=== PATIENT | male | born 1965 | race Caucasian/White ===

== ENCOUNTER 2019-12-26 09:10 | Emergency (ER) | payer OTHER, SELFPAY ==
[2019-12-26] VITALS (7 sets, daily range): BP systolic 151–170; BP diastolic 100–138; PULSE 94–127; RESP 14–24; TEMP 36.3; O2SAT 96–98
--- NOTE | ~2019-12-26 | XR_ITS ---
EXAMINATION: XR chest 1V portable DATE: 12/26/2019 10:08 INDICATION: Shortness of breath TECHNIQUE: frontal view of the chest was obtained. COMPARISON: Chest radiograph dated 05/17/2019 FINDINGS: Mild increased perihilar interstitial pattern with a few peripheral Sven B-lines at the right costo phrenic angle consistent with mild pulmonary edema. No focal airspace opacities, pleural effusion or pneumothorax. Cardiomegaly. Moderate degenerative skeletal changes in the spine and at the right rush ulder. IMPRESSION: 1. Likely congestive heart failure with cardiomegaly and mild pulmonary edema. Reviewed, dictated and finalized at location A.
--- NOTE | 2019-12-26 09:19 | ECG_ITS ---
Measurements Intervals [place] Rate: 130 P: [place]: 0 QRS: -34 QRSD: 89 T: 133 QT: 319 QTc: 469 Interpretive Statements ATRIAL FIBRILLATION WITH RAPID VENTRICULAR RESPONSE LEFT AXIS DEVIATION BORDERLINE R WAVE PROGRESSION, ANTERIOR LEADS BORDERLINE ST-T WAVE ABNORMALITY- LAT/HIGH LAT LEADS ABNORMAL ECG Electronically Signed On 12-26-2019 14:59:34 CDT by Carlos Eduardo Matos D.O.
[2019-12-26] MEDS: carvediloL 25 MG TABLET PO (09:47)
[2019-12-26] MEDS: hydrALAZINE HCL 50 MG TABLET PO (09:47)
[2019-12-26] MEDS: FUROSEMIDE INJ 40 MG/4 ML VIAL IV PUSH (09:47)
[2019-12-26] MEDS: lisinopriL 20 MG TABLET PO (09:47)
[2019-12-26 10:01] LABS: Basophils Absolute Auto 0.1 K/mm3 (0.0-0.1); Basophils Percent Auto 0.5 % (0.2-1.2); Eosinophils Absolute Auto 0.1 K/mm3 (0-0.3); Eosinophils Percent Auto 0.9 % (0-4.4); Hematocrit 48.7 % (42.0-52.0); Hemoglobin 16.1 g/dL (14.0-18.0); Immature Granulocyte Absolute 0.05 K/mm3 (0.00-0.031); Immature Granulocyte Percent A 0.5 % (0-0.5); Lymphocytes Absolute Auto 1.69 K/mm3 (0.9-3.2); Lymphocytes Percent Auto 17.1 % (18.3-44.2); Mean Corpuscular HGB Conc 33.1 g/dl (32-36); Mean Corpuscular Hemoglobin 29.8 pg (26-34); Mean Corpuscular Volume 90.2 fl (80-100); Mean Platelet Volume 10.9 fl (7.4-10.4); Monocytes Absolute Auto 0.8 K/mm3 (0.1-0.6); Neutrophils Absolute Auto 7.2 K/mm3 (1.3-6.7); Platelet Count Result 226 k/mm3 (150-375); Red Cell Distribution Width 13.3 % (11.5-14.5); White Blood Count 9.9 K/mm3 (4.5-10.0)
[2019-12-26 10:09] LABS: INR 1.8; Prothrombin Time 20.3 Seconds (11.1-14.7)
[2019-12-26 10:11] LABS: Alanine Aminotransferase 27 U/L (4-50); Alkaline Phosphatase 109 U/L (38-126); Anion Gap 9 mmol/L (8-16); Aspartate Amino Transferase 27 U/L (17-59); Bilirubin,Total 0.7 mg/dL (0.2-1.3); Blood Urea Nitrogen 19 mg/dL (9-20); Calcium 8.2 mg/dL (8.4-10.2); Carbon Dioxide 26 mmol/L (22-30); Chloride 102 mmol/L (98-107); Estimated CRCL calculation 109 ml/min; Estimated Glomerular Filt Rate > 60; Glucose 235 mg/dL (75-110); Potassium 3.7 mmol/L (3.4-5.0); Sodium 137 mmol/L (137-145)
[2019-12-26 10:23] LABS: NT Pro B Type Natriuretic Pept 3900 PG/ML (5-100); Troponin I 0.017 ng/mL (0.000-0.034)
[2019-12-26 10:28] LABS: Add Urine Microscopic? YES; Appearance Urine Clear (Clear); Bilirubin Urine Negative (Negative); Blood Urine Negative (Negative); Color Urine Yellow (Yellow); Glucose Urine UA 1+ mg/dL (Negative); Ketones Urine Negative (Negative); Leukocyte Esterase Ur Negative LEU/UL (Negative); Mucus Urine Rare /lpf; Nitrate Urine Negative (Negative); Protein Urine 2+ mg/dL (Negative); RBC Urine 0-2 /hpf (0-2); Specific Grav Ur 1.014 (1.001-1.035); Squamous Epithelial Cell Urine Rare /hpf (Few); Urobilinogen Urine Negative mg/dL (<2.0); WBC Urine 0-3 /hpf
--- NOTE | 2019-12-26 10:29 | ED.GENADULT ---
HPI - General Adult General Chief complaint: Shortness of Breath/Dyspnea Stated complaint: SOB Time Seen by Provider: 12/26/19 09:30 Source: patient History of Present Illness HPI narrative: Patient is a 54 y/o male complaining of chronic moderate shortness. He states that his SOB is worse during last few days. Bending over and exertion aggravates his SOB. He denies any cough, chest pain or fever. He states that he has history of heart failure. Related Data Home Medications Medication Instructions Recorded Confirmed Levemir FlexTouch U-100 Insuln 22 unit SUBCUT HS 12/26/19 famotidine 20 mg PO DAILY 12/26/19 fluoxetine 40 mg PO DAILY 12/26/19 furosemide 20 mg PO DAILY 12/26/19 lisinopril 12/26/19 sertraline 100 mg PO DAILY 12/26/19 Allergies Allergy/AdvReac Type Severity Reaction Status Date / Time No Known Allergies Allergy Unknown Verified 12/26/19 09:34 Review of Systems Constitutional: Constitutional: Denies chills, Denies fever(s), Denies headache(s) and Denies weakness Eyes: Eyes: Denies blurry vision ENT: Denies headache(s) and Denies neck pain Cardiovascular: Cardiovascular: Denies chest pain and Reports dyspnea Respiratory: Respiratory: Denies cough and Reports dyspnea Gastrointestinal: Gastrointestinal: Denies abdominal pain, Denies diarrhea, Denies nausea and Denies vomiting Genitourinary: Genitourinary: Denies hematuria and Denies dysuria Musculoskeletal: Musculoskeletal: Denies back pain and Denies neck pain Neurologic: Denies headache(s) and Denies weakness [facility] Past Medical History Medical History Combined systolic and diastolic congestive heart failure Echocardiogram in February 2019 showed a severely reduced left ventricular systolic function with an estimated ejection fraction of 20 to 25% as well as grade 4 diastolic dysfunction. Depression with anxiety Dyslipidemia Essential hypertension Insulin dependent diabetes mellitus Hemoglobin A1c was 9.3 February 27, 2019. Mild pulmonary hypertension Noted on echocardiogram in 03/07/2019. Estimated pulmonary arterial systolic pressure is 41 mmHg. Noncompliance w/medication treatment due to intermit use of medication Nonischemic cardiomyopathy Lexiscan in February 2019 showed no reversible changes and ejection fraction of 32%. Osteoarthritis Paroxysmal atrial fibrillation On long-term anticoagulation with warfarin. Tobacco dependence Surgical History Surgical History No history of previous surgery Family History Family History Grandparent Diabetes mellitus Father Carcinoma of colon Mother Carcinoma of colon Sibling COPD (chronic obstructive pulmonary disease) Heart disease Multiple sclerosis Social History Social History Social History: The patient is single and lives in [place]. 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 He has a tea cup chihuahua named Willard. He designates his mother, Maricel Chand, as his surrogate decision maker and he wishes to be a full code. He has smoked up to a pack of cigarettes per day since age of 13. He intends on quitting May 19, 2019. He drank heavily in the past but has abstained for 18+ years. He has a history of substance abuse long ago. Smoking packs per day: 0.5 Smoking cigarettes per day: 10.0 Years smoked: 35 Smoking pack-years: 17.50 Smoking status: Current every day smoker Tobacco type: cigarettes Alcohol intake: former Substance use: former Substance use type: marijuana, amphetamines, hallucinogens, tranquilizers and sedatives Gender identity (if verbalized by the patient): Male Spiritual care concerns: No Agree to blood products: Yes Exam Const: General: no acute distress and well developed Orientation/consciousness: oriented
[2019-12-26 13:22] LABS: Troponin I 0.021 ng/mL (0.000-0.034)
== END 2019-12-26 13:37 | disposition home or self-care (01) ==
PROVIDERS: Emergency Provider Emergency Medicine
DX: I48.0 Paroxysmal atrial fibrillation (principal); I50.40 Unspecified combined systolic (congestive) and diastolic (congestive) heart failure; F41.8 Other specified anxiety disorders; E78.5 Hyperlipidemia, unspecified; I11.0 Hypertensive heart disease with heart failure; I27.20 Pulmonary hypertension, unspecified; Z79.01 Long term (current) use of anticoagulants; F17.210 Nicotine dependence, cigarettes, uncomplicated; I42.8 Other cardiomyopathies
CPT/HCPCS: 36415; 71045; 80053; 81001; 83880; 84484; 85025; 85610; 85730; 93005; 96374; 99284; A9270; J1940

== ENCOUNTER 2020-01-11 12:18 | Emergency (ER) | payer OTHER, SELFPAY ==
--- NOTE | ~2020-01-11 | XR_ITS ---
EXAMINATION: XR chest 2V EXAM DATE: 01/11/2020 13:45 INDICATION: Shortness of breath. TECHNIQUE: Frontal and lateral projections of the chest obtained and reviewed. Comparison is made to prior examination from 12/26/2019. FINDINGS: Mild cardiomegaly. No confluent consolidation, pneumothorax or pleural effusion suspected. There are no osseous abnormalities identified. IMPRESSION: Mild cardiomegaly. Reviewed, dictated and finalized at location A. IMPRESSION: Mild cardiomegaly.
[2020-01-11 12:31] VITALS: BP 200/124; PULSE 97; RESP 16; TEMP 36.7; O2SAT 98
--- NOTE | 2020-01-11 12:36 | ECG_ITS ---
Measurements Intervals [place] Rate: 92 P: 53 [place]: 172 QRS: -35 QRSD: 90 T: 129 QT: 349 QTc: 433 Interpretive Statements SINUS RHYTHM LEFT AXIS DEVIATION CANNOT RULE OUT SEPTAL INFARCT, AGE INDETERMINATE NONSPECIFIC ST & T-WAVE ABNORMALITY- INF/LAT LEADS BASELINE ARTIFACT- I, III, AVR, AVL, AVF ABNORMAL ECG Electronically Signed On 01-11-2020 13:40:49 CDT by Carlos Eduardo Matos D.O.
[2020-01-11 12:50] VITALS: BP 196/125; PULSE 88; PULSE 89; RESP 18; O2SAT 99
[2020-01-11 13:00] LABS: Basophils Percent Auto 0.4 % (0.2-1.2); Eosinophils Absolute Auto 0.1 K/mm3 (0-0.3); Eosinophils Percent Auto 0.8 % (0-4.4); Hemoglobin 15.1 g/dL (14.0-18.0); Immature Granulocyte Absolute 0.06 K/mm3 (0.00-0.031); Immature Granulocyte Percent A 0.6 % (0-0.5); Lymphocytes Absolute Auto 1.34 K/mm3 (0.9-3.2); Lymphocytes Percent Auto 13.2 % (18.3-44.2); Mean Corpuscular HGB Conc 32.1 g/dl (32-36); Mean Corpuscular Hemoglobin 28.4 pg (26-34); Mean Corpuscular Volume 88.5 fl (80-100); Monocytes Absolute Auto 0.7 K/mm3 (0.1-0.6); Monocytes Percent Auto 6.6 % (2.6-8.5); Neutrophils Absolute Auto 7.9 K/mm3 (1.3-6.7); Neutrophils Percent Auto 78.4 % (45.5-73.1); Platelet Count Result 217 k/mm3 (150-375); Red Blood Count 5.31 M/mm3 (4.6-6.20); Red Cell Distribution Width 13.4 % (11.5-14.5); White Blood Count 10.1 K/mm3 (4.5-10.0)
--- NOTE | 2020-01-11 13:00 | ED.SOB ---
HPI - SOB/Dyspnea General Chief Complaint: Shortness of Breath/Dyspnea Stated Complaint: shortness breath Time Seen by Provider: 01/11/20 12:46 Source: patient Mode of arrival: ambulatory Limitations: no limitations History of Present Illness HPI Narrative: 54 years old white male, morbidly obese, history of congestive heart failure presents with intermittent shortness of breath for the last 3 years, got worse over the last 2-1/2 weeks. With swelling lower extremity mainly on the right. Patient also complaining of intermittent coughing. Patient denies any chills fever, nausea, vomiting, exposure to anybody with known having COVID-19. Currently patient on Coumadin and lisinopril for hypertension. Patient does not take his medication regularly. Did not take his medication this morning. Patient smokes, does not drink, does not use drugs. Related Data Home Medications Medication Instructions Recorded Confirmed Levemir FlexTouch U-100 Insuln 22 unit SUBCUT HS 12/26/19 famotidine 20 mg PO DAILY 12/26/19 furosemide 20 mg PO DAILY 12/26/19 lisinopril 12/26/19 Allergies Allergy/AdvReac Type Severity Reaction Status Date / Time No Known Allergies Allergy Unknown Verified 01/11/20 12:34 Review of Systems Review of Systems: Narrative: CONSTITUTIONAL: Denies fever, chills, or sweats. EYES: Denies visual changes, redness, or discharge. ENT: Denies rhinorrhea, congestion, sore throat, or otalgia. CARDIOVASCULAR: Denies chest pain, palpitations, or edema. RESPIRATORY: Denies cough or dyspnea. GASTROINTESTINAL: Denies abdominal pain, nausea, vomiting, or diarrhea. GENITOURINARY: Denies dysuria or hematuria. SKIN: Denies rash or itching. MUSCULOSKELETAL: Denies back pain, joint pain, or myalgia. NEUROLOGIC: Denies headache, numbness, or weakness. PSYCHIATRIC: Denies anxiety or depression. [facility] Past Medical History Medical History Combined systolic and diastolic congestive heart failure Echocardiogram in February 2019 showed a severely reduced left ventricular systolic function with an estimated ejection fraction of 20 to 25% as well as grade 4 diastolic dysfunction. Depression with anxiety Dyslipidemia Essential hypertension Insulin dependent diabetes mellitus Hemoglobin A1c was 9.3 February 27, 2019. Mild pulmonary hypertension Noted on echocardiogram in 03/07/2019. Estimated pulmonary arterial systolic pressure is 41 mmHg. Noncompliance w/medication treatment due to intermit use of medication Nonischemic cardiomyopathy Lexiscan in February 2019 showed no reversible changes and ejection fraction of 32%. Osteoarthritis Paroxysmal atrial fibrillation On long-term anticoagulation with warfarin. Tobacco dependence Surgical History Surgical History No history of previous surgery Family History Family History Grandparent Diabetes mellitus Father Carcinoma of colon Mother Carcinoma of colon Sibling COPD (chronic obstructive pulmonary disease) Heart disease Multiple sclerosis Social History Social History Social History: The patient is single and lives in [place]. 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 He designates his mother, Maricel Chand, as his surrogate decision maker and he wishes to be a full code. He has smoked up to a pack of cigarettes per day since age of 13. He intends on quitting May 19, 2019. He drank heavily in the past but has abstained for 18+ years. He has a history of substance abuse long ago. Smoking packs per day: 0.5 Smoking cigarettes per day: 10.0 Years smoked: 35 Smoking pack-years: 17.50 Smoking status: Current every day smoker Tobacco type: cigarettes Alcohol intake: former Substance use: former Substance use
[2020-01-11 13:12] LABS: Anion Gap 8 mmol/L (8-16); Blood Urea Nitrogen 12 mg/dL (9-20); Calcium 8.2 mg/dL (8.4-10.2); Carbon Dioxide 23 mmol/L (22-30); Chloride 104 mmol/L (98-107); Estimated CRCL calculation 121 ml/min; Estimated Glomerular Filt Rate > 60; Glucose 330 mg/dL (75-110); Potassium 4.1 mmol/L (3.4-5.0); Sodium 135 mmol/L (137-145)
[2020-01-11] MEDS: FUROSEMIDE INJ 40 MG/4 ML VIAL 60 MG IV PUSH (13:13)
[2020-01-11] MEDS: lisinopriL 10 MG TABLET PO (13:13)
[2020-01-11] MEDS: NITROGLYCERIN OINTMENT 1 INCH DOSE TRANSDERM (13:13)
[2020-01-11 13:21] LABS: NT Pro B Type Natriuretic Pept 4070 PG/ML (5-100)
[2020-01-11 13:24] LABS: Troponin I < 0.012 ng/mL (0.000-0.034)
[2020-01-11 13:27] LABS: Alveolar/Arterial O2 Gradient 35.7 mmHg; Base Excess ABG -0.6 mEq/l (+/-2.0); Fractional Inspired Oxygen 21 %; HCO3 ABG 22.7 mEq/l (22.0-26.0); Modified Allen's Test Pass; Oxygen Saturation ABG 95.5 % (95.0-100.0); Oxyhemoglobin 91.9 % THb (90.0-100.0); PCO2 ABG 33.7 mmHg (35.0-45.0); PO2 ABG 73.7 mmHg (80.0-100.0); PO2 FiO2 Ratio Arterial Blood 3.51 %; Site Drawn RIGHT RADIAL; Total Hemoglobin 15.5 g/dL (12.0-18.0); pH ABG 7.446 (7.350-7.450)
[2020-01-11 13:28] LABS: Device ROOM AIR
[2020-01-11 15:34] VITALS: BP 162/105; PULSE 69; RESP 18; O2SAT 97
== END 2020-01-11 15:35 | disposition home or self-care (01) ==
PROVIDERS: Emergency Medicine; Emergency Provider Emergency Medicine; PCP Physician Assistant
DX: I11.0 Hypertensive heart disease with heart failure (principal); I50.9 Heart failure, unspecified; E66.9 Obesity, unspecified; Z68.38 Body mass index [BMI] 38.0-38.9, adult; F17.210 Nicotine dependence, cigarettes, uncomplicated; E78.5 Hyperlipidemia, unspecified; E11.9 Type 2 diabetes mellitus without complications; Z79.4 Long term (current) use of insulin; M19.90 Unspecified osteoarthritis, unspecified site; I48.91 Unspecified atrial fibrillation; Z79.01 Long term (current) use of anticoagulants; I27.20 Pulmonary hypertension, unspecified
CPT/HCPCS: 36415; 36600; 71046; 80048; 82805; 83880; 84484; 85025; 93005; 96374; 99284; A9270; J1940

== ENCOUNTER 2020-01-30 15:48 | Inpatient (IN) | payer OTHER, SELFPAY ==
[2020-01-30] VITALS (11 sets, daily range): BP systolic 173–205; BP diastolic 102–134; PULSE 85–102; RESP 18–24; TEMP 35.6–37.1; O2SAT 94–98; BMI 38.5
--- NOTE | ~2020-01-30 | XR_ITS ---
EXAMINATION: XR chest 1V portable DATE: 01/30/2020 16:21 INDICATION: Shortness of breath and cough. TECHNIQUE: A single frontal view of the chest was obtained. COMPARISON: Chest 2 views 01/11/2020, chest CT 04/08/2017 FINDINGS: There is no pneumonia, pleural effusion, or pneumothorax. Cardiomegaly is noted. IMPRESSION: 1. Cardiomegaly. Reviewed, dictated and finalized at location A. IMPRESSION: 1. Cardiomegaly.
--- NOTE | ~2020-01-30 | US_ITS ---
EXAMINATION:US venous doppler LE BI INDICATION:Leg edema TECHNIQUE: Multiple grayscale, color flow and Doppler images of the right and left lower extremity de ep venous systems were obtained and reviewed. COMPARISON:Ultrasound dated 05/17/2019 FINDINGS: The common femoral, superficial femoral and popliteal veins demonstrate normal respiratory variation, augmentation and compressibility. Color flow is also seen within the posterior tibial, pe roneal, greater saphenous and profunda veins. IMPRESSION: 1: No lower extremity deep venous thrombosis. Reviewed, dictated and finalized at location B.
--- NOTE | 2020-01-30 15:53 | ECG_ITS ---
Measurements Intervals [place] Rate: 94 P: 51 [place]: 173 QRS: -38 QRSD: 92 T: 124 QT: 348 QTc: 437 Interpretive Statements SINUS RHYTHM LEFT AXIS DEVIATION BORDERLINE R WAVE PROGRESSION, ANTERIOR LEADS BORDERLINE ST-T WAVE ABNORMALITY- HIGH LATERAL LEADS BASELINE ARTIFACT- I, III, AVL, AVF, V4 BORDERLINE ECG Electronically Signed On 01-31-2020 7:03:18 CDT by Carlos Eduardo Matos D.O.
[2020-01-30 16:05] LABS: Basophils Percent Auto 0.4 % (0.2-1.2); Eosinophils Absolute Auto 0.1 K/mm3 (0-0.3); Eosinophils Percent Auto 0.8 % (0-4.4); Hematocrit 48.5 % (42.0-52.0); Hemoglobin 15.5 g/dL (14.0-18.0); Immature Granulocyte Absolute 0.08 K/mm3 (0.00-0.031); Immature Granulocyte Percent A 0.7 % (0-0.5); Lymphocytes Absolute Auto 1.69 K/mm3 (0.9-3.2); Lymphocytes Percent Auto 15.1 % (18.3-44.2); Mean Corpuscular Hemoglobin 28.2 pg (26-34); Mean Corpuscular Volume 88.2 fl (80-100); Mean Platelet Volume 10.5 fl (7.4-10.4); Monocytes Absolute Auto 0.9 K/mm3 (0.1-0.6); Monocytes Percent Auto 8.1 % (2.6-8.5); Neutrophils Absolute Auto 8.4 K/mm3 (1.3-6.7); Neutrophils Percent Auto 74.9 % (45.5-73.1); Platelet Count Result 248 k/mm3 (150-375); Red Cell Distribution Width 14.5 % (11.5-14.5); White Blood Count 11.2 K/mm3 (4.5-10.0)
[2020-01-30 16:16] LABS: Anion Gap 8 mmol/L (8-16); Blood Urea Nitrogen 19 mg/dL (9-20); Calcium 8.6 mg/dL (8.4-10.2); Carbon Dioxide 29 mmol/L (22-30); Chloride 100 mmol/L (98-107); Estimated CRCL calculation 97 ml/min; Estimated Glomerular Filt Rate > 60; Glucose 318 mg/dL (75-110); Potassium 4.5 mmol/L (3.4-5.0); Sodium 137 mmol/L (137-145)
[2020-01-30 16:28] LABS: NT Pro B Type Natriuretic Pept 5380 PG/ML (5-100); Troponin I 0.014 ng/mL (0.000-0.034)
[2020-01-30] MEDS: FUROSEMIDE INJ 40 MG/4 ML VIAL IV PUSH ×2 (16:38→23:06)
--- NOTE | 2020-01-30 16:47 | ED.SOB ---
HPI - SOB/Dyspnea General Chief Complaint: Shortness of Breath/Dyspnea Stated Complaint: sob/leg swelling Time Seen by Provider: 01/30/20 16:02 History of Present Illness HPI Narrative: Patient is a 54-year-old male who presents ER with shortness of breath and edema. Reports shortness of breath is worsening over the last week as well as edema. Has history of CHF and pulmonary hypertension. He has been taking Lasix 20 mg daily however his PCP had him increase the dose last 3 days which has not helped. Has pitting edema up to his lower abdomen. Feels like he is gaining a lot of weight. Denies eating any salty foods. No chest pain or chest pressure. Does have increased discomfort with laying down flat. No fevers or chills or sweats. There is audible rattles when breathing. Related Data Home Medications Medication Instructions Recorded Confirmed Levemir FlexTouch U-100 Insuln 22 unit SUBCUT HS 12/26/19 famotidine 20 mg PO DAILY 12/26/19 furosemide 20 mg PO DAILY 12/26/19 lisinopril 12/26/19 bupropion HCl mg PO 01/30/20 carvedilol 01/30/20 hydralazine 01/30/20 magnesium oxide 01/30/20 sertraline 100 mg PO DAILY 01/30/20 spironolactone 01/30/20 Allergies Allergy/AdvReac Type Severity Reaction Status Date / Time No Known Allergies Allergy Unknown Verified 01/30/20 15:54 Review of Systems Review of Systems: All systems reviewed & are unremarkable except as noted in HPI and below Constitutional: Constitutional: Denies chills, Denies fever(s) and Denies weakness ENT: Denies nasal congestion and Denies sore throat Cardiovascular: Cardiovascular: Denies chest pain, Denies rapid heart rate and Denies radiating jaw, neck or arm pain Respiratory: Respiratory: Reports chest congestion, Reports cough, Reports dyspnea and Denies wheezing Gastrointestinal: Gastrointestinal: Denies abdominal pain, Denies nausea and Denies vomiting Musculoskeletal: Musculoskeletal: Denies arthralgias and Denies joint swelling Comments: Extremity edema PMFSH Social History Social History Social History: The patient is single and lives in [place]. 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 He designates his mother, Maricel Chand, as his surrogate decision maker and he wishes to be a full code. He has smoked up to a pack of cigarettes per day since age of 13. He intends on quitting May 19, 2019. He drank heavily in the past but has abstained for 18+ years. He has a history of substance abuse long ago. Smoking packs per day: 0.5 Smoking cigarettes per day: 10.0 Years smoked: 35 Smoking pack-years: 17.50 Smoking status: Current every day smoker Tobacco type: cigarettes Alcohol intake: former Substance use: former Substance use type: marijuana, amphetamines, hallucinogens, tranquilizers and sedatives Gender identity (if verbalized by the patient): Male Spiritual care concerns: No Agree to blood products: Yes Exam Narrative: Exam Narrative: GENERAL: Well-appearing, obese, and in no acute distress. HEAD: Normocephalic, atraumatic. ENT: Mucous membranes moist. CHEST: Rales throughout. No respiratory distress. HEART: Regular rate and rhythm. Normal peripheral pulses. ABDOMEN: Soft, nontender, nondistended. Pitting edema of the lower abdomen. EXTREMITIES: Normal range of motion. 4+edema. SKIN: Warm, dry, no rash. NEURO: Alert and oriented x3. PSYCH: Normal mood and affect. Course Reevaluation(s) Reevaluation #1: Reweighed patient. She has a 35 pound weight gain since his last visit here. We will plan admission for diuresis. Date: 01/30/20 Time: 16:51 Vital Signs Vital signs: Vital Signs Temperature 97.4 F L 01/30/20 15:50 Pulse Rate 96 01/30/20 15:50 Respiratory Rate 22 H 01/30/20 15:50 Pulse Oximetry 98 01/30/20 15:50 Temperature 98.1 F 01/30/20 17:39 Pulse Rate 102
[2020-01-30] MEDS: NITROGLYCERIN OINTMENT 1 INCH DOSE (17:34)
--- NOTE | 2020-01-30 20:01 | ADMGEN ---
This patient, Rohan Chand, was admitted to IMU Room 209-01 at 1957. Patient/family oriented to hospital policies and general routines including ID bracelet, bed and alarms, visiting hours, pain management, procedures, bathroom and other care routines, personal items, smoking policy, room service/diet, and visiting hours. Valuables list has been completed. Information on how to activate the Rapid Response Team has been discussed. Patient/Family are encouraged to report perceived risks to care and to ask questions if they do not understand what they are told or what they should do.
[2020-01-30] MEDS: ACETAMINOPHEN 325 MG TABLET 650 MG PO (21:51)
--- NOTE | 2020-01-30 22:49 | PM.IMHP ---
H&P: HPI History of Present Illness Date/Time: 01/30/20 22:49 Chief complaint: chf exacerbation, hypertension Narrative: Rohan Chand is a 54 year old male Who stated that he came to the emergency approximately 1 week ago. I see there was a note from 01/11/2020 with the patient came to the ER here and was short of breath and had at that time he noticed that his shortness of breath was getting worse the last 2 and half weeks. 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 The patient was discharged back to home during his December visit he called his primary care doctor and was told to double up on his Lasix. He stated it did not help. The patient stated that his legs are swollen 3 times the normal. He denies having any scrotal edema but his abdomen feels distended. The patient has orthopnea which he has had for years. He has been known to be noncompliant with his medications at times. Patient stated is not that he does not want to take his medications just sometimes he does not taken does not feel like it. He states that for the last couple weeks he has been compliant with his medication however. He also tells me that he is compliant with his diet and he is 111.7 kg. The patient tells me that he has gained a lot of weight any feels that it is just all water weight. The patient stated that his Lasix was only doubled for 3 days and then went back to normal. He has audible wheezes. The patient still continues to smoke. He is diabetic and his blood sugar was in the 300s today. His chest x-ray was read as cardiomegaly. The patient was given IV Lasix in the emergency room as well as nitroglycerin. Now the patient is complaining of a headache he was given Tylenol and he said that did help. date of service 01/30/2020 Review of Systems Review of Systems: All systems reviewed & are unremarkable except as noted in HPI and below Constitutional: Constitutional: Reports as per HPI and Reports no additional constitutional complaints Eyes: Eyes: Reports as per HPI and Reports no additional eye complaints ENT: Reports system reviewed and no additional complaints, except as documented and Reports Normal hearing present Cardiovascular: Cardiovascular: Reports no additional cardiovascular complaints Respiratory: Respiratory: Reports no additional respiratory complaints and Reports no additional respiratory complaints Gastrointestinal: Gastrointestinal: Reports as per HPI and Reports no additional gastrointestinal complaints Musculoskeletal: Musculoskeletal: Reports no additional musculoskeletal complaints Integumentary/Breasts: Skin/Breast: Reports system reviewed and no additional complaints, except as docu and Reports as per HPI Neurologic: Reports system reviewed and no additional complaints, except as documented, Reports as per HPI and Reports Normal hearing present Psychiatric: Psychiatric: Reports no additional psychiatric complaints and Reports as per HPI Endocrine: Endocrine: Reports no additional endocrine complaints Hematologic/Lymphatic: Hematologic/Lymphatic: Reports no additional hematologic/lymphatic complaints Allergic/Immunologic: Allergic/Immunologic: Reports no additional allergic/immunologic complaints [facility] Past Medical History Medical History Combined systolic and diastolic congestive heart failure Echocardiogram in February 2019 showed a severely reduced left ventricular systolic function with an estimated ejection fraction of 20 to 25% as well as grade 4 diastolic dysfunction. Depression with anxiety Dyslipidemia Essential hypertension Insulin dependent diabetes mellitus Hemoglobin A1c was 9.3 February 27, 2019. Mild pulmonary hypertension Noted on echocardiogram in 03/07/2019. Estimated pulmonary arterial systolic pressure is 41 mmHg. Noncompliance w/medication treatment due to intermit use of
[2020-01-30] MEDS: KETOROLAC 30 MG/ML VIAL (*BKC) IV PUSH (23:06)
[2020-01-31] VITALS (16 sets, daily range): BP systolic 148–174; BP diastolic 96–107; PULSE 64–89; RESP 18–22; TEMP 36–36.5; O2SAT 96–100
--- NOTE | 2020-01-31 | ECHO_ITS ---
Patient Info Name: Rohan Chand Age: 54 years : 1965 Gender: Male Ht: 67 in Wt: 246 lbs BSA: 2.35 m2 HR: 68 bpm BP: 148 / 96 mmHg Technical Quality: Good Exam Date: 01/31/2020 8:30 AM Exam Location: [facility] Patient Status: Inpatient Admit Date: 01/30/2020 Staff Ordering Physician: Kary Corrales NP Knitter Helper: Tristan Myers RDCS, RT Attending Provider: Michaela Brothers MD Referring Physician: Antoni MIKE; Exam Type: CA echo doppler color flow Study Info Indications I50.9 - Heart failure, unspecified Complete two-dimensional, color flow and Doppler transthoracic echocardiogram is performed. Summary 1. Complete two-dimensional, color flow and Doppler transthoracic echocardiogram is performed. 2. Left ventricular chamber dimension is mildly enlarged. 3. Left ventricular systolic function is moderately reduced, estimated at 40-45%. 4. There is moderately increased left ventricular wall thickness. 5. The left ventricular diastolic function is grade IV diastolic dysfunction. 6. E/e' 17 is elevated. 7. Global longitudinal strain is abnormal at -9.0%. 8. Left atrial chamber dimension is moderately enlarged. 9. There is mild aortic valve sclerosis. 10. There is mild aortic valve regurgitation. 11. There is mild mitral valve regurgitation. 12. There is moderate tricuspid valve regurgitation. 13. Severe pulmonary hypertension, estimated pulmonary arterial systolic pressure is 61 mmHg. 14. Dilated inferior vena cava with <50% collapse upon inspiration consistent with significantly elevated right atrial pressure, 15 mmHg. Left Ventricle E/e' 17 is elevated. Global longitudinal strain is abnormal at -9.0%. Left ventricular chamber dimension is mildly enlarged. Left ventricular systolic function is moderately reduced, estimated at 40-45%. There is moderately increased left ventricular wall thickness. The left ventricular diastolic function is grade IV diastolic dysfunction. Right Ventricle Right ventricular chamber dimension is normal. Right ventricular systolic function is normal. Left Atria Left atrial chamber dimension is moderately enlarged. Right Atria Right atrial chamber dimension is normal. Aortic Valve The aortic valve is trileaflet. There is mild aortic valve sclerosis. There is no aortic valve stenosis. There is mild aortic valve regurgitation. Pulmonic Valve There is no pulmonic regurgitation. Mitral Valve There is no mitral valve stenosis. There is mild mitral valve regurgitation. Tricuspid Valve There is moderate tricuspid valve regurgitation. Severe pulmonary hypertension, estimated pulmonary arterial systolic pressure is 61 mmHg. Pericardium/Pleural There is no pericardial effusion. Inferior Vena Cava Dilated inferior vena cava with <50% collapse upon inspiration consistent with significantly elevated right atrial pressure, 15 mmHg. Aorta The aortic root size at the sinus of Valsalva is normal. Left Ventricular Outflow Tract Name Value Normal LVOT 2D LVOT Diameter 2.0 cm LVOT Doppler LVOT Peak Gradient 4 mmHg
[2020-01-31 00:23] LABS: INR 4.2; Prothrombin Time 39.9 Seconds (11.1-14.7)
[2020-01-31] MEDS: carvediloL 25 MG TABLET PO ×3 (00:51→21:01)
[2020-01-31 05:26] LABS: INR 4.4; Prothrombin Time 41.4 Seconds (11.1-14.7)
[2020-01-31 08:31] LABS: Glucose Point of Care 293 (65-105)
[2020-01-31] MEDS: buPROPion HCL XL (24 HR) 150 MG TABCR PO (09:18)
[2020-01-31] MEDS: SPIRONOLACTONE 25 MG TABLET PO (09:18)
[2020-01-31] MEDS: hydrALAZINE HCL 50 MG TABLET PO (09:18)
[2020-01-31] MEDS: SERTRALINE HCL 50 MG TABLET 100 MG PO (09:18)
[2020-01-31] MEDS: MAGNESIUM OXIDE 400 MG TABLET PO ×2 (09:18→17:24)
[2020-01-31] MEDS: lisinopriL 20 MG TABLET PO ×2 (09:18→17:24)
[2020-01-31] MEDS: FUROSEMIDE INJ 40 MG/4 ML VIAL IV PUSH ×2 (09:18→21:01)
[2020-01-31] MEDS: FAMOTIDINE 20 MG TABLET PO (09:18)
[2020-01-31] MEDS: INSULIN ASPART (*BKC) 100 UNITS/ML SUB-Q ×3 (09:22→17:24)
[2020-01-31 09:50] LABS: Anion Gap 5 mmol/L (8-16); Blood Urea Nitrogen 18 mg/dL (9-20); Calcium 8.3 mg/dL (8.4-10.2); Carbon Dioxide 33 mmol/L (22-30); Chloride 97 mmol/L (98-107); Estimated CRCL calculation 112 ml/min; Estimated Glomerular Filt Rate > 60; Glucose 281 mg/dL (75-110); Magnesium 1.9 mg/dL (1.6-2.3); Potassium 3.8 mmol/L (3.4-5.0); Sodium 135 mmol/L (137-145)
[2020-01-31 09:52] LABS: Hemoglobin A1C 10.5 % (<5.7)
[2020-01-31 12:35] LABS: Glucose Point of Care 264 (65-105)
[2020-01-31 16:17] LABS: Glucose Point of Care 289 (65-105)
--- NOTE | 2020-01-31 16:59 | PM.CNCAR ---
Assessment and Plan Assessment and plan (1) COPD (chronic obstructive pulmonary disease): Code(s): J44.9 - Chronic obstructive pulmonary disease, unspecified Status: Acute Assessment and Plan: Neb treatments. (2) Essential hypertension: Code(s): I10 - Essential (primary) hypertension Status: Acute Assessment and Plan: High. Increase Hydralazine 50 mg TID, Lisinopril 20 mg BID. (3) Dyslipidemia: Code(s): E78.5 - Hyperlipidemia, unspecified Status: Acute (4) Tobacco dependence: Code(s): F17.200 - Nicotine dependence, unspecified, uncomplicated Status: Acute Assessment and Plan: Counseled regarding smoking cessation. (5) Paroxysmal atrial fibrillation: Code(s): I48.0 - Paroxysmal atrial fibrillation Status: Acute Assessment and Plan: On Warfarin that is supratherapeutic and managed by PCP. Needs redosing. (6) Nonischemic cardiomyopathy: Code(s): I42.8 - Other cardiomyopathies Status: Acute (7) Acute on chronic congestive heart failure: Code(s): I50.9 - Heart failure, unspecified Status: Acute Assessment and Plan: Acute on chronic diastolic heart failure as his systolic function improved to 40-45%. No longer needs Life Vest or ICD. Continue with Lasix 40 mg IV BID. Continue Spironolactone. Upon discharge he will need to make appointment with a bank accountant with [facility]. (8) Hypersomnia: Code(s): G47.10 - Hypersomnia, unspecified Status: Acute Assessment and Plan: Will need outpatient sleep study. History of Present Illness History of Present Illness Consult date/time: 01/31/20 16:59 Reason for consult: CHF. 54 yr old man who is my regular cardiology patient though he has not followed up with in the office due to insurance reasons. He has a history of non-compliance with medication, non-ICM with negative nuclear stress test in Feb 2019 and last echo in Feb 2019 with EF 20-25% and his EF has been that way since at least July 2018, PAF, IDDM, hypertension, dyslipidemia, COPD, smoking, probably PETROS and with cor-pulmonale who presents to ED with shortness of breath, orthopnea, edema and wheezing. States that sob and edema and increased abdominal girth have been getting worse in last couple of weeks. He feels much better now but still has mild sob, orthopnea, edema and some wheezing after receiving IV lasix. States he can probably walk 1 block and then gets MOORE. He admits to smoking 9 cigarrettes per day. He snores, wakes up and has daytime sleepiness. He has not gotten outpatient sleep study. Workup thus far shows INR 4.4 on warfarin and this has been managed by his PCP. Troponin is negative. NTproBNP 5,380. CXR is OK with only cardiomegaly. Venous duplex of legs are negative for DVT bilaterally. EKG shows sinus rhythm with nonspecific ST-T wave abnormalities. Echo today shows EF improved to 40-45%, grade IV diastolic dysfunction (E/e' 17), mod LVH, mild AI/MR, mod TR. Reason For Visit: chf exacerbation, hypertension Review of Systems Review of Systems: All systems reviewed & are unremarkable except as noted in HPI and below Constitutional: Constitutional: Reports as per HPI and Denies chills Cardiovascular: Cardiovascular: Reports as per HPI, Denies chest pain, Reports leg edema, Denies lightheadedness and Denies palpitations Respiratory: Respiratory: Reports as per HPI and Reports dyspnea Gastrointestinal: Gastrointestinal: Reports as per HPI and Denies abdominal pain Genitourinary: Genitourinary: Reports as per HPI and Denies dysuria Musculoskeletal: Musculoskeletal: Reports as per HPI Neurologic: Reports as per HPI and Denies confusion [facility] Past Medical History Medical History (Updated 01/31/20 @ 17:11 by Carlos Eduardo Matos DO) Combined systolic and diastolic congestive heart failure Echocardiogram in February 2019 showed a severely reduced left ve
--- NOTE | 2020-01-31 18:38 | PM.IMPN ---
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 Continue with his Levemir (2) Acute on chronic congestive heart failure: Code(s): I50.9 - Heart failure, unspecified Status: Acute Assessment and Plan: the patient tells me that he is going to start going to a ear nose throat surgeon [facility] because Dr. mcgee does not take his insurance. In the past the patient has not been very compliant with his treatment plan. I did order another echo. Is reported that last echo was in February and that his EF was around 25% With grade 4 diastolic dysfunction and that he tells me he did wear a LifeVest at that time. Patient attempted to double up on his Lasix but that did not appear to work. The patient has 4+ pitting edema to lower extremities as well as his abdomen. The patient is on room air but still continues to complain of orthopnea and exertional dyspnea. We can continue with his Coreg and lisinopril as well. the patient was given nitro patch in the emergency room and is complaining of a headache. 01/31/20 18:38 patient is a 54-year-old male with history severe cardiomyopathy with ejection fraction of 20% he was seen in May of 2019 and seen by ear nose throat surgeon Dr. Mcgee and started the patient on Coreg and lisinopril with instruction must take medication on a regular basis and repeat cardiac echo to reassess cardiomyopathy however patient had not been compliant with his medical treatment and now presents with a complaint shortness of breath swelling of lower extremity and chest pain, patient is being diuresed, repeat cardiac echo, consult ear nose throat surgeon for further recommendation patient is feeling little better compared to when he arrived, patient also has a history of diabetes and his hemoglobin A1c is 10.5 suggesting is uncontrolled. (3) Paroxysmal atrial fibrillation: Code(s): I48.0 - Paroxysmal atrial fibrillation Status: Acute Assessment and Plan: patient is on Coumadin will do daily PT INR and he is on Coreg. He is currently in a sinus rhythm. (4) Dyslipidemia: Code(s): E78.5 - Hyperlipidemia, unspecified Status: Acute Assessment and Plan: We have discussed a heart healthy diet. (5) Essential hypertension: Code(s): I10 - Essential (primary) hypertension Status: Acute Assessment and Plan: He is on Coreg and lisinopril. Continue spironolactone And hydralazine (6) COPD (chronic obstructive pulmonary disease): Code(s): J44.9 - Chronic obstructive pulmonary disease, unspecified Status: Acute Assessment and Plan: I have encouraged the patient to stop smoking. The patient had agreed to stop smoking back in May but still has not quit he said that he is down to half pack a cigarettes a day. I did offer him a p.r.n. inhaler. (7) Depression with anxiety: Code(s): F41.8 - Other specified anxiety disorders Status: Chronic Assessment and Plan: continue with Zoloft and Wellbutrin Subjective Date/time seen: 01/31/20 18:38 patient is a 54-year-old male with history severe cardiomyopathy with ejection fraction of 20% he was seen in May of 2019 and seen by ear nose throat surgeon Dr. Mcgee and started the patient on Coreg and lisinopril with instruction must take medication on a regular basis and repeat cardiac echo to reassess cardiomyopathy however patient had not been compliant with his medical treatment and now presents with a complaint shortness of breath swelling of lower extremity and chest pain, patient is being diuresed, repeat cardiac echo, consult ear nose throat surgeon for further recommendation patient is feeling little better compared to when he arrived, patient also has a history of diabetes and his hemoglobin A1c is 1
[2020-01-31 20:34] LABS: Glucose Point of Care 239 (65-105)
[2020-01-31] MEDS: INSULIN DETEMIR 100 UNITS/ML 27 UNITS SUB-Q (21:02)
[2020-02-01] VITALS (18 sets, daily range): BP systolic 145–165; BP diastolic 57–115; PULSE 58–79; RESP 18–20; TEMP 35.7–36.4; O2SAT 94–98
[2020-02-01 05:04] LABS: INR 3.2; Prothrombin Time 31.9 Seconds (11.1-14.7)
[2020-02-01 05:05] LABS: Anion Gap 6 mmol/L (8-16); Blood Urea Nitrogen 17 mg/dL (9-20); Calcium 8.6 mg/dL (8.4-10.2); Carbon Dioxide 30 mmol/L (22-30); Chloride 102 mmol/L (98-107); Estimated CRCL calculation 111 ml/min; Estimated Glomerular Filt Rate > 60; Glucose 166 mg/dL (75-110); Potassium 3.8 mmol/L (3.4-5.0); Sodium 138 mmol/L (137-145)
--- NOTE | 2020-02-01 08:06 | PM.PNCARD ---
Progress Note: A&P Assessment and Plan (1) Hypersomnia: Code(s): G47.10 - Hypersomnia, unspecified Status: Acute (2) COPD (chronic obstructive pulmonary disease): Code(s): J44.9 - Chronic obstructive pulmonary disease, unspecified Status: Acute (3) Essential hypertension: Code(s): I10 - Essential (primary) hypertension Status: Acute Assessment and Plan: High. Start Amlodipine 5 mg daily. Had increased Hydralazine 50 mg TID and Lisinopril 20 mg BID. On Coreg 25 mg BID and Spironolactone 25 mg daily. Monitor BP. (4) Dyslipidemia: Code(s): E78.5 - Hyperlipidemia, unspecified Status: Acute (5) Tobacco dependence: Code(s): F17.200 - Nicotine dependence, unspecified, uncomplicated Status: Acute Assessment and Plan: Counseled regarding smoking cessation. (6) Paroxysmal atrial fibrillation: Code(s): I48.0 - Paroxysmal atrial fibrillation Status: Acute Assessment and Plan: On Warfarin and currently in sinus rhythm. PCP was managing warfarin dosing. (7) Nonischemic cardiomyopathy: Code(s): I42.8 - Other cardiomyopathies Status: Acute (8) Acute on chronic congestive heart failure: Code(s): I50.9 - Heart failure, unspecified Status: Acute Assessment and Plan: Acute on chronic diastolic heart failure as his systolic function improved to 40-45%. No longer needs Life Vest or ICD. Continue with Lasix 40 mg IV BID. Continue Spironolactone. Upon discharge he will need to make appointment with a studio assistant with [facility] who accepts his [facility] insurance. Subjective Date/time seen: 02/01/20 08:06 Reports breathing much better. Still has edema of legs. No chest pains. Exam Const: General: comfortable and no acute distress Neck: Neck: no JVD Carotids: no bruits Resp: Auscultation: clear to auscultation bilaterally, no crackles, no rales, no rhonchi and no wheezes Cardio: Rate: regular rate Rhythm: regular rhythm Heart sounds: no murmurs GI: Inspection: non-distended Neuro: Speech: normal speech Extrem: Right lower extremity: edema Left lower extremity: edema Other: Moderate edema of both legs and feet. Objective Data Vital Signs Vital Signs: Vital Signs - 24 hr 01/31/20 09:17 01/31/20 10:00 01/31/20 12:00 Temperature 97.6 F Pulse Rate 72 70 64 Respiratory Rate 22 H Blood Pressure 160/97 H Pulse Oximetry 100 01/31/20 14:00 01/31/20 16:00 01/31/20 18:00 Temperature 97.6 F Pulse Rate 64 75 71 Respiratory Rate 20 Blood Pressure 174/107 H Pulse Oximetry 99 01/31/20 20:00 01/31/20 21:01 01/31/20 22:00 Temperature 97.6 F Pulse Rate 77 73 79 Respiratory Rate 18 Blood Pressure 161/102 H Pulse Oximetry 97 01/31/20 23:32 02/01/20 00:00 02/01/20 02:00 Temperature 97.0 F L Pulse Rate 65 62 58 L Respiratory Rate 18 18 Blood Pressure 150/102 H Pulse Oximetry 98 98 02/01/20 04:00 02/01/20 06:00 Temperature 97.5 F L Pulse Rate 69 66 Respiratory Rate 18 Blood Pressure 165/115 H Pulse Oximetry 94 Intake/Output Intake/Output: Intake & Output 01/29/20 01/30/20 01/31/20 02/01/20 23:59 23:59 23:59 23:59 Intake Total 772 940 Output Total 6600 3450 1000 [facility]5828 -2510 -1000 Meds/Results Medications: Active Medications Generic Name Dose Route Start Last Admin Trade Name Freq PRN Reason Stop Dose Admin Acetaminophen 650 mg 01/30/20 17:22 01/30/20 21:51 Tylenol Tablet PO 650 mg Q4H PRN Administration Mild Pain (1-3) or Fever Hydrocodone Bitart/Acetaminophen 1 tab 01/30/20 17:22 [place] 5-325 Mg PO Q4H PRN Pain Rated 4-6 Albuterol 2 puff 01/30/20 22:59 Proventil Hfa INHALATION QIDRT PRN Shortness Of Breath Amlodipine Besylate 5 mg 02/01/20 09:00 Norvasc PO QAM MELISA Bupropion HCl 150 mg 01/31/20 09:00 01/31/20 09:18 Wellbutrin Xl (24 Hr) PO 150 mg DANNIE
[2020-02-01 08:31] LABS: Glucose Point of Care 126 (65-105)
[2020-02-01] MEDS: amLODIPine BESYLATE 5 MG TABLET PO (08:44)
[2020-02-01] MEDS: carvediloL 25 MG TABLET PO ×2 (08:44→20:38)
[2020-02-01] MEDS: buPROPion HCL XL (24 HR) 150 MG TABCR PO (08:44)
[2020-02-01] MEDS: MAGNESIUM OXIDE 400 MG TABLET PO ×2 (08:45→18:23)
[2020-02-01] MEDS: FUROSEMIDE INJ 40 MG/4 ML VIAL IV PUSH ×2 (08:45→20:39)
[2020-02-01] MEDS: hydrALAZINE HCL 50 MG TABLET PO ×3 (08:45→18:23)
[2020-02-01] MEDS: SERTRALINE HCL 50 MG TABLET 100 MG PO (08:45)
[2020-02-01] MEDS: FAMOTIDINE 20 MG TABLET PO (08:45)
[2020-02-01] MEDS: SPIRONOLACTONE 25 MG TABLET PO (08:45)
[2020-02-01] MEDS: lisinopriL 20 MG TABLET PO ×2 (08:45→18:23)
[2020-02-01 11:52] LABS: Glucose Point of Care 206 (65-105)
[2020-02-01] MEDS: INSULIN ASPART (*BKC) 100 UNITS/ML SUB-Q (12:15)
[2020-02-01 17:01] LABS: Glucose Point of Care 139 (65-105)
--- NOTE | 2020-02-01 17:07 | PM.IMPN ---
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 Continue with his Levemir (2) Acute on chronic congestive heart failure: Code(s): I50.9 - Heart failure, unspecified Status: Acute Assessment and Plan: the patient tells me that he is going to start going to a sales agent trading stamps over at [facility] because Dr. mcgee does not take his insurance. In the past the patient has not been very compliant with his treatment plan. I did order another echo. Is reported that last echo was in February and that his EF was around 25% With grade 4 diastolic dysfunction and that he tells me he did wear a LifeVest at that time. Patient attempted to double up on his Lasix but that did not appear to work. The patient has 4+ pitting edema to lower extremities as well as his abdomen. The patient is on room air but still continues to complain of orthopnea and exertional dyspnea. We can continue with his Coreg and lisinopril as well. the patient was given nitro patch in the emergency room and is complaining of a headache. 02/01/20 17:07 patient is a 54-year-old male with history severe cardiomyopathy with ejection fraction of 20% he was seen in May of 2019 and seen by sales agent trading stamps Dr. Mcgee and started the patient on Coreg and lisinopril with instruction must take medication on a regular basis and repeat cardiac echo to reassess cardiomyopathy however patient had not been compliant with his medical treatment and now presents with a complaint shortness of breath swelling of lower extremity and chest pain, patient is being diuresed, Today on 01/[address] Mcgee,repeat cardiac echo, showed improvement in his ejection fraction to 45% compared to 20% on last with as such patient is not require any lifevest or ICD, the sales agent trading stamps like to monitor and diurese the patient 1 more day will reassess him tomorrow and possibly discharge patient also has a history of diabetes and his hemoglobin A1c is 10.5 suggesting is uncontrolled will consult aircraft line assembler for further recommendation (3) Paroxysmal atrial fibrillation: Code(s): I48.0 - Paroxysmal atrial fibrillation Status: Acute Assessment and Plan: patient is on Coumadin will do daily PT INR and he is on Coreg. He is currently in a sinus rhythm. (4) Dyslipidemia: Code(s): E78.5 - Hyperlipidemia, unspecified Status: Acute Assessment and Plan: We have discussed a heart healthy diet. (5) Essential hypertension: Code(s): I10 - Essential (primary) hypertension Status: Acute Assessment and Plan: He is on Coreg and lisinopril. Continue spironolactone And hydralazine (6) COPD (chronic obstructive pulmonary disease): Code(s): J44.9 - Chronic obstructive pulmonary disease, unspecified Status: Acute Assessment and Plan: I have encouraged the patient to stop smoking. The patient had agreed to stop smoking back in May but still has not quit he said that he is down to half pack a cigarettes a day. I did offer him a p.r.n. inhaler. (7) Depression with anxiety: Code(s): F41.8 - Other specified anxiety disorders Status: Chronic Assessment and Plan: continue with Zoloft and Wellbutrin Subjective Date/time seen: 02/01/20 17:07 patient is a 54-year-old male with history severe cardiomyopathy with ejection fraction of 20% he was seen in May of 2019 and seen by sales agent trading stamps Dr. Mcgee and started the patient on Coreg and lisinopril with instruction must take medication on a regular basis and repeat cardiac echo to reassess cardiomyopathy however patient had not been compliant with his medical treatment and now presents with a complaint shortness of breath swelling of lower extremity and angely
[2020-02-01 20:31] LABS: Glucose Point of Care 237 (65-105)
[2020-02-01] MEDS: INSULIN DETEMIR 100 UNITS/ML 27 UNITS SUB-Q (20:40)
[2020-02-02] VITALS (9 sets, daily range): BP systolic 134–136; BP diastolic 74–89; PULSE 59–86; RESP 18–20; TEMP 35.6–35.8; O2SAT 96–99
[2020-02-02 05:01] LABS: INR 1.9; Prothrombin Time 21.5 Seconds (11.1-14.7)
[2020-02-02 05:06] LABS: Anion Gap 7 mmol/L (8-16); Blood Urea Nitrogen 19 mg/dL (9-20); Calcium 8.7 mg/dL (8.4-10.2); Carbon Dioxide 28 mmol/L (22-30); Chloride 101 mmol/L (98-107); Estimated CRCL calculation 109 ml/min; Estimated Glomerular Filt Rate > 60; Glucose 108 mg/dL (75-110); Potassium 3.7 mmol/L (3.4-5.0); Sodium 136 mmol/L (137-145)
[2020-02-02 08:09] LABS: Glucose Point of Care 89 (65-105)
--- NOTE | 2020-02-02 08:15 | PM.PNCARD ---
Progress Note: A&P Assessment and Plan (1) Hypersomnia: Code(s): G47.10 - Hypersomnia, unspecified Status: Acute (2) COPD (chronic obstructive pulmonary disease): Code(s): J44.9 - Chronic obstructive pulmonary disease, unspecified Status: Acute (3) Essential hypertension: Code(s): I10 - Essential (primary) hypertension Status: Acute Assessment and Plan: Improved. On Amlodipine 10 mg daily, Hydralazine 50 mg TID and Lisinopril 20 mg BID. On Coreg 25 mg BID and Spironolactone 25 mg daily. (4) Dyslipidemia: Code(s): E78.5 - Hyperlipidemia, unspecified Status: Acute (5) Tobacco dependence: Code(s): F17.200 - Nicotine dependence, unspecified, uncomplicated Status: Acute Assessment and Plan: Counseled regarding smoking cessation. (6) Paroxysmal atrial fibrillation: Code(s): I48.0 - Paroxysmal atrial fibrillation Status: Acute Assessment and Plan: On Warfarin and currently in sinus rhythm. PCP was managing warfarin dosing. Restart warfarin as INR 1.9 today probably at lower than home dose since he came in with INR 4.4. Advise to check INR regularly with PCP. (7) Nonischemic cardiomyopathy: Code(s): I42.8 - Other cardiomyopathies Status: Acute (8) Acute on chronic congestive heart failure: Code(s): I50.9 - Heart failure, unspecified Status: Acute Assessment and Plan: Resolved. Acute on chronic diastolic heart failure as his systolic function improved to 40-45%. No longer needs Life Vest or ICD. Change Lasix 40 mg PO BID after AM IV dose. Continue Spironolactone. May discharge home from cardiology standpoint. Upon discharge he will need to make appointment with a counseling case manager with [facility] who accepts his [employer] insurance. He will need outpatient sleep study. Subjective Date/time seen: 02/02/20 08:15 Denies chest pain or sob. Pedal edema. Exam Const: General: comfortable and no acute distress Neck: Neck: no JVD Carotids: no bruits Resp: Auscultation: no crackles, no rales, no rhonchi and wheezes (Slight left lung inspiratory wheeze) Cardio: Rate: regular rate Rhythm: regular rhythm Heart sounds: no murmurs GI: Inspection: non-distended Neuro: Speech: normal speech Extrem: Right lower extremity: edema Left lower extremity: edema Other: Moderate pedal edema bilaterally. Objective Data Vital Signs Vital Signs: Vital Signs - 24 hr 02/01/20 08:44 02/01/20 10:00 02/01/20 12:00 Temperature Pulse Rate 79 68 58 L Respiratory Rate Blood Pressure Pulse Oximetry 02/01/20 12:40 02/01/20 14:00 02/01/20 16:00 Temperature 96.3 F L 96.6 F L Pulse Rate 65 62 69 Respiratory Rate 20 20 Blood Pressure 147/90 H 147/57 H Pulse Oximetry 98 98 02/01/20 18:00 02/01/20 19:42 02/01/20 20:00 Temperature 96.5 F L Pulse Rate 68 69 74 Respiratory Rate 18 Blood Pressure 146/94 H Pulse Oximetry 98 02/01/20 20:38 02/01/20 22:00 02/01/20 23:52 Temperature 96.6 F L Pulse Rate 68 64 66 Respiratory Rate 18 Blood Pressure 154/99 H Pulse Oximetry 98 02/02/20 00:00 02/02/20 01:55 02/02/20 04:00 Temperature Pulse Rate 72 61 59 L Respiratory Rate Blood Pressure Pulse Oximetry 02/02/20 04:29 02/02/20 06:00 02/02/20 08:11 Temperature 96.5 F L 96.1 F L Pulse Rate 61 59 L 64 Respiratory Rate 18 20 Blood Pressure 136/89 134/74 Pulse Oximetry 96 99 Intake/Output Intake/Output: Intake & Output 01/30/20 01/31/20 02/01/20 02/02/20 23:59 23:59 23:59 23:59 Intake Total 502 175 2152 250 Output Total 5258 3106 9410 [id number] -2510 -1268 250 Meds/Results Medications: Active Medications Generic Name Dose Route Start Last Admin Trade Name Freq PRN Reason Stop Dose Admin Acetaminophen 650 mg 01/30/20 17:22 01/30/20 21:51 Tylenol Tablet PO 650 mg Q4H PRN Administration Mild Pain (1-3) or Fever Hydroco
[2020-02-02] MEDS: FUROSEMIDE INJ 40 MG/4 ML VIAL IV PUSH (09:25)
[2020-02-02] MEDS: amLODIPine BESYLATE 5 MG TABLET 10 MG PO (09:25)
[2020-02-02] MEDS: hydrALAZINE HCL 50 MG TABLET PO ×2 (09:25→11:31)
[2020-02-02] MEDS: carvediloL 25 MG TABLET PO (09:25)
[2020-02-02] MEDS: buPROPion HCL XL (24 HR) 150 MG TABCR PO (09:25)
[2020-02-02] MEDS: FAMOTIDINE 20 MG TABLET PO (09:25)
[2020-02-02] MEDS: SPIRONOLACTONE 25 MG TABLET PO (09:26)
[2020-02-02] MEDS: SERTRALINE HCL 50 MG TABLET 100 MG PO (09:26)
[2020-02-02] MEDS: MAGNESIUM OXIDE 400 MG TABLET PO (09:26)
[2020-02-02] MEDS: lisinopriL 20 MG TABLET PO (09:26)
--- NOTE | 2020-02-02 10:14 | PM.DS ---
DS: Admitting Diagnosis Admitting Diagnosis Admitting Diagnosis: chf exacerbation, hypertension DS: Discharge Diagnosis Discharge Diagnosis (1) Insulin dependent diabetes mellitus: Code(s): E11.9 - Type 2 diabetes mellitus without complications; Z79.4 - manager terminal (current) use of insulin Status: Acute Assessment and Plan: Accu-Cheks AC and HS. Continue with his Levemir (2) Acute on chronic congestive heart failure: Code(s): I50.9 - Heart failure, unspecified Status: Acute Assessment and Plan: the patient tells me that he is going to start going to a digital community manager over at [facility] because Dr. mcgee does not take his insurance. In the past the patient has not been very compliant with his treatment plan. I did order another echo. Is reported that last echo was in February and that his EF was around 25% With grade 4 diastolic dysfunction and that he tells me he did wear a LifeVest at that time. Patient attempted to double up on his Lasix but that did not appear to work. The patient has 4+ pitting edema to lower extremities as well as his abdomen. The patient is on room air but still continues to complain of orthopnea and exertional dyspnea. We can continue with his Coreg and lisinopril as well. the patient was given nitro patch in the emergency room and is complaining of a headache. 02/01/20 17:07 patient is a 54-year-old male with history severe cardiomyopathy with ejection fraction of 20% he was seen in May of 2019 and seen by digital community manager Dr. Mcgee and started the patient on Coreg and lisinopril with instruction must take medication on a regular basis and repeat cardiac echo to reassess cardiomyopathy however patient had not been compliant with his medical treatment and now presents with a complaint shortness of breath swelling of lower extremity and chest pain, patient is being diuresed, Today on 01/[address] Mcgee,repeat cardiac echo, showed improvement in his ejection fraction to 45% compared to 20% on last with as such patient is not require any lifevest or ICD, the digital community manager like to monitor and diurese the patient 1 more day will reassess him tomorrow and possibly discharge patient also has a history of diabetes and his hemoglobin A1c is 10.5 suggesting is uncontrolled will consult certified adaptive physical educator for further recommendation (3) Paroxysmal atrial fibrillation: Code(s): I48.0 - Paroxysmal atrial fibrillation Status: Acute Assessment and Plan: patient is on Coumadin will do daily PT INR and he is on Coreg. He is currently in a sinus rhythm. (4) Dyslipidemia: Code(s): E78.5 - Hyperlipidemia, unspecified Status: Acute Assessment and Plan: We have discussed a heart healthy diet. (5) Essential hypertension: Code(s): I10 - Essential (primary) hypertension Status: Acute Assessment and Plan: He is on Coreg and lisinopril. Continue spironolactone And hydralazine (6) COPD (chronic obstructive pulmonary disease): Code(s): J44.9 - Chronic obstructive pulmonary disease, unspecified Status: Acute Assessment and Plan: I have encouraged the patient to stop smoking. The patient had agreed to stop smoking back in May but still has not quit he said that he is down to half pack a cigarettes a day. I did offer him a p.r.n. inhaler. (7) Depression with anxiety: Code(s): F41.8 - Other specified anxiety disorders Status: Chronic Assessment and Plan: continue with Zoloft and Wellbutrin DS: Summary Hospital Course Reason for hospitalization: Chief complaint: chf exacerbation, hypertension Narrative: Rohan Chand is a 54 year old male Who stated that he came to the emergency approximately 1 week ago. I see there was a note from 01/11/2020 with the patient came to the ER here and was short of breath and had at that time he noticed that his shortness of breath was getting worse the last
== END 2020-02-02 11:38 | disposition home or self-care (01) | DRG 194 ==
LOC: ANHED 18:09 → ANHIMU 19:31
PROVIDERS: Nurse Practitioner; Admitting Provider Family Medicine; Emergency Provider Emergency Medicine; PCP Physician Assistant; Visit Provider Family Medicine
DX: I11.0 Hypertensive heart disease with heart failure (principal); I50.33 Acute on chronic diastolic (congestive) heart failure; I27.20 Pulmonary hypertension, unspecified; I42.8 Other cardiomyopathies; I48.0 Paroxysmal atrial fibrillation; E11.9 Type 2 diabetes mellitus without complications; J44.9 Chronic obstructive pulmonary disease, unspecified; E78.5 Hyperlipidemia, unspecified; F41.8 Other specified anxiety disorders; F17.210 Nicotine dependence, cigarettes, uncomplicated; G47.10 Hypersomnia, unspecified; Z79.01 Long term (current) use of anticoagulants; Z79.4 Long term (current) use of insulin; Z79.899 Other long term (current) drug therapy
CPT/HCPCS: 36415; 71045; 80048; 83036; 83735; 83880; 84484; 85025; 85610; 93005; 93306; 93970; 96374; 96375; 96376; 99285; A9270; G0378; G0379; J1815; J1885; J1940

== ENCOUNTER 2020-08-09 09:10 | Inpatient (IN) | payer OTHER, SELFPAY ==
[2020-08-09] VITALS (25 sets, daily range): BP systolic 133–169; BP diastolic 78–131; PULSE 98–129; RESP 14–26; TEMP 35.8–36.7; O2SAT 95–99; BMI 43.2
--- NOTE | ~2020-08-09 | XR_ITS ---
EXAMINATION: XR chest 2V 08/09/2020 09:36 INDICATION: History of CHF. Shortness of breath. PROCEDURE: AP and lateral views of the chest COMPARISON: Comparison to multiple prior studies sequentially, with oldest reviewed study dated 05/2019. FINDINGS: The lungs are clear. There is cardiomegaly. There is diffuse idiopathic skeletal hyperostos is (DISH) of the thoracic spine. There are no pleural effusions. There is no pneumothorax suspected . IMPRESSION: 1: NO ACUTE CARDIOPULMONARY DISEASE. Reviewed, dictated and finalized at location A.
--- NOTE | ~2020-08-09 | CT_ITS ---
EXAMINATION: CTA chest PE protocol DATE: 08/09/2020 10:19 INDICATION: Shortness of breath TECHNIQUE: Computed tomography (CT) pulmonary angiogram of the chest was performed with 100 mL Omnipa que-350 intravenous contrast. Additional 3D reconstructions utilizing coronal maximum intensity proje ction (MIP) were performed. Automated exposure control and iterative reconstruction technique were em ployed. The dose-length product was 977.49 mGy-cm. COMPARISON: CT studies dated 04/08/2017, 07/21/2015 and 04/29/2010 FINDINGS: Excellent contrast opacification of the pulmonary arteries. There is moderate streak artifact from de nse contrast in the superior vena cava and right atrium. Animal scattered respiratory motion artifact which does not significantly limit evaluation. No pulmonary embolism. Small dependently layering rig ht pleural effusion. No pneumonia, pulmonary edema or left pleural effusion. A few bilateral small sc attered calcified pulmonary nodules consistent with old granulomatous disease. Mild cardiomegaly. The re is reflux of contrast into the inferior vena cava and hepatic veins consistent with tricuspid regu rgitation. Thoracic aorta is normal in caliber. No significant change in chronic likely reactive medi astinal lymphadenopathy. 2 cm low-density left adrenal adenoma. No significant interval change in a 1.9 cm soft tissue density nodule along the tortuous and atherosclerotic splenic artery which could represent an enlarged gastr ohepatic lymph node or a splenic artery aneurysm. Also without significant interval change or multipl e additional enlarged upper abdominal lymph nodes in the gastrohepatic, peripancreatic and periportal regions. There is approximately 5.5 cm mass at the cephalad aspect of the spleen which is better isak reciated on the CT from 04/29/2010 which given the long interval stability is most certainly benign s uch as a hemangioma. There is a new region of scarring with focal volume loss at the central aspect o f the spleen which is likely sequela of prior trauma or infarct. Small amount of perihepatic ascites. There are bridging osteophytes at multiple levels in the thoracic spine, consistent with diffuse idi opathic skeletal hyperostosis (DISH). IMPRESSION: 1. No pulmonary embolism. 2. Small right pleural effusion. 3. Mild cardiomegaly with likely tricuspid regurgitation. 4. Stable appearance since 2015 of likely chronic reactive mediastinal and upper abdominal lymphadeno karan. 5. 5.5 cm chronic mass in the spleen which measure approximately 4.5 cm on study dated 04/29/2010 whi ch given the interval lapse time is almost certainly benign most likely a hemangioma. 6. No change since 04/08/2017 in a 2 cm nodule along the splenic artery which could represent either a reactive gastrohepatic lymph node or splenic artery aneurysm. 7. Small amount of perihepatic ascites. Reviewed, dictated and finalized at location A. IMPRESSION: 1. No pulmonary embolism. 2. Small right pleural effusion. 3. Mild cardiomegaly with likely tricuspid regurgitation. 4. Stable appearance since 2015 of likely chronic reactive mediastinal and uppe r abdominal lymphadenopathy. 5. 5.5 cm chronic mass in the spleen which measure approximately 4.5 cm on stud y dated 04/29/2010 which given the interval lapse time is almost certainly dov gn most likely a hemangioma. 6. No change since 04/08/2017 in a 2 cm nodule along the splenic artery which c ould represent either a reactive gastrohepatic lymph node or splenic artery ane urysm. 7. Small amount of perihepatic ascites.
--- NOTE | 2020-08-09 09:18 | ECG_ITS ---
Measurements Intervals [place] Rate: 130 P: NH: 0 QRS: -30 QRSD: 97 T: 152 QT: 309 QTc: 455 Interpretive Statements ATRIAL FIBRILLATION WITH RAPID VENTRICULAR RESPONSE MISSING LEAD II LEFT AXIS DEVIATION BORDERLINE R WAVE PROGRESSION, ANTERIOR LEADS NONSPECIFIC ST & T-WAVE ABNORMALITY- LAT/HIGH LAT LEADS ABNORMAL ECG Electronically Signed On 08-09-2020 11:53:35 CDT by Carlos Eduardo Matos D.O.
[2020-08-09 09:29] LABS: Basophils Absolute Auto 0.1 K/mm3 (0.0-0.1); Basophils Percent Auto 0.6 % (0.2-1.2); Eosinophils Absolute Auto 0.1 K/mm3 (0-0.3); Eosinophils Percent Auto 0.9 % (0-4.4); Hematocrit 51.6 % (42.0-52.0); Immature Granulocyte Absolute 0.06 K/mm3 (0.00-0.031); Immature Granulocyte Percent A 0.6 % (0-0.5); Lymphocytes Absolute Auto 1.96 K/mm3 (0.9-3.2); Lymphocytes Percent Auto 19.4 % (18.3-44.2); Mean Corpuscular HGB Conc 32.9 g/dl (32-36); Mean Corpuscular Hemoglobin 29.7 pg (26-34); Mean Corpuscular Volume 90.1 fl (80-100); Mean Platelet Volume 9.7 fl (7.4-10.4); Monocytes Absolute Auto 0.9 K/mm3 (0.1-0.6); Monocytes Percent Auto 9.1 % (2.6-8.5); Neutrophils Percent Auto 69.4 % (45.5-73.1); Platelet Count Result 190 k/mm3 (150-375); Red Blood Count 5.73 M/mm3 (4.6-6.20); Red Cell Distribution Width 13.3 % (11.5-14.5); White Blood Count 10.1 K/mm3 (4.5-10.0)
[2020-08-09 09:38] LABS: INR 1.1; Partial Thromboplastin Time 27.5 SECONDS (22.3-36.8); Prothrombin Time 14.6 Seconds (11.1-14.7)
--- NOTE | 2020-08-09 09:39 | ED.GENADULT ---
HPI - General Adult General Chief complaint: Shortness of Breath/Dyspnea <Kenyon Barragan PA-C - Last Filed: 08/09/20 11:30> Stated complaint: SOB <Kenyon Barragan PA-C - Last Filed: 08/09/20 11:30> Time Seen by Provider: 08/09/20 09:12 <Kenyon Barragan PA-C - Last Filed: 08/09/20 11:30> History of Present Illness HPI narrative: Patient is a 55-year-old male history of CHF, A. fib, COPD who comes to the emergency room today complaining of worsening of his chronic shortness of breath. Reports that he has gained about 10 pounds in the last 2 weeks. Reporting dyspnea on exertion primarily. Feeling like his legs are more swollen than normal and feeling like his abdomen is swollen. Feeling like he is wheezing, he is still smoking. Denies orthopnea. Denies any fevers or cough. Notes that about a week ago his primary care physician adjusted his home meds and discontinued several of his medicines including his Coreg. Also notes he is not on anticoagulant at this time because he cannot afford it. Did not take his morning medicines other than his insulin. Admits to medication compliance otherwise. Does not have a marketing production coordinator. Patient lives by himself. <ORIANA Anders Last Filed: 08/09/20 11:30> Related Data Home medications: Home Medications Medication Instructions Recorded Confirmed Levemir FlexTouch U-100 Insuln 27 unit SUBCUT HS 12/26/19 01/30/20 famotidine 20 mg PO DAILY 12/26/19 01/30/20 bupropion HCl 150 mg PO DAILY 01/30/20 01/30/20 carvedilol 25 mg PO BID 01/30/20 01/30/20 magnesium oxide 400 mg PO BID 01/30/20 01/30/20 sertraline 100 mg PO DAILY 01/30/20 01/30/20 spironolactone 25 mg PO DAILY 01/30/20 01/30/20 <ORIANA Anders Last Filed: 08/09/20 11:30> Allergies/adverse reactions: Allergies Allergy/AdvReac Type Severity Reaction Status Date / Time No Known Allergies Allergy Unknown Verified 08/09/20 09:22 <Kenyon Barragan PA-C - Last Filed: 08/09/20 11:30> Review of Systems Review of Systems: All systems reviewed & are unremarkable except as noted in HPI and below <Kenyon Barragan PA-C - Last Filed: 08/09/20 11:30> [facility] Past Medical History Medical History: Medical History (Updated 01/31/20 @ 17:11 by Carlos Eduardo Matos DO) Combined systolic and diastolic congestive heart failure Echocardiogram in February 2019 showed a severely reduced left ventricular systolic function with an estimated ejection fraction of 20 to 25% as well as grade 4 diastolic dysfunction. Depression with anxiety Dyslipidemia Essential hypertension Insulin dependent diabetes mellitus Hemoglobin A1c was 9.3 February 27, 2019. Mild pulmonary hypertension Noted on echocardiogram in 03/07/2019. Estimated pulmonary arterial systolic pressure is 41 mmHg. Noncompliance w/medication treatment due to intermit use of medication Nonischemic cardiomyopathy Lexiscan in February 2019 showed no reversible changes and ejection fraction of 32%. Osteoarthritis Paroxysmal atrial fibrillation On long-term anticoagulation with warfarin. Tobacco dependence <Kenyon Barragan PA-C - Last Filed: 08/09/20 11:30> Surgical History Surgical History: Surgical History No history of previous surgery <Kenyon Barragan PA-C - Last Filed: 08/09/20 11:30> Family History Family History: Family History Grandparent Diabetes mellitus Father Carcinoma of colon Mother Carcinoma of colon Sibling COPD (chronic obstructive pulmonary disease) Heart disease Multiple sclerosis <Kenyon Barragan PA-C - Last Filed: 08/09/20 11:30> Social History Social History: Social History (Updated 01/30/20 @ 23:00 by Kary Corrales NP) Social History: The patient is single and lives in [place]. 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
[2020-08-09 09:40] LABS: Anion Gap 7 mmol/L (8-16); Blood Urea Nitrogen 17 mg/dL (9-20); Calcium 8.9 mg/dL (8.4-10.2); Carbon Dioxide 27 mmol/L (22-30); Chloride 103 mmol/L (98-107); Estimated CRCL calculation 120 ml/min; Estimated Glomerular Filt Rate > 60; Glucose 260 mg/dL (75-110); Potassium 4.2 mmol/L (3.4-5.0); Sodium 137 mmol/L (137-145)
[2020-08-09 09:52] LABS: NT Pro B Type Natriuretic Pept 2830 PG/ML (5-100); Troponin I 0.023 ng/mL (0.000-0.034)
[2020-08-09] MEDS: dilTIAZem HCl INJ 25 MG/5 ML VIAL 10 MG IV PUSH (10:02)
--- NOTE | 2020-08-09 12:14 | PM.CNCAR ---
Assessment and Plan Assessment and plan (1) Essential hypertension: Code(s): I10 - Essential (primary) hypertension Status: Acute Assessment and Plan: Continue to monitor. (2) Dyslipidemia: Code(s): E78.5 - Hyperlipidemia, unspecified Status: Acute (3) Tobacco dependence: Code(s): F17.200 - Nicotine dependence, unspecified, uncomplicated Status: Acute Assessment and Plan: Counseled regarding smoking cessation. (4) Paroxysmal atrial fibrillation: Code(s): I48.0 - Paroxysmal atrial fibrillation Status: Acute Assessment and Plan: On Diltiazem drip. Resume Coreg 12.5 mg BID for rate control and BP control. Resume warfarin for anticoagulation. (5) Nonischemic cardiomyopathy: Code(s): I42.8 - Other cardiomyopathies Status: Acute Assessment and Plan: Resume Coreg and Lisinopril. Lasix 40 mg IV daily. Continue Spironolactone 25 mg daily. (6) Noncompliance w/medication treatment due to intermit use of medication: Code(s): Z91.14 - Patient's other noncompliance with medication regimen Status: Acute (7) Hypersomnia: Code(s): G47.10 - Hypersomnia, unspecified Status: Acute Assessment and Plan: Will need outpatient sleep study. (8) Obesity: Code(s): E66.9 - Obesity, unspecified Status: Acute History of Present Illness History of Present Illness Consult date/time: 08/09/20 12:14 Reason for consult: Atrial fib with RVR. 55 yr old man presents to ER for MOORE. who I saw last in hospital in Jan 2020 but cannot follow up with me as he has [employer] insurance which we do not accept. He has a history of non-compliance with medication, non-ICM with negative nuclear stress test in Feb 2019 and last echo in Jan 2020 with EF 40-45% which improved from 20-25% previous to that, PAF, IDDM, hypertension, dyslipidemia, COPD, smoking, probably PETROS and with cor-pulmonale. I am seeing him in ED. He reports he got more shortness of breath in last 2 months, orthopnea, edema and wheezing. States that sob and edema and increased abdominal girth have been getting worse in last couple of weeks. He admits to smoking 3 cigarettes per day down from 1 ppd. He snores, wakes up and has daytime sleepiness. He has not gotten outpatient sleep study. He only takes insulin, Spironolactone. He stopped taking Coreg, Lasix, warfarin. Reason For Visit: SOB Review of Systems Review of Systems: All systems reviewed & are unremarkable except as noted in HPI and below Constitutional: Constitutional: Reports as per HPI, Denies chills and Denies fever(s) Cardiovascular: Cardiovascular: Reports as per HPI, Denies chest pain, Reports irregular heart rhythm and Reports leg edema Respiratory: Respiratory: Reports as per HPI, Reports dyspnea and Reports dyspnea on exertion Gastrointestinal: Gastrointestinal: Reports as per HPI, Denies abdominal pain and Reports bloating Genitourinary: Genitourinary: Reports as per HPI and Denies dysuria Musculoskeletal: Musculoskeletal: Reports as per HPI Neurologic: Reports as per HPI, Denies dizziness and Denies syncope [facility] Past Medical History Medical History (Updated 08/09/20 @ 12:22 by Carlos Eduardo Matos DO) Combined systolic and diastolic congestive heart failure Echocardiogram in February 2019 showed a severely reduced left ventricular systolic function with an estimated ejection fraction of 20 to 25% as well as grade 4 diastolic dysfunction. Depression with anxiety Dyslipidemia Essential hypertension Insulin dependent diabetes mellitus Hemoglobin A1c was 9.3 February 27, 2019. Mild pulmonary hypertension Noted on echocardiogram in 03/07/2019. Estimated pulmonary arterial systolic pressure is 41 mmHg. Noncompliance w/medication treatment due to intermit use of medication Nonischemic cardiomyopathy Lexiscan in February 2019 showed no reversible changes and ejection fraction of 32%. Osteoarthritis Paro
[2020-08-09] MEDS: HEPARIN SODIUM 5,000 UNITS/ML VIAL 7500 UNITS IV PUSH (12:45)
[2020-08-09] MEDS: HEPARIN SOD/D5W 100 UNITS/ML 25,000 UNITS/250 ML BAG 15 UNITS IV CONT (12:46)
--- NOTE | 2020-08-09 13:44 | ADMGEN ---
This patient, Rohan Chand, was admitted to IMU Room 200-01. Patient/family oriented to hospital policies and general routines including ID bracelet, bed and alarms, visiting hours, pain management, procedures, bathroom and other care routines, personal items, smoking policy, room service/diet, and visiting hours. Information on how to activate the Rapid Response Team has been discussed. Patient/Family are encouraged to report perceived risks to care and to ask questions if they do not understand what they are told or what they should do.
--- NOTE | 2020-08-09 14:15 | PM.IMHP ---
H&P: HPI History of Present Illness Date/Time: 08/09/20 14:15 Chief Complaint: Shortness of breath. Narrative: This a 55-year-old male smoker with history of noncompliance, nonischemic cardiomyopathy with improved ejection fraction, paroxysmal atrial fibrillation, insulin-dependent type 2 diabetes mellitus, hypertension who presented to the emergency department earlier today for evaluation of shortness of breath. He has not been compliant with his medications and stop taking several of them including carvedilol, warfarin, and possibly another because they make him tired. He states compliance with his insulin, however. In any regard, he reports progressive dyspnea on lesser and lesser exertion over the past couple of months in addition to orthopnea, wheezing, and increasing lower extremity edema. He has had a mild cough but is nonproductive. He continues to smoke but has cut back significantly, now down to maybe 3 cigarettes a day. He denies fever, chills, sweats, chest pain, pleuritic pain, nausea, vomiting, and sweats. Review of Systems Review of Systems: Narrative: Twelve systems were reviewed with pertinent positives and negatives as per HPI. No fever, chills, or sweats. No recent cold or flu symptoms. Denies exposure to those positive for COVID-19. No known history of sleep apnea. He does snore but denies waking up gasping for air. He also denies daytime somnolence to me but reported to another physician that he does get quite sleepy during the day. He states compliance with his insulin, but notes an isolated high reading of 387 about 3 weeks ago. It has been more steady around 200 for the last couple of weeks. No blurry vision, polydipsia, or polyuria. Except as documented, all other systems were reviewed and are negative. [facility] Past Medical History Medical History Chronic obstructive pulmonary disease Combined systolic and diastolic congestive heart failure Echocardiogram in 01/2020 with improved EF of 40 to 45%, grade 4 diastolic dysfunction, and severe pulmonary hypertension. Depression with anxiety Dyslipidemia Essential hypertension Insulin dependent diabetes mellitus Hemoglobin A1c was 10.5 in 01/2020. Noncompliance w/medication treatment due to intermit use of medication Nonischemic cardiomyopathy Lexiscan in February 2019 showed no reversible changes and ejection fraction of 32%. Osteoarthritis Paroxysmal atrial fibrillation On long-term anticoagulation with warfarin. Severe pulmonary hypertension Echocardiogram in 01/2020 showed severe pulmonary hypertension with an estimated pulmonary arterial systolic pressure of 61 mmHg. Tobacco dependence Surgical History Surgical History No history of previous surgery Family History Family History Grandparent Diabetes mellitus Father Carcinoma of colon Mother Carcinoma of colon Sibling COPD (chronic obstructive pulmonary disease) Heart disease Multiple sclerosis Social History Social History (Updated 08/09/20 @ 14:29 by Pratibha Wells PA-C) Social History: The patient is single and lives in [place] with his tea cup marlena named Willard. He is and has 2 children, son and daughter, but unfortunately they are estranged. 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 He designates his sister, Kavita Gleason, as his surrogate decision maker and he wishes to be a full code. He has smoked up to a pack of cigarettes per day since age of 13. The patient is down to half a pack a cigarettes a day. He drank heavily in the past but has abstained for 18+ years. History of substance abuse long ago. Spiritual care concerns: No Agree to blood products: Yes Meds Home Medications and Allergies Home Medications Medication Instructions Recorded Confirmed Type carvedilol 25 mg PO Q12
[2020-08-09 17:07] LABS: Hemoglobin A1C 12.1 % (<5.7)
[2020-08-09 17:59] LABS: Glucose Point of Care 213 (65-105)
[2020-08-09 19:01] LABS: Partial Thromboplastin Time 85.5 SECONDS (22.3-36.8)
[2020-08-09] MEDS: INSULIN ASPART (*BKC) 100 UNITS/ML SUB-Q (19:02)
[2020-08-09 20:39] LABS: Glucose Point of Care 249 (65-105)
[2020-08-09] MEDS: WARFARIN (*PBKC) 5 MG TABLET PO (20:57)
[2020-08-09] MEDS: carvediloL 25 MG TABLET PO (20:58)
[2020-08-09] MEDS: FUROSEMIDE 20 MG TABLET PO (20:58)
[2020-08-09] MEDS: INSULIN GLARGINE (*BKC) 100 UNITS/ML 25 UNITS SUB-Q (22:55)
[2020-08-09] MEDS: ACETAMINOPHEN 325 MG TABLET 650 MG PO (22:56)
[2020-08-10] VITALS (19 sets, daily range): BP systolic 109–156; BP diastolic 78–109; PULSE 60–109; RESP 20–24; TEMP 36.2–36.7; O2SAT 98–100
--- NOTE | 2020-08-10 | ECHO_ITS ---
Patient Info Name: Rohan Chand Age: 55 years : 1965 Gender: Male Ht: 67 in Wt: 273 lbs BSA: 2.48 m2 HR: 78 bpm BP: 109 / 81 mmHg Technical Quality: Good Exam Date: 08/10/2020 1:47 PM Exam Location: [facility] Pulmonary Exam Room: 200 Patient Status: Inpatient Admit Date: 08/09/2020 Staff Ordering Physician: Carlos Eduardo Matos DO Public Relations Professional: Willow Narvaez RDCS Attending Provider: Mp Amaro MD Referring Physician: Carlo AYON; Exam Type: CA echo doppler color flow Study Info Indications - sob afib Complete two-dimensional, color flow and Doppler transthoracic echocardiogram is performed. Summary 1. Complete two-dimensional, color flow and Doppler transthoracic echocardiogram is performed. 2. Left ventricular chamber dimension is moderately enlarged. 3. Left ventricular systolic function is severely reduced, estimated at 15-20%. 4. There is moderately increased left ventricular wall thickness. 5. The left ventricular diastolic function is abnormal. 6. E/e' 18 mildly elevated. 7. Atrial fibrillation. 8. Right ventricular systolic function is mildly reduced. 9. Left atrial chamber dimension is moderately enlarged. 10. There is trace aortic valve regurgitation. 11. There is mild to moderate mitral valve regurgitation. 12. There is moderate tricuspid valve regurgitation. 13. No pulmonary hypertension, estimated pulmonary arterial systolic pressure is 25 mmHg. Left Ventricle E/e' 18 mildly elevated. Atrial fibrillation. Left ventricular chamber dimension is moderately enlarged. Left ventricular systolic function is severely reduced, estimated at 15-20%. There is moderately increased left ventricular wall thickness. The left ventricular diastolic function is abnormal. Right Ventricle Right ventricular systolic function is mildly reduced. Right ventricular chamber dimension is normal. Left Atria Left atrial chamber dimension is moderately enlarged. Right Atria Right atrial chamber dimension is normal. Aortic Valve The aortic valve is trileaflet. There is no aortic valve stenosis. There is trace aortic valve regurgitation. Pulmonic Valve There is no pulmonic regurgitation. Mitral Valve There is no mitral valve stenosis. There is mild to moderate mitral valve regurgitation. Tricuspid Valve There is moderate tricuspid valve regurgitation. No pulmonary hypertension, estimated pulmonary arterial systolic pressure is 25 mmHg. Pericardium/Pleural There is no pericardial effusion. Inferior Vena Cava Normal inferior vena cava with <50% collapse upon inspiration consistent with normal right atrial pressure, 5 mmHg. Aorta The aortic root size at the sinus of Valsalva is normal. Left Ventricular Outflow Tract Name Value Normal LVOT 2D LVOT Diameter 2.1 cm LVOT Doppler LVOT Peak Velocity 96 cm/s LVOT Peak Gradient 4 mmHg LVOT Mean Gradient 2 mmHg LVOT VTI 16 cm LVOT VTI/AV VTI Ratio 0.[address]
[2020-08-10 01:18] LABS: Partial Thromboplastin Time 61.9 SECONDS (22.3-36.8)
[2020-08-10] MEDS: HEPARIN SODIUM 5,000 UNITS/ML VIAL 4000 UNITS IV PUSH (01:32)
--- NOTE | 2020-08-10 03:55 | PCRCNOTE ---
per RN patient wanted to stop apnea study due to discomfort; RT encouraged patient to continue with study to no avail
[2020-08-10 05:12] LABS: Basophils Absolute Auto 0.1 K/mm3 (0.0-0.1); Basophils Percent Auto 0.6 % (0.2-1.2); Eosinophils Absolute Auto 0.1 K/mm3 (0-0.3); Eosinophils Percent Auto 0.9 % (0-4.4); Hematocrit 46.5 % (42.0-52.0); Hemoglobin 14.9 g/dL (14.0-18.0); Immature Granulocyte Absolute 0.06 K/mm3 (0.00-0.031); Immature Granulocyte Percent A 0.6 % (0-0.5); Lymphocytes Absolute Auto 2.27 K/mm3 (0.9-3.2); Lymphocytes Percent Auto 24.3 % (18.3-44.2); Mean Corpuscular Volume 90.6 fl (80-100); Mean Platelet Volume 10.5 fl (7.4-10.4); Monocytes Absolute Auto 0.7 K/mm3 (0.1-0.6); Monocytes Percent Auto 7.3 % (2.6-8.5); Neutrophils Absolute Auto 6.2 K/mm3 (1.3-6.7); Neutrophils Percent Auto 66.3 % (45.5-73.1); Platelet Count Result 172 k/mm3 (150-375); Red Blood Count 5.13 M/mm3 (4.6-6.20); Red Cell Distribution Width 13.2 % (11.5-14.5); White Blood Count 9.4 K/mm3 (4.5-10.0)
[2020-08-10 05:27] LABS: Alanine Aminotransferase 15 U/L (4-50); Albumin Level 3.1 g/dL (3.5-5.1); Alkaline Phosphatase 85 U/L (38-126); Anion Gap 4 mmol/L (8-16); Aspartate Amino Transferase 21 U/L (17-59); Bilirubin,Total 0.9 mg/dL (0.2-1.3); Blood Urea Nitrogen 17 mg/dL (9-20); Calcium 7.9 mg/dL (8.4-10.2); Carbon Dioxide 26 mmol/L (22-30); Chloride 103 mmol/L (98-107); Estimated CRCL calculation 100 ml/min; Estimated Glomerular Filt Rate > 60; Glucose 182 mg/dL (75-110); Magnesium 1.8 mg/dL (1.6-2.3); Potassium 3.8 mmol/L (3.4-5.0); Sodium 133 mmol/L (137-145)
[2020-08-10] MEDS: HEPARIN SOD/D5W 100 UNITS/ML 25,000 UNITS/250 ML BAG 17 UNITS IV CONT ×2 (05:44→21:14)
[2020-08-10 05:54] LABS: INR 1.2; Prothrombin Time 15.5 Seconds (11.1-14.7)
[2020-08-10 07:29] LABS: Partial Thromboplastin Time 83.2 SECONDS (22.3-36.8)
[2020-08-10 08:07] LABS: Glucose Point of Care 214 (65-105)
[2020-08-10] MEDS: carvediloL 25 MG TABLET PO ×2 (08:24→21:16)
[2020-08-10] MEDS: FUROSEMIDE 20 MG TABLET PO (08:25)
[2020-08-10] MEDS: INSULIN ASPART (*BKC) 100 UNITS/ML SUB-Q ×2 (08:25→12:23)
[2020-08-10] MEDS: ATORVASTATIN 10 MG TABLET PO (08:25)
--- NOTE | 2020-08-10 11:09 | PM.PNCARD ---
Progress Note: A&P Assessment and Plan (1) Essential hypertension: Code(s): I10 - Essential (primary) hypertension Status: Acute Assessment and Plan: Mildly high. On Coreg, lisinopril. Continue to monitor. (2) Dyslipidemia: Code(s): E78.5 - Hyperlipidemia, unspecified Status: Acute (3) Tobacco dependence: Code(s): F17.200 - Nicotine dependence, unspecified, uncomplicated Status: Acute Assessment and Plan: Counseled regarding smoking cessation. (4) Paroxysmal atrial fibrillation: Code(s): I48.0 - Paroxysmal atrial fibrillation Status: Acute Assessment and Plan: On Diltiazem drip. On heparin drip. On Coreg 12.5 mg BID for rate control and BP control. Resume warfarin for anticoagulation. If he is approved for NOAC, then he won't need warfarin and INR checks. Stop Diltiazem drip. Monitor HR. If high, we can add Diltiazem PO. (5) Nonischemic cardiomyopathy: Code(s): I42.8 - Other cardiomyopathies Status: Acute Assessment and Plan: Resumed Coreg and Lisinopril. Increase Lasix 40 mg PO BID. On Spironolactone 25 mg daily. (6) Noncompliance w/medication treatment due to intermit use of medication: Code(s): Z91.14 - Patient's other noncompliance with medication regimen Status: Acute (7) Hypersomnia: Code(s): G47.10 - Hypersomnia, unspecified Status: Acute Assessment and Plan: Will need outpatient sleep study. (8) Obesity: Code(s): E66.9 - Obesity, unspecified Status: Acute Subjective Date/time seen: 08/10/20 11:09 Reports feeling sob last night and swelling of legs. No chest pains. Exam Const: General: cooperative, healthy appearing and comfortable Nutritional Appearance: obese Resp: Auscultation: no crackles, no rales, wheezes and diminished lung sounds Cardio: Jugular venous distension: no JVD Rate: regular rate Rhythm: abnormal rhythm Heart sounds: no murmurs Peripheral pulses: dorsalis pedis present GI: Inspection: obesity GI Palp: Yes Soft to palpation Neuro: General: oriented to person, oriented to place and oriented to time Extrem: Right lower extremity: edema Left lower extremity: edema Other: Moderate pedal edema and mild lower extremity edema bilaterally Objective Data Vital Signs Vital Signs: Vital Signs - 24 hr 08/09/20 11:16 08/09/20 11:22 08/09/20 11:31 Temperature Pulse Rate 129 H 115 H 116 H Respiratory Rate 20 21 H Blood Pressure 143/120 H 143/120 H 161/131 H Pulse Oximetry 96 96 08/09/20 11:46 08/09/20 12:01 08/09/20 12:17 Temperature Pulse Rate 105 H 105 H 108 H Respiratory Rate 23 H 22 H 18 Blood Pressure 145/114 H 147/121 H 142/118 H Pulse Oximetry 98 98 97 08/09/20 12:18 08/09/20 12:31 08/09/20 13:35 Temperature Pulse Rate 109 H 109 H 114 H Respiratory Rate 20 19 Blood Pressure 142/118 H 148/121 H Pulse Oximetry 97 99 08/09/20 14:00 08/09/20 14:11 08/09/20 16:00 Temperature 96.4 F L 97.6 F Pulse Rate 114 H 109 H 108 H Respiratory Rate 14 18 Blood Pressure 144/115 H 138/98 H Pulse Oximetry 99 98 08/09/20 18:00 08/09/20 20:00 08/09/20 20:58 Temperature 96.8 F L Pulse Rate 111 H 109 H 102 H Respiratory Rate 22 H Blood Pressure 152/98 H Pulse Oximetry 99 08/09/20 22:00 08/09/20 22:15 08/09/20 23:24 Temperature 96.8 F L Pulse Rate 101 H 98 Respiratory Rate 20 Blood Pressure 136/78 Pulse Oximetry 99 98 08/10/20 00:00 08/10/20 01:20 08/10/20 02:00 Temperature Pulse Rate 95 109 H 77 Respiratory Rate Blood Pressure 152/98 H Pulse Oximetry 08/10/20 04:00 08/10/20 06:00 08/10/20 08:00 Temperature 97.3 F L 98.1 F Pulse Rate 72 73 72 Respiratory Rate 22 H 22 H Blood Pressure 115/78 115/78 109/81 Pulse Oximetry 100 99 08/10/20 08:24 08/10/20 08:30 08/10/20 10:00 Temperature Pulse Rate 80 88 76 Respiratory Rate Blood Pressure Pulse Oximetry
[2020-08-10] MEDS: lisinopriL 10 MG TABLET PO (11:50)
[2020-08-10] MEDS: SPIRONOLACTONE 25 MG TABLET PO (11:50)
[2020-08-10 12:59] LABS: Glucose Point of Care 253 (65-105)
[2020-08-10 13:06] LABS: Partial Thromboplastin Time 92.9 SECONDS (22.3-36.8)
--- NOTE | 2020-08-10 14:15 | PM.IMPN ---
Progress Note: A&P Assessment and Plan (1) Atrial fibrillation with rapid ventricular response: Code(s): I48.91 - Unspecified atrial fibrillation Status: Acute Assessment and Plan: He is not really symptomatic with this aside from the shortness of breath though that is likely due to the CHF. on Cardizem and heparin drip DR Matos is consulted (2) Combined systolic and diastolic congestive heart failure: Code(s): I50.40 - Unspecified combined systolic (congestive) and diastolic (congestive) heart failure Status: Acute Assessment and Plan: Patient has been non compliant with has medication (3) Nonischemic cardiomyopathy: Code(s): I42.8 - Other cardiomyopathies Status: Acute Assessment and Plan: Ejection fraction previously as low as 20%, improved to 40 to 45% in 01/2020. 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 (5) Essential hypertension: Code(s): I10 - Essential (primary) hypertension Status: Acute Assessment and Plan: Blood pressure is not ideally controlled, today is BP 111/81 (6) Chronic obstructive pulmonary disease: Code(s): J44.9 - Chronic obstructive pulmonary disease, unspecified Status: Acute Assessment and Plan: Mild wheezing. (7) Tobacco dependence: Code(s): F17.200 - Nicotine dependence, unspecified, uncomplicated Status: Acute Assessment and Plan: Smoking cessation. (8) Noncompliance w/medication treatment due to intermit use of medication: Code(s): Z91.14 - Patient's other noncompliance with medication regimen Status: Acute Assessment and Plan: Long discussion. Subjective Date/time seen: 08/10/20 14:15 Interval history: 55-year-old male smoker with history of noncompliance, nonischemic cardiomyopathy with improved ejection fraction, paroxysmal atrial fibrillation, insulin-dependent type 2 diabetes mellitus, hypertension who presented to the emergency department earlier today for evaluation of shortness of breath. Pt feels depressed, not taking his medications. Review of Systems Review of Systems: All systems reviewed & are unremarkable except as noted in HPI and below Exam Narrative: Exam Narrative: General: Chronically ill-appearing male Respiratory: BL crackles fine. Cardiovascular: Regular rate and rhythm with S1-S2. Gastrointestinal: Abdomen is soft, obese, nontender, and nondistended with positive bowel sounds. Skin: Warm and dry. No rash or lesions on limited exam. Extremities: No cyanosis or clubbing. 2+ pedal edema extending up both legs. Neurological: Alert. Cranial nerves 2-12 are grossly intact. No gross focal deficits to casual conversation. Psychiatric: Pleasant and cooperative with normal mood and affect. Objective Data Vital Signs Vital Signs: Vital Signs - 24 hr 08/09/20 16:00 08/09/20 18:00 08/09/20 20:00 Temperature 36.4 C 36.0 C L Pulse Rate 108 H 111 H 109 H Respiratory Rate 18 22 H Blood Pressure 138/98 H 152/98 H Pulse Oximetry 98 99 08/09/20 20:58 08/09/20 22:00 08/09/20 22:15 Temperature Pulse Rate 102 H 101 H Respiratory Rate Blood Pressure Pulse Oximetry 99 08/09/20 23:24 08/10/20 00:00 08/10/20 01:20 Temperature 36.0 C L Pulse Rate 98 95 109 H Respiratory Rate 20 Blood Pressure 136/78 152/98 H Pulse Oximetry 98 08/10/20 02:00 08/10/20 04:00 08/10/20 06:00 Temperature 36.3 C L Pulse Rate 77 72 73 Respiratory Rate 22 H Blood Pressure 115/78 115/78 Pulse Oximetry 100 08/10/20 08:00 08/10/20 08:24 08/10/20 08:30 Temperature 36.7 C Pulse Rate 72 80 88 Respiratory Rate 22 H Blood Pressure 109/81 Pulse Oximetry 99 0
[2020-08-10 16:16] LABS: Glucose Point of Care 186 (65-105)
[2020-08-10] MEDS: FUROSEMIDE INJ 40 MG/4 ML VIAL IV PUSH (16:21)
[2020-08-10] MEDS: WARFARIN (*PBKC) 5 MG TABLET PO (17:04)
[2020-08-10] MEDS: DIGOXIN TAB 125 MCG TABLET PO (17:04)
[2020-08-10 21:05] LABS: Glucose Point of Care 176 (65-105)
[2020-08-10] MEDS: INSULIN GLARGINE (*BKC) 100 UNITS/ML 25 UNITS SUB-Q (21:18)
[2020-08-11] VITALS (22 sets, daily range): BP systolic 98–159; BP diastolic 70–115; PULSE 79–117; RESP 16–20; TEMP 36.1–37.1; O2SAT 98–100
[2020-08-11 05:29] LABS: INR 1.2; Prothrombin Time 16.2 Seconds (11.1-14.7)
[2020-08-11 05:32] LABS: Partial Thromboplastin Time 108.9 SECONDS (22.3-36.8)
[2020-08-11 05:34] LABS: Anion Gap 4 mmol/L (8-16); Blood Urea Nitrogen 19 mg/dL (9-20); Calcium 8.1 mg/dL (8.4-10.2); Carbon Dioxide 30 mmol/L (22-30); Chloride 103 mmol/L (98-107); Estimated CRCL calculation 103 ml/min; Estimated Glomerular Filt Rate > 60; Glucose 90 mg/dL (75-110); Magnesium 1.8 mg/dL (1.6-2.3); Potassium 3.3 mmol/L (3.4-5.0); Sodium 137 mmol/L (137-145)
--- NOTE | 2020-08-11 07:56 | PM.PNCARD ---
Progress Note: A&P Assessment and Plan (1) Essential hypertension: Code(s): I10 - Essential (primary) hypertension Status: Acute Assessment and Plan: Mildly high. On Coreg, lisinopril. Continue to monitor. (2) Dyslipidemia: Code(s): E78.5 - Hyperlipidemia, unspecified Status: Acute Assessment and Plan: On Atorvastatin. (3) Tobacco dependence: Code(s): F17.200 - Nicotine dependence, unspecified, uncomplicated Status: Acute Assessment and Plan: Counseled regarding smoking cessation. (4) Paroxysmal atrial fibrillation: Code(s): I48.0 - Paroxysmal atrial fibrillation Status: Acute Assessment and Plan: On heparin drip. Rate controlled. On Coreg 25 mg BID for rate control and BP control. Added Digoxin for improved rate control and systolic heart failure at 125 mcg BID for 2 days loading, then 125 mcg daily. Resume warfarin for anticoagulation. If he is approved for NOAC later today, then he won't need warfarin and INR checks. Check on Xarelto 20 mg daily to see if he qualified with his insurance. (5) Nonischemic cardiomyopathy: Code(s): I42.8 - Other cardiomyopathies Status: Acute Assessment and Plan: Resumed Coreg and Lisinopril. On Lasix 40 mg IV BID. On Spironolactone 25 mg daily. KCl 20 meq PO BID for potassium 3.3 today. Discussed echo results of worsening EF to 15-20% which is acute on chronic systolic heart failure, probably due to noncompliance with medications. (6) Noncompliance w/medication treatment due to intermit use of medication: Code(s): Z91.14 - Patient's other noncompliance with medication regimen Status: Acute Assessment and Plan: Encouraged compliance. (7) Hypersomnia: Code(s): G47.10 - Hypersomnia, unspecified Status: Acute Assessment and Plan: Will need outpatient sleep study. (8) Obesity: Code(s): E66.9 - Obesity, unspecified Status: Acute Subjective Date/time seen: 08/11/20 07:56 Denies chest pain or sob. Exam Const: General: cooperative, healthy appearing and comfortable Nutritional Appearance: obese Resp: Auscultation: no crackles, no rales, wheezes and diminished lung sounds Cardio: Jugular venous distension: no JVD Rate: regular rate Rhythm: abnormal rhythm Heart sounds: no murmurs Peripheral pulses: dorsalis pedis present GI: Inspection: obesity GI Palp: Yes Soft to palpation Neuro: General: oriented to person, oriented to place and oriented to time Extrem: Right lower extremity: edema Left lower extremity: edema Other: Moderate pedal edema and mild lower extremity edema bilaterally Objective Data Vital Signs Vital Signs: Vital Signs - 24 hr 08/10/20 08:00 08/10/20 08:24 08/10/20 08:30 Temperature 98.1 F Pulse Rate 72 80 88 Respiratory Rate 22 H Blood Pressure 109/81 Pulse Oximetry 99 08/10/20 10:00 08/10/20 12:00 08/10/20 14:00 Temperature 97.6 F Pulse Rate 76 83 72 Respiratory Rate 24 H Blood Pressure 111/81 Pulse Oximetry 98 08/10/20 16:00 08/10/20 16:40 08/10/20 17:04 Temperature 97.2 F L Pulse Rate 74 82 70 Respiratory Rate 22 H Blood Pressure 109/86 Pulse Oximetry 98 08/10/20 18:00 08/10/20 20:00 08/10/20 21:16 Temperature 97.2 F L Pulse Rate 71 96 82 Respiratory Rate 20 Blood Pressure 156/109 H Pulse Oximetry 98 08/10/20 22:00 08/10/20 23:41 08/11/20 00:00 Temperature 97.4 F L Pulse Rate 97 92 92 Respiratory Rate 20 20 Blood Pressure 146/103 H Pulse Oximetry 98 98 08/11/20 00:22 08/11/20 01:25 08/11/20 04:00 Temperature 97.8 F Pulse Rate 95 96 Respiratory Rate 20 20 Blood Pressure 98/70 L 147/97 H Pulse Oximetry 99 98 08/11/20 05:28 08/11/20 07:29 Temperature 97.9 F Pulse Rate 88 83 Respiratory Rate 20 Blood Pressure 159/115 H Pulse Oximetry 100 Intake/Output Intake/Output: Intake & Output 08/08/20 08/09/20 0
[2020-08-11 07:58] LABS: Glucose Point of Care 88 (65-105)
[2020-08-11] MEDS: POTASSIUM CHLORIDE 20 MEQ TABLET.ER PO ×2 (08:47→17:11)
[2020-08-11] MEDS: SPIRONOLACTONE 25 MG TABLET PO (08:48)
[2020-08-11] MEDS: carvediloL 25 MG TABLET PO ×2 (08:48→21:12)
[2020-08-11] MEDS: DIGOXIN TAB 125 MCG TABLET PO ×2 (08:49→17:11)
[2020-08-11] MEDS: FUROSEMIDE INJ 40 MG/4 ML VIAL IV PUSH ×2 (08:49→17:11)
[2020-08-11] MEDS: lisinopriL 10 MG TABLET PO (08:49)
[2020-08-11] MEDS: ATORVASTATIN 10 MG TABLET PO (08:49)
[2020-08-11 13:11] LABS: Glucose Point of Care 250 (65-105)
[2020-08-11] MEDS: INSULIN ASPART (*BKC) 100 UNITS/ML SUB-Q ×2 (13:16→17:12)
--- NOTE | 2020-08-11 16:27 | PM.IMPN ---
Progress Note: A&P Assessment and Plan (1) Atrial fibrillation with rapid ventricular response: Code(s): I48.91 - Unspecified atrial fibrillation Status: Acute Assessment and Plan: He is not really symptomatic with this aside from the shortness of breath though that is likely due to the CHF. AF is better control pt is off cardizem drip transitioned from heparin to xarelto (2) Combined systolic and diastolic congestive heart failure: Code(s): I50.40 - Unspecified combined systolic (congestive) and diastolic (congestive) heart failure Status: Acute Assessment and Plan: Patient has been non compliant with has medication on iv lasix continue to diuresis seen by DR CASTLE (3) Nonischemic cardiomyopathy: Code(s): I42.8 - Other cardiomyopathies Status: Acute Assessment and Plan: Ejection fraction previously as low as 20%, improved to 40 to 45% in 01/2020. (4) Insulin dependent diabetes mellitus: Code(s): E11.9 - Type 2 diabetes mellitus without complications; Z79.4 - retirement (current) use of insulin Status: Acute Assessment and Plan: Hemoglobin A1c was 10.5% in 01/2020. (5) Essential hypertension: Code(s): I10 - Essential (primary) hypertension Status: Acute Assessment and Plan: Blood pressure is not ideally controlled, today is BP 111/81 (6) Chronic obstructive pulmonary disease: Code(s): J44.9 - Chronic obstructive pulmonary disease, unspecified Status: Acute Assessment and Plan: Mild wheezing. (7) Tobacco dependence: Code(s): F17.200 - Nicotine dependence, unspecified, uncomplicated Status: Acute Assessment and Plan: Smoking cessation. (8) Noncompliance w/medication treatment due to intermit use of medication: Code(s): Z91.14 - Patient's other noncompliance with medication regimen Status: Acute Assessment and Plan: Long discussion. States he feels depressed at home recent bereavement of his mom. Subjective Date/time seen: 08/11/20 16:27 Interval history: 55-year-old male smoker with history of noncompliance, nonischemic cardiomyopathy with improved ejection fraction, paroxysmal atrial fibrillation, insulin-dependent type 2 diabetes mellitus, hypertension who presented to the emergency department earlier today for evaluation of shortness of breath. Pt feels depressed, not taking his medications. Review of Systems Review of Systems: All systems reviewed & are unremarkable except as noted in HPI and below Exam Narrative: Exam Narrative: General: Chronically ill-appearing male Respiratory: BL crackles fine. Cardiovascular: Regular rate and rhythm with S1-S2. Gastrointestinal: Abdomen is soft, obese, nontender, and nondistended with positive bowel sounds. Skin: Warm and dry. No rash or lesions on limited exam. Extremities: No cyanosis or clubbing. 2+ pedal edema extending up both legs. Neurological: Alert. Cranial nerves 2-12 are grossly intact. No gross focal deficits to casual conversation. Psychiatric: Pleasant and cooperative with normal mood and affect. Objective Data Vital Signs Vital Signs: Vital Signs - 24 hr 08/10/20 16:40 08/10/20 17:04 08/10/20 18:00 Temperature Pulse Rate 82 70 71 Respiratory Rate Blood Pressure Pulse Oximetry 08/10/20 20:00 08/10/20 21:16 08/10/20 22:00 Temperature 36.2 C L Pulse Rate 96 82 97 Respiratory Rate 20 Blood Pressure 156/109 H Pulse Oximetry 98 08/10/20 23:41 08/11/20 00:00 08/11/20 00:22 Temperature 36.3 C L Pulse Rate 92 92 Respiratory Rate 20 20 20 Blood Pressure 146/103 H 98/70 L Pulse Oximetry 98 98 99 08/11/20 01:25 08/11/20 04:00 08/11/20 05:28 Temperature 36.6 C Pulse Rate 95 96 88 Respiratory Rate 20 Blood Pressure 147/97 H Pulse Oximetry 98 08/11/20 07:29 08/11/20 08:00 08/11/20 08:48 Temperature 3
[2020-08-11] MEDS: RIVAROXABAN 20 MG TABLET PO (17:12)
[2020-08-11 17:15] LABS: Glucose Point of Care 213 (65-105)
[2020-08-11 20:44] LABS: Glucose Point of Care 184 (65-105)
[2020-08-11] MEDS: INSULIN GLARGINE (*BKC) 100 UNITS/ML 25 UNITS SUB-Q (21:13)
[2020-08-12] VITALS (11 sets, daily range): BP systolic 125–147; BP diastolic 83–110; PULSE 77–97; RESP 14–20; TEMP 36.3–36.6; O2SAT 99–100
[2020-08-12 05:32] LABS: Anion Gap 4 mmol/L (8-16); Blood Urea Nitrogen 19 mg/dL (9-20); Calcium 8.1 mg/dL (8.4-10.2); Carbon Dioxide 31 mmol/L (22-30); Chloride 104 mmol/L (98-107); Estimated CRCL calculation 102 ml/min; Estimated Glomerular Filt Rate > 60; Glucose 95 mg/dL (75-110); Potassium 3.5 mmol/L (3.4-5.0); Sodium 139 mmol/L (137-145)
[2020-08-12 07:59] LABS: Glucose Point of Care 82 (65-105)
--- NOTE | 2020-08-12 08:25 | PM.PNCARD ---
Progress Note: A&P Assessment and Plan (1) Essential hypertension: Code(s): I10 - Essential (primary) hypertension Status: Acute Assessment and Plan: Stable. On Coreg, lisinopril and Spironolactone. (2) Dyslipidemia: Code(s): E78.5 - Hyperlipidemia, unspecified Status: Acute Assessment and Plan: On Atorvastatin. (3) Tobacco dependence: Code(s): F17.200 - Nicotine dependence, unspecified, uncomplicated Status: Acute Assessment and Plan: Counseled regarding smoking cessation. (4) Paroxysmal atrial fibrillation: Code(s): I48.0 - Paroxysmal atrial fibrillation Status: Acute Assessment and Plan: On Xarelto as that was approved by his insurance. Rate controlled. On Coreg 25 mg BID for rate control and BP control. On Digoxin will change to 125 mcg daily for improved rate control and contractility. (5) Nonischemic cardiomyopathy: Code(s): I42.8 - Other cardiomyopathies Status: Acute Assessment and Plan: Resumed Coreg and Lisinopril. On Lasix 40 mg IV BID. On Spironolactone 25 mg daily. KCl 20 meq PO BID for potassium 3.5 today. Discussed echo results of worsening EF to 15-20% which is acute on chronic systolic heart failure, probably due to noncompliance with medications. Discussed life vest with patient to prevent sudden cardiac arrest and is not interested. 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 Patient is OK to be discharged home from cardiology standpoint. Upon discharge, may change Lasix 40 mg PO BID. He will need f/u within a week with either a ward maid who will accept his insurance (he has been referred by his PCP [place] [facility] and/or with his PCP to check BMP and Mag levels as he is on KCl. (6) Noncompliance w/medication treatment due to intermit use of medication: Code(s): Z91.14 - Patient's other noncompliance with medication regimen Status: Acute Assessment and Plan: Encouraged compliance. (7) Hypersomnia: Code(s): G47.10 - Hypersomnia, unspecified Status: Acute Assessment and Plan: Will need outpatient sleep study. (8) Obesity: Code(s): E66.9 - Obesity, unspecified Status: Acute Subjective Date/time seen: 08/12/20 08:25 Denies chest pain or sob. Has swelling in his feet primarily and some in legs. Exam Const: General: cooperative, healthy appearing and comfortable Nutritional Appearance: obese Resp: Auscultation: no crackles, no rales, no wheezes and diminished lung sounds Cardio: Jugular venous distension: no JVD Rate: regular rate Rhythm: abnormal rhythm Heart sounds: no murmurs Peripheral pulses: dorsalis pedis present GI: Inspection: obesity GI Palp: Yes Soft to palpation Neuro: General: oriented to person, oriented to place and oriented to time Extrem: Right lower extremity: edema Left lower extremity: edema Other: Moderate pedal edema and mild lower extremity edema bilaterally Objective Data Vital Signs Vital Signs: Vital Signs - 24 hr 08/11/20 08:48 08/11/20 10:00 08/11/20 10:01 Temperature Pulse Rate 95 102 H Respiratory Rate Blood Pressure Pulse Oximetry 98 08/11/20 12:00 08/11/20 14:00 08/11/20 16:00 Temperature 97.7 F 98.7 F Pulse Rate 107 H 104 H 117 H Respiratory Rate 20 20 Blood Pressure 138/95 H 136/85 Pulse Oximetry 98 100 08/11/20 17:11 08/11/20 18:00 08/11/20 18:57 Temperature Pulse Rate 98 100 Respiratory Rate Blood Pressure 156/115 H Pulse Oximetry 08/11/20 19:30 08/11/20 20:00 08/11/20 21:12 Temperature 96.9 F L Pulse Rate 90 90 100 Respiratory Rate 16 16 Blood Pressure 142/107 H Pulse Oximetry 100 100 08/11/20 21:51 08/11/20 23:25 08/11/20 23:26 Temperature 97.2 F L Pulse Rate 87 84 84 Respiratory Rate 20 20 Blood Pressure 133/93 H Pulse Oximetry 100 100 08/12/20 00:00
[2020-08-12] MEDS: SPIRONOLACTONE 25 MG TABLET PO (08:44)
[2020-08-12] MEDS: carvediloL 25 MG TABLET PO (08:45)
[2020-08-12] MEDS: ATORVASTATIN 10 MG TABLET PO (08:45)
[2020-08-12] MEDS: FUROSEMIDE INJ 40 MG/4 ML VIAL IV PUSH (08:45)
[2020-08-12] MEDS: lisinopriL 10 MG TABLET PO (08:45)
[2020-08-12] MEDS: DIGOXIN TAB 125 MCG TABLET PO (08:46)
[2020-08-12] MEDS: POTASSIUM CHLORIDE 20 MEQ TABLET.ER PO (08:46)
[2020-08-12 11:40] LABS: Glucose Point of Care 153 (65-105)
--- NOTE | 2020-08-12 14:20 | PM.DS ---
DS: Admitting Diagnosis Admitting Diagnosis Admitting Diagnosis: Shortness of breath DS: Discharge Diagnosis Discharge Diagnosis (1) Atrial fibrillation with rapid ventricular response: Code(s): I48.91 - Unspecified atrial fibrillation Status: Acute Assessment and Plan: He is not really symptomatic with this aside from the shortness of breath though that is likely due to the CHF. AF is better control pt is off cardizem drip transitioned from heparin to xarelto (2) Combined systolic and diastolic congestive heart failure: Code(s): I50.40 - Unspecified combined systolic (congestive) and diastolic (congestive) heart failure Status: Acute Assessment and Plan: Patient has been non compliant with has medication on iv lasix continue to diuresis seen by Dr Matos. Pts medications have been adjusted. Pt needs to find a helper shear operator which accepts his insurance pt to follow with PCP, until then. (3) Nonischemic cardiomyopathy: Code(s): I42.8 - Other cardiomyopathies Status: Acute Assessment and Plan: Ejection fraction previously as low as 20%, improved to 40 to 45% in 01/2020. (4) Insulin dependent diabetes mellitus: Code(s): E11.9 - Type 2 diabetes mellitus without complications; Z79.4 - [facility] (current) use of insulin Status: Acute Assessment and Plan: Hemoglobin A1c was 10.5% in 01/2020. (5) Essential hypertension: Code(s): I10 - Essential (primary) hypertension Status: Acute Assessment and Plan: Blood pressure is not ideally controlled, today is BP 111/81 (6) Chronic obstructive pulmonary disease: Code(s): J44.9 - Chronic obstructive pulmonary disease, unspecified Status: Resolved Assessment and Plan: Mild wheezing resolved. (7) Tobacco dependence: Code(s): F17.200 - Nicotine dependence, unspecified, uncomplicated Status: Acute Assessment and Plan: Smoking cessation. (8) Noncompliance w/medication treatment due to intermit use of medication: Code(s): Z91.14 - Patient's other noncompliance with medication regimen Status: Acute Assessment and Plan: Long discussion. States he feels depressed at home recent bereavement of his mom. DS: Summary Hospital Course Hospital Course: 55-year-old male smoker with history of noncompliance, nonischemic cardiomyopathy with improved ejection fraction, paroxysmal atrial fibrillation, insulin-dependent type 2 diabetes mellitus, hypertension who presented to the emergency department earlier today for evaluation of shortness of breath. Pt feels depressed, not taking his medications. Pt was put on a Cardizem drip or new AF and heparin transitioned to Xarelto. Pt was on iv diuresis for fluid overload and edema. Pt is doing better stable for dischrage. Time Spent with Patient Time attestation: Total time spent providing and/or coordinating discharge services:40 minutes on day of discharge Exam Narrative: Exam Narrative: General: Chronically ill-appearing male Respiratory: BL crackles fine. Cardiovascular: Regular rate and rhythm with S1-S2. Gastrointestinal: Abdomen is soft, obese, nontender, and nondistended with positive bowel sounds. Skin: Warm and dry. No rash or lesions on limited exam. Extremities: No cyanosis or clubbing. 2+ pedal edema extending up both legs. Neurological: Alert. Cranial nerves 2-12 are grossly intact. No gross focal deficits to casual conversation. Psychiatric: Pleasant and cooperative with normal mood and affect. DS: Data Data Completed and Pending Labs on day of discharge: Labs from last 24 hours 08/12/20 08/12/20 08/12/20 11:37 07:40 04:17 Sodium 139 Potassium 3.5 Chloride 104 Carbon Dioxide 31 H Anion Gap 4 L BUN 19 Creatinine 0.90 Estim Creat Clear Calc 102 Estimated GFR > 60 Glucose 95 POC Capillary Glucose 153 H 82 C
== END 2020-08-12 15:07 | disposition home or self-care (01) | DRG 201 ==
LOC: ANHED 09:41 → ANHIMU 13:13
PROVIDERS: Internal Medicine Cardiovascular Disease; Nurse Practitioner; Physician Assistant; Physician Assistant Medical; Admitting Provider Internal Medicine; Emergency Provider Emergency Medicine; PCP Physician Assistant; Visit Provider Family Medicine
DX: I48.0 Paroxysmal atrial fibrillation (principal); I42.8 Other cardiomyopathies; I11.0 Hypertensive heart disease with heart failure; I50.42 Chronic combined systolic (congestive) and diastolic (congestive) heart failure; J44.9 Chronic obstructive pulmonary disease, unspecified; F41.8 Other specified anxiety disorders; I27.20 Pulmonary hypertension, unspecified; E78.5 Hyperlipidemia, unspecified; F17.210 Nicotine dependence, cigarettes, uncomplicated; M19.90 Unspecified osteoarthritis, unspecified site; E11.9 Type 2 diabetes mellitus without complications; E66.9 Obesity, unspecified; Z68.41 Body mass index [BMI] 40.0-44.9, adult; G47.10 Hypersomnia, unspecified; Z79.899 Other long term (current) drug therapy; Z91.14 Patient's other noncompliance with medication regimen
CPT/HCPCS: 36415; 71046; 71275; 80048; 80053; 82948; 83036; 83735; 83880; 84443; 84484; 85025; 85610; 85730; 93005; 93306; 94762; 96365; 96366; 96368; 96375; 96376; 99285; A9270; G0378; G0379; J1644; J1815; J1940; Q9967

== ENCOUNTER 2021-08-15 09:47 | Emergency (ER) | payer OTHER, SELFPAY ==
--- NOTE | ~2021-08-15 | XR_ITS ---
XR chest 2V DATE: 08/15/2021 10:27 INDICATION: Cough, wheezing. History of smoking. TECHNIQUE: 2 views COMPARISON: August 09, 2020 CT pulmonary scan FINDINGS: Normal heart size. No hilar or mediastinal enlargement. No pulmonary infiltrate or consolid ation, pleural effusion or pulmonary vascular congestion or pneumothorax is detected. Diffuse idiopathic skeletal hyperostosis of the thoracic spine. Prominent upper lumbar spine spurring . No suspicious osteolytic or osteoblastic lesions. IMPRESSION: No active cardiopulmonary disease Reviewed, dictated and finalized at location A.
[2021-08-15 09:57] VITALS: BP 170/93; PULSE 92; RESP 18; TEMP 36.1; O2SAT 96
--- NOTE | 2021-08-15 10:08 | ED.URI ---
HPI - URI/Sore Throat General Chief Complaint: Upper Respiratory Infection Stated Complaint: sob/congestion Time Seen by Provider: 08/15/21 10:08 Source: patient Mode of arrival: ambulatory Limitations: no limitations History of Present Illness HPI Narrative: 56-year-old male with history of COPD presents with complaint of cough, chest congestion for 1 week. Reports coughing up clear sputum. Over the last 2 days has noted shortness of breath with exertion. Denies fever. No respiratory distress noted. Not using any inhalers at this time All systems reviewed and negative except as noted above Related Data Home Medications Medication Instructions Recorded Confirmed carvedilol 25 mg PO Q12H 01/30/20 08/15/21 spironolactone 25 mg PO DAILY 01/30/20 08/15/21 furosemide 20 mg PO BID 08/09/20 08/15/21 trazodone 50 mg PO DAILY 08/09/20 08/15/21 metformin mg 08/15/21 Allergies Allergy/AdvReac Type Severity Reaction Status Date / Time No Known Allergies Allergy Unknown Verified 08/09/20 09:22 Review of Systems Review of Systems: CONSTITUTIONAL: Denies fever, chills, or sweats. EYES: Denies visual changes, redness, or discharge. ENT: Denies rhinorrhea, congestion, sore throat, or otalgia. CARDIOVASCULAR: Denies chest pain, palpitations, or edema. RESPIRATORY: Reports cough and dyspnea. GASTROINTESTINAL: Denies abdominal pain, nausea, vomiting, or diarrhea. GENITOURINARY: Denies dysuria or hematuria. SKIN: Denies rash or itching. MUSCULOSKELETAL: Denies back pain, joint pain, or myalgia. NEUROLOGIC: Denies headache, numbness, or weakness. PSYCHIATRIC: Denies anxiety or depression. All other systems reviewed are negative, except as documented in HPI. [facility] Past Medical History Medical History Chronic obstructive pulmonary disease Combined systolic and diastolic congestive heart failure Echocardiogram in 01/2020 with improved EF of 40 to 45%, grade 4 diastolic dysfunction, and severe pulmonary hypertension. Depression with anxiety Dyslipidemia Essential hypertension Insulin dependent diabetes mellitus Hemoglobin A1c was 10.5 in 01/2020. Noncompliance w/medication treatment due to intermit use of medication Nonischemic cardiomyopathy Lexiscan in February 2019 showed no reversible changes and ejection fraction of 32%. Osteoarthritis Paroxysmal atrial fibrillation On long-term anticoagulation with warfarin. Severe pulmonary hypertension Echocardiogram in 01/2020 showed severe pulmonary hypertension with an estimated pulmonary arterial systolic pressure of 61 mmHg. Tobacco dependence Surgical History Surgical History No history of previous surgery Family History Family History Grandparent Diabetes mellitus Father Carcinoma of colon Mother Carcinoma of colon Sibling COPD (chronic obstructive pulmonary disease) Heart disease Multiple sclerosis Social History Social History (Updated 08/09/20 @ 14:29 by Pratibha Wells PA-C) Social History: The patient is single and lives in [place] with his tea cup marlena named Willard. He is and has 2 children, son and daughter, but unfortunately they are estranged. 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 He designates his sister, Kavita Gleason, as his surrogate decision maker and he wishes to be a full code. He has smoked up to a pack of cigarettes per day since age of 13. The patient is down to half a pack a cigarettes a day. He drank heavily in the past but has abstained for 18+ years. History of substance abuse long ago. Spiritual care concerns: No Agree to blood products: Yes Comments At time of signature, agree with nursing past medical, surgical, social and family history. There is no relevant family history pertinent to the presenting complaint. Exam Narrative: GEN
[2021-08-15] MEDS: ALBUTEROL SULFATE NEB 2.5 MG/3 ML INH INHALATION (10:29)
[2021-08-15 10:30] VITALS: PULSE 87; RESP 20; O2SAT 94
[2021-08-15 10:48] VITALS: PULSE 82; RESP 20; O2SAT 96
== END 2021-08-15 11:10 | disposition home or self-care (01) ==
PROVIDERS: Emergency Provider Nurse Practitioner Family
DX: J20.9 Acute bronchitis, unspecified (principal); J44.9 Chronic obstructive pulmonary disease, unspecified; E78.5 Hyperlipidemia, unspecified; I11.0 Hypertensive heart disease with heart failure; I50.40 Unspecified combined systolic (congestive) and diastolic (congestive) heart failure; F32.A Depression, unspecified; M19.90 Unspecified osteoarthritis, unspecified site; I48.0 Paroxysmal atrial fibrillation; F17.210 Nicotine dependence, cigarettes, uncomplicated
CPT/HCPCS: 71046; 94640; 99213; G0463

== ENCOUNTER 2022-03-22 16:20 | Emergency (ER) | payer MEDICARE, MEDICAID, SELFPAY ==
--- NOTE | ~2022-03-22 | XR_ITS ---
XR chest 2V DATE: 03/22/2022 17:14 INDICATION: Chest pressure. History of hypertension, COPD. TECHNIQUE: PA and lateral views COMPARISON: 08/15/2021 2 view chest 08/05/2020 CT pulmonary scan FINDINGS: Heart size is within normal range. Is aortic arch calcification. No hilar or mediastinal en largement. No pulmonary infiltrate or consolidation, pleural effusion or pulmonary vascular congestio n or pneumothorax. Diffuse idiopathic skeletal hyperostosis of the thoracic spine. IMPRESSION: No active cardiopulmonary disease Aortic atherosclerosis Diffuse idiopathic skeletal hyperostosis of the thoracic spine Reviewed, dictated and finalized at location A.
[2022-03-22 16:22] VITALS: BP 160/116; PULSE 128; RESP 16; TEMP 37.1; O2SAT 97
--- NOTE | 2022-03-22 16:24 | ECG_ITS ---
Measurements Intervals [place] Rate: 127 P: ID: 0 QRS: -49 QRSD: 90 T: 133 QT: 321 QTc: 468 Interpretive Statements ATRIAL FIBRILLATION WITH RAPID VENTRICULAR RESPONSE LEFT AXIS DEVIATION ANTERIOR INFARCT, AGE INDETERMINATE CONSIDER INFERIOR INFARCT, AGE INDETERMINATE ST-T WAVE ABNORMALITY IN HIGH LATERAL LEADS- CONSIDER ISCHEMIA ABNORMAL ECG COMPARED TO ECG 08/09/2020 09:19:14 MYOCARDIAL INFARCT FINDING NOW PRESENT ST-T WAVE ABNORMALITY IN HIGH LATERAL LEADS- CONSIDER ISCHEMIA NOW PRESENT Electronically Signed On 03-22-2022 16:35:37 CDT by Carlos Eduardo Matos D.O.
[2022-03-22 16:41] LABS: Basophils Absolute Auto 0.1 K/mm3 (0.0-0.1); Basophils Percent Auto 0.4 % (0.2-1.2); Eosinophils Absolute Auto 0.1 K/mm3 (0-0.3); Eosinophils Percent Auto 0.7 % (0-4.4); Hematocrit 51.5 % (42.0-52.0); Hemoglobin 16.9 g/dL (14.0-18.0); Immature Granulocyte Absolute 0.07 K/mm3 (0.00-0.031); Immature Granulocyte Percent A 0.6 % (0-0.5); Mean Corpuscular HGB Conc 32.8 g/dl (32-36); Mean Corpuscular Hemoglobin 30.2 pg (26-34); Mean Corpuscular Volume 92.1 fl (80-100); Mean Platelet Volume 9.6 fl (7.4-10.4); Monocytes Absolute Auto 0.8 K/mm3 (0.1-0.6); Monocytes Percent Auto 6.4 % (2.6-8.5); Neutrophils Absolute Auto 8.6 K/mm3 (1.3-6.7); Neutrophils Percent Auto 73.9 % (45.5-73.1); Platelet Count Result 228 k/mm3 (150-375); Red Blood Count 5.59 M/mm3 (4.6-6.20); Red Cell Distribution Width 14.1 % (11.5-14.5); White Blood Count 11.7 K/mm3 (4.5-10.0)
[2022-03-22 16:54] LABS: Alanine Aminotransferase 21 U/L (6-50); Albumin Level 4.3 g/dL (3.5-5.1); Alkaline Phosphatase 112 U/L (38-126); Anion Gap 11 mmol/L (8-16); Aspartate Amino Transferase 21 U/L (17-59); Bilirubin,Total 0.8 mg/dL (0.2-1.3); Blood Urea Nitrogen 11 mg/dL (9-20); Calcium 8.7 mg/dL (8.4-10.2); Carbon Dioxide 26 mmol/L (22-30); Chloride 102 mmol/L (98-107); Estimated CRCL calculation 107 ml/min; Estimated Glomerular Filt Rate > 60; Glucose 214 mg/dL (65-110); Lipase 50 U/L (23-300); Potassium 3.6 mmol/L (3.4-5.0); Sodium 139 mmol/L (137-145)
[2022-03-22 17:00] LABS: INR 1.9; Prothrombin Time 21.5 Seconds (11.1-14.7)
[2022-03-22 17:01] LABS: Partial Thromboplastin Time 36.3 SECONDS (22.3-36.8)
[2022-03-22 17:05] LABS: Troponin I 0.028 ng/mL (0.000-0.034)
[2022-03-22 17:41] VITALS: BP 131/105; PULSE 115; RESP 20; O2SAT 96
[2022-03-22 17:46] VITALS: BP 124/101; PULSE 121; RESP 22; O2SAT 96
--- NOTE | 2022-03-22 17:54 | ED.ARRPALP ---
HPI - Arrhythmia/Palpitations General Chief Complaint: Arrhythmia/Palpitations Stated Complaint: cough, fluid overflow Time Seen by Provider: 03/22/22 17:35 History of Present Illness HPI narrative: Pt is a 56 y/o male, PMHx of atrial fib, CHF, HTN and DM, presents to ED via POV from his PCP's office with an acute exacerbation of his chronic atrial fib with RVR. He admits to poor medication compliance for the past month or so, specifically stopping his Meformin and Carvedilol. He attributes his medication noncompliance to feeling depressed. He denies SI or HI, stating I would never hurt myself or anyone else, I just get down and don't feel like taking my medication . He is anti-coagulated with Xarelto and does endorse compliance with this medication. He has not experienced CP and he reports his SOB was actually worse last week that it is currently. He notes however, the past week he has experienced a productive cough with occasional sputum production. He is using an albuterol inhaler PRN and this provides adequate relief of coughing fits or wheezing. He is a 1 ppd smoker. He has no hx of calf pain or significant lower leg swelling and he denies associated fevers or chills, hematochezia or melena. He has no COV concerns Of note: he did take a dose of Metformin and Coreg prior to departing his PCP's office after informing his provider that he stopped these medications. His HR has improved since his office visit. Related Data Home Medications Medication Instructions Recorded Confirmed carvedilol 25 mg tablet 25 mg PO Q12H 01/30/20 08/15/21 spironolactone 25 mg tablet 25 mg PO DAILY 01/30/20 08/15/21 furosemide 20 mg tablet 20 mg PO BID 08/09/20 08/15/21 trazodone 50 mg tablet 50 mg PO DAILY 08/09/20 08/15/21 metformin 500 mg tablet mg 08/15/21 Allergies Allergy/AdvReac Type Severity Reaction Status Date / Time No Known Allergies Allergy Unknown Verified 08/09/20 09:22 Review of Systems Review of Systems: refer to HPI Cardiovascular: Comments: refer to HPI [facility] Past Medical History Medical History Chronic obstructive pulmonary disease Combined systolic and diastolic congestive heart failure Echocardiogram in 01/2020 with improved EF of 40 to 45%, grade 4 diastolic dysfunction, and severe pulmonary hypertension. Depression with anxiety Dyslipidemia Essential hypertension Insulin dependent diabetes mellitus Hemoglobin A1c was 10.5 in 01/2020. Noncompliance w/medication treatment due to intermit use of medication Nonischemic cardiomyopathy Lexiscan in February 2019 showed no reversible changes and ejection fraction of 32%. Osteoarthritis Paroxysmal atrial fibrillation On long-term anticoagulation with warfarin. Severe pulmonary hypertension Echocardiogram in 01/2020 showed severe pulmonary hypertension with an estimated pulmonary arterial systolic pressure of 61 mmHg. Tobacco dependence Surgical History Surgical History No history of previous surgery Family History Family History Grandparent Diabetes mellitus Father Carcinoma of colon Mother Carcinoma of colon Sibling COPD (chronic obstructive pulmonary disease) Heart disease Multiple sclerosis Social History Social History (Updated 08/09/20 @ 14:29 by Pratibha Wells PA-C) Social History: The patient is single and lives in [place] with his tea cup marlena named Willard. He is and has 2 children, son and daughter, but unfortunately they are estranged. 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 He designates his sister, Kavita Gleason, as his surrogate decision maker and he wishes to be a full code. He has smoked up to a pack of cigarettes per day since age of 13. The patient is down to half a pack a cigarettes a day. He drank heavily in the past but has abstained for 18+
[2022-03-22 18:31] VITALS: BP 141/101; PULSE 101; RESP 21; O2SAT 95
[2022-03-22 18:37] VITALS: PULSE 108
[2022-03-22 18:45] VITALS: PULSE 113
[2022-03-22] MEDS: METOPROLOL TARTRATE INJ 5 MG/5 ML VIAL IV PUSH (18:45)
[2022-03-22 19:32] LABS: Magnesium 1.8 mg/dL (1.6-2.3)
== END 2022-03-22 20:02 | disposition home or self-care (01) ==
PROVIDERS: Preventive Medicine Aerospace Medicine; Emergency Provider Nurse Practitioner Family
DX: I48.20 Chronic atrial fibrillation, unspecified (principal); J40 Bronchitis, not specified as acute or chronic; T50.906A Underdosing of unspecified drugs, medicaments and biological substances, initial encounter; Z91.128 Patient's intentional underdosing of medication regimen for other reason; J44.9 Chronic obstructive pulmonary disease, unspecified; I11.0 Hypertensive heart disease with heart failure; I50.42 Chronic combined systolic (congestive) and diastolic (congestive) heart failure; E78.5 Hyperlipidemia, unspecified; E11.9 Type 2 diabetes mellitus without complications; I42.8 Other cardiomyopathies; M19.90 Unspecified osteoarthritis, unspecified site; I27.20 Pulmonary hypertension, unspecified; F17.210 Nicotine dependence, cigarettes, uncomplicated; Z79.01 Long term (current) use of anticoagulants; Z79.84 Long term (current) use of oral hypoglycemic drugs; Z79.4 Long term (current) use of insulin; R94.31 Abnormal electrocardiogram [ECG] [EKG]; I70.0 Atherosclerosis of aorta; M48.10 Ankylosing hyperostosis [Forestier], site unspecified
CPT/HCPCS: 36415; 71046; 80053; 83690; 83735; 84484; 85025; 85610; 85730; 93005; 96374; 99284

== ENCOUNTER 2022-04-16 07:34 | Inpatient (IN) | payer MEDICARE, MEDICAID, SELFPAY ==
[2022-04-16] VITALS (42 sets, daily range): BP systolic 136–184; BP diastolic 68–129; PULSE 77–134; RESP 16–26; TEMP 36.1–36.6; O2SAT 94–98; BMI 38.3
--- NOTE | ~2022-04-16 | XR_ITS ---
XR chest 2V DATE: 04/16/2022 08:15 INDICATION: Shortness of breath. Cough. COPD. Smoker. TECHNIQUE: AP and lateral views COMPARISON: 03/22/2022 view chest FINDINGS: Borderline heart size. Aortic arch calcification. No pulmonary infiltrate or consolidation or pleural effusion or pneumothorax is evident. Diffuse idiopathic skeletal hyperostosis of the thoracolumbar spine. IMPRESSION: Borderline heart size Aortic atherosclerosis No active pulmonary disease Reviewed, dictated and finalized at location B. [facility]
--- NOTE | 2022-04-16 07:48 | ECG_ITS ---
Measurements Intervals [place] Rate: 130 P: [place]: 0 QRS: -68 QRSD: 106 T: 110 QT: 312 QTc: 459 Interpretive Statements ATRIAL FIBRILLATION WITH RAPID VENTRICULAR RESPONSE VOLTAGE CRITERIA FOR LVH INFERIOR INFARCT, AGE INDETERMINATE ANTERIOR INFARCT, AGE INDETERMINATE ST-T WAVE ABNORMALITY IN HIGH LATERAL LEADS- CONSIDER ISCHEMIA BASELINE ARTIFACT- I, III, AVL ABNORMAL ECG COMPARED TO ECG 03/22/2022 16:30:51 NO SIGNIFICANT CHANGES Electronically Signed On 04-16-2022 9:22:55 TRANSMISSION WORKER by Carlos Eduardo Matos D.O.
--- NOTE | 2022-04-16 07:51 | ED.SOB ---
HPI - SOB/Dyspnea General Chief Complaint: Shortness of Breath/Dyspnea Stated Complaint: SOB Time Seen by Provider: 04/16/22 07:42 History of Present Illness HPI Narrative: Pt presents with progressively worsening SOB over the last 5 days. Pt has Hx of a fib, COPD and CHF. Pt denies CP or fever. Pt denies weight gain or swelling of legs. Pt denies fever. Pt has a cough with occasional sputum production. Pt has not missed any doses of meds. Pt says nothing at home has helped. Related Data Home Medications Medication Instructions Recorded Confirmed carvedilol 25 mg tablet 25 mg PO Q12H 01/30/20 04/16/22 furosemide 20 mg tablet 20 mg PO DAILY 08/09/20 04/16/22 metformin 500 mg tablet 1,000 mg BID 08/15/21 04/16/22 atorvastatin 20 mg tablet 20 mg PO HS 04/16/22 04/16/22 dapagliflozin 10 mg tablet 10 mg PO DAILY 04/16/22 04/16/22 (Farxiga) insulin glargine 100 unit/mL 36 unit subcut HS 04/16/22 04/16/22 subcutaneous solution (Lantus U-100 Insulin) sacubitril 97 mg-valsartan 103 mg 1 tablet DAILY 04/16/22 04/16/22 tablet (Entresto) sertraline 25 mg tablet 25 mg PO DAILY 04/16/22 04/16/22 Allergies Allergy/AdvReac Type Severity Reaction Status Date / Time No Known Allergies Allergy Unknown Verified 08/09/20 09:22 Review of Systems Review of Systems: All systems reviewed & are unremarkable except as noted in HPI and below Constitutional: Constitutional: Denies fever(s) and Reports weakness Cardiovascular: Cardiovascular: Denies chest pain and Reports rapid heart rate Respiratory: Respiratory: Reports cough and Reports dyspnea PMFSH Past Medical History Medical History Chronic obstructive pulmonary disease Combined systolic and diastolic congestive heart failure Echocardiogram in 01/2020 with improved EF of 40 to 45%, grade 4 diastolic dysfunction, and severe pulmonary hypertension. Depression with anxiety Dyslipidemia Essential hypertension Insulin dependent diabetes mellitus Hemoglobin A1c was 10.5 in 01/2020. Noncompliance w/medication treatment due to intermit use of medication Nonischemic cardiomyopathy Lexiscan in February 2019 showed no reversible changes and ejection fraction of 32%. Osteoarthritis Paroxysmal atrial fibrillation On long-term anticoagulation with warfarin. Severe pulmonary hypertension Echocardiogram in 01/2020 showed severe pulmonary hypertension with an estimated pulmonary arterial systolic pressure of 61 mmHg. Tobacco dependence Surgical History Surgical History No history of previous surgery Family History Family History Grandparent Diabetes mellitus Father Carcinoma of colon Mother Carcinoma of colon Sibling COPD (chronic obstructive pulmonary disease) Heart disease Multiple sclerosis Social History Social History Social History: The patient is single and lives in [place] with his tea cup marlena named Willard. He is and has 2 children, son and daughter, but unfortunately they are estranged. 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 He has smoked up to a pack of cigarettes per day since age of 13. The patient is down to half a pack a cigarettes a day. He drank heavily in the past but has abstained for 18+ years. History of substance abuse long ago. Smoking packs per day: 1 Smoking cigarettes per day: 20.0 Years smoked: 45 Smoking pack-years: 45.00 Smoking status: Current every day smoker Tobacco type: cigarettes Alcohol intake: former Substance use: never Substance use type: does not use Lack of Transportation: YES Lack of Food: Never True Current Housing: I Have Housing Concerned Abo
[2022-04-16 08:28] LABS: Basophils Percent Auto 0.3 % (0.2-1.2); Eosinophils Percent Auto 0.2 % (0-4.4); Hematocrit 49.9 % (42.0-52.0); Hemoglobin 16.9 g/dL (14.0-18.0); Immature Granulocyte Absolute 0.06 K/mm3 (0.00-0.031); Immature Granulocyte Percent A 0.5 % (0-0.5); Lymphocytes Absolute Auto 0.56 K/mm3 (0.9-3.2); Lymphocytes Percent Auto 4.8 % (18.3-44.2); Mean Corpuscular HGB Conc 33.9 g/dl (32-36); Mean Corpuscular Volume 91.6 fl (80-100); Mean Platelet Volume 10.1 fl (7.4-10.4); Monocytes Absolute Auto 0.8 K/mm3 (0.1-0.6); Neutrophils Absolute Auto 10.3 K/mm3 (1.3-6.7); Neutrophils Percent Auto 87.2 % (45.5-73.1); Platelet Count Result 159 k/mm3 (150-375); Red Blood Count 5.45 M/mm3 (4.6-6.20); Red Cell Distribution Width 14.7 % (11.5-14.5); White Blood Count 11.8 K/mm3 (4.5-10.0)
[2022-04-16 08:44] LABS: INR 1.6; Prothrombin Time 18.2 Seconds (11.1-14.7)
[2022-04-16 08:45] LABS: Partial Thromboplastin Time 34.4 SECONDS (22.3-36.8)
[2022-04-16 08:57] LABS: Alanine Aminotransferase 24 U/L (6-50); Albumin Level 4.3 g/dL (3.5-5.1); Alkaline Phosphatase 107 U/L (38-126); Anion Gap 18 mmol/L (8-16); Aspartate Amino Transferase 28 U/L (17-59); Bilirubin,Total 2.2 mg/dL (0.2-1.3); Blood Urea Nitrogen 19 mg/dL (9-20); Calcium 8.5 mg/dL (8.4-10.2); Carbon Dioxide 19 mmol/L (22-30); Chloride 101 mmol/L (98-107); Estimated CRCL calculation 104 ml/min; Estimated Glomerular Filt Rate > 60; Glucose 122 mg/dL (65-110); Potassium 3.5 mmol/L (3.4-5.0); Sodium 138 mmol/L (137-145)
[2022-04-16 09:05] LABS: Influenza A QL RT-PCR Negative (Negative); Influenza B QL RT-PCR Negative (Negative); SARS-CoV-2 RNA PCR Negative
[2022-04-16 09:09] LABS: NT Pro B Type Natriuretic Pept 4110 pg/mL (5-100); Troponin I < 0.012 ng/mL (0.000-0.034)
[2022-04-16 09:24] LABS: Digoxin < 0.4 ng/mL (0.8-2.0)
[2022-04-16] MEDS: dilTIAZem HCl INJ 25 MG/5 ML VIAL 20 MG IV PUSH (10:24)
[2022-04-16] MEDS: dilTIAZem 100 MG/100 ML 100 MG/100 ML BAG 10 MG IV CONT (10:29)
[2022-04-16] MEDS: IPRATROPIUM BR 0.02% INH SOLN 0.5 MG/2.5 ML VIAL INHALATION (10:41)
--- NOTE | 2022-04-16 14:00 | PM.IMHP ---
H&P: HPI History of Present Illness Date/Time: 04/16/22 14:00 Chief Complaint: Shortness of breath. Narrative: This is a pleasant 57-year-old male smoker with history of noncompliance, nonischemic cardiomyopathy with EF as low as 15 to 20% on echocardiogram in July 2020, paroxysmal atrial fibrillation, insulin-dependent type 2 diabetes mellitus, and hypertension who presented to the emergency department earlier today for evaluation of shortness of breath. He has chronic dyspnea on exertion which has gotten increasingly worse over the last 2 weeks. Initially he was having more shortness of breath when walking distances but is now to the point where he is getting short of breath even when walking 5 feet. He has had a mild nonproductive cough as well. At times when he is up walking he will feel a bit lightheaded and dizzy though he denies near syncope. He has not slept well due to the shortness of breath though he denies overt orthopnea. Several weeks ago while he was working ([employer]) he broke out into a sweat and had a brief episode of mild mid chest heaviness which resolved without intervention and that has not recurred. He has been using his inhaler without a whole lot of benefit. He denies fever, chills, sinus congestion, sore throat, exertional chest pain, sensations of racing heart, pleuritic pain, palpitations, nausea, vomiting, diarrhea, and lower extremity edema. On EMS arrival his SpO2 was 93% on room air and was placed on 2 liters nasal cannula. He received 1 nebulizer treatment in route to the hospital as well as Decadron 10 milligrams. On arrival to the ER he was in atrial fibrillation with rapid ventricular response and he was given a bolus of diltiazem and he has been started on a diltiazem drip. Chest x-ray showed no acute findings. He tested negative for influenza and COVID. He is being admitted in this setting for further treatment and evaluation. Of note he admits that he is not always compliant with his home medications for unclear reasons though he has been taking his insulin as directed on a consistent basis. He did not take any of his medications this morning. Review of Systems Review of Systems: Twelve systems were reviewed. No fever or chills. No sinus congestion or sore throat. No history of sleep apnea though he does snore and occasionally wakes up short of breath. Glucose has been reasonable though is higher today after receiving Decadron. Except as documented, all other systems were reviewed and are negative. [facility] Past Medical History Medical History (Updated 04/16/22 @ 19:58 by Pratibha Wells PA-C) Chronic obstructive pulmonary disease Combined systolic and diastolic congestive heart failure Echocardiogram in July 2020 showed an EF of 15 to 20% with abnormal diastolic function. Depression with anxiety Dyslipidemia Essential hypertension Heart failure with reduced ejection fraction Insulin dependent diabetes mellitus Hemoglobin A1c was 10.5 in 01/2020. Noncompliance w/medication treatment due to intermit use of medication Nonischemic cardiomyopathy Lexiscan in February 2019 showed no reversible changes and ejection fraction of 32%. Osteoarthritis Paroxysmal atrial fibrillation On long-term anticoagulation with warfarin. Tobacco dependence Surgical History Surgical History No history of previous surgery Family History Family History Grandparent Diabetes mellitus Father Carcinoma of colon Mother Carcinoma of colon Sibling COPD (chronic obstructive pulmonary disease) Heart disease Multiple sclerosis Social History Social History (Updated 04/16/22 @ 19:54 by Pratibha Wells PA-C) Social History: The patient is single and lives in [place] with his tea cup ket[employer] Medical Devicesjulieta named Willard. He is and has 2 children, son and daughter, but unfortunately they are estranged. He
[2022-04-16 16:33] LABS: Troponin I < 0.012 ng/mL (0.000-0.034)
--- NOTE | 2022-04-16 16:35 | ADMGEN ---
Addendum entered by Kaela Gamble RN 04/16/22 16:36: IV Cardizem infusing at 10mg/hr- monitor atrial fib 100's Original Note: This patient, Rohan Chand, was admitted to IMU Room 205-01 Q 1445. Patient oriented to hospital policies and general routines including ID bracelet, bed and alarms, visiting hours, pain management, procedures, bathroom and other care routines, personal items, smoking policy, room service/diet, and visiting hours. Information on how to activate the Rapid Response Team has been discussed. Patient encouraged to report perceived risks to care and to ask questions if they do not understand what they are told or what they should do.
[2022-04-16 17:25] LABS: Glucose Point of Care 315 mg/dl (65-105)
[2022-04-16] MEDS: INSULIN ASPART (*BKC) 100 UNITS/ML SUB-Q (18:24)
[2022-04-16 19:48] LABS: Troponin I < 0.012 ng/mL (0.000-0.034)
[2022-04-16 20:14] LABS: Digoxin < 0.4 ng/mL (0.8-2.0)
[2022-04-16] MEDS: carvediloL 25 MG TABLET PO (20:47)
[2022-04-16] MEDS: RIVAROXABAN 20 MG TABLET PO (20:48)
[2022-04-16] MEDS: ATORVASTATIN 20 MG TABLET PO (20:48)
[2022-04-16 21:01] LABS: Hemoglobin A1C 8.5 % (<5.7)
[2022-04-16 21:28] LABS: Thyroid Stimulating Hormone Reflex 0.684 uIU/mL (0.465-4.68)
[2022-04-16 21:43] LABS: Glucose Point of Care 207 mg/dl (65-105)
[2022-04-16] MEDS: FUROSEMIDE INJ 40 MG/4 ML VIAL IV PUSH (22:12)
[2022-04-16] MEDS: SACUBITRIL/VALSARTAN 97-103 MG TABLET 1 TAB BY MOUTH (22:13)
[2022-04-16] MEDS: INSULIN GLARGINE (*BKC) 100 UNITS/ML 36 UNITS SUB-Q (22:14)
--- NOTE | 2022-04-16 22:24 | PHAR ---
DRUG NAME: BOB INGREDIENTS: DAPAGLIFLOZIN PROPANEDIOL -- 10 MG RELATED DOCUMENTS: DRUGDEX EVALUATIONS - DAPAGLIFLOZIN COLOR: YELLOW SHAPE: DILCIA IMPRINT: 1428 , 10 FORM: ORAL TABLET
[2022-04-17] VITALS (29 sets, daily range): BP systolic 115–157; BP diastolic 73–109; PULSE 80–141; RESP 12–26; TEMP 36.2–37.2; O2SAT 92–97
[2022-04-17] MEDS: IPRATROPIUM BR 0.02% INH SOLN 0.5 MG/2.5 ML VIAL INHALATION ×4 (02:06→20:04)
[2022-04-17 07:55] LABS: Glucose Point of Care 165 mg/dl (65-105)
[2022-04-17] MEDS: DIGOXIN TAB 125 MCG TABLET PO (08:08)
[2022-04-17] MEDS: predniSONE 20 MG TABLET 40 MG PO (08:09)
[2022-04-17] MEDS: SERTRALINE HCL 25 MG TABLET PO (08:09)
[2022-04-17] MEDS: SACUBITRIL/VALSARTAN 97-103 MG TABLET 1 TAB BY MOUTH ×2 (08:09→20:44)
[2022-04-17] MEDS: carvediloL 25 MG TABLET PO ×2 (08:10→20:44)
[2022-04-17] MEDS: FUROSEMIDE 20 MG TABLET PO (08:11)
--- NOTE | 2022-04-17 11:26 | PC.NURSE ---
called pt's primary MD to verify home medication - Dr. Wan informed and medications updated
--- NOTE | 2022-04-17 11:51 | PM.CNCAR ---
Assessment and Plan Assessment and plan (1) Atrial fibrillation with rapid ventricular response: Code(s): I48.91 - Unspecified atrial fibrillation Status: Acute Assessment and Plan: Atrial fibrillation with rapid ventricular response remains. This is in part worsened by noncompliance with medications. Will resume his digoxin as well as carvedilol. Avoid calcium channel blockers. Will give a dose of IV amiodarone 150 mg IV x1. May have to started a diltiazem drip for rate control until he becomes better compensated. Continue Xarelto. (2) Combined systolic and diastolic congestive heart failure: Code(s): I50.40 - Unspecified combined systolic (congestive) and diastolic (congestive) heart failure Status: Acute Assessment and Plan: Acute on chronic combined CHF: Worsened by atrial fibrillation and lack of compliance. Will start furosemide 40 mg IV daily. Replace his potassium 40 mEq p.o. x1. Continue carvedilol, Entresto, Farxiga. 2D echocardiogram with Doppler will be ordered and reviewed. Intake and output as well as daily weights will be monitored. Start spironolactone 25 mg p.o. daily. (3) COPD exacerbation: Code(s): J44.1 - Chronic obstructive pulmonary disease with (acute) exacerbation Status: Acute Assessment and Plan: Per hospitalist. Nebulizers and steroid as needed (4) Hypertension associated with diabetes: Code(s): E11.59 - Type 2 diabetes mellitus with other circulatory complications; I15.2 - Hypertension secondary to endocrine disorders Status: Acute Assessment and Plan: Elevated. Treatment as above. Diabetes treatment per hospitalist (5) Nonischemic cardiomyopathy: Code(s): I42.8 - Other cardiomyopathies Status: Acute Assessment and Plan: Restarting carvedilol, Entresto, spironolactone, Farxiga (6) Tobacco dependence: Code(s): F17.200 - Nicotine dependence, unspecified, uncomplicated Status: Acute Assessment and Plan: Tobacco abuse counseling performed (7) Depression with anxiety: Code(s): F41.8 - Other specified anxiety disorders Status: Chronic Assessment and Plan: Imperative that his anxiety and depression improve her long-term CHF treatment and outcome (8) Hypokalemia: Code(s): E87.6 - Hypokalemia Status: Acute Assessment and Plan: KCL 40 mg p.o. x1 History of Present Illness History of Present Illness Consult date/time: 04/17/22 11:51 Requesting physician: Satinder Wan MD Consult reason: atrial fibrillation and congestive heart failure Reason For Visit: A Fib with RVR Narrative: Date of service 04/17/2022 Reason consultation: Atrial fibrillation, congestive heart failure Requesting provider: Dr. Wan History: Patient is a 57-year-old male who has a history of CHF. He has seen Dr. Jacobo on a couple of occasions but has not followed up with him as an outpatient because of insurance reasons. He was last hospitalized this hospital about a year and a half ago. His history of paroxysmal atrial fibrillation, nonischemic cardiomyopathy, noncompliance with medications, tobacco use, and hypertension, diabetes, hyperlipidemia. He has chronic shortness of breath better over the past 1-2 weeks at his significantly gotten worse. He readily admits that he is dealing with anxiety and depression and does not routinely take his medications. He does state that he is generally compliant with his Xarelto however. His dyspnea has worsened to the point that he is short of breath at rest. He complains of orthopnea as well as paroxysmal nocturnal dyspnea. He denies any chest pain, syncope, palpitations. He also denies lower extremity swelling. In the emergency room he was satting 93% on room air he was placed on 2 L vision nasal cannula. He was given nebulizer treatment as well as Decadron because of apparent wheeziness. He does have intermittent lightheadedn
[2022-04-17] MEDS: INSULIN ASPART (*BKC) 100 UNITS/ML SUB-Q ×2 (12:00→18:37)
[2022-04-17 12:29] LABS: Glucose Point of Care 266 mg/dl (65-105)
[2022-04-17] MEDS: AMIODARONE 150 MG/D5W 100 ML 150 MG/100 ML BAG 600 MG IV CONT (13:06)
--- NOTE | 2022-04-17 13:12 | PM.IMPN ---
Progress Note: A&P Assessment and Plan (1) Atrial fibrillation with rapid ventricular response: Code(s): I48.91 - Unspecified atrial fibrillation Status: Acute Assessment and Plan: noncompliance to medications. Will resume home medications. Cardiology consult. Monitor heart rate. Continue telemetry. (2) COPD exacerbation: Code(s): J44.1 - Chronic obstructive pulmonary disease with (acute) exacerbation Status: Acute Assessment and Plan: Continue home medications (3) Insulin dependent diabetes mellitus: Code(s): E11.9 - Type 2 diabetes mellitus without complications; Z79.4 - penitentiary (current) use of insulin Status: Acute Assessment and Plan: continue insulin. (4) Nonischemic cardiomyopathy: Code(s): I42.8 - Other cardiomyopathies Status: Acute Assessment and Plan: Noncompliance to medications. Will resume home medications and cardioprotective medications. (5) Heart failure with reduced ejection fraction: Code(s): I50.20 - Unspecified systolic (congestive) heart failure Status: Acute Assessment and Plan: Noncompliance to medications. Will resume home medications and cardioprotective medications. (6) Suspected sleep apnea: Code(s): R29.818 - Other symptoms and signs involving the nervous system Status: Acute (7) Essential hypertension: Code(s): I10 - Essential (primary) hypertension Status: Acute (8) Tobacco dependence: Code(s): F17.200 - Nicotine dependence, unspecified, uncomplicated Status: Acute Subjective Date/time seen: 04/17/22 13:13 still having significant shortness of breath Exam Const: Other: Chronically ill-appearing male lying on his left side in bed. Weight: 111 kilograms. BMI: 38.3. HENMT: Other: Normocephalic, atraumatic. Nares patent. Oral mucosa moist. Some missing teeth. Oropharynx crowded. Eyes: Other: Pupils are reactive, extraocular motions intact. Sclerae anicteric. Neck: Other: Supple. Exam limited due to positioning neck circumference. No obvious JVD. Resp: Other: Respirations are nonlabored. He is speaking in full sentences. Lung sounds are diminished throughout with end-expiratory wheezing. Occasional rhonchi which improved with cough. Cardio: Other: Irregularly irregular rate and rhythm. GI: Other: Abdomen is soft, obese, nontender with positive bowel sounds. Skin: Other: Warm and dry. Neuro: Other: Alert. Cranial nerves 2-12 are grossly intact. No gross focal deficits to casual conversation. Extrem: Other: No cyanosis, clubbing, or significant edema. Peripheral pulses palpable. Psych: Other: Pleasant cooperative. Appropriate mood and sad affect. Objective Data Vital Signs Vital Signs: Vital Signs - 24 hr 04/16/22 13:15 04/16/22 13:32 04/16/22 13:47 Temperature Pulse Rate 97 109 H 106 H Respiratory Rate 19 26 H 24 H Blood Pressure Pulse Oximetry 97 98 96 Oxygen Delivery Oxygen Flow Rate 04/16/22 14:00 04/16/22 14:16 04/16/22 14:30 Temperature Pulse Rate 90 90 96 Respiratory Rate 21 H 20 16 Blood Pressure Pulse Oximetry 96 98 Oxygen Delivery Oxygen Flow Rate 04/16/22 15:00 04/16/22 17:16 04/16/22 16:00 Temperature 98 F 97.3 F L Pulse Rate 108 H 111 H 112 H Respiratory Rate 20 20 Blood Pressure 170/68 H 142/91 H Pulse Oximetry 98 96 Oxygen Delivery Oxygen Flow Rate 04/16/22 18:00 04/16/22 15:00 04/16/22 20:00 Temperature 97 F L Pulse Rate 111 H 110 H 88 Respiratory Rate 18 Blood Pressure 154/89 H Pulse Oximetry 96 Oxygen Delivery Oxygen Flow Rate 04/16/22 20:47 04/16/22 23:57 04/16/22 20:00 Temperature 97.6 F Pulse Rate 105 H 85 Respiratory Rate 16 Blood Pressure 136/80 Pulse Oximetry 96 96 Oxygen Delivery Nasal Cannula Oxygen Flow Rate 2 04/17/22 00:00 04/17/22 02:09 04/17/22 02:09 Temperature
[2022-04-17] MEDS: POTASSIUM CHLORIDE 20 MEQ TABLET 40 MEQ PO (13:18)
[2022-04-17] MEDS: FUROSEMIDE INJ 40 MG/4 ML VIAL IV PUSH (13:18)
[2022-04-17 17:00] LABS: Glucose Point of Care 222 mg/dl (65-105)
[2022-04-17] MEDS: MAGNESIUM OXIDE 400 MG TABLET PO (17:41)
[2022-04-17] MEDS: RIVAROXABAN 20 MG TABLET PO (17:42)
[2022-04-17 20:00] LABS: Glucose Point of Care 160 mg/dl (65-105)
--- NOTE | 2022-04-17 20:02 | ECHO_ITS ---
Patient Info Name: Rohan Chand Age: 57 years : 1965 Gender: Male Ht: 67 in Wt: 244 lbs BSA: 2.34 m2 HR: 95 bpm BP: 152 / 87 mmHg Heart Rhythm: Atrial Fibrillation, Tachycardia Exam Date: 04/17/2022 1:46 PM Exam Location: [facility] Pulmonary Patient Status: Outpatient Admit Date: 04/16/2022 Staff Ordering Physician: Pratibha Wells PA-C [employer] Bander: Ion Rangel RDCS Attending Provider: Michaela Brothers MD Referring Physician: Priscilla DELGADO; Exam Type: CA echo doppler color flow Study Info Indications - atrial fibrillation Complete two-dimensional, color flow and Doppler transthoracic echocardiogram is performed. Summary 1. Complete two-dimensional, color flow and Doppler transthoracic echocardiogram is performed. 2. Left ventricular systolic function is mildly reduced, estimated at 40-45%. Of note, this study was done during atrial fibrillation with RVR. 3. Right ventricular systolic function is normal. Left Ventricle Left ventricular chamber dimension is normal. Left ventricular systolic function is mildly reduced, estimated at 40-45%. Of note, this study was done during atrial fibrillation with RVR. Right Ventricle Right ventricular chamber dimension is normal. Right ventricular systolic function is normal. Left Atria Left atrial chamber dimension is normal. Right Atria Right atrial chamber dimension is normal. Atrial Septum Intact interatrial septum visualized by color flow imaging. Aortic Valve The aortic valve is not well visualized. There is no aortic valve stenosis. There is no aortic valve regurgitation. Pulmonic Valve The pulmonic valve is not well visualized. Mitral Valve The mitral valve has thickened leaflets. There is no mitral valve stenosis. There is no mitral valve regurgitation. Tricuspid Valve The tricuspid valve leaflets are normal. There is no significant tricuspid valve stenosis. There is trace tricuspid valve regurgitation. Pericardium/Pleural There is no pericardial effusion. Inferior Vena Cava Normal inferior vena cava with >50% collapse upon inspiration consistent with normal right atrial pressure. Aorta The aortic root size at the sinus of Valsalva is not well visualized. Left Ventricular Outflow Tract Name Value Normal LVOT Doppler LVOT Peak Gradient 3 mmHg LVOT Mean Gradient 2 mmHg LVOT VTI 13 cm LVOT VTI/AV VTI Ratio 0.5 Mitral Valve Name Value Normal MV Doppler MV Decel Bulloch 562 cm/s2 MV PHT 52 ms MV Area (PHT) 4.3 cm2 4.0-5.0 MV Diastolic Function MV E Peak Velocity 100 cm/s MV A Peak Velocity 2 cm/s MV E/A
[2022-04-17] MEDS: ALPRAZolam (*CRX) 0.25 MG TABLET PO (20:43)
[2022-04-17] MEDS: ATORVASTATIN 20 MG TABLET PO (20:44)
[2022-04-17] MEDS: GABAPENTIN 300 MG CAPSULE 900 MG PO (20:45)
[2022-04-17] MEDS: INSULIN GLARGINE (*BKC) 100 UNITS/ML 50 UNITS SUB-Q (20:45)
[2022-04-18] VITALS (26 sets, daily range): BP systolic 102–142; BP diastolic 67–109; PULSE 87–128; RESP 16–30; TEMP 36.3–36.8; O2SAT 92–98
[2022-04-18] MEDS: FUROSEMIDE INJ 40 MG/4 ML VIAL IV PUSH ×2 (04:09→09:47)
[2022-04-18] MEDS: DIGOXIN INJ 250 MCG/ML 2 ML AMP (*BKC) IV PUSH (04:09)
[2022-04-18] MEDS: MORPHINE SULFATE (*CRX) 2 MG/ML INJ 1 MG IV PUSH (04:10)
[2022-04-18 08:17] LABS: Glucose Point of Care 143 mg/dl (65-105)
[2022-04-18] MEDS: IPRATROPIUM BR 0.02% INH SOLN 0.5 MG/2.5 ML VIAL INHALATION ×3 (09:10→21:54)
[2022-04-18] MEDS: predniSONE 20 MG TABLET 40 MG PO (09:47)
[2022-04-18] MEDS: SACUBITRIL/VALSARTAN 97-103 MG TABLET 1 TAB BY MOUTH ×2 (09:48→21:29)
[2022-04-18] MEDS: carvediloL 25 MG TABLET PO ×2 (09:48→21:29)
[2022-04-18] MEDS: SERTRALINE HCL 25 MG TABLET PO (09:48)
[2022-04-18] MEDS: DIGOXIN TAB 125 MCG TABLET PO (09:48)
[2022-04-18] MEDS: SPIRONOLACTONE 25 MG TABLET PO (09:48)
[2022-04-18] MEDS: MAGNESIUM OXIDE 400 MG TABLET PO ×2 (09:49→18:13)
[2022-04-18 10:48] LABS: Hemoglobin 20.8 g/dL (14.0-18.0); Mean Corpuscular HGB Conc 32.5 g/dl (32-36); Mean Corpuscular Hemoglobin 30.1 pg (26-34); Mean Corpuscular Volume 92.6 fl (80-100); Mean Platelet Volume 9.6 fl (7.4-10.4); Platelet Count Result 193 k/mm3 (150-375); Red Blood Count 6.91 M/mm3 (4.6-6.20); Red Cell Distribution Width 16.8 % (11.5-14.5); White Blood Count 11.3 K/mm3 (4.5-10.0)
--- NOTE | 2022-04-18 10:50 | PM.PNCARD ---
Progress Note: A&P Assessment and Plan (1) Atrial fibrillation with rapid ventricular response: Code(s): I48.91 - Unspecified atrial fibrillation Status: Acute Assessment and Plan: Atrial fibrillation with rapid ventricular response remains. This is in part worsened by noncompliance with medications. Will resume his digoxin as well as carvedilol. Avoid calcium channel blockers. Will give a dose of IV amiodarone 150 mg IV x1. Continue Xarelto. Will start amiodarone 400 mg p.o. b.i.d. (2) Combined systolic and diastolic congestive heart failure: Code(s): I50.40 - Unspecified combined systolic (congestive) and diastolic (congestive) heart failure Status: Acute Assessment and Plan: Acute on chronic combined CHF: Worsened by atrial fibrillation and lack of compliance. Will reduce his furosemide to 20 mg IV daily. Await BMP Continue carvedilol, Entresto, Farxiga. Intake and output as well as daily weights will be monitored. Start spironolactone 25 mg p.o. daily. (3) COPD exacerbation: Code(s): J44.1 - Chronic obstructive pulmonary disease with (acute) exacerbation Status: Acute Assessment and Plan: Per hospitalist. Nebulizers and steroid as needed (4) Hypertension associated with diabetes: Code(s): E11.59 - Type 2 diabetes mellitus with other circulatory complications; I15.2 - Hypertension secondary to endocrine disorders Status: Acute Assessment and Plan: Better controlled Treatment as above. Diabetes treatment per hospitalist (5) Nonischemic cardiomyopathy: Code(s): I42.8 - Other cardiomyopathies Status: Acute Assessment and Plan: Restarting carvedilol, Entresto, spironolactone, Farxiga (6) Tobacco dependence: Code(s): F17.200 - Nicotine dependence, unspecified, uncomplicated Status: Acute Assessment and Plan: Tobacco abuse counseling performed (7) Depression with anxiety: Code(s): F41.8 - Other specified anxiety disorders Status: Chronic Assessment and Plan: Imperative that his anxiety and depression improve her long-term CHF treatment and outcome (8) Hypokalemia: Code(s): E87.6 - Hypokalemia Status: Acute Assessment and Plan: BMP pending Subjective Date/time seen: 04/18/22 10:50 Interval history: 57-year-old admitted for AFib and heart failure Date of service 04/18/2022: Resting more comfortably in bed. Heart rate is slightly elevated but certainly better. Still short of breath but no chest Review of Systems Review of Systems: All systems reviewed & are unremarkable except as noted in HPI and below Constitutional: Constitutional: Denies body ache(s), Denies excessive sweating, Reports fatigue and Reports lethargy Eyes: Eyes: Denies blurry vision ENT: Reports Normal hearing present and Denies lip swelling Cardiovascular: Cardiovascular: Denies chest pain, Reports lightheadedness, Reports palpitations, Reports dyspnea and Reports dyspnea on exertion Respiratory: Respiratory: Reports cough, Reports dyspnea, Reports dyspnea on exertion and Reports wheezing Gastrointestinal: Gastrointestinal: Denies abdominal pain Genitourinary: Genitourinary: Reports hematuria and Reports flank pain Musculoskeletal: Musculoskeletal: Denies abnormal gait, Denies back pain and Reports myalgias Integumentary/Breasts: Skin/Breast: Denies skin pain and Denies unusual bruising Neurologic: Reports Normal hearing present, Denies Abnormal speech present, Denies abnormal gait and Denies confusion Psychiatric: Psychiatric: Reports anxiety, Denies confusion and Reports depression Endocrine: Endocrine: Denies excessive sweating, Reports fatigue and Reports palpitations Hematologic/Lymphatic: Hematologic/Lymphatic: Denies easy bleeding and Denies easy bruising Allergic/Immunologic: Allergic/Immunologic: Denies GI upset with certain foods, Denies lip swelling and Reports wheezi
[2022-04-18 10:58] LABS: Anion Gap 11 mmol/L (8-16); Blood Urea Nitrogen 22 mg/dL (9-20); Calcium 8.9 mg/dL (8.4-10.2); Carbon Dioxide 32 mmol/L (22-30); Chloride 94 mmol/L (98-107); Estimated CRCL calculation 103 ml/min; Estimated Glomerular Filt Rate > 60; Glucose 178 mg/dL (65-110); Potassium 3.9 mmol/L (3.4-5.0); Sodium 137 mmol/L (137-145)
[2022-04-18 11:04] LABS: Magnesium 2.1 mg/dL (1.6-2.3)
--- NOTE | 2022-04-18 12:11 | PM.IMPN ---
Progress Note: A&P Assessment and Plan (1) Atrial fibrillation with rapid ventricular response: Code(s): I48.91 - Unspecified atrial fibrillation Status: Acute Assessment and Plan: noncompliance to medications. Will resume home medications. Cardiology consult. Monitor heart rate. Continue telemetry. (2) COPD exacerbation: Code(s): J44.1 - Chronic obstructive pulmonary disease with (acute) exacerbation Status: Acute Assessment and Plan: Continue home medications (3) Insulin dependent diabetes mellitus: Code(s): E11.9 - Type 2 diabetes mellitus without complications; Z79.4 - [facility] (current) use of insulin Status: Acute Assessment and Plan: continue insulin. (4) Nonischemic cardiomyopathy: Code(s): I42.8 - Other cardiomyopathies Status: Acute Assessment and Plan: Noncompliance to medications. Will resume home medications and cardioprotective medications. (5) Heart failure with reduced ejection fraction: Code(s): I50.20 - Unspecified systolic (congestive) heart failure Status: Acute Assessment and Plan: Noncompliance to medications. Will resume home medications and cardioprotective medications. (6) Suspected sleep apnea: Code(s): R29.818 - Other symptoms and signs involving the nervous system Status: Acute (7) Essential hypertension: Code(s): I10 - Essential (primary) hypertension Status: Acute (8) Tobacco dependence: Code(s): F17.200 - Nicotine dependence, unspecified, uncomplicated Status: Acute Subjective Date/time seen: 04/18/22 12:11 No new complaints Exam Const: Other: Chronically ill-appearing male lying on his left side in bed. Weight: 111 kilograms. BMI: 38.3. HENMT: Other: Normocephalic, atraumatic. Nares patent. Oral mucosa moist. Some missing teeth. Oropharynx crowded. Eyes: Other: Pupils are reactive, extraocular motions intact. Sclerae anicteric. Neck: Other: Supple. Exam limited due to positioning neck circumference. No obvious JVD. Resp: Other: Respirations are nonlabored. He is speaking in full sentences. Lung sounds are diminished throughout with end-expiratory wheezing. Occasional rhonchi which improved with cough. Cardio: Other: Irregularly irregular rate and rhythm. GI: Other: Abdomen is soft, obese, nontender with positive bowel sounds. Skin: Other: Warm and dry. Neuro: Other: Alert. Cranial nerves 2-12 are grossly intact. No gross focal deficits to casual conversation. Extrem: Other: No cyanosis, clubbing, or significant edema. Peripheral pulses palpable. Psych: Other: Pleasant cooperative. Appropriate mood and sad affect. Objective Data Vital Signs Vital Signs: Vital Signs - 24 hr 04/17/22 13:06 04/17/22 13:25 04/17/22 12:20 Temperature Pulse Rate 126 H 116 H 124 H Respiratory Rate Blood Pressure 119/79 116/84 Pulse Oximetry Oxygen Delivery Oxygen Flow Rate 04/17/22 14:52 04/17/22 14:00 04/17/22 15:04 Temperature Pulse Rate 120 H 111 H 115 H Respiratory Rate 20 20 Blood Pressure Pulse Oximetry Oxygen Delivery Oxygen Flow Rate 04/17/22 16:00 04/17/22 16:00 04/17/22 18:00 Temperature 98.9 F Pulse Rate 133 H 120 H 137 H Respiratory Rate 20 Blood Pressure 124/73 Pulse Oximetry 93 Oxygen Delivery Oxygen Flow Rate 04/17/22 20:10 04/17/22 20:05 04/17/22 20:00 Temperature 97.2 F L Pulse Rate 113 H 122 H 131 H Respiratory Rate 22 H 22 H 26 H Blood Pressure 141/96 H Pulse Oximetry 94 94 Oxygen Delivery Nasal Cannula Oxygen Flow Rate 2 04/17/22 20:19 04/17/22 20:44 04/17/22 23:49 Temperature 97.5 F L Pulse Rate 122 H 141 H 126 H Respiratory Rate 22 H 20 Blood Pressure 157/109 H Pulse Oximetry 93 Oxygen Delivery Oxygen Flow Rate 04/17/22 20:00 04/18/22 00:00 04/17/22 20:00 Temperature Pulse Rate
[2022-04-18] MEDS: AMIODARONE HCL 200 MG TABLET 400 MG PO ×2 (12:24→18:13)
[2022-04-18] MEDS: INSULIN ASPART (*BKC) 100 UNITS/ML SUB-Q ×2 (12:25→18:14)
[2022-04-18 12:35] LABS: Glucose Point of Care 276 mg/dl (65-105)
[2022-04-18 17:33] LABS: Glucose Point of Care 208 mg/dl (65-105)
[2022-04-18] MEDS: RIVAROXABAN 20 MG TABLET PO (18:13)
[2022-04-18 20:47] LABS: Glucose Point of Care 250 mg/dl (65-105)
[2022-04-18] MEDS: ATORVASTATIN 20 MG TABLET PO (21:29)
[2022-04-18] MEDS: GABAPENTIN 300 MG CAPSULE 900 MG PO (21:29)
[2022-04-18] MEDS: INSULIN GLARGINE (*BKC) 100 UNITS/ML 50 UNITS SUB-Q (21:32)
[2022-04-19] VITALS (19 sets, daily range): BP systolic 90–121; BP diastolic 53–63; PULSE 71–120; RESP 14–24; TEMP 36.1–37.2; O2SAT 93–99
[2022-04-19 08:12] LABS: Glucose Point of Care 265 mg/dl (65-105)
--- NOTE | 2022-04-19 09:00 | PM.PNCARD ---
Progress Note: A&P Assessment and Plan (1) Atrial fibrillation with rapid ventricular response: Code(s): I48.91 - Unspecified atrial fibrillation Status: Acute Assessment and Plan: Atrial fibrillation with rapid ventricular response remains. This is in part worsened by noncompliance with medications. Rate is controlled since being restarted on his home meds and with addition of amiodarone. Continue Xarelto. (2) Combined systolic and diastolic congestive heart failure: Code(s): I50.40 - Unspecified combined systolic (congestive) and diastolic (congestive) heart failure Status: Acute Assessment and Plan: Acute on chronic combined CHF: Worsened by atrial fibrillation and lack of compliance. Improving. Will shift to p.o. furosemide at this point, Continue carvedilol, Entresto, Farxiga. Intake and output as well as daily weights will be monitored. Start spironolactone 25 mg p.o. daily. Check BMP in a.m. (3) COPD exacerbation: Code(s): J44.1 - Chronic obstructive pulmonary disease with (acute) exacerbation Status: Acute Assessment and Plan: Per hospitalist. Nebulizers and steroid as needed (4) Hypertension associated with diabetes: Code(s): E11.59 - Type 2 diabetes mellitus with other circulatory complications; I15.2 - Hypertension secondary to endocrine disorders Status: Acute Assessment and Plan: Better controlled Treatment as above. Diabetes treatment per hospitalist (5) Nonischemic cardiomyopathy: Code(s): I42.8 - Other cardiomyopathies Status: Acute Assessment and Plan: Continue carvedilol, Entresto, spironolactone, Farxiga (6) Tobacco dependence: Code(s): F17.200 - Nicotine dependence, unspecified, uncomplicated Status: Acute Assessment and Plan: Tobacco abuse counseling performed (7) Depression with anxiety: Code(s): F41.8 - Other specified anxiety disorders Status: Chronic (8) Hypokalemia: Code(s): E87.6 - Hypokalemia Status: Acute Assessment and Plan: BMP pending Subjective Date/time seen: 04/19/22 09:00 Cardiology follow up for atrial fibrillation, CHF Feels better today. He states his breathing is improved. No chest pain or palpitations. No swelling. Review of Systems Review of Systems: All systems reviewed & are unremarkable except as noted in HPI and below Constitutional: Constitutional: Denies body ache(s), Denies excessive sweating, Reports fatigue and Reports lethargy Eyes: Eyes: Denies blurry vision ENT: Reports Normal hearing present and Denies lip swelling Cardiovascular: Cardiovascular: Denies chest pain, Reports lightheadedness, Reports palpitations, Reports dyspnea and Reports dyspnea on exertion Respiratory: Respiratory: Reports cough, Reports dyspnea, Reports dyspnea on exertion and Reports wheezing Gastrointestinal: Gastrointestinal: Denies abdominal pain Genitourinary: Genitourinary: Reports hematuria and Reports flank pain Musculoskeletal: Musculoskeletal: Denies abnormal gait, Denies back pain and Reports myalgias Integumentary/Breasts: Skin/Breast: Denies skin pain and Denies unusual bruising Neurologic: Reports Normal hearing present, Denies Abnormal speech present, Denies abnormal gait and Denies confusion Psychiatric: Psychiatric: Reports anxiety, Denies confusion and Reports depression Endocrine: Endocrine: Denies excessive sweating, Reports fatigue and Reports palpitations Hematologic/Lymphatic: Hematologic/Lymphatic: Denies easy bleeding and Denies easy bruising Allergic/Immunologic: Allergic/Immunologic: Denies GI upset with certain foods, Denies lip swelling and Reports wheezing Exam Narrative: Awake alert oriented appears stated age. Const: General: comfortable and uncomfortable; No confusion Orientation/consciousness: No confusion HENMT: Ears: TM's abnormal bilaterally Face/Nose/Sinus: nares abnormal Eye
[2022-04-19] MEDS: IPRATROPIUM BR 0.02% INH SOLN 0.5 MG/2.5 ML VIAL INHALATION ×3 (09:23→22:28)
[2022-04-19] MEDS: SPIRONOLACTONE 25 MG TABLET PO (09:49)
[2022-04-19] MEDS: MAGNESIUM OXIDE 400 MG TABLET PO ×2 (09:50→16:59)
[2022-04-19] MEDS: SACUBITRIL/VALSARTAN 97-103 MG TABLET 1 TAB BY MOUTH ×2 (09:50→20:02)
[2022-04-19] MEDS: SERTRALINE HCL 25 MG TABLET PO (09:50)
[2022-04-19] MEDS: DIGOXIN TAB 125 MCG TABLET PO (09:52)
[2022-04-19] MEDS: FUROSEMIDE INJ 40 MG/4 ML VIAL 20 MG IV PUSH (09:52)
[2022-04-19] MEDS: INSULIN ASPART (*BKC) 100 UNITS/ML SUB-Q ×3 (09:53→16:56)
[2022-04-19] MEDS: predniSONE 20 MG TABLET 40 MG PO (09:53)
[2022-04-19] MEDS: AMIODARONE HCL 200 MG TABLET 400 MG PO ×2 (09:53→16:59)
[2022-04-19 11:59] LABS: Glucose Point of Care 244 mg/dl (65-105)
--- NOTE | 2022-04-19 12:44 | PM.IMPN ---
Progress Note: A&P Assessment and Plan (1) Atrial fibrillation with rapid ventricular response: Code(s): I48.91 - Unspecified atrial fibrillation Status: Acute Assessment and Plan: noncompliance to medications. Will resume home medications. Cardiology consult. continue rate-controlling medications along with Xarelto (2) COPD exacerbation: Code(s): J44.1 - Chronic obstructive pulmonary disease with (acute) exacerbation Status: Acute Assessment and Plan: Continue home medications Continue prednisone - will decrease dose improved (3) Insulin dependent diabetes mellitus: Code(s): E11.9 - Type 2 diabetes mellitus without complications; Z79.4 - nursing home (current) use of insulin Status: Acute Assessment and Plan: continue insulin. monitor blood sugars. (4) Nonischemic cardiomyopathy: Code(s): I42.8 - Other cardiomyopathies Status: Acute Assessment and Plan: continue carvedilol, digoxin, Xarelto, Entresto, spironolactone acute on chronic systolic CHF (5) Suspected sleep apnea: Code(s): R29.818 - Other symptoms and signs involving the nervous system Status: Acute (6) Essential hypertension: Code(s): I10 - Essential (primary) hypertension Status: Acute (7) Tobacco dependence: Code(s): F17.200 - Nicotine dependence, unspecified, uncomplicated Status: Acute Subjective Date/time seen: 04/19/22 12:44 reports his shortness of breath is slowly improving. Heart rate under control Exam Const: Other: Chronically ill-appearing male lying on his left side in bed. Weight: 111 kilograms. BMI: 38.3. HENMT: Other: Normocephalic, atraumatic. Nares patent. Oral mucosa moist. Some missing teeth. Oropharynx crowded. Eyes: Other: Pupils are reactive, extraocular motions intact. Sclerae anicteric. Neck: Other: Supple. Exam limited due to positioning neck circumference. No obvious JVD. Resp: Other: Respirations are nonlabored. He is speaking in full sentences. Lung sounds are diminished throughout with end-expiratory wheezing. Occasional rhonchi which improved with cough. Cardio: Other: Irregularly irregular rate and rhythm. GI: Other: Abdomen is soft, obese, nontender with positive bowel sounds. Skin: Other: Warm and dry. Neuro: Other: Alert. Cranial nerves 2-12 are grossly intact. No gross focal deficits to casual conversation. Extrem: Other: No cyanosis, clubbing, or significant edema. Peripheral pulses palpable. Psych: Other: Pleasant cooperative. Appropriate mood and sad affect. Objective Data Vital Signs Vital Signs: Vital Signs - 24 hr 04/18/22 14:00 04/18/22 14:30 04/18/22 14:41 Temperature Pulse Rate 104 H 96 111 H Respiratory Rate 24 H 24 H Blood Pressure Pulse Oximetry Oxygen Delivery Oxygen Flow Rate 04/18/22 16:00 04/18/22 16:00 04/18/22 18:13 Temperature 98.3 F Pulse Rate 101 H 120 H 103 H Respiratory Rate 24 H Blood Pressure 124/67 Pulse Oximetry 96 Oxygen Delivery Oxygen Flow Rate 04/18/22 21:00 04/18/22 20:00 04/18/22 21:29 Temperature 97.6 F Pulse Rate 96 96 94 Respiratory Rate 18 18 Blood Pressure 129/74 Pulse Oximetry 98 98 Oxygen Delivery Nasal Cannula Oxygen Flow Rate 3 04/18/22 21:54 04/18/22 21:58 04/18/22 22:05 Temperature Pulse Rate 101 H 103 H Respiratory Rate 24 H 24 H Blood Pressure Pulse Oximetry 94 Oxygen Delivery Nasal Cannula Oxygen Flow Rate 1 04/18/22 20:00 04/18/22 22:00 04/19/22 00:00 Temperature Pulse Rate 96 102 H 74 Respiratory Rate Blood Pressure Pulse Oximetry Oxygen Delivery Oxygen Flow Rate 04/19/22 00:00 04/18/22 22:50 04/19/22 00:00 Temperature 98.9 F Pulse Rate 74 81 Respiratory Rate 24 H 20 Blood Pressure 91/59 L Pulse Oximetry 94 92 99 Oxygen Delivery Nasal Cannula Nasal Cannula Oxygen Flow Rate 3
[2022-04-19 16:39] LABS: Glucose Point of Care 324 mg/dl (65-105)
[2022-04-19] MEDS: RIVAROXABAN 20 MG TABLET PO (16:58)
--- NOTE | 2022-04-19 17:49 | ECG_ITS ---
Measurements Intervals [place] Rate: 112 P: NC: 0 QRS: 246 QRSD: 100 T: 24 QT: 335 QTc: 458 Interpretive Statements ATRIAL FIBRILLATION WITH RAPID VENTRICULAR RESPONSE BASELINE ARTIFACT INFERIOR MYOCARDIAL INFARCTION, PROBABLY OLD ANTEROLATERAL MYOCARDIAL INFARCTION], OF INDETERMINATE AGE ABNORMAL ECG COMPARED TO ECG 04/16/2022 07:44:28 NO SIGNIFICANT CHANGES Electronically Signed On 04-20-2022 14:02:20 [employer] by Jerry Pierce M.D.
--- NOTE | 2022-04-19 18:41 | PC.NURSE ---
This patient, Rohan Chand, was received from [ ] on 04/19/22 at 1840. Patient/family oriented to unit policies and routines
[2022-04-19] MEDS: ATORVASTATIN 20 MG TABLET PO (20:02)
[2022-04-19] MEDS: GABAPENTIN 300 MG CAPSULE 900 MG PO (20:02)
[2022-04-19] MEDS: carvediloL 25 MG TABLET PO (20:02)
[2022-04-19] MEDS: INSULIN GLARGINE (*BKC) 100 UNITS/ML 50 UNITS SUB-Q (20:03)
[2022-04-19 20:34] LABS: Glucose Point of Care 371 mg/dl (65-105)
[2022-04-20] VITALS (19 sets, daily range): BP systolic 120–145; BP diastolic 80–99; PULSE 70–107; RESP 18–20; TEMP 36.1–36.5; O2SAT 95–97
[2022-04-20 07:55] LABS: Glucose Point of Care 122 mg/dl (65-105)
[2022-04-20] MEDS: SERTRALINE HCL 25 MG TABLET PO (08:05)
[2022-04-20] MEDS: AMIODARONE HCL 200 MG TABLET 400 MG PO ×2 (08:05→16:49)
[2022-04-20] MEDS: MAGNESIUM OXIDE 400 MG TABLET PO ×2 (08:05→16:50)
[2022-04-20] MEDS: DIGOXIN TAB 125 MCG TABLET PO (08:05)
[2022-04-20] MEDS: SACUBITRIL/VALSARTAN 97-103 MG TABLET 1 TAB BY MOUTH ×2 (08:05→21:58)
[2022-04-20] MEDS: carvediloL 25 MG TABLET PO ×2 (08:05→21:57)
[2022-04-20] MEDS: SPIRONOLACTONE 25 MG TABLET PO (08:05)
[2022-04-20] MEDS: predniSONE 20 MG TABLET 40 MG PO (08:05)
[2022-04-20] MEDS: FUROSEMIDE 40 MG TABLET PO (08:07)
[2022-04-20] MEDS: IPRATROPIUM BR 0.02% INH SOLN 0.5 MG/2.5 ML VIAL INHALATION ×3 (09:03→19:41)
--- NOTE | 2022-04-20 10:56 | PM.IMPN ---
Progress Note: A&P Assessment and Plan (1) Atrial fibrillation with rapid ventricular response: Code(s): I48.91 - Unspecified atrial fibrillation Status: Acute Assessment and Plan: noncompliance to medications. Will resume home medications. Cardiology consult. continue rate-controlling medications along with Xarelto (2) COPD exacerbation: Code(s): J44.1 - Chronic obstructive pulmonary disease with (acute) exacerbation Status: Acute Assessment and Plan: Continue home medications Continue prednisone - will decrease dose improved (3) Insulin dependent diabetes mellitus: Code(s): E11.9 - Type 2 diabetes mellitus without complications; Z79.4 - long-term (current) use of insulin Status: Acute Assessment and Plan: continue insulin. monitor blood sugars. (4) Nonischemic cardiomyopathy: Code(s): I42.8 - Other cardiomyopathies Status: Acute Assessment and Plan: continue carvedilol, digoxin, Xarelto, Entresto, spironolactone acute on chronic systolic CHF (5) Suspected sleep apnea: Code(s): R29.818 - Other symptoms and signs involving the nervous system Status: Acute (6) Essential hypertension: Code(s): I10 - Essential (primary) hypertension Status: Acute (7) Tobacco dependence: Code(s): F17.200 - Nicotine dependence, unspecified, uncomplicated Status: Acute Subjective Date/time seen: 04/20/22 10:56 feeling better overall Exam Const: Other: Chronically ill-appearing male lying on his left side in bed. Weight: 111 kilograms. BMI: 38.3. HENMT: Other: Normocephalic, atraumatic. Nares patent. Oral mucosa moist. Some missing teeth. Oropharynx crowded. Eyes: Other: Pupils are reactive, extraocular motions intact. Sclerae anicteric. Neck: Other: Supple. Exam limited due to positioning neck circumference. No obvious JVD. Resp: Other: Respirations are nonlabored. He is speaking in full sentences. Lung sounds are diminished throughout with end-expiratory wheezing. Occasional rhonchi which improved with cough. Cardio: Other: Irregularly irregular rate and rhythm. GI: Other: Abdomen is soft, obese, nontender with positive bowel sounds. Skin: Other: Warm and dry. Neuro: Other: Alert. Cranial nerves 2-12 are grossly intact. No gross focal deficits to casual conversation. Extrem: Other: No cyanosis, clubbing, or significant edema. Peripheral pulses palpable. Psych: Other: Pleasant cooperative. Appropriate mood and sad affect. Objective Data Vital Signs Vital Signs: Vital Signs - 24 hr 04/19/22 14:25 04/19/22 12:00 04/19/22 15:55 Temperature 97 F L Pulse Rate 93 94 93 Respiratory Rate 18 16 Blood Pressure 110/60 Pulse Oximetry 95 Oxygen Delivery Oxygen Flow Rate 04/19/22 16:59 04/19/22 16:00 04/19/22 20:02 Temperature Pulse Rate 93 112 H 110 H Respiratory Rate Blood Pressure Pulse Oximetry Oxygen Delivery Oxygen Flow Rate 04/19/22 20:00 04/19/22 22:27 04/19/22 22:31 Temperature 97.9 F Pulse Rate 104 H 74 Respiratory Rate 16 16 Blood Pressure 121/63 Pulse Oximetry 95 98 Oxygen Delivery Room Air Oxygen Flow Rate 04/19/22 20:00 04/20/22 00:00 04/20/22 04:00 Temperature Pulse Rate 120 H 87 70 Respiratory Rate Blood Pressure Pulse Oximetry Oxygen Delivery Oxygen Flow Rate 04/20/22 05:32 04/20/22 08:05 04/20/22 08:05 Temperature 97.7 F Pulse Rate 104 H 88 88 Respiratory Rate 20 Blood Pressure 120/83 Pulse Oximetry 97 Oxygen Delivery Oxygen Flow Rate 04/20/22 08:05 04/20/22 09:00 04/20/22 09:00 Temperature Pulse Rate 88 75 75 Respiratory Rate 18 Blood Pressure Pulse Oximetry 96 Oxygen Delivery Nasal Cannula Oxygen Flow Rate 2 04/20/22 09:10 04/20/22 08:10 04/20/22 08:00 Temperature Pulse Rate 85 79 Respiratory Rate 18 Blood P
[2022-04-20] MEDS: INSULIN ASPART (*BKC) 100 UNITS/ML SUB-Q ×2 (12:00→16:50)
[2022-04-20 12:02] LABS: Glucose Point of Care 244 mg/dl (65-105)
[2022-04-20] MEDS: RIVAROXABAN 20 MG TABLET PO (16:50)
[2022-04-20 16:58] LABS: Glucose Point of Care 373 mg/dl (65-105)
[2022-04-20] MEDS: ATORVASTATIN 20 MG TABLET PO (21:57)
[2022-04-20] MEDS: GABAPENTIN 300 MG CAPSULE 900 MG PO (21:58)
[2022-04-20 21:59] LABS: Glucose Point of Care 307 mg/dl (65-105)
[2022-04-20] MEDS: INSULIN GLARGINE (*BKC) 100 UNITS/ML 50 UNITS SUB-Q (22:08)
[2022-04-21] VITALS (13 sets, daily range): BP systolic 122; BP diastolic 66; PULSE 69–101; RESP 16–18; TEMP 36.2; O2SAT 97–98
[2022-04-21] MEDS: IPRATROPIUM BR 0.02% INH SOLN 0.5 MG/2.5 ML VIAL INHALATION ×2 (02:18→07:45)
[2022-04-21 08:26] LABS: Glucose Point of Care 85 mg/dl (65-105)
[2022-04-21] MEDS: AMIODARONE HCL 200 MG TABLET 400 MG PO (08:32)
[2022-04-21] MEDS: predniSONE 20 MG TABLET 40 MG PO (08:32)
[2022-04-21] MEDS: MAGNESIUM OXIDE 400 MG TABLET PO (08:32)
[2022-04-21] MEDS: SERTRALINE HCL 25 MG TABLET PO (08:32)
[2022-04-21] MEDS: DIGOXIN TAB 125 MCG TABLET PO (08:32)
[2022-04-21] MEDS: SACUBITRIL/VALSARTAN 97-103 MG TABLET 1 TAB BY MOUTH (08:32)
[2022-04-21] MEDS: carvediloL 25 MG TABLET PO (08:33)
[2022-04-21] MEDS: FUROSEMIDE 40 MG TABLET PO (08:33)
[2022-04-21] MEDS: SPIRONOLACTONE 25 MG TABLET PO (08:33)
[2022-04-21 11:52] LABS: Glucose Point of Care 199 mg/dl (65-105)
--- NOTE | 2022-04-21 12:14 | PM.DS ---
DS: Admitting Diagnosis Discharge Date April 21, 2022 Admitting Diagnosis CHF, systolic acute on chronic DS: Discharge Diagnosis Discharge Diagnosis (1) Atrial fibrillation with rapid ventricular response: Code(s): I48.91 - Unspecified atrial fibrillation Status: Acute Assessment and Plan: noncompliance to medications. Will resume home medications. Cardiology consult. continue rate-controlling medications along with Xarelto (2) COPD exacerbation: Code(s): J44.1 - Chronic obstructive pulmonary disease with (acute) exacerbation Status: Acute Assessment and Plan: Continue home medications Continue prednisone - will decrease dose improved (3) Insulin dependent diabetes mellitus: Code(s): E11.9 - Type 2 diabetes mellitus without complications; Z79.4 - intermediate (current) use of insulin Status: Acute Assessment and Plan: continue insulin. monitor blood sugars. (4) Nonischemic cardiomyopathy: Code(s): I42.8 - Other cardiomyopathies Status: Acute Assessment and Plan: continue carvedilol, digoxin, Xarelto, Entresto, spironolactone acute on chronic systolic CHF (5) Suspected sleep apnea: Code(s): R29.818 - Other symptoms and signs involving the nervous system Status: Acute (6) Essential hypertension: Code(s): I10 - Essential (primary) hypertension Status: Acute (7) Tobacco dependence: Code(s): F17.200 - Nicotine dependence, unspecified, uncomplicated Status: Acute DS: Summary Hospital Course Hospital Course: patient is a 57-year-old male who came in with AFib with RVR and CHF exacerbation, acute on chronic systolic. Patient was noncompliant with home medications. After starting medications and started on diuretics and rate-controlling agents patient improved significantly. He is now able walk around his room not requiring oxygen. He can be discharged with resuming his home medications with few changes. Follow Cardiology Time Spent with Patient Time attestation: Total time spent providing and/or coordinating discharge services: Exam Const: Other: Chronically ill-appearing male lying on his left side in bed. Weight: 111 kilograms. BMI: 38.3. HENMT: Other: Normocephalic, atraumatic. Nares patent. Oral mucosa moist. Some missing teeth. Oropharynx crowded. Eyes: Other: Pupils are reactive, extraocular motions intact. Sclerae anicteric. Neck: Other: Supple. Exam limited due to positioning neck circumference. No obvious JVD. Resp: Other: Respirations are nonlabored. He is speaking in full sentences. Lung sounds are diminished throughout with end-expiratory wheezing. Occasional rhonchi which improved with cough. Cardio: Other: Irregularly irregular rate and rhythm. GI: Other: Abdomen is soft, obese, nontender with positive bowel sounds. Skin: Other: Warm and dry. Neuro: Other: Alert. Cranial nerves 2-12 are grossly intact. No gross focal deficits to casual conversation. Extrem: Other: No cyanosis, clubbing, or significant edema. Peripheral pulses palpable. Psych: Other: Pleasant cooperative. Appropriate mood and sad affect. DS: Data Data Completed and Pending Labs on day of discharge: Labs from last 24 hours 04/21/22 04/21/22 04/20/22 11:45 07:45 21:46 POC Capillary Glucose 199 H 85 307 H 04/20/22 16:34 POC Capillary Glucose 373 H Discharge Plan Discharge Attending physician on discharge: Satinder Wan Consulting providers: Benjy Torres Discharging Clinician: Satinder Wan Patient Disposition: Home, Self-Care Activity: no preference Diet: as tolerated Patient Instructions: Antibiotic Form, Rivaroxaban (By mouth), Heart Failure (GEN), Pain Management (DC) Stand Alone Forms: General Discharge Information Follow-up/Referrals: Alex,KERRY Mariscal [Primary Care Provider] - Benjy Torres,
== END 2022-04-21 12:40 | disposition home or self-care (01) | DRG 291 ==
LOC: ANHED 11:58 → ANHIMU 14:07 → ANH3MEDSUR 04-19 18:31
PROVIDERS: Physician Assistant; Admitting Provider Family Medicine; Emergency Provider Emergency Medicine; PCP Physician Assistant; Visit Provider Chiropractor
DX: I11.0 Hypertensive heart disease with heart failure (principal); I50.43 Acute on chronic combined systolic (congestive) and diastolic (congestive) heart failure; J44.1 Chronic obstructive pulmonary disease with (acute) exacerbation; I48.0 Paroxysmal atrial fibrillation; Z20.822 Contact with and (suspected) exposure to COVID-19; I42.8 Other cardiomyopathies; F17.210 Nicotine dependence, cigarettes, uncomplicated; F41.8 Other specified anxiety disorders; E78.5 Hyperlipidemia, unspecified; E11.59 Type 2 diabetes mellitus with other circulatory complications; M19.90 Unspecified osteoarthritis, unspecified site; I15.2 Hypertension secondary to endocrine disorders; G47.30 Sleep apnea, unspecified; Z91.14 Patient's other noncompliance with medication regimen; Z79.4 Long term (current) use of insulin; Z79.01 Long term (current) use of anticoagulants; Z79.84 Long term (current) use of oral hypoglycemic drugs
CPT/HCPCS: 36415; 71046; 80048; 80053; 80162; 82948; 83036; 83735; 83880; 84443; 84484; 85025; 85027; 85610; 85730; 87636; 93005; 93306; 94640; 94762; 96365; 96366; 96367; 96375; 96376; 99285; A9270; G0378; J0282; J1160; J1815; J1940; J2270; J7512

== ENCOUNTER 2023-01-21 10:50 | Observation (INO) | payer MEDICARE, MEDICAID, SELFPAY ==
[2023-01-21] VITALS (23 sets, daily range): BP systolic 144–184; BP diastolic 102–141; PULSE 94–152; RESP 12–23; TEMP 36.1–36.6; O2SAT 95–98; BMI 40.6
--- NOTE | ~2023-01-21 | CT_ITS ---
EXAMINATION: CT brain wo con DATE: 01/22/2023 08:55 INDICATION: Right leg heaviness. TECHNIQUE: Computed tomography (CT) of the head was performed without intravenous contrast. The mA wa s adjusted according to patient size. Iterative reconstruction technique was employed. The dose-lengt h product was 605.33 mGy-cm. COMPARISON: None FINDINGS: There is no intracranial hemorrhage, acute infarction, or abnormal intracranial mass lesion . The ventricles are normal in size. There is mild mucosal thickening in the paranasal sinuses. The o rbits are normal. The mastoid air cells are normal. IMPRESSION: 1. Normal brain. Reviewed, dictated and finalized at location A. IMPRESSION: 1. Normal brain.
--- NOTE | ~2023-01-21 | XR_ITS ---
EXAMINATION: XR chest 2V DATE: 01/21/2023 12:27 INDICATION: Shortness of breath TECHNIQUE: PA and lateral views of the chest are obtained. COMPARISON: 04/16/2022 FINDINGS: There is a mild diffuse interstitial pattern. No pleural effusion or pneumothorax. Cardiome veronica is noted. There are bridging osteophytes at multiple levels in the spine, consistent with diffus e idiopathic skeletal hyperostosis (DISH). IMPRESSION: 1. Cardiomegaly with probable mild pulmonary edema. Reviewed, dictated and finalized at location L.
--- NOTE | 2023-01-21 12:11 | ECG_ITS ---
Measurements Intervals [place] Rate: 125 P: NC: 0 QRS: -60 QRSD: 110 T: 119 QT: 320 QTc: 462 Interpretive Statements ATRIAL FIBRILLATION WITH RAPID VENTRICULAR RESPONSE INTRAVENTRICULAR CONDUCTION DELAY LEFT VENTRICULAR HYPERTROPHY WITH ST-T CHANGE ANTERIOR INFARCT, AGE INDETERMINATE INFERIOR INFARCT, AGE INDETERMINATE ABNORMAL ECG COMPARED TO ECG 04/19/2022 18:08:36 NO SIGNIFICANT CHANGES Electronically Signed On 01-21-2023 14:05:51 CDT by Carlos Eduardo Matos D.O.
[2023-01-21 12:51] LABS: Basophils Percent Auto 0.4 % (0.2-1.2); Eosinophils Absolute Auto 0.1 K/mm3 (0-0.3); Eosinophils Percent Auto 0.9 % (0-4.4); Hematocrit 51.2 % (42.0-52.0); Hemoglobin 16.9 g/dL (14.0-18.0); Immature Granulocyte Absolute 0.05 K/mm3 (0.00-0.031); Immature Granulocyte Percent A 0.5 % (0-0.5); Lymphocytes Absolute Auto 1.78 K/mm3 (0.9-3.2); Lymphocytes Percent Auto 17.5 % (18.3-44.2); Mean Corpuscular Hemoglobin 30.1 pg (26-34); Mean Corpuscular Volume 91.3 fl (80-100); Monocytes Absolute Auto 0.7 K/mm3 (0.1-0.6); Monocytes Percent Auto 6.9 % (2.6-8.5); Neutrophils Absolute Auto 7.5 K/mm3 (1.3-6.7); Neutrophils Percent Auto 73.8 % (45.5-73.1); Platelet Count Result 206 k/mm3 (150-375); Red Blood Count 5.61 M/mm3 (4.6-6.20); Red Cell Distribution Width 13.3 % (11.5-14.5); White Blood Count 10.2 K/mm3 (4.5-10.0)
--- NOTE | 2023-01-21 12:56 | ED.SOB ---
HPI - SOB/Dyspnea General Chief Complaint: Shortness of Breath/Dyspnea Stated Complaint: shortness of breath and HTN on home monitor Time Seen by Provider: 01/21/23 12:42 History of Present Illness HPI Narrative: This is a 57-year-old male, past history of CHF and A-fib on Xarelto, who presents emergency department complaining of shortness of breath for the past week and high blood pressure. Patient states he is not always compliant with his diuretics. He denies any other recent change in his health but has become more progressively short of breath with exertion. He denies associated chest pain, weakness, numbness or loss of consciousness. Related Data Home Medications Medication Instructions Recorded Confirmed carvedilol 25 mg tablet 25 mg PO Q12H 01/30/20 01/21/23 dapagliflozin propanediol 10 mg 10 mg PO DAILY 04/16/22 01/21/23 tablet (Farxiga) sacubitril 97 mg-valsartan 103 mg 1 tablet BID 04/16/22 01/21/23 tablet (Entresto) gabapentin 300 mg capsule 900 mg PO HS 04/17/22 01/21/23 spironolactone 25 mg tablet 25 mg PO DAILY 04/17/22 01/21/23 aspirin 325 mg tablet 325 mg PO DAILY 01/21/23 01/21/23 atorvastatin 20 mg tablet 20 mg PO HS 01/21/23 01/21/23 digoxin 125 mcg (0.125 mg) tablet 0.125 mg PO DAILY 01/21/23 01/21/23 Allergies Allergy/AdvReac Type Severity Reaction Status Date / Time alprazolam [From Xanax] Allergy Agitated Verified 01/21/23 10:51 Review of Systems Review of Systems: CONSTITUTIONAL: Denies fever, chills, or sweats. CARDIOVASCULAR: Mild bilateral lower extremity swelling, palpitations denies chest pain RESPIRATORY: Dyspnea and nonbloody cough productive of clear sputum GASTROINTESTINAL: Denies abdominal pain, nausea, vomiting, or diarrhea. GENITOURINARY: Denies dysuria or hematuria. SKIN: Denies rash or itching. MUSCULOSKELETAL: Denies back pain, joint pain, or myalgia. NEUROLOGIC: Denies headache, numbness, dizziness, or weakness. PSYCHIATRIC: Denies anxiety or depression. [facility] Past Medical History Medical History (Updated 01/21/23 @ 15:51 by Pratibha Wells PA-C) Chronic obstructive pulmonary disease Combined systolic and diastolic congestive heart failure Echocardiogram in July 2020 showed an EF of 15 to 20% with abnormal diastolic function; EF improved to 40 to 45% on repeat echo in March 2022. Depression with anxiety Dyslipidemia Essential hypertension Heart failure with reduced ejection fraction Hypertension associated with diabetes Insulin dependent diabetes mellitus Hemoglobin A1c was 10.5 in 01/2020. Noncompliance w/medication treatment due to intermit use of medication Nonischemic cardiomyopathy Lexiscan in February 2019 showed no reversible changes and ejection fraction of 32%. Osteoarthritis Paroxysmal atrial fibrillation On long-term anticoagulation with warfarin. Tobacco dependence Surgical History Surgical History No history of previous surgery Family History Family History Grandparent Diabetes mellitus Father Carcinoma of colon Mother Carcinoma of colon Sibling COPD (chronic obstructive pulmonary disease) Heart disease Multiple sclerosis Social History Social History Social History: The patient is single and lives in [place] with his tea cup marlena named Willard. He is and has 2 children, son and daughter, but unfortunately they are estranged. 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 He designates his sister, Kavita Gleason, as his surrogate decision maker and he wishes to be a full code. He has smoked up to a pack of cigarettes per day since age of 13. The patient is down to half a pack a cigarettes a day. He drank heavily in the past but has abstained for 18+ years. History of substance abuse long ago. He designates his brother Chidi Chand or his sister Kavita Gleason as h
[2023-01-21] MEDS: METOPROLOL TARTRATE INJ 5 MG/5 ML VIAL IV PUSH (12:59)
[2023-01-21 13:02] LABS: Alanine Aminotransferase 18 U/L (6-50); Albumin Level 4.1 g/dL (3.5-5.1); Alkaline Phosphatase 102 U/L (38-126); Anion Gap 8 mmol/L (8-16); Aspartate Amino Transferase 22 U/L (17-59); Bilirubin,Total 1.3 mg/dL (0.2-1.3); Blood Urea Nitrogen 15 mg/dL (9-20); Calcium 8.8 mg/dL (8.4-10.2); Carbon Dioxide 26 mmol/L (22-30); Chloride 104 mmol/L (98-107); Estimated CRCL calculation 118 ml/min; Estimated Glomerular Filt Rate > 60; Glucose 173 mg/dL (65-110); Potassium 3.9 mmol/L (3.4-5.0); Sodium 138 mmol/L (137-145)
[2023-01-21 13:12] LABS: INR 1.1; Prothrombin Time 15.1 Seconds (11.1-14.7)
[2023-01-21 13:13] LABS: NT Pro B Type Natriuretic Pept 4480 pg/mL (19.9-100); Troponin I 0.014 ng/mL (0.000-0.034)
[2023-01-21 13:15] LABS: Partial Thromboplastin Time 29.7 SECONDS (22.3-36.8)
[2023-01-21] MEDS: FUROSEMIDE INJ 40 MG/4 ML VIAL IV PUSH (13:20)
--- NOTE | 2023-01-21 15:39 | PM.IMHP ---
H&P: HPI History of Present Illness Date/Time: 01/21/23 14:50 Chief Complaint: Shortness of breath. Narrative: This is a very pleasant 57-year-old male smoker with history of nonischemic cardiomyopathy with EF as low as 15 to 20% in July 2020 though it has improved to 45% on most recent echo, paroxysmal atrial fibrillation, insulin-dependent type 2 diabetes mellitus, hypertension, and history of noncompliance with medication who presented to the emergency department via private vehicle from home for evaluation of shortness of breath. The patient provides the following history. He endorses increasing dyspnea on lesser and lesser exertion over the past couple of weeks with mild orthopnea and lower extremity edema. He has chest congestion and cough which is occasionally productive of clear sputum. His blood pressures have running higher than usual for the last week. Additionally he reports intermittent knife-like pain in his stomach for which he has been taking [place]. He has a remote history of ulcer and his symptoms do not feel similar; he has not had epigastric pain, indigestion, bloating, or belching. He denies fever, chills, sweats, sinus congestion sore throat, sick contacts, chest pain, pleuritic pain, palpitations, sensations of racing heart, nausea, and vomiting. On arrival to the emergency department his blood pressure was 173/127 and he was in rapid atrial fibrillation with rates as high as 152. He received 5 mg IV metoprolol with improvement in his rate. He also received 40 mg IV furosemide for pulmonary edema noted on chest x-ray and he has put out quite a bit urine since that time. He is being admitted in this setting for further diuresis. He admits that he is not always compliant with his furosemide but he does take his other medications. Review of Systems Review of Systems: Twelve systems were reviewed. He is currently in physical therapy for weakness in his legs, right greater than left. He tells me that his right leg for the last 3 months has felt like a weighs 150 lb and he has difficulties lifting it. He denies any other neurologic symptoms, specifically denying vertigo, facial droop, difficulty speaking and swallowing, and paresthesias. No known history of stroke or TIA. Except as documented, all other systems were reviewed and are negative. [facility] Past Medical History Medical History (Updated 01/21/23 @ 22:31 by Pratibha Wells PA-C) Chronic obstructive pulmonary disease Combined systolic and diastolic congestive heart failure Echocardiogram in July 2020 showed an EF of 15 to 20% with abnormal diastolic function; EF improved to 40 to 45% on repeat echo in March 2022. Depression with anxiety Dyslipidemia Essential hypertension Heart failure with reduced ejection fraction Hypertension associated with diabetes Insulin dependent diabetes mellitus Hemoglobin A1c was 10.5 in 01/2020. Noncompliance w/medication treatment due to intermit use of medication Nonischemic cardiomyopathy Lexiscan in February 2019 showed no reversible changes and ejection fraction of 32%. Osteoarthritis Paroxysmal atrial fibrillation On long-term anticoagulation with warfarin. Tobacco dependence Surgical History Surgical History No history of previous surgery Family History Family History Grandparent Diabetes mellitus Father Carcinoma of colon Mother Carcinoma of colon Sibling COPD (chronic obstructive pulmonary disease) Heart disease Multiple sclerosis Social History Social History Social History: The patient is single and lives in [place] with his tea cup marlena named Willard. He is and has 2 children, son and daughter, but unfortunately they are estranged. 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 He designates his sister, Kavita Gleason,
--- NOTE | 2023-01-21 15:45 | PC.NURSE ---
This patient, Rohan Chand, was admitted to IMU Room 209-01. Patient/family oriented to hospital policies and general routines including ID bracelet, bed and alarms, visiting hours, pain management, procedures, bathroom and other care routines, personal items, smoking policy, room service/diet, and visiting hours. Information on how to activate the Rapid Response Team has been discussed. Patient/Family are encouraged to report perceived risks to care and to ask questions if they do not understand what they are told or what they should do.
[2023-01-21 17:35] LABS: Troponin I 0.015 ng/mL (0.000-0.034)
--- NOTE | 2023-01-21 17:52 | PC.NURSE ---
Notified provider, KERRY Mckinnon that patient home medication reconciliation complete. Advised heart rate 135, atrial fibrillation rhythm. No complaints of chest pain or shortness of breath at this time.
[2023-01-21 20:02] LABS: Troponin I 0.013 ng/mL (0.000-0.034)
[2023-01-21] MEDS: SACUBITRIL/VALSARTAN 97-103 MG TABLET 1 TAB BY MOUTH (20:04)
[2023-01-21] MEDS: carvediloL 25 MG TABLET PO (20:04)
[2023-01-21] MEDS: ATORVASTATIN 20 MG TABLET PO (20:04)
[2023-01-21] MEDS: RIVAROXABAN 20 MG TABLET PO (20:04)
[2023-01-21] MEDS: GABAPENTIN 300 MG CAPSULE 900 MG PO (20:05)
[2023-01-21] MEDS: CALCIUM CARBONATE (TUMS) 500 MG (200 MG ELEMENTAL) PO (20:05)
[2023-01-21 20:07] LABS: Anion Gap 8 mmol/L (8-16); Blood Urea Nitrogen 15 mg/dL (9-20); Calcium 8.7 mg/dL (8.4-10.2); Carbon Dioxide 29 mmol/L (22-30); Chloride 101 mmol/L (98-107); Estimated CRCL calculation 106 ml/min; Estimated Glomerular Filt Rate > 60; Glucose 207 mg/dL (65-110); Magnesium 1.8 mg/dL (1.6-2.3); Potassium 3.4 mmol/L (3.4-5.0); Sodium 138 mmol/L (137-145)
[2023-01-21] MEDS: POTASSIUM CHLORIDE 20 MEQ ER TABLET 40 MEQ PO (21:43)
[2023-01-21 23:23] LABS: Glucose Point of Care 162 mg/dl (65-105)
[2023-01-22] VITALS (16 sets, daily range): BP systolic 146–173; BP diastolic 94–115; PULSE 81–127; RESP 18–20; TEMP 35.9–36.6; O2SAT 93–98
[2023-01-22 05:08] LABS: Basophils Absolute Auto 0.1 K/mm3 (0.0-0.1); Basophils Percent Auto 0.5 % (0.2-1.2); Eosinophils Absolute Auto 0.1 K/mm3 (0-0.3); Eosinophils Percent Auto 1.3 % (0-4.4); Hematocrit 46.8 % (42.0-52.0); Hemoglobin 15.2 g/dL (14.0-18.0); Immature Granulocyte Absolute 0.08 K/mm3 (0.00-0.031); Immature Granulocyte Percent A 0.8 % (0-0.5); Lymphocytes Absolute Auto 1.97 K/mm3 (0.9-3.2); Lymphocytes Percent Auto 20.5 % (18.3-44.2); Mean Corpuscular HGB Conc 32.5 g/dl (32-36); Mean Corpuscular Hemoglobin 30.1 pg (26-34); Mean Corpuscular Volume 92.7 fl (80-100); Mean Platelet Volume 10.1 fl (7.4-10.4); Monocytes Absolute Auto 0.9 K/mm3 (0.1-0.6); Monocytes Percent Auto 9.1 % (2.6-8.5); Neutrophils Absolute Auto 6.5 K/mm3 (1.3-6.7); Neutrophils Percent Auto 67.8 % (45.5-73.1); Platelet Count Result 194 k/mm3 (150-375); Red Blood Count 5.05 M/mm3 (4.6-6.20); Red Cell Distribution Width 13.4 % (11.5-14.5); White Blood Count 9.6 K/mm3 (4.5-10.0)
[2023-01-22 05:34] LABS: Digoxin < 0.5 ng/mL (0.8-2.0)
[2023-01-22 06:06] LABS: Anion Gap 8 mmol/L (8-16); Blood Urea Nitrogen 14 mg/dL (9-20); Calcium 8.6 mg/dL (8.4-10.2); Carbon Dioxide 29 mmol/L (22-30); Chloride 102 mmol/L (98-107); Estimated CRCL calculation 120 ml/min; Estimated Glomerular Filt Rate > 60; Glucose 134 mg/dL (65-110); Magnesium 1.9 mg/dL (1.6-2.3); Potassium 3.6 mmol/L (3.4-5.0); Sodium 139 mmol/L (137-145)
--- NOTE | 2023-01-22 08:00 | ECHO_ITS ---
Patient Info Name: Rohan Chand Age: 57 years : 1965 Gender: Male Ht: 67 in Wt: 259 lbs BSA: 2.41 m2 HR: 84 bpm BP: 155 / 112 mmHg Heart Rhythm: Atrial Fibrillation Technical Quality: Poor Exam Date: 01/22/2023 10:34 AM Exam Location: [facility] Pulmonary Exam Room: 209 Patient Status: Inpatient Admit Date: 01/21/2023 Staff Ordering Physician: Pratibha Wells PA-C Oxygen Equipment Aide: Willow Narvaez RDCS Attending Provider: Mikala Parrish MD Referring Physician: Priscilla DELGADO; Exam Type: CA echo dop color flow w con Study Info Indications - CHF NICM AFIB Complete two-dimensional, color flow and Doppler transthoracic echocardiogram is performed with contrast to opacify the left ventricle and to improve the deliniation of the left ventricle endocardial borders. Contrast/Agitated Saline Contrast/Ag. Saline: Definity Amount: 2.00 ml Administered By: Willow Narvaez [facility] Existing IV Access: Yes Reason for Poor Study: patient body habitus Summary 1. Left ventricular chamber dimension is mildly enlarged. 2. Left ventricular systolic function is moderately reduced, estimated at 35-40%. 3. There is mildly increased left ventricular wall thickness. 4. The left ventricular diastolic function is abnormal. 5. Global longitudinal strain is moderately elevated at -10 %. Of note, while not consistent with classic apical wilson on top appearance with Amyloidosis, there is a generalized apical predominance Clinical correlation advised. 6. Right ventricular chamber dimension is normal. 7. Right ventricular systolic function is normal. 8. Left atrial chamber dimension is moderately enlarged. 9. There is no aortic valve stenosis. 10. There is mild mitral valve regurgitation. 11. There is mild tricuspid valve regurgitation. 12. No pulmonary hypertension, estimated pulmonary arterial systolic pressure is 28 mmHg. Left Ventricle Left ventricular chamber dimension is mildly enlarged. Left ventricular systolic function is moderately reduced, estimated at 35-40%. There is mildly increased left ventricular wall thickness. The left ventricular diastolic function is abnormal. Global longitudinal strain is moderately elevated at -10 %. Of note, while not consistent with classic apical wilson on top appearance with Amyloidosis, there is a generalized apical predominance Clinical correlation advised. Right Ventricle Right ventricular chamber dimension is normal. Right ventricular systolic function is normal. Left Atria Left atrial chamber dimension is moderately enlarged. Right Atria Right atrial chamber dimension is mildly enlarged. Aortic Valve The aortic valve is not well visualized. There is no aortic valve stenosis. There is trace aortic valve regurgitation. Pulmonic Valve The pulmonic valve is not well visualized. Mitral Valve The mitral valve has thickened leaflets. There is mild mitral valve regurgitation. The mitral valve annulus is mildly calcified. Tricuspid Valve The tricuspid valve leaflets are normal. There is mild tricuspid valve regurgitation. No pulmonary hypertension, estimated pulmonary arterial systolic pressure is 28 mmHg. Pericardium/Pleural The pericardium appears normal. There is small pericardial effusion. Inferior Vena Cava Normal inferior vena cava with >50% collapse upon inspiration consistent with normal right atrial pressure, 5 mmHg. Aorta The aortic root size at the sinus of Valsalva is normal. There is mild aortic atherosclerosis. Left Ventricula
[2023-01-22 08:04] LABS: Glucose Point of Care 136 mg/dl (65-105)
[2023-01-22] MEDS: ONDANSETRON INJ 4 MG/2 ML VIAL IV PUSH (08:29)
[2023-01-22] MEDS: DIGOXIN TAB 125 MCG TABLET PO (08:42)
[2023-01-22] MEDS: carvediloL 25 MG TABLET PO ×2 (08:42→20:29)
[2023-01-22] MEDS: EMPAGLIFLOZIN 25 MG TABLET PO (08:42)
[2023-01-22] MEDS: POTASSIUM CHLORIDE 10 MEQ ER TABLET PO (08:42)
[2023-01-22] MEDS: FUROSEMIDE INJ 40 MG/4 ML VIAL IV PUSH ×2 (08:43→17:27)
[2023-01-22] MEDS: SACUBITRIL/VALSARTAN 97-103 MG TABLET 1 TAB BY MOUTH ×2 (08:43→20:29)
[2023-01-22] MEDS: SPIRONOLACTONE 25 MG TABLET PO (08:43)
--- NOTE | 2023-01-22 09:50 | PM.IMPN ---
Progress Note: A&P Assessment and Plan (1) Acute on chronic congestive heart failure: Code(s): I50.9 - Heart failure, unspecified Status: Acute Assessment and Plan: Appreciate cardiology consultation, continue diuresis Echo ordered and pending (2) Atrial fibrillation: Code(s): I48.91 - Unspecified atrial fibrillation Status: Acute Assessment and Plan: Rate controlled, continue anticoagulation (3) Right leg weakness: Code(s): R29.898 - Other symptoms and signs involving the musculoskeletal system Status: Acute (4) Nonischemic cardiomyopathy: Code(s): I42.8 - Other cardiomyopathies Status: Acute (5) Insulin dependent diabetes mellitus: Code(s): E11.9 - Type 2 diabetes mellitus without complications; 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 Status: Acute Assessment and Plan: Blood glucose reviewed 01/22 Accu-Cheks, sliding scale in (6) Essential hypertension: Code(s): I10 - Essential (primary) hypertension Status: Acute Assessment and Plan: Blood pressure reviewed 01/22 (7) Chronic obstructive pulmonary disease: Code(s): J44.9 - Chronic obstructive pulmonary disease, unspecified Status: Resolved Assessment and Plan: Does not appear to be in exacerbation (8) Tobacco dependence: Code(s): F17.200 - Nicotine dependence, unspecified, uncomplicated Status: Acute Plan DVT prophylaxis with xarelto GI prophylaxis not indicated Code status full code Subjective Date/time seen: 01/22/23 09:50 Interval history: No overnight events noted. No chest pain or shortness of breath. No nausea, vomiting or diarrhea. No fevers or chills. Review of Systems Review of Systems: 12 point review of systems was assessed and was negative except as noted in the HPI Exam Narrative: General: No acute distress, alert and oriented per baseline HEENT: Atraumatic, normocephalic, mucous membranes moist CV: Irregularly irregular, S1, S2 Lungs: Clear to auscultation bilaterally, no rales or crackles noted, no wheezes, good air entry Abdomen: Soft, nontender, nondistended Extremities: Normal to inspection, trace pitting edema Skin: No rashes noted, no lesions or wounds seen Psych: Euthymic, normal affect Objective Data Vital Signs Vital Signs: Vital Signs - 24 hr 01/21/23 12:06 01/21/23 12:59 01/21/23 13:08 Temperature 97.2 F L Pulse Rate 111 H 121 H Respiratory Rate 14 Blood Pressure 173/127 H Pulse Oximetry 96 Oxygen Delivery Room Air 01/21/23 12:35 01/21/23 12:45 01/21/23 12:46 Temperature Pulse Rate 152 H 128 H 134 H Respiratory Rate 12 17 23 H Blood Pressure 183/141 H Pulse Oximetry 97 97 97 Oxygen Delivery 01/21/23 13:00 01/21/23 13:01 01/21/23 13:15 Temperature Pulse Rate 117 H 110 H 108 H Respiratory Rate 17 18 22 H Blood Pressure 163/125 H Pulse Oximetry 97 97 96 Oxygen Delivery 01/21/23 13:16 01/21/23 13:17 01/21/23 13:30 Temperature Pulse Rate 102 H 108 H 108 H Respiratory Rate 19 22 H 15 Blood Pressure 158/109 H Pulse Oximetry 95 95 Oxygen Delivery 01/21/23 13:48 01/21/23 14:00 01/21/23 15:28 Temperature Pulse Rate 110 H 94 Respiratory Rate 20 20 Blood Pressure 184/110 H Pulse Oximetry 97 97 Oxygen Delivery 01/21/23 16:00 01/21/23 16:00 01/21/23 15:35 Temperature 97.9 F Pulse Rate 94 121 H 119 H Respiratory Rate 20 18 Blood Pressure 158/119 H Pulse Oximetry 97 98 Oxygen Delivery Room Air 01/21/23 17:05 01/21/23 18:00 01/21/23 20:04 Temperature Pulse Rate 116 H 117 H Respiratory Rate Blood Pressure 159/123 H Pulse Oximetry Oxygen Delivery 01/21/23 20:00 01/21/23 20:00 01/21/23 23:24 Temperature 97.6 F 97.0 F L Pulse Rate 105 H 99 Respiratory Rate 20 22 H Blood Pressure 155/114 H 144/102 H Pulse Oximetry 98 98 97 Oxyg
--- NOTE | 2023-01-22 10:06 | PM.CNCAR ---
Assessment and Plan Assessment and plan (1) Acute on chronic heart failure with reduced ejection fraction and diastolic dysfunction: Code(s): I50.43 - Acute on chronic combined systolic (congestive) and diastolic (congestive) heart failure Status: Acute Assessment and Plan: Patient presents with acute on chronic decompensated heart failure likely secondary to uncontrolled atrial fibrillation and uncontrolled hypertension. Patient reports recent compliance with medication, however, he has had several admissions in the past due to medication noncompliance. Of note, he has been resumed on his prior recommend home medications with control of his heart rate suggesting noncompliance. Claims he has been compliant with all his prescribed medications yet he was unable to name them specifically or any doses. -continue home medical therapy. -continue Entresto 97/103 mg twice daily, spironolactone 25 mg daily, Jardiance 25 mg daily, carvedilol 25 mg twice daily, and digoxin 0.125 mg daily. -continue IV diuresis for volume management with furosemide 40 mg IV twice daily. Monitor potassium level. Will supplement additional potassium chloride 30 mEq to equal 40 total this morning. Monitor renal function electrolytes closely and BMP daily. -check TSH -DVT prophylaxis, he is on Xarelto 20 mg at bedtime for anticoagulation for his atrial fibrillation. -accurate input and output, daily weight for volume management. Ideally, less than 2 g daily sodium intake. -will review in detail 2D echocardiogram obtain would not uploaded. EF appears to be marginally preserved estimated 45-50%. Will review more detailed available for additional valvular contributions, LVH, and chamber size, pulmonary pressures. He will require follow-up post discharge with Cardiology previously seen by Dr. Torres. -discussed the dangers of noncompliance with medications, rapid heart rate poorly controlled BP and positive untreated PETROS if present exacerbating CHF, AFib with RVR, hypertension in declining quality of life. Will perform apnea link to screen for PETROS. -given his history he is at high risk for complications noncompliance including stroke, , CHF exacerbation, potential life-threatening ventricular arrhythmias and or bleeding complications with falls/injuries. (2) Atrial fibrillation with rapid ventricular response: Code(s): I48.91 - Unspecified atrial fibrillation Status: Acute Assessment and Plan: Heart rate better controlled on oral carvedilol 25 mg twice daily. Consider change to Toprol XL 200 mg daily if heart rate suboptimally controlled on this regimen. Continue digoxin 0.125 mg daily for now for heart rate control and potential symptom improvement CHF. Caution with electrolyte abnormalities, renal insufficiency. Continue systemic anticoagulation with Xarelto 20 mg at bedtime for embolic stroke risk reduction. Monitor for bleeding. Ambulate with caution. Suspect he has persistent atrial fibrillation. If heart rate remains poorly controlled consider discontinuation of digoxin in favor of amiodarone however given his noncompliance history would avoid if possible particularly underlying COPD. (3) Nonischemic cardiomyopathy: Code(s): I42.8 - Other cardiomyopathies Status: Acute Assessment and Plan: Prior documentation to EF 15-20% improved to 50% by echocardiogram at bedside today. Continue Entresto 97/103 mg twice daily, spironolactone 25 mg daily, Jardiance 25 mg daily, carvedilol 25 mg twice daily, and furosemide. Continue to optimize guideline directed medical therapy. Compliance medication, recommendation follow-up strongly advised. (4) Hypertension associated with diabetes: Code(s): E11.59 - Type 2 diabetes mellitus with other circulatory complications; I15.2 - Hypertension secondary to endocrine disorders Status: Acute Assessment and Plan: BP improved intermittently but remains suboptimally controlled at
[2023-01-22] MEDS: PERFLUTREN LIPID MICROSPHERES 1.5 ML VIAL DILUTED TO 10 ML TOTAL VOLUME IV PUSH (10:55)
[2023-01-22] MEDS: POTASSIUM CHLORIDE 20 MEQ ER TABLET PO (11:17)
--- NOTE | 2023-01-22 11:24 | IVDEFINITY ---
Prior to administration of IV Definity the patient was educated on the risks and benefits of the imaging enhancing agent including potential adverse side effects. The patient verbalized understanding. Allergies were verified. No exclusion criteria were identified and at least one of the following inclusion criteria were met: 1) physician request, 2) patient technically difficult to image (per the [place] [employer] guidelines of two or more segments not discernable within the apical view), or 3) questionable left ventricular function. ?
[2023-01-22 11:49] LABS: Glucose Point of Care 171 mg/dl (65-105)
--- NOTE | 2023-01-22 13:10 | P.DS_ITS ---
01/21/23 01/21/23 01/21/23 23:08 19:31 19:27 WBC RBC Hgb Hct MCV MCH MCHC RDW Plt Count MPV Immature Gran % (Auto) Neut % (Auto) Lymph % (Auto) [place] % (Auto) Eos % (Auto) Baso % (Auto) Lymph # (Auto) [place] # (Auto) Eos # (Auto) Baso # (Auto) Abs Immat Gran (auto) Absolute Neuts (auto) Absolute Nucleated RBC Nucleated RBC % PT INR APTT Sodium 138 Potassium 3.4 Chloride 101 Carbon Dioxide 29 Anion Gap 8 BUN 15 Creatinine 0.80 Estim Creat Clear Calc 106 Estimated GFR > 60 Glucose 207 H POC Capillary Glucose 162 H Calcium 8.7 Magnesium 1.8 Troponin I 0.013 NT-Pro-B Natriuret Pep Digoxin 01/21/23 01/21/23 16:51 12:46 WBC RBC Hgb Hct MCV MCH MCHC RDW Plt Count MPV Immature Gran % (Auto) Neut % (Auto) Lymph % (Auto) [place] % (Auto) Eos % (Auto) Baso % (Auto) Lymph # (Auto) [place] # (Auto) Eos # (Auto) Baso # (Auto) Abs Immat Gran (auto) Absolute Neuts (auto) Absolute Nucleated RBC Nucleated RBC % PT 15.1 H INR 1.1 APTT 29.7 Sodium Potassium Chloride Carbon Dioxide Anion Gap BUN Creatinine Estim Creat Clear Calc Estimated GFR Glucose POC Capillary Glucose Calcium Magnesium Troponin I 0.015 0.014 NT-Pro-B Natriuret Pep 4480 H Digoxin Discharge Plan Discharge Attending physician on discharge: Raven Hernández Consulting providers: Jerry Pierce Discharging Clinician: Raven Hernández Patient Disposition: Home, Self-Care Activity: as tolerated Diet: as tolerated Patient Instructions: Antibiotic Form, Rivaroxaban (By mouth), Heart Failure (GEN), How to Stop Smoking (GEN) Stand Alone Forms: General Discharge Information Follow-up/Referrals: Alex,KERRY Mariscal [Primary Care Provider] - Jerry Pierce MD [Physician] - Discharge Medications: Continued carvedilol 25 mg tablet 25 mg PO Q12H Xarelto 20 mg Tablet 20 mg PO DAILY@1700 Qty: 90 0RF atorvastatin 20 mg tablet 20 mg PO HS digoxin 125 mcg (0.125 mg) tablet 0.125 mg PO DAILY Farxiga 10 mg Tablet 10 mg PO DAILY Entresto 97-103 mg tablet 1 tablet BID spironolactone 25 mg tablet 25 mg PO DAILY Patient Comments: - medication prescribed by primary md-pt stated he is not start taking this medication- gabapentin 300 mg capsule 900 mg PO HS Discontinued aspirin 325 mg Tablet 325 mg PO DAILY No Action insulin glargine [Lantus Solostar U-100 Insulin] 100 unit/mL (3 mL) insulin pen 25 unit SUBCUT B
--- NOTE | 2023-01-22 13:10 | PM.DS ---
DS: Admitting Diagnosis Discharge Date 01/22/23 Admitting Diagnosis sob DS: Discharge Diagnosis Discharge Diagnosis (1) Acute on chronic congestive heart failure: Code(s): I50.9 - Heart failure, unspecified Status: Acute (2) Atrial fibrillation: Code(s): I48.91 - Unspecified atrial fibrillation Status: Acute (3) Right leg weakness: Code(s): R29.898 - Other symptoms and signs involving the musculoskeletal system Status: Acute (4) Nonischemic cardiomyopathy: Code(s): I42.8 - Other cardiomyopathies Status: Acute (5) Insulin dependent diabetes mellitus: Code(s): E11.9 - Type 2 diabetes mellitus without complications; Z79.4 - rn long term care (current) use of insulin Status: Acute (6) Essential hypertension: Code(s): I10 - Essential (primary) hypertension Status: Acute (7) Chronic obstructive pulmonary disease: Qualifiers: COPD type: unspecified COPD Qualified Code(s): J44.9 - Chronic obstructive pulmonary disease, unspecified Code(s): J44.9 - Chronic obstructive pulmonary disease, unspecified Status: Resolved (8) Tobacco dependence: Code(s): F17.200 - Nicotine dependence, unspecified, uncomplicated Status: Acute Plan DVT prophylaxis with SCDs GI prophylaxis not indicated Code status full code The patient presented to the emergency department for evaluation of increasing shortness of breath, edema, and orthopnea as detailed in HPI. Labs, imaging, EKG, and all reports were personally reviewed. Preliminary workup in the emergency department is consistent with CHF exacerbation, likely due to intermittent compliance with medications. He does not give a history to suggest a cardiac event and has not had any recent illnesses. He will be diuresed with close monitoring of volume status, renal function, and electrolytes. Echocardiogram ordered as he has now had 1 done for over a year. Regarding his relatively recent right leg weakness, brain CT has been ordered to evaluate for the possibility that he may have had a stroke. Blood pressures were reviewed and they have been running high though he did not take his blood pressure medications yet this morning. Resume antihypertensives. No acute issues with regards to his COPD. He continues to smoke though has cut back significantly. Smoking cessation is imperative and is encouraged. Initiate sliding scale insulin, Accu-Cheks, and hypoglycemic protocol. His home medications will be reviewed and resumed as appropriate. DS: Summary Time Spent with Patient Time attestation: Total time spent providing and/or coordinating discharge services: Exam Narrative: General: No acute distress, alert and oriented per baseline HEENT: Atraumatic, normocephalic, mucous membranes moist CV: Regular rate and rhythm, S1, S2 Lungs: Clear to auscultation bilaterally, no rales or crackles noted, no wheezes, good air entry Abdomen: Soft, nontender, nondistended Extremities: Normal to inspection Skin: No rashes noted, no lesions or wounds seen Psych: Euthymic, normal affect DS: Data Data Completed and Pending Labs on day of discharge: Labs from last 24 hours 01/22/23 01/22/23 01/22/23 11:39 07:55 04:39 WBC 9.6 RBC 5.05 Hgb 15.2 Hct 46.8 MCV 92.7 MCH 30.1 MCHC 32.5 RDW 13.4 Plt Count 194 MPV 10.1 Immature Gran % (Auto) 0.8 H Neut % (Auto) 67.8 Lymph % (Auto) 20.5 [place] % (Auto) 9.1 H Eos % (Auto) 1.3 Baso % (Auto) 0.5 Lymph # (Auto) 1.97 [place] # (Auto) 0.9 H Eos # (Auto) 0.1 Baso # (Auto) 0.1 Abs Immat Gran (auto) 0.08 H Absolute Neuts (auto) 6.5 Absolute Nucleated RBC 0.0 Nucleated RBC % 0.0 PT INR APTT Sodium 139 Potassium 3.6 Chloride 102 Carbon Dioxide 29 Anion Gap 8 BUN 14 Creatinine 0.70 Estim Creat Clear Calc 120 Estimated GFR > 60 Glucose 134 H POC Ca
[2023-01-22 17:00] LABS: Glucose Point of Care 185 mg/dl (65-105)
[2023-01-22] MEDS: RIVAROXABAN 20 MG TABLET PO (17:23)
[2023-01-22 20:06] LABS: Glucose Point of Care 210 mg/dl (65-105)
[2023-01-22] MEDS: GABAPENTIN 300 MG CAPSULE 900 MG PO (20:29)
[2023-01-22] MEDS: ATORVASTATIN 20 MG TABLET PO (20:29)
[2023-01-22] MEDS: INSULIN ASPART (*BKC) 100 UNITS/ML SUB-Q (20:30)
[2023-01-22] MEDS: CALCIUM CARBONATE (TUMS) 500 MG (200 MG ELEMENTAL) PO (20:31)
[2023-01-23] VITALS (10 sets, daily range): BP systolic 123–129; BP diastolic 83–91; PULSE 80–130; RESP 20; TEMP 35.6–36.5; O2SAT 93–96
[2023-01-23 07:53] LABS: Glucose Point of Care 183 mg/dl (65-105)
[2023-01-23] MEDS: DIGOXIN TAB 125 MCG TABLET PO (09:58)
[2023-01-23] MEDS: POTASSIUM CHLORIDE 10 MEQ ER TABLET PO (09:58)
[2023-01-23] MEDS: SACUBITRIL/VALSARTAN 97-103 MG TABLET 1 TAB BY MOUTH (09:58)
[2023-01-23] MEDS: INSULIN GLARGINE (*BKC) 100 UNITS/ML 25 UNITS SUB-Q (10:00)
[2023-01-23] MEDS: EMPAGLIFLOZIN 25 MG TABLET PO (10:01)
[2023-01-23] MEDS: ASPIRIN 325 MG TABLET PO (10:01)
[2023-01-23] MEDS: SPIRONOLACTONE 25 MG TABLET PO (10:01)
[2023-01-23] MEDS: carvediloL 25 MG TABLET PO (10:02)
[2023-01-23] MEDS: FUROSEMIDE 40 MG TABLET PO (10:52)
[2023-01-23 11:42] LABS: Glucose Point of Care 196 mg/dl (65-105)
--- NOTE | 2023-01-23 12:03 | PM.PNCARD ---
Progress Note: A&P Assessment and Plan (1) Acute on chronic heart failure with reduced ejection fraction and diastolic dysfunction: Code(s): I50.43 - Acute on chronic combined systolic (congestive) and diastolic (congestive) heart failure <KSENIA Norwood - Last Filed: 01/23/23 12:35> Status: Acute <KSENIA Norwood - Last Filed: 01/23/23 12:35> Assessment and Plan: Patient presents with acute on chronic decompensated heart failure likely secondary to uncontrolled atrial fibrillation, uncontrolled hypertension and medication noncompliance. Patient reports recent compliance with medication, however, he has had several admissions in the past due to medication noncompliance. -GDMT with Entresto 97/103 mg twice daily, spironolactone 25 mg daily, Jardiance 25 mg daily, carvedilol 25 mg twice daily, and digoxin 0.125 mg daily. -shift to p.o. furosemide today, 40mg b.i.d -OK for discharge today with close outpatient follow up -CHF counseling performed -Reinforced importance of medication compliance <KSENIA Norwood - Last Filed: 01/23/23 12:35> (2) Atrial fibrillation with rapid ventricular response: Code(s): I48.91 - Unspecified atrial fibrillation <KSENIA Norwood - Last Filed: 01/23/23 12:35> Status: Acute <KSENIA Norwood - Last Filed: 01/23/23 12:35> Assessment and Plan: Heart rate better controlled on oral carvedilol 25 mg twice daily. Continue digoxin 0.125 mg daily for now for heart rate control and potential symptom improvement CHF. Continue systemic anticoagulation with Xarelto 20 mg at bedtime for embolic stroke risk reduction. <KSENIA Norwood - Last Filed: 01/23/23 12:35> (3) Nonischemic cardiomyopathy: Code(s): I42.8 - Other cardiomyopathies <KSENIA Norwood - Last Filed: 01/23/23 12:35> Status: Acute <KSENIA Norwood - Last Filed: 01/23/23 12:35> Assessment and Plan: Prior documentation to EF 15-20% improved to 35-40% on repeat echo this admission Continue Entresto 97/103 mg twice daily, spironolactone 25 mg daily, Jardiance 25 mg daily, carvedilol 25 mg twice daily, and furosemide. Continue to optimize guideline directed medical therapy. Compliance medication, recommendation follow-up strongly advised. <KSENIA Norwood - Last Filed: 01/23/23 12:35> (4) Hypertension associated with diabetes: Code(s): E11.59 - Type 2 diabetes mellitus with other circulatory complications; I15.2 - Hypertension secondary to endocrine disorders <KSENIA Norwood - Last Filed: 01/23/23 12:35> Status: Acute <KSENIA Norwood - Last Filed: 01/23/23 12:35> Assessment and Plan: BP improved to goal <KSENIA Norwood - Last Filed: 01/23/23 12:35> (5) Noncompliance w/medication treatment due to intermit use of medication: Code(s): Z91.14 - Patient's other noncompliance with medication regimen <KSENIA Norwood - Last Filed: 01/23/23 12:35> Status: Acute <KSENIA Norwood - Last Filed: 01/23/23 12:35> Assessment and Plan: Reinforced importance of compliance to medical regimen <KSENIA Norwood - Last Filed: 01/23/23 12:35> (6) Chronic obstructive pulmonary disease: Qualifiers: COPD type: unspecified COPD Qualified Code(s): J44.9 - Chronic obstructive pulmonary disease, unspecified <KSENIA Norwood - Last Filed: 01/23/23 12:35> Code(s): J44.9 - Chronic obstructive pulmonary disease, unspecified <KSENIA Norwood - Last Filed: 01/23/23 12:35> Status: Resolved <KSENIA Norwood - Last Filed: 01/23/23 12:35> Assessment and Plan: Smoking cessation recommended <Helen Spangler APN-René - Last Filed: 01/23/23 12:35> Assessment and Plan: Attending addendum: I agree with the above documentation and plan of care as outlined. If heart rate suboptimally controlled a
--- NOTE | 2023-01-23 13:11 | PM.DS ---
DS: Admitting Diagnosis Discharge Date 01/23/23 Admitting Diagnosis sob DS: Summary Hospital Course Hospital Course: 57-year-old male smoker with history of nonischemic cardiomyopathy with EF as low as 15 to 20% in July 2020 though it has improved to 45% on most recent echo, paroxysmal atrial fibrillation, insulin-dependent type 2 diabetes mellitus, hypertension, and history of noncompliance with medication who presented to the emergency department via private vehicle from home for evaluation of shortness of breath. Patient presents with acute on chronic decompensated heart failure likely secondary to uncontrolled atrial fibrillation and uncontrolled hypertension.? Patient reports recent compliance with medication, however, he has had several admissions in the past due to medication noncompliance.? Of note, he has been resumed on his prior recommend home medications with control of his heart rate suggesting noncompliance.? Claims he has been compliant with all his prescribed medications yet he was unable to name them specifically or any doses. -continue home medical therapy. -continue Entresto 97/103 mg twice daily, spironolactone 25 mg daily, Jardiance 25 mg daily, carvedilol 25 mg twice daily, and digoxin 0.125 mg daily. -continue IV diuresis for volume management with furosemide 40 mg IV twice daily.? Monitor potassium level.? Will supplement additional potassium chloride 30 mEq to equal 40 total this morning.? Monitor renal function electrolytes closely and BMP daily. -check TSH -DVT prophylaxis, he is on Xarelto 20 mg at bedtime for anticoagulation for his atrial fibrillation. -accurate input and output, daily weight for volume management.? Ideally, less than 2 g daily sodium intake. -will review in detail 2D echocardiogram obtain would not uploaded.? EF appears to be marginally preserved estimated 45-50%.? Will review more detailed available for additional valvular contributions, LVH, and chamber size, pulmonary pressures.? He will require follow-up post discharge with Cardiology previously seen by Dr. Torres. -discussed the dangers of noncompliance with medications, rapid heart rate poorly controlled BP and positive untreated PETROS if present exacerbating CHF, AFib with RVR, hypertension in declining quality of life.? Will perform apnea link to screen for PETROS. -given his history he is at high risk for complications noncompliance including stroke, , CHF exacerbation, potential life-threatening ventricular arrhythmias and or bleeding complications with falls/injuries. All symptoms resolved and he was discharged in stable condition with close outpatient follow-up. Please see above and med rec for details. Time Spent with Patient Time attestation: Total time spent providing and/or coordinating discharge services: DS: Data Data Completed and Pending Labs on day of discharge: Labs from last 24 hours 01/23/23 01/23/23 01/22/23 11:38 07:40 19:50 POC Capillary Glucose 196 H 183 H 210 H 01/22/23 16:13 POC Capillary Glucose 185 H Discharge Plan Discharge Attending physician on discharge: Raven Hernández Consulting providers: Jerry Pierce Discharging Clinician: Raven Hernández Patient Disposition: Home, Self-Care Activity: as tolerated Diet: as tolerated Patient Instructions: Rivaroxaban (By mouth), Heart Failure (GEN), How to Stop Smoking (GEN) Stand Alone Forms: General Discharge Information Follow-up/Referrals: Alex,KERRY Mariscal [Primary Care Provider] - Jerry Pierce MD [Physician] - Discharge Medications: New furosemide [Lasix] 40 mg tablet 40 mg PO BID 30 Days Qty: 60 0RF Continued carvedilol 25 mg tablet 25 mg PO Q12H Xarelto 20 mg Tablet 20 mg PO DAILY@1700 Qty: 90 0RF atorvastatin 20 mg tablet 20 mg PO HS digoxin 125 mcg (0.125 mg) tablet 0.125 mg PO DAILY insulin glargine [Lantus Solostar U-100 Insulin] 100 unit/mL (3 mL) insul
[2023-01-23] MEDS: CALCIUM CARBONATE (TUMS) 500 MG (200 MG ELEMENTAL) PO (13:34)
[2023-01-23 15:09] LABS: Anion Gap 10 mmol/L (8-16); Blood Urea Nitrogen 20 mg/dL (9-20); Carbon Dioxide 32 mmol/L (22-30); Chloride 94 mmol/L (98-107); Estimated CRCL calculation 86 ml/min; Estimated Glomerular Filt Rate > 60; Glucose 226 mg/dL (65-110); Sodium 136 mmol/L (137-145)
== END 2023-01-23 14:28 | disposition home or self-care (01) ==
LOC: ANHED 13:09 → ANHIMU 15:36
PROVIDERS: Physician Assistant; Admitting Provider Hospitalist; Emergency Provider Preventive Medicine Aerospace Medicine; PCP Physician Assistant; Visit Provider Student in an Organized Health Care Education/Training Program
DX: I11.0 Hypertensive heart disease with heart failure (principal); I50.43 Acute on chronic combined systolic (congestive) and diastolic (congestive) heart failure; I48.91 Unspecified atrial fibrillation; R29.898 Other symptoms and signs involving the musculoskeletal system; E11.59 Type 2 diabetes mellitus with other circulatory complications; I15.2 Hypertension secondary to endocrine disorders; I42.8 Other cardiomyopathies; J44.9 Chronic obstructive pulmonary disease, unspecified; E66.9 Obesity, unspecified; Z68.41 Body mass index [BMI] 40.0-44.9, adult; I08.3 Combined rheumatic disorders of mitral, aortic and tricuspid valves; F41.8 Other specified anxiety disorders; E78.5 Hyperlipidemia, unspecified; R10.9 Unspecified abdominal pain; R94.31 Abnormal electrocardiogram [ECG] [EKG]; Z91.148 Patient's other noncompliance with medication regimen for other reason; F17.210 Nicotine dependence, cigarettes, uncomplicated; Z79.82 Long term (current) use of aspirin; Z79.01 Long term (current) use of anticoagulants; Z79.4 Long term (current) use of insulin; Z79.899 Other long term (current) drug therapy; Z83.3 Family history of diabetes mellitus; Z82.49 Family history of ischemic heart disease and other diseases of the circulatory system
CPT/HCPCS: 36415; 70450; 71046; 80048; 80053; 80162; 82948; 83735; 83880; 84484; 85025; 85610; 85730; 93005; 96374; 96375; 99285; A9270; C8929; G0378; J1815; J1940; J2405; Q9957

== ENCOUNTER 2023-10-08 07:48 | Outpatient (CLI) | payer MEDICARE, MEDICAID, SELFPAY ==
--- NOTE | ~2023-10-08 | NM_ITS ---
EXAMINATION: NM sierra stress w perfusion DATE: 10/08/2023 11:10 INDICATION: Unspecified combined systolic and diastolic heart failure TECHNIQUE: Rest images were obtained following intravenous administration of 10.3 mCi Tc99m tetrofosm in (Myoview). The patient was infused intravenously with Lexiscan (Regadenoson). Then, 31.8 mCi Tc99m tetrofosmin (Myoview) was administered intravenously, and stress images were obtained. Data was juan pablo nstructed into short axis and horizontal and vertical long axis SPECT images. Gated SPECT images were also obtained. COMPARISON: None. FINDINGS: There is no definite reversible or fixed perfusion abnormality to suggest ischemia or infar ction. There is normal left ventricular chamber size. There is global hypokinesis with mildly decrea sed left ventricular ejection fraction measures 34%. IMPRESSION: 1. Normal myocardial perfusion at rest and during stress. 2. Mild global hypokinesis with mildly decreased left ventricular ejection fraction measuring 34%. Reviewed, dictated and finalized at location A. IMPRESSION: 1. Normal myocardial perfusion at rest and during stress. 2. Mild global hypokinesis with mildly decreased left ventricular ejection frac tion measuring 34%.
--- NOTE | 2023-10-08 09:01 | EST_ITS ---
Patient Info Name: Rohan Chand Age: 58 years : 1965 Gender: Male Ht: 68 in Wt: 250 lbs BSA: 2.38 m2 HR: 108 bpm BP: 145 / 105 mmHg Exam Date: 10/08/2023 9:52 AM Site Location: [facility] Patient Status: Outpatient Admit Date: 10/08/2023 Staff Ordering Physician: Carlos Eduardo Matos DO Attending Provider: Carlos Eduardo Matos DO Exercise Technologist: Diana Wilder CT Exercise Physician: Carlos Eduardo Matos DO Exam Type: CA stress sierra w NM Study Info Indications I50.20 - Unspecified systolic (congestive) heart failure I48.0 - Paroxysmal atrial fibrillation A regadenoson stress test was performed. Summary 1. 1. Negative lexiscan stress test for ischemic ST changes by ECG criteria. 2. 2. Baseline hypertension. 3. 3. Nuclear scan to follow and will be reported separately. Please correlate with it. 4. 4. Patient informed of the above results. Protocol: Lexiscan Stress ECG Details Stage: REST Duration (min): 1 min : 0 sec HR (bpm): 107 SBP (mmHg): 145 DBP (mmHg): 105 Stage: REST Duration (min): 6 min : 35 sec HR (bpm): 112 SBP (mmHg): 145 DBP (mmHg): 105 Stage: STAGE 1 Duration (min): 1 min : 0 sec HR (bpm): 114 SBP (mmHg): 152 DBP (mmHg): 104 Stage: RECOVERY Duration (min): 1 min : 0 sec HR (bpm): 134 SBP (mmHg): 152 DBP (mmHg): 104 Stage: RECOVERY Duration (min): 2 min : 0 sec HR (bpm): 127 SBP (mmHg): 152 DBP (mmHg): 104 Stage: RECOVERY Duration (min): 2 min : 51 sec HR (bpm): 112 SBP (mmHg): 148 DBP (mmHg): 102 Rest HR: 112 bpm Peak HR: 134 bpm Rest Sys BP: 145 mmHg Peak Sys BP: 152 mmHg Max Pred HR: 160 bpm % Max Pred HR: 84 % Target HR: 136 bpm Max RPP: 20,368 bpm*mmHg Termination Reason: Completed protocol Cardiac Symptoms: Shortness of breath Total Time: 1 min : 0 sec Rest Hooper BP: 105 mmHg Peak Hooper BP: 104 mmHg Total Dose: 0.4 mg Resting ECG Atrial fibrillation, anteroseptal infarct, ST-T wave abnormality in high lateral leads- consider ischemia. Stress ECG No ST changes. Arrhythmias No other arrhythmias. Report Signatures
== END 2023-10-08 07:49 | disposition home or self-care (01) ==
PROVIDERS: PCP Physician Assistant; Visit Provider Internal Medicine Cardiovascular Disease
DX: I48.91 Unspecified atrial fibrillation (principal)
CPT/HCPCS: 78452; 93017; A9502; J2785

== ENCOUNTER 2024-07-08 03:45 | Inpatient (IN) | payer MEDICARE, MEDICAID, SELFPAY ==
[2024-07-08] VITALS (34 sets, daily range): BP systolic 125–156; BP diastolic 78–118; PULSE 36–167; RESP 20–33; TEMP 36.6–37.7; O2SAT 90–97; BMI 39.2
--- NOTE | ~2024-07-08 | XR_ITS ---
Portable chest x-ray Comparison: 01/22/2023 Clinical History: Shortness of breath Findings: Lungs are clear, without focal consolidation or pleural effusion. Cardiomediastinal silho uette is enlarged. Bones and soft tissues are unremarkable. Impression: Clear lungs. Cardiomegaly. Reviewed, dictated and finalized at location . INERY MECHANIC Impression: Clear lungs. Cardiomegaly.
--- NOTE | ~2024-07-08 | XR_ITS ---
EXAMINATION: XR chest 1V portable DATE: 07/11/2024 12:19 INDICATION: Cough. TECHNIQUE: A single frontal view of the chest was obtained on 3 radiographs. COMPARISON: Chest single view 07/08/2024, chest CT 08/09/2020 FINDINGS: There is no pneumonia, pleural effusion, or pneumothorax. The heart size is normal. IMPRESSION: 1. No acute cardiopulmonary disease. Reviewed, dictated and finalized at location A. CIPAL PRODUCT MANAGER
--- NOTE | ~2024-07-08 | CT_ITS ---
EXAMINATION: CTA chest PE protocol DATE: 07/13/2024 11:27 PUBLIC WORKS SUPERVISOR INDICATION: Shortness of breath TECHNIQUE: Computed tomographic angiography (CTA) of the chest was performed with 100 mL Omnipaque-35 0 intravenous contrast. The dose-length product was 833.74 mGy-cm. Maximum intensity projection 3D-re constructions of the aorta and other arteries were constructed by the technologist on a separate work station. COMPARISON: 08/09/2020 FINDINGS/OBSERVATIONS: PULMONARY ARTERIES: No filling defect is identified within the main or proximal pulmonary artery. The main pulmonary artery is not enlarged. THORACIC AORTA: No aneurysmal dilatation or dissection is present. The great vessels are intact LUNGS: Patchy groundglass tree-in-bud and peribronchial opacification within the left hemithorax. Thi s finding is an interval change from the 2020 examination. Cylindrical bronchiectasis is also noted. MEDIASTINUM: Redemonstration of multiple pathologically enlarged lymph nodes are identified within th e mediastinum and bilateral axilla, similar to prior examination. BONES OF THE CHEST: No acute fracture. There are bridging endplate osteophytes at multiple levels in the spine, consistent with diffuse idio pathic skeletal hyperostosis (DISH). No lytic or blastic lesions. HEART: The heart is within the upper limits of normal for size, without pericardial effusion. IMPRESSION: No pulmonary embolus. No thoracic aortic dissection. Lobar (likely viral) pneumonia, as detailed above. Reviewed, dictated and finalized at location A. IC WORKS SUPERVISOR
--- NOTE | 2024-07-08 03:53 | ECG_ITS ---
Test Date: 2024-07-08 03:53:01 Measurements Intervals [place] Rate: 156 P: 0 CA: 0 QRS: -68 QRSD: 117 T: 116 QT: 287 QTc: 463 Interpretive Statements ATRIAL FIBRILLATION WITH RAPID VENTRICULAR RESPONSE POSSIBLE ANTERIOR MYOCARDIAL INFARCTION , OF INDETERMINATE AGE INFERIOR INFARCT, AGE INDETERMINATE ST-T WAVE ABNORMALITY IN HIGH LATERAL LEADS- CONSIDER ISCHEMIA BASELINE ARTIFACT- I ABNORMAL ECG No previous ECG available for comparison Electronically Signed On 07-08-2024 05:53:08 [employer]IATE by Carlos Eduardo Matos D.O.
[2024-07-08] MEDS: dilTIAZem HCl INJ 25 MG/5 ML VIAL 10 MG IV PUSH (04:13)
[2024-07-08 04:14] LABS: Basophils Percent Auto 0.3 % (0.2-1.2); Hematocrit 50.1 % (42.0-52.0); Hemoglobin 16.9 g/dL (14.0-18.0); Immature Granulocyte Absolute 0.06 K/mm3 (0.00-0.031); Immature Granulocyte Percent A 0.6 % (0-0.5); Lymphocytes Percent Auto 2.8 % (18.3-44.2); Mean Corpuscular HGB Conc 33.7 g/dl (32-36); Mean Corpuscular Hemoglobin 30.7 pg (26-34); Mean Corpuscular Volume 91.1 fl (80-100); Mean Platelet Volume 10.5 fl (7.4-10.4); Monocytes Absolute Auto 0.6 K/mm3 (0.1-0.6); Monocytes Percent Auto 5.4 % (2.6-8.5); Neutrophils Absolute Auto 9.8 K/mm3 (1.3-6.7); Neutrophils Percent Auto 90.9 % (45.5-73.1); Platelet Count Result 181 k/mm3 (150-375); Red Cell Distribution Width 13.6 % (11.5-14.5); White Blood Count 10.8 K/mm3 (4.5-10.0)
[2024-07-08] MEDS: dilTIAZem HCl INJ 25 MG/5 ML VIAL 15 MG IV PUSH (04:20)
[2024-07-08] MEDS: FUROSEMIDE INJ 40 MG/4 ML VIAL IV PUSH ×3 (04:21→16:32)
[2024-07-08 04:24] LABS: Alanine Aminotransferase 20 U/L (6-50); Alkaline Phosphatase 90 U/L (38-126); Anion Gap 12 mmol/L (4-12); Aspartate Amino Transferase 22 U/L (17-59); Blood Urea Nitrogen 15 mg/dL (9-20); Calcium 8.8 mg/dL (8.4-10.2); Carbon Dioxide 25 mmol/L (22-30); Chloride 98 mmol/L (98-107); Estimated CRCL calculation 108 ml/min; Estimated Glomerular Filt Rate > 60; Glucose 255 mg/dL (65-110); Potassium 4.2 mmol/L (3.4-5.0); Sodium 135 mmol/L (137-145)
[2024-07-08 04:36] LABS: Influenza A QL RT-PCR Positive (Negative); Influenza B QL RT-PCR Negative (Negative); RSV RNA, RT-PCR Negative (Negative); SARS-CoV-2 RNA PCR Negative (Negative)
[2024-07-08 04:37] LABS: Lipase 34 U/L (23-300); Magnesium 1.6 mg/dL (1.6-2.3); Phosphorus 3.1 mg/dL (2.5-4.5)
[2024-07-08 04:39] LABS: Lactic Acid Reflex 1.4 mmol/L (0.7-2.0)
[2024-07-08] MEDS: dilTIAZem 100 MG/100 ML 100 MG/100 ML BAG IV CONT (04:42)
[2024-07-08 04:45] LABS: INR 1.7; Prothrombin Time 19.9 Seconds (11.1-14.7)
[2024-07-08 04:46] LABS: Partial Thromboplastin Time 39.7 Seconds (22.3-36.8)
[2024-07-08 04:46] LABS: Alveolar/Arterial O2 Gradient 104.9 mmHg; Base Excess ABG -3.2 mEq/l (+/-2.0); Fractional Inspired Oxygen 28 %; HCO3 ABG 19.5 mEq/l (22.0-26.0); Oxygen Content ABG 22.1 %vol (16.0-22.0); Oxygen Saturation ABG 91.7 % (95.0-100.0); Oxyhemoglobin 90.4 % THb (90.0-100.0); PCO2 ABG 30.1 mmHg (35.0-45.0); PO2 ABG 59.2 mmHg (80.0-100.0); PO2 FiO2 Ratio Arterial Blood 2.11 %; Total Hemoglobin 17.4 g/dL (12.0-18.0)
[2024-07-08 04:47] LABS: NT Pro B Type Natriuretic Pept 5120 pg/mL (19.9-100)
[2024-07-08 04:47] LABS: Device NASAL CANNULA; Modified Allen's Test Pass; Site Drawn LEFT RADIAL
[2024-07-08 04:49] LABS: Troponin I 0.016 ng/mL (0.000-0.034)
--- NOTE | 2024-07-08 05:10 | ED.GENADULT ---
HPI - General Adult General Chief complaint: Shortness of Breath/Dyspnea Stated complaint: DYSPNEA, IN AFIB Time Seen by Provider: 07/08/24 04:17 History of Present Illness HPI narrative: This is a 59-year-old male history of AFib / congestive heart failure (35-40%) presenting with difficulty breathing. For having worsening shortness of breath over the last 3 days. He has had a productive cough with brown sputum. Denies fevers chills chest pain belly pain or lower extremity edema. He has been taking the medications as directed. He denies sick contacts at. Patient called EMS was found to be in AFib with RVR. Related Data Home Medications ?Medication ?Instructions ?Recorded ?Confirmed ?Last Taken ?Type carvedilol 25 mg tablet 25 mg PO Q12H 01/30/20 07/08/24 07/07/24 History sacubitril 97 mg-valsartan 103 mg 1 tablet BID 04/16/22 09/09/23 Unknown History tablet (Entresto) gabapentin 300 mg capsule 900 mg PO HS 04/17/22 07/08/24 07/07/24 History spironolactone 25 mg tablet 25 mg PO DAILY 04/17/22 07/08/24 Unknown History atorvastatin 20 mg tablet 20 mg PO HS 01/21/23 07/08/24 Unknown History digoxin 125 mcg (0.125 mg) tablet 0.125 mg PO DAILY 01/21/23 07/08/24 07/07/24 History dulaglutide 3 mg/0.5 mL 3 mg subcut WEEKLY 01/22/23 07/08/24 01/15/23 History subcutaneous pen injector (Trulicity) insulin glargine 100 unit/mL (3 25 unit subcut BID 01/22/23 07/08/24 07/07/24 History mL) subcutaneous pen (Lantus Solostar U-100 Insulin) Allergies Allergy/AdvReac Type Severity Reaction Status Date / Time alprazolam (From Xanax) Allergy Agitated Verified 07/08/24 03:53 [facility] Past Medical History Medical History Hypertension associated with diabetes Heart failure with reduced ejection fraction Chronic obstructive pulmonary disease Tobacco dependence Noncompliance w/medication treatment due to intermit use of medication Dyslipidemia Osteoarthritis Depression with anxiety Paroxysmal atrial fibrillation On long-term anticoagulation with warfarin. Insulin dependent diabetes mellitus Hemoglobin A1c was 10.5 in 01/2020. Combined systolic and diastolic congestive heart failure Echocardiogram in July 2020 showed an EF of 15 to 20% with abnormal diastolic function; EF improved to 40 to 45% on repeat echo in March 2022. Nonischemic cardiomyopathy Lexiscan in February 2019 showed no reversible changes and ejection fraction of 32%. Essential hypertension Surgical History Surgical History No history of previous surgery Family History Family History Grandparent Diabetes mellitus Father Carcinoma of colon Mother Carcinoma of colon Sibling COPD (chronic obstructive pulmonary disease) Heart disease Multiple sclerosis Social History Social History Social History: The patient is single and lives in [place] with his tea cup marlena named Willard. He is and has 2 children, son and daughter, but unfortunately they are estranged. 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 He designates his sister, Kavita Gleason, as his surrogate decision maker and he wishes to be a full code. He has smoked up to a pack of cigarettes per day since age of 13. The patient is down to half a pack a cigarettes a day. He drank heavily in the past but has abstained for 18+ years. History of substance abuse long ago. He designates his brother Chidi Chand or his sister Kavita Gleason as his surrogate decision makers and he wishes to be a full code. Smoking packs per day: 1 Smoking cigarettes per day: 20.0 Years smoked: 45 Smoking pack-years: 45.00 Smoking status: Current every day smoker Tobacco type: cigarettes Alcohol intake: never Substance use: never Substance use type: does not use Do You Feel Safe in your Home?: Yes Lack of Transportation: YES Current Housing: I Have Housing Concerned About Future Housing: No Difficulty Paying Gas/Electric Bills: No Difficulty Paying for Meds: No Currently Unemployed: No Education: Trade/Vocational Certificate Difficulty w/ Childcare or Family Care: No Spiritual care concerns: No Agree to blood products: Yes Exam Narrative: APPEARANCE: Patient appears older than his stated age Head: atraumatic. EYES: EOMI, NOSE: Atraumatic NECK: Trachea midline RESPIRATORY: Tachypneic, hypoxic on room air, clear to auscultation CARDIOVASCULAR: Rapid, regular, no peripheral edema ABDOMINAL: Distended, nontender MUSCULOSKELETAl: No obvious deformities NEURO: Alert. Moving 4/4 extremities SKIN:: Warm, dry. Normal color PSYCHIATRIC: Normal affect Course Vital Signs Vital signs: Vital Signs Temperature 98 F 07/08/24 03:46 Pulse Rate 167 H 07/08/24 03:46 Respiratory Rate 31 H 07/08/24 03:46 Blood Pressure 156/118 H 07/08/24 03:46 Pulse Oximetry 94 07/08/24 03:46 Oxygen Delivery Room Air 07/08/24 03:46 Temperature 98 F 07/08/24 03:46 Pulse Rate 134 H 07/08/24 04:42 Respiratory Rate 33 H 07/08/24 04:34 Blood Pressure 141/91 H 07/08/24 04:42 Pulse Oximetry 95 07/08/24 04:34 Oxygen Delivery Nasal Cannula 07/08/24 04:32 Oxygen Flow Rate 2 07/08/24 04:32 Medical Decision Making [facility] Narrative Medical decision making narrative: -Course: 59-year-old male with history of congestive heart failure presenting with difficulty breathing. Hypoxic on room air placed on nasal cannula. Patient has AFib with RVR. Given diltiazem 10 mg -> 15mg -> Drip. Found to be positive for influenza. Placed on Tamiflu. Given 40 mg of Lasix. Patient will be placed in the IMU for further management. -DDX includes but is not limited to: Influenza, pneumonia, AFib with RVR, congestive heart failure, COPD -Co-morbidities complicating care:heart failure with reduced ejection fraction, atrial fibrillation on Xarelto, diabetes cholesterol -Independent interpretation of studies: Labs imaging reviewed Independent EKG interpretation: Rhythm [a-fib], Rate [156], [place] -[normal], [place] -[none], QRS [narrow], QTC [normal], T waves -[negative for concerning inversions], ST Segments - [Negative for concerning elevations] Final interpretations: AFib with RVR Vital Signs Vital Signs: Vital Signs Temperature 98 F 07/08/24 03:46 Pulse Rate 167 H 07/08/24 03:46 Respiratory Rate 31 H 07/08/24 03:46 Blood Pressure 156/118 H 07/08/24 03:46 Pulse Oximetry 94 07/08/24 03:46 Oxygen Delivery Room Air 07/08/24 03:46 Temperature 98 F 07/08/24 03:46 Pulse Rate 134 H 07/08/24 04:42 Respiratory Rate 33 H 07/08/24 04:34 Blood Pressure 141/91 H 07/08/24 04:42 Pulse Oximetry 95 07/08/24 04:34 Oxygen Delivery Nasal Cannula 07/08/24 04:32 Oxygen Flow Rate 2 07/08/24 04:32 Lab Data 07/08/24 04:07 07/08/24 04:07 Labs: Lab Results 07/08/24 07/08/24 07/08/24 Range/Units 03:57 04:07 04:26 WBC 10.8 H (4.5-10.0) K/mm3 RBC 5.50 (4.6-6.20) M/mm3 Hgb 16.9 (14.0-18.0) g/dL Hct 50.1 (42.0-52.0) % MCV 91.1 (80-100) fl MCH 30.7 (26-34) pg MCHC 33.7 (32-36) g/dl RDW 13.6 (11.5-14.5) % Plt Count 181 (150-375) k/mm3 MPV 10.5 H (7.4-10.4) fl Immature Gran % (Auto) 0.6 H (0-0.5) % Neut % (Auto) 90.9 H (45.5-73.1) % Lymph % (Auto) 2.8 L (18.3-44.2) % Kimble % (Auto) 5.4 (2.6-8.5) % Eos % (Auto) 0.0 (0-4.4) % Baso % (Auto) 0.3 (0.2-1.2) % Lymph # (Auto) 0.30 L (0.9-3.2) K/mm3 Kimble # (Auto) 0.6 (0.1-0.6) K/mm3 Eos # (Auto) 0.0 (0-0.3) K/mm3 Baso # (Auto) 0.0 (0.0-0.1) K/mm3 Abs Immat Gran (auto) 0.06 H (0.00-0.031) K/mm3 Absolute Neuts (auto) 9.8 H (1.3-6.7) K/mm3 Absolute Nucleated RBC 0.000 (0.0-0.012) K/mm3 Nucleated RBC % 0.0 (0.0-0.2) % PT 19.9 H (11.1-14.7) Seconds INR 1.7 APTT 39.7 H (22.3-36.8) Seconds Sodium 135 L (137-145) mmol/L Potassium 4.2 (3.4-5.0) mmol/L Chloride 98 (98-107) mmol/L Carbon Dioxide 25 (22-30) mmol/L Anion Gap 12 (4-12) mmol/L BUN 15 D (9-20) mg/dL Creatinine 0.78 (0.7-1.3) mg/dL Estim Creat Clear Calc 108 ml/min Estimated GFR > 60 (59 - ) Glucose 255 H (65-110) mg/dL Lactic Acid 1.4 (0.7-2.0) mmol/L Calcium 8.8 (8.4-10.2) mg/dL Phosphorus 3.1 (2.5-4.5) mg/dL Magnesium 1.6 (1.6-2.3) mg/dL Total Bilirubin 1.0 (0.2-1.3) mg/dL AST 22 (17-59) U/L ALT 20 (6-50) U/L Alkaline Phosphatase 90 (38-126) U/L Troponin I 0.016 (0.000-0.034) ng/mL NT-Pro-B Natriuret Pep 5120 H (19.9-100) pg/mL Total Protein 7.0 (6.3-8.2) g/dL Albumin 4.0 (3.5-5.1) g/dL Lipase 34 (23-300) U/L Influenza A (RT-PCR) Positive A (Negative) Influenza B (RT-PCR) Negative (Negative) RSV (RT-PCR) Negative (Negative) SARS-CoV-2 RNA (RT-PCR) Negative (Negative) ABG Data ABG results: 07/08/24 04:31 Puncture Site Left radial ABG pH 7.430 ABG pCO2 30.1 L ABG pO2 59.2 L ABG PO2/FiO2 Ratio 2.11 ABG HCO3 19.5 L ABG O2 Saturation 91.7 L ABG O2 Content 22.1 H ABG Base Excess -3.2 A-a Gradient 104.9 Oxyhemoglobin 90.4 Total Hemoglobin 17.4 O2 Delivery Device Nasal cannula O2 Liters/Min 2.0 FiO2 28 Critical Care Time Critical Care Time Critical Care Time: Yes Total Critical Care Time: 35 Discharge Plan Discharge Clinical Impression: Influenza, CHF (congestive heart failure), Atrial fibrillation with rapid ventricular response Patient Disposition: Still a Patient Condition: Stable Patient Language: Mauritian Prescriptions: No Action carvedilol 25 mg tablet 25 mg PO Q12H Xarelto 20 mg Tablet 20 mg PO DAILY@1700 Qty: 90 0RF atorvastatin 20 mg tablet 20 mg PO HS digoxin 125 mcg (0.125 mg) tablet 0.125 mg PO DAILY insulin glargine [Lantus Solostar U-100 Insulin] 100 unit/mL (3 mL) insulin pen 25 unit SUBCUT BID Trulicity 3 mg/0.5 mL pen injector 3 mg SUBCUT WEEKLY furosemide [Lasix] 40 mg tablet 40 mg PO BID 30 Days Qty: 60 0RF sacubitril-valsartan [Entresto] 97-103 mg tablet 1 tablet BID spironolactone 25 mg tablet 25 mg PO DAILY Patient Comments: - medication prescribed by primary md-pt stated he is not start taking this medication- gabapentin 300 mg capsule 900 mg PO HS Follow-up/Referrals: Alex,KERRY Mariscal [Primary Care Provider] -
[2024-07-08] MEDS: OSELTAMIVIR PHOSPHATE 75 MG CAPSULE PO ×2 (05:22→21:33)
--- NOTE | 2024-07-08 05:22 | PC.NURSE ---
Patient declines a straight catheter.
--- OUTSIDE RECORDS SUMMARY | 2024-07-08 05:41 | XMS_ITS | Clinical Summary ---
Author Organization [facility] [address] Address [address] [place] [address] Care Team Providers Care Garment Patternmaker Name Role Phone Rashida Duggan MD Primary Care Provider [phone] No, Physician Unavailable Allergies No known active allergies Medications atorvastatin (LIPITOR) 10 mg tablet TAKE 1 TABLET BY MOUTH ONCE DAILY IN THE EVENING FOR 90 DAYS 1 Active QUEtiapine (SEROquel) 50 mg tablet Take 50 mg by mouth daily 1 Active Xarelto 20 mg tablet TAKE 1 TABLET BY MOUTH ONCE DAILY FOR 30 DAYS 1 Active LANTUS 100 unit/mL vial for injection INJECT 25 UNITS SUBCUTANEOUSLY EVERY DAY AT BEDTIME 1 Active magnesium oxide (MAG-OX) 400 mg (241.3 mg elemental magnesium) tablet Take 1 tablet by mouth 2 (two) times a day 1 Active carvediloL (COREG) 25 mg tablet Take 25 mg by mouth 2 (two) times a day 1 Active potassium chloride (KLOR-CON) 20 mEq packet DISSOLVE 1 PACKET IN WATER & DRINK TWICE DAILY 1 Active traZODone (DESYREL) 50 mg tablet TAKE 1 TABLET BY MOUTH ONCE DAILY FOR 90 DAYS 1 Active furosemide (LASIX) 20 mg tablet Take 20 mg by mouth 2 (two) times a day Active spironolactone (ALDACTONE) 25 mg tablet Take 25 mg by mouth daily 1 Active digoxin (LANOXIN) 125 mcg (0.125 mg) tablet Take 1 tablet (125 mcg total) by mouth daily 30 tablet 11 1 Active sacubitriL-cher sartan (ENTRESTO) 97-103 mg tabletIndicati ons:chronic heart failure Take 1 tablet by mouth 2 (two) times a day 60 tablet 11 1 Active sildenafiL (VIAGRA) 25 mg tablet Take 1 tablet (25 mg total) by mouth daily as needed for erectile dysfunction 10 tablet 11 1 Active Active Problems No known active problems Social History Tobacco Use Types Packs/Day Years Used Date Smoking Tobacco: Every Day Cigarettes 0.3 30 Smokeless Tobacco: Never AUDIT-C Answer Date Recorded Q1: How often do you have a drink containing alc ohol? Never 08/16/2020 Average Number of Drinks Not on file 021 Q3: How often do you have si x or more drinks on one occasion? 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 Gender Identity Not on file Sexual Orientation Not on file Obstetrics History Last Filed Vital Signs Vital Sign Reading Time Taken Comments Blood Pressure 132/92 09/13/2020 2:06 PM CDT Pulse 107 09/13/2020 2:06 PM CDT Temperature - - Respiratory Rate - - Oxygen Saturation 98% 09/13/2020 2:06 PM CDT Inhaled Oxygen Concentration - - Weight 112.5 kg (248 lb) 09/13/2020 2:06 PM CDT Height 170.2 cm (5' 7 ) 09/13/2020 2:06 PM CDT Body Mass Index 38.84 09/13/2020 2:06 PM CDT Plan of Treatment Not on file Insurance [employer] Care Teams Garment Patternmaker Relationship Specialty Start Date End Date Rashida Duggan MD PCP - General Family Medicine 08/16/20 No, Physician 08/09/18
--- OUTSIDE RECORDS SUMMARY | 2024-07-08 05:41 | XMS_ITS | Referral Summary ---
Author Organization [facility] [place] [address] Address [address] [place] [address] Care Team Providers Care Lubricator Granulator Name Role Phone Rashida Duggan MD Primary Care Provider [phone] No, Physician Unavailable Allergies No known active [...] on file Legal Sex Male 4:00 AM [employer] Gender Identity Not on file Sexual Orientation Not on file Last Filed Vital Signs Vital Sign Reading [...] file Insurance [employer] Care Teams Lubricator Granulator Relationship Specialty Start Date End Date Rashida Duggan MD PCP - General Family Medicine 08/16/20 No, Physician 08/09/18
--- OUTSIDE RECORDS SUMMARY | 2024-07-08 05:41 | XMS_ITS | Encounter Summary ---
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 AMER. >60 <=90 02/02/2020 [facility] Abstract LABORATORY Final Result * PROTIME (OUTSIDE LAB) (02/02/2020) PROTIME 21.5 INR 1.9 02/02/2020 us Doc [facility] Abstract LAB-OUTSIDE/ABSTRACTED Final Result * CBC (OUTSIDE LAB) (01/30/2020) WBC 11.2 HGB 15.5 HCT 48.5 PLT 248 01/30/2020 us Doc [facility] Abstract LAB-OUTSIDE/ABSTRACTED Edite d Result - Final documented in this encounter Visit Diagnoses Not on filedocumented in this encounter Care Teams Managed Care Provider Relationship Specialty Start Date End Date Rashida Duggan MD . [facility] [address] [place] [id number] PCP - General FAMILY PRACTICE 01/17/20 documented as of this encounter
--- OUTSIDE RECORDS SUMMARY | 2024-07-08 05:41 | XMS_ITS | Clinical Summary ---
Author Organization [facility] Address [facility] [place] [address] Care Team Providers Care Production Illustrator Name Role Phone Rashida Duggan MD Primary Care Provider [phone] Medications citalopram 20 MG tablet Take 1 tablet by mouth daily. 8 Active insulin NPH (HUMULIN N) 100 UNIT/ML injection Inject into the skin 2 (two) times daily. 7 Active insulin NPH (NOVOLIN N RELION) 100 UNIT/ML injection Inject into the skin 2 (two) times daily. 7 Active metFORMIN 500 MG tablet Take 1 tablet by mouth. 7 Active metoprolol tartrate 50 MG tablet Take 1 tablet by mouth 2 (two) times daily. 8 Active Glucose Blood (BLOOD GLUCOSE TEST STRIPS) Strip Blood Glucose Test In Vitro StripTEST BLOOD SUGAR TID (DX: 250.00)(DX: Fluctuating and uncontrolled blood sugars)[id number] Lilly arroyo 7 Active furosemide 40 MG tablet Take 1 tablet by mouth daily. 7 Active metolazone 5 MG tablet Take 1 tablet by mouth daily. 8 Active Alcohol Swabs (ALCOHOL PREP) Pads 7 Active Blood Glucose Monitoring Suppl (GLUCOCOM MONITOR) w/Device Kit by Other route 3 (three) times daily. 7 Active Insulin Syringe-Needle U-100 (RELION INSULIN SYR 0.5ML/31G) 31G X 5/16 0.5 ML Misc 7 Active Lancets Misc by Other route daily. 7 Active potassium chloride CR (KLOR-CON M20) 20 MEQ tabletIndication s:Noncompliance with treatment Take 1 tablet (20 mEq total) by mouth daily. 90 tablet 9 Active lisinopril 40 MG tabletIndication s:Benign essential hypertension Take 1 tablet (40 mg total) by mouth daily. 90 tablet 9 Active Active Problems Problem Noted Date Diagnosed Date Diuresis 06/11/2017 BMI 45.0-49.9, adult ([facility] 8 Diabetes mellitus ([facility]) 08/16/2016 Noncompliance with treatment 07/28/2016 Shortness of breath 07/25/2016 Chronic neck pain 07/12/2016 Chronic GERD 08/21/2015 Atrial fibrillation ([facility]) 08/16/2015 Pneumonia 08/16/2015 Benign essential hypertension 04/27/2015 Congestive heart failure ([facility]) 04/27 Depression 04/27/2015 Social History Tobacco Use Types Packs/Day Years Used Date Smoking Tobacco: Never Assessed Sex and Gender Information Value Date Recorded Sex Assigned at Not on file Legal Sex Male 8: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 ORNAMENTER Gender Identity Not on file Sexual Orientation Not on file Last Filed Vital Signs Vital Sign Reading Time Taken Comments Blood Pressure 158/110 05/29/2017 12:04 PM ORNAMENTER Pulse 74 05/29/2017 12:04 PM ORNAMENTER Temperature - - Respiratory Rate - - Oxygen Saturation - - Inhaled Oxygen Concentration - - Weight 130.2 kg (287 lb) 05/29/2017 12:04 PM ORNAMENTER Height 167.6 cm (5' 6 ) 05/29/2017 12:04 PM ORNAMENTER Body Mass Index 46.32 05/29/2017 12:04 PM ORNAMENTER Plan of Treatment Health Maintenance Due Date Last Done Comments Colorectal Cancer Screening Colonoscopy (10 Years) 1963 Annual Physical 1966 Hepatitis C 1981 DTaP, Tdap and Td Vaccines ( 1 - Tdap) 1982 Zoster Vaccines (1 of 2) 2013 COVID-19 Vaccine ( - 2023-2 5 season) 2024 Influenza Adult (#1) 2024 RSV Immunization or 60+ Years (1 - 1-dose 75+ series) 2038 Meningococcal B Vaccine Aged Out No l onger eligible based on patient's age to complete this topic Meningococcal Vaccine Aged Out No hailey leanne eligible based on patient's age to complete this topic Pneumococcal Vaccine: Pediat rics (0 to 5 Years) and At-Risk Patients (6 to 64 Years) Aged Out No longer eligible b ased on patient's age to complete this topic RSV Immunizations Under 20 Months Aged Out No longer eligible based on patient's age to complete this topic Care Teams Production Illustrator Relationship Specialty Start Date End Date Rashida Duggan MD [facility] [place] [address] PCP - General FAMILY PRACTICE 01/17/20
[2024-07-08] MEDS: MAGNESIUM SULF 2 GM/WATER 50ML 2 GM/50 ML BAG IVPB (05:46)
[2024-07-08 06:02] LABS: Add Urine Microscopic? YES; Appearance Urine Clear (Clear); Bacteria Urine None Seen /hpf; Bilirubin Urine Negative (Negative); Blood Urine Negative (Negative); Color Urine Yellow (Yellow); Glucose Urine UA 3+ mg/dL (Negative); Ketones Urine Trace mg/dL (Negative); Leukocyte Esterase Ur Negative LEU/UL (Negative); Nitrate Urine Negative (Negative); Protein Urine 2+ mg/dL (Negative); RBC Urine 0-2 /hpf (0-2); Specific Grav Ur 1.018 (1.001-1.035); Squamous Epithelial Cell Urine None Seen /hpf (Few); Urobilinogen Urine 0.2 mg/dL (<2.0); WBC Urine 0-5 /hpf (0-3); pH Urine 5.5 (5.0-9.0)
[2024-07-08 06:15] LABS: Digoxin < 0.5 ng/mL (0.8-2.0)
[2024-07-08] MEDS: DIGOXIN INJ 250 MCG/ML 2 ML AMP (*BKC) 500 MCG IV PUSH (06:40)
--- NOTE | 2024-07-08 06:46 | PC.NURSE ---
Per warehouse shipping receiving clerk patient will need to have belongings thrown away due to potential bed bugs. Patient will also have to stand up on a white sheet, stripped of clothes, and placed in a new gown. Notified EDP warehouse shipping receiving clerk that patient unable to ambulate due to weakness and SOB. casino cage supervisor also notified that patient was already on a white sheet and was stripped into a new gown upon arrival into ED room 7. Patient agrees to have clothes thrown away.
--- NOTE | 2024-07-08 08:00 | P.HP_ITS ---
H&P: HPI History of Present Illness Date/Time: 07/08/24 08:00 Chief Complaint: Shortness breath Narrative: 59 years old gentleman with history of systolic heart failure 35-40% revealed on echocardiogram January 22, 2023 paroxysmal atrial fibrillation, type 2 diabetes, hypertension, present ED with a chief complaint of shortness breath. Patient has been having progressive worsening shortness breath in past 3 days. Patient also has productive cough with yellowish sputum. Patient denies chest pain, fever, chills, abdomen, nausea vomiting diarrhea dysuria. Patient came to ED for evaluation and treatment. Upon arrival to ED, patient was afebrile, patient was found have tachycardia, heart rate about 167, respiratory rate 31, blood pressure stable, pulse ox 94 on room air. EKG showed AFib RVR heart rate 156, no specific ST or T-wave changes. Troponin negative, elevated BNP 5120 above baseline 4480 on January 21. Leukocytosis 10,800, influenza A positive. Chest x-ray shows cardiomegaly and increased interstitial patchy infiltrate, does not show focal consolidation or pleural effusion. In the ED, patient received digoxin 500 mcg IV push once and then digoxin 125 mcg push x2, Cardizem drip is started. Heart rate is better controlled patient also received Lasix 40 mg once and temp fluid 75 mg b.i.d. p.o. we admit patient for further evaluation and management Review of Systems Review of Systems: ROS negative except above [facility] Past Medical History Medical History Hypertension associated with diabetes Heart failure with reduced ejection fraction Chronic obstructive pulmonary disease Tobacco dependence Noncompliance w/medication treatment due to intermit use of medication Dyslipidemia Osteoarthritis Depression with anxiety Paroxysmal atrial fibrillation On long-term anticoagulation with warfarin. Insulin dependent diabetes mellitus Hemoglobin A1c was 10.5 in 01/2020. Combined systolic and diastolic congestive heart failure Echocardiogram in July 2020 showed an EF of 15 to 20% with abnormal diastolic function; EF improved to 40 to 45% on repeat echo in March 2022. Nonischemic cardiomyopathy Lexiscan in February 2019 showed no reversible changes and ejection fraction of 32%. Essential hypertension Surgical History Surgical History No history of previous surgery Family History Family History Grandparent Diabetes mellitus Father Carcinoma of colon Mother Carcinoma of colon Sibling COPD (chronic obstructive pulmonary disease) Heart disease Multiple sclerosis Social History Social History Social History: The patient is single and lives in [place] with his tea cup marlena named Willard. He is and has 2 children, son and daughter, but unfortunately they are estranged. 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 He designates his sister, Kavita Gleason, as his surrogate decision maker and he wishes to be a full code. He has smoked up to a pack of cigarettes per day since age of 13. The patient is down to half a pack a cigarettes a day. He drank heavily in the past but has abstained for 18+ years. History of substance abuse long ago. He designates his brother Chidi Chand or his sister Kavita Gleason as his surrogate decision makers and he wishes to be a full code. Smoking packs per day: 1 Smoking cigarettes per day: 20.0 Years smoked: 40 Smoking pack-years: 40.00 Smoking status: Current every day smoker Tobacco type: cigarettes Alcohol intake: never Substance use: never Substance use type: does not use Do You Feel Safe in your Home?: Yes Lack of Transportation: No Lack of Food: Never True Current Housing: I Have Housing Concerned About Future Housing: No Difficulty Paying Gas/Electric Bills: YES Difficulty Paying for Meds: No Currently Unemployed: No Education: Trade/Vocational Certificate Difficulty w/ Childcare or Family Care: No Spiritual care concerns: No Agree to blood products: Yes Meds Home Medications and Allergies Home Medications ?Medication ?Instructions ?Recorded ?Confirmed ?Type carvedilol 25 mg tablet 25 mg PO Q12H 01/30/20 07/08/24 History rivaroxaban 20 mg tablet (Xarelto) 20 mg PO DAILY@1700 #90 tabs 08/12/20 07/08/24 Rx sacubitril 97 mg-valsartan 103 mg 1 tablet PO BID 04/16/22 07/08/24 History tablet (Entresto) gabapentin 300 mg capsule 900 mg PO HS 04/17/22 07/08/24 History spironolactone 25 mg tablet 25 mg PO DAILY 04/17/22 07/08/24 History atorvastatin 20 mg tablet 20 mg PO HS 01/21/23 07/08/24 History digoxin 125 mcg (0.125 mg) tablet 0.125 mg PO DAILY 01/21/23 07/08/24 History dulaglutide 3 mg/0.5 mL 3 mg subcut WEEKLY 01/22/23 07/08/24 History subcutaneous pen injector (Trulicity) insulin glargine 100 unit/mL (3 25 unit subcut BID 01/22/23 07/08/24 History mL) subcutaneous pen (Lantus Solostar U-100 Insulin) furosemide 40 mg tablet (Lasix) 40 mg PO BID 1 month #60 tabs 01/23/23 07/08/24 Rx Allergies Allergy/AdvReac Type Severity Reaction Status Date / Time alprazolam (From Xanax) Allergy Agitated Verified 07/08/24 03:53 Vital Signs Vital Signs - 24 hr 07/08/24 03:46 07/08/24 03:54 07/08/24 03:55 Temperature 98 F Pulse Rate 167 H 157 H Respiratory Rate 31 H Blood Pressure 156/118 H Pulse Oximetry 94 94 Oxygen Delivery Room Air Room Air Oxygen Flow Rate 07/08/24 03:58 07/08/24 04:18 07/08/24 04:32 Temperature Pulse Rate Respiratory Rate Blood Pressure Pulse Oximetry 94 90 97 Oxygen Delivery Room Air Room Air Nasal Cannula Oxygen Flow Rate 2 07/08/24 04:34 07/08/24 04:34 07/08/24 04:42 Temperature Pulse Rate 118 H 116 H 134 H Respiratory Rate 33 H Blood Pressure 141/91 H 141/91 H 141/91 H Pulse Oximetry 95 Oxygen Delivery Oxygen Flow Rate 07/08/24 05:12 07/08/24 05:44 07/08/24 05:50 Temperature Pulse Rate 124 H 133 H 135 H Respiratory Rate 27 H Blood Pressure 150/93 H 146/93 H 130/83 Pulse Oximetry 94 Oxygen Delivery Oxygen Flow Rate 07/08/24 06:40 07/08/24 06:49 07/08/24 06:50 Temperature Pulse Rate 133 H 115 H Respiratory Rate Blood Pressure Pulse Oximetry 97 Oxygen Delivery Nasal Cannula Oxygen Flow Rate 3 Exam Narrative: GENERAL: Pleasant, in no acute distress. Well-nourished. - EYES: EOMI. Anicteric. - HENT: Moist mucous membranes. - LUNGS: Coarse breath sound bilaterall y, no wheezing, rhonchi, or rales. - CARDIOVASCULAR: Regular rate and rhyth m. No murmur. No JVD. - ABDOMEN: Soft, non-tender and non-dist ended. No palpable masses. - EXTREMITIES: No edema. Peripheral puls es 2+. Non-tender. - NEUROLOGIC: No focal neurological defi cits. CN II-XII grossly intact. - PSYCHIATRIC: Awake, Alert and oriented x 3. Appropriate mood and affect. - SKIN: No rashes or lesions. Warm. - LYMPH: No cervical lymphadenopathy. H&P: Results Labs Labs: Short CBC 07/08/24 Range/Units 04:07 WBC 10.8 H (4.5-10.0) K/mm3 Hgb 16.9 (14.0-18.0) g/dL Hct 50.1 (42.0-52.0) % Plt Count 181 (150-375) k/mm3 BMP 07/08/24 04:07 Sodium 135 L Potassium 4.2 Chloride 98 Carbon Dioxide 25 BUN 15 D Creatinine 0.78 Glucose 255 H Calcium 8.8 Cardiac Enzymes 07/08/24 Range/Units 04:07 Troponin I 0.016 (0.000-0.034) ng/mL Liver Function 07/08/24 Range/Units 04:07 Total Bilirubin 1.0 (0.2-1.3) mg/dL AST 22 (17-59) U/L ALT 20 (6-50) U/L Alkaline Phosphatase 90 (38-126) U/L Albumin 4.0 (3.5-5.1) g/dL Urine 07/08/24 Range/Units 05:49 Urine Color Yellow (Yellow) Urine Appearance Clear (Clear) Urine pH 5.5 (5.0-9.0) Ur Specific [place] 1.018 (1.001-1.035) Urine Protein 2+ H (Negative) mg/dL Urine Glucose (UA) 3+ H (Negative) mg/dL Assessment and Plan Assessment and plan (1) Acute on chronic congestive heart failure: Code(s): I50.9 - Heart failure, unspecified Status: Acute (2) Atrial fibrillation with rapid ventricular response: Code(s): I48.91 - Unspecified atrial fibrillation Status: Acute (3) Dyslipidemia: Code(s): E78.5 - Hyperlipidemia, unspecified Status: Acute (4) Insulin dependent diabetes mellitus: Code(s): E11.9 - Type 2 diabetes mellitus without complications; Z79.4 - intermodal customer service (current) use of insulin Status: Acute (5) Influenza A H1N1 infection: Code(s): J10.1 - Influenza due to other identified influenza virus with other respiratory manifestations Status: Acute Plan AFib RVR Upon arrival to ED, patient was found have AFib RVR, Patient received digoxin IV push, Cardizem IV push Currently patient is on Cardizem drip, heart rate is better control Continue home medication digoxin 0.125 mg daily p.o. carvedilol 25 mg q.12 hours p.o. Xarelto 20 mg daily p.o. Consult plastic outfitter for evaluation and treatment Acute on chronic heart failure Patient has worsening shortness breath, Elevated BNP above baseline X-ray showed cardiomegaly, congestion Likely resulting from uncontrolled heart rate and influenza infection Received Lasix 40 mg IV push in the ED Continue Xarelto 25 mg daily p.o. Switch from furosemide 40 mg b.i.d. p.o. to 40 mg b.i.d. IV Follow-up BMP and monitor renal function closely Consult plastic outfitter for evaluation treatment Acute bronchitis or viral pneumonia superimposed with better infection X-ray showed increased interstitial patchy infiltrate Influenza a positive Patient also has productive cough with yellow sputum Patient also has leukocytosis Continue Tamiflu p.o. Start Levaquin 750 mg IV daily Essential hypertension Patient is on Entresto 1 tablet b.i.d. p.o., carvedilol 25 mg b.i.d. p.o. Hyperlipidemia Continue Lipitor 20 mg daily p.o. Insulin-dependent diabetes Continue glargine 25 units b.i.d. Start insulin sliding scale a.c. and q.h.s. Hospitalist MIPS Advance Care Plan I have confirmed that the patient's Advanced Care Plan is present, code status is documented, or surrogate decision maker is listed in patient medical record.: Yes Medication Reconciliation I have utilized all available resources to obtain, update and review the patients current medications (includes all prescriptions, OTC, herbals, cannabis, and nutritional supplements).: Yes
[2024-07-08 08:40] LABS: Glucose Point of Care 288 mg/dl (65-105)
[2024-07-08] MEDS: INSULIN ASPART (*BKC) 100 UNITS/ML SUB-Q ×4 (09:08→21:33)
[2024-07-08] MEDS: INSULIN GLARGINE (*BKC) 100 UNITS/ML 25 UNITS SUB-Q ×2 (09:09→21:34)
[2024-07-08] MEDS: carvediloL 25 MG TABLET PO ×2 (09:15→16:31)
[2024-07-08] MEDS: DIGOXIN TAB 125 MCG TABLET PO (09:15)
[2024-07-08] MEDS: SPIRONOLACTONE 25 MG TABLET PO (09:15)
[2024-07-08] MEDS: SACUBITRIL/VALSARTAN 97-103 MG TABLET 1 TAB PO ×2 (09:16→16:32)
--- NOTE | 2024-07-08 09:59 | ADMGEN ---
This patient, Rohan Chand, was admitted to IMU Room 214-01 on 07/08/24 at 0707. Patient/family oriented to hospital policies and general routines including ID bracelet, bed and alarms, visiting hours, pain management, procedures, bathroom and other care routines, personal items, smoking policy, room service/diet, and visiting hours. Information on how to activate the Rapid Response Team has been discussed. Patient/Family are encouraged to report perceived risks to care and to ask questions if they do not understand what they are told or what they should do.
[2024-07-08] MEDS: levoFLOXacin 750 MG/D5W 150 ML 750 MG/150 ML BAG 100 MG IVPB (10:32)
[2024-07-08] MEDS: LEVALBUTEROL NEB 1.25 MG/3 ML INHALATION ×2 (10:54→21:14)
[2024-07-08 11:25] LABS: Troponin I 0.032 ng/mL (0.000-0.034)
[2024-07-08 12:25] LABS: Glucose Point of Care 240 mg/dl (65-105)
[2024-07-08] MEDS: METOCLOPRAMIDE HCL INJ 10 MG/2 ML VIAL IV PUSH ×2 (14:37→21:44)
[2024-07-08 15:56] LABS: Glucose Point of Care 256 mg/dl (65-105)
[2024-07-08] MEDS: DIGOXIN INJ 250 MCG/ML 2 ML AMP (*BKC) 125 MCG IV PUSH (16:27)
[2024-07-08] MEDS: RIVAROXABAN 20 MG TABLET PO (16:31)
--- NOTE | 2024-07-08 16:41 | PM.CNCAR ---
Assessment and Plan Assessment and plan (1) Essential hypertension: Code(s): I10 - Essential (primary) hypertension Status: Acute Assessment and Plan: Stable. (2) Nonischemic cardiomyopathy: Code(s): I42.8 - Other cardiomyopathies Status: Acute (3) Combined systolic and diastolic congestive heart failure: Code(s): I50.40 - Unspecified combined systolic (congestive) and diastolic (congestive) heart failure Status: Acute Assessment and Plan: Acute on chronic. On Coreg, Entresto, Spironolactone. On Lasix 40 mg IV BID. On Spironolactone. Obtain echo. (4) Atrial fibrillation: Code(s): I48.91 - Unspecified atrial fibrillation Status: Acute Assessment and Plan: On Xarelto. Rate was rapid and improved. On Coreg and Digoxin. (5) Influenza: Code(s): J11.1 - Influenza due to unidentified influenza virus with other respiratory manifestations Status: Acute Assessment and Plan: Managed by hospitalist. History of Present Illness History of Present Illness Consult date/time: 07/08/24 16:41 Reason For Visit: A Fib w RVR/Influenza Narrative: 59 yr old man is who is my regular cardiology patient presents to ER with sob. He has a history of chronic systolic and diastolic dysfunction, NICM, atrial fibrillation, DM, hypertension, NSVT, dyslipidemia, COPD, smoking. Reports he got sob the last few days with coughing and sputum production. He feels very weak. It was found he has influenza, diastolic heart failure and rapid atrial fibrillation. He smokes 1 ppd. Denies chest pain, orthopnea, PND, edema, dizziness, palpitations. Cardiovascular Procedures Echo/MUGA:: 02/01/23 Echo: EF 35-40%, mild LVE, mild LVH, mod LAE, mild MR/TR. Electrophysiology:: 09/09/23 EKG: Atrial fib at 112 bpm, IVCD, LVH with ST-T change, BRWP, ST-T wave in high lat leads- consider ischemia. 01/21/23 EKG: Atrial fibrillation at 125 bpm, IVCD, LVH with ST-T change, anterior infarct, inferior infarct, age indeterminate. Review of Systems Constitutional: Constitutional: Reports as per HPI, Denies chills and Denies fever(s) Cardiovascular: Cardiovascular: Reports as per HPI and Denies chest pain Respiratory: Respiratory: Reports as per HPI, Reports cough, Reports excessive phlegm production and Reports dyspnea Gastrointestinal: Gastrointestinal: Reports as per HPI and Denies abdominal pain Genitourinary: Genitourinary: Reports as per HPI and Denies dysuria Musculoskeletal: Musculoskeletal: Reports as per HPI Neurologic: Reports as per HPI, Denies dizziness and Denies syncope [facility] Past Medical History Medical History Hypertension associated with diabetes Heart failure with reduced ejection fraction Chronic obstructive pulmonary disease Tobacco dependence Noncompliance w/medication treatment due to intermit use of medication Dyslipidemia Osteoarthritis Depression with anxiety Paroxysmal atrial fibrillation On long-term anticoagulation with warfarin. Insulin dependent diabetes mellitus Hemoglobin A1c was 10.5 in 01/2020. Combined systolic and diastolic congestive heart failure Echocardiogram in July 2020 showed an EF of 15 to 20% with abnormal diastolic function; EF improved to 40 to 45% on repeat echo in March 2022. Nonischemic cardiomyopathy Lexiscan in February 2019 showed no reversible changes and ejection fraction of 32%. Essential hypertension Surgical History Surgical History No history of previous surgery Family History Family History Grandparent Diabetes mellitus Father Carcinoma of colon Mother Carcinoma of colon Sibling COPD (chronic obstructive pulmonary disease) Heart disease Multiple sclerosis Social History Social History Social History: The patient is single and lives in [place] with his tea cup marlena named Willard. He is and has 2 children, son and daughter, but unfortunately they are estranged. 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 He designates his sister, Kavita Gleason, as his surrogate decision maker and he wishes to be a full code. He has smoked up to a pack of cigarettes per day since age of 13. The patient is down to half a pack a cigarettes a day. He drank heavily in the past but has abstained for 18+ years. History of substance abuse long ago. He designates his brother Chidi Chand or his sister Kavita Gleason as his surrogate decision makers and he wishes to be a full code. Smoking packs per day: 1 Smoking cigarettes per day: 20.0 Years smoked: 40 Smoking pack-years: 40.00 Smoking status: Current every day smoker Tobacco type: cigarettes Alcohol intake: never Substance use: never Substance use type: does not use Do You Feel Safe in your Home?: Yes Lack of Transportation: No Lack of Food: Never True Current Housing: I Have Housing Concerned About Future Housing: No Difficulty Paying Gas/Electric Bills: YES Difficulty Paying for Meds: No Currently Unemployed: No Education: Trade/Vocational Certificate Difficulty w/ Childcare or Family Care: No Spiritual care concerns: No Agree to blood products: Yes Meds Home Medications and Allergies Home Medications ?Medication ?Instructions ?Recorded ?Confirmed ?Type carvedilol 25 mg tablet 25 mg PO Q12H 01/30/20 07/08/24 History rivaroxaban 20 mg tablet (Xarelto) 20 mg PO DAILY@1700 #90 tabs 08/12/20 07/08/24 Rx sacubitril 97 mg-valsartan 103 mg 1 tablet PO BID 04/16/22 07/08/24 History tablet (Entresto) gabapentin 300 mg capsule 900 mg PO HS 04/17/22 07/08/24 History spironolactone 25 mg tablet 25 mg PO DAILY 04/17/22 07/08/24 History atorvastatin 20 mg tablet 20 mg PO HS 01/21/23 07/08/24 History digoxin 125 mcg (0.125 mg) tablet 0.125 mg PO DAILY 01/21/23 07/08/24 History dulaglutide 3 mg/0.5 mL 3 mg subcut WEEKLY 01/22/23 07/08/24 History subcutaneous pen injector (Trulicity) insulin glargine 100 unit/mL (3 25 unit subcut BID 01/22/23 07/08/24 History mL) subcutaneous pen (Lantus Solostar U-100 Insulin) furosemide 40 mg tablet (Lasix) 40 mg PO BID 1 month #60 tabs 01/23/23 07/08/24 Rx Allergies Allergy/AdvReac Type Severity Reaction Status Date / Time alprazolam (From Xanax) Allergy Agitated Verified 07/08/24 03:53 Vital Signs Vital Signs - 24 hr 07/08/24 03:46 07/08/24 03:54 07/08/24 03:55 Temperature 98 F Pulse Rate 167 H 157 H Respiratory Rate 31 H Blood Pressure 156/118 H Pulse Oximetry 94 94 Oxygen Delivery Room Air Room Air Oxygen Flow Rate 07/08/24 03:58 07/08/24 04:18 07/08/24 04:32 Temperature Pulse Rate Respiratory Rate Blood Pressure Pulse Oximetry 94 90 97 Oxygen Delivery Room Air Room Air Nasal Cannula Oxygen Flow Rate 2 07/08/24 04:34 07/08/24 04:34 07/08/24 04:42 Temperature Pulse Rate 118 H 116 H 134 H Respiratory Rate 33 H Blood Pressure 141/91 H 141/91 H 141/91 H Pulse Oximetry 95 Oxygen Delivery Oxygen Flow Rate 07/08/24 05:12 07/08/24 05:44 07/08/24 05:50 Temperature Pulse Rate 124 H 133 H 135 H Respiratory Rate 27 H Blood Pressure 150/93 H 146/93 H 130/83 Pulse Oximetry 94 Oxygen Delivery Oxygen Flow Rate 07/08/24 06:40 07/08/24 06:49 07/08/24 06:50 Temperature Pulse Rate 133 H 115 H Respiratory Rate Blood Pressure Pulse Oximetry 97 Oxygen Delivery Nasal Cannula Oxygen Flow Rate 3 07/08/24 07:10 07/08/24 08:12 07/08/24 09:15 Temperature 99.8 F H Pulse Rate 118 H 113 H Respiratory Rate 20 Blood Pressure 127/85 Pulse Oximetry 94 94 Oxygen Delivery Nasal Cannula Oxygen Flow Rate 3 07/08/24 09:15 07/08/24 10:59 07/08/24 11:01 Temperature Pulse Rate 113 H 84 84 Respiratory Rate 22 H 22 H Blood Pressure Pulse Oximetry 93 Oxygen Delivery Nasal Cannula Oxygen Flow Rate 3 07/08/24 11:10 07/08/24 12:00 07/08/24 12:07 Temperature 98.3 F Pulse Rate 89 80 Respiratory Rate 22 H 24 H Blood Pressure 125/86 Pulse Oximetry 94 94 Oxygen Delivery Nasal Cannula Oxygen Flow Rate 3 07/08/24 16:00 07/08/24 16:27 07/08/24 16:31 Temperature 97.9 F Pulse Rate 96 99 99 Respiratory Rate 20 Blood Pressure 135/88 Pulse Oximetry 94 Oxygen Delivery Oxygen Flow Rate Exam Const: General: cooperative; No comfortable Resp: Auscultation: no crackles, no rales, no wheezes and breath sounds absent Cardio: Rate: tachycardic Rhythm: abnormal rhythm Heart sounds: no murmurs Peripheral pulses: dorsalis pedis present GI: GI Palp: No abdominal tenderness and Yes Soft to palpation Neuro: General: oriented to person, oriented to place and oriented to time Extrem: Right lower extremity: no edema Left lower extremity: no edema Results Labs and Meds 07/08/24 04:07 07/08/24 04:07 Lab results: Cardiac Enzymes 07/08/24 07/08/24 Range/Units 04:07 10:51 AST 22 (17-59) U/L Troponin I 0.016 0.032 D (0.000-0.034) ng/mL Coagulation 07/08/24 Range/Units 04:07 PT 19.9 H (11.1-14.7) Seconds APTT 39.7 H (22.3-36.8) Seconds CBC 07/08/24 Range/Units 04:07 WBC 10.8 H (4.5-10.0) K/mm3 RBC 5.50 (4.6-6.20) M/mm3 Hgb 16.9 (14.0-18.0) g/dL Hct 50.1 (42.0-52.0) % Plt Count 181 (150-375) k/mm3 Lymph # (Auto) 0.30 L (0.9-3.2) K/mm3 [place] # (Auto) 0.6 (0.1-0.6) K/mm3 Eos # (Auto) 0.0 (0-0.3) K/mm3 Baso # (Auto) 0.0 (0.0-0.1) K/mm3 Comprehensive Metabolic Panel 07/08/24 Range/Units 04:07 Sodium 135 L (137-145) mmol/L Potassium 4.2 (3.4-5.0) mmol/L Chloride 98 (98-107) mmol/L Carbon Dioxide 25 (22-30) mmol/L BUN 15 D (9-20) mg/dL Creatinine 0.78 (0.7-1.3) mg/dL Glucose 255 H (65-110) mg/dL Calcium 8.8 (8.4-10.2) mg/dL AST 22 (17-59) U/L ALT 20 (6-50) U/L Alkaline Phosphatase 90 (38-126) U/L Total Protein 7.0 (6.3-8.2) g/dL Albumin 4.0 (3.5-5.1) g/dL Intake and Output 07/08/24 07/08/24 07/08/24 07:59 15:59 23:59 Intake Total 7.8 240 Output Total 900 Balance 7.8 240 -900 Intake: IV 7.8 dilTIAZem 100 MG/100 ML 100 mg 7.8 In 100 ml @ 5 MG/HR 5 mls/hr IV CONT .Q20H STA Rx#:[id number] Oral 240 Output: Urine 900 Patient Weight 07/08/24 23:59 Weight 116.9 kg
[2024-07-08 20:19] LABS: Glucose Point of Care 210 mg/dl (65-105)
[2024-07-08] MEDS: GABAPENTIN 300 MG CAPSULE 900 MG PO (21:33)
[2024-07-08] MEDS: ATORVASTATIN 20 MG TABLET PO (21:33)
[2024-07-08 23:20] LABS: Digoxin 0.6 ng/mL (0.8-2.0)
[2024-07-09] VITALS (26 sets, daily range): BP systolic 93–141; BP diastolic 56–118; PULSE 84–120; RESP 20–24; TEMP 36.3–37.1; O2SAT 91–96
--- NOTE | 2024-07-09 | ECHO_ITS ---
Patient Info Name: Rohan Chand Age: 59 years : 1965 Gender: Male Ht: 68 in Wt: 251 lbs BSA: 2.39 m2 HR: 114 bpm BP: 97 / 65 mmHg Heart Rhythm: Atrial Fibrillation Technical Quality: Good Exam Date: 07/09/2024 10:23 AM Exam Location: Echo Lab Exam Room: [facility] Patient Status: Inpatient Admit Date: 07/08/2024 Staff Ordering Physician: Carlos Eduardo Matos DO Construction Supervisor/Carpenter: Tammie Antonio RDCS Attending Provider: Corrine Landers MD Referring Physician: Carlo AYON; Exam Type: CA echo doppler color flow Study Info Indications - Afib, HTN, cardiomyopathy Complete two-dimensional, color flow and Doppler transthoracic echocardiogram is performed. Summary 1. Complete two-dimensional, color flow and Doppler transthoracic echocardiogram is performed. 2. Left ventricular chamber dimension is mildly enlarged. 3. Left ventricular systolic function is moderately reduced, estimated at 40-45%. 4. There is mild concentric increased left ventricular wall thickness. 5. The left ventricular diastolic function is abnormal. 6. E/e' 12 is mildly elevated. 7. Atrial fibrillation. 8. Left atrial chamber dimension is moderately enlarged. 9. There is mild aortic valve sclerosis. 10. There is trace aortic valve regurgitation. 11. No pulmonary hypertension, estimated pulmonary arterial systolic pressure is 31 mmHg. 12. Dilated inferior vena cava with >50% collapse upon inspiration consistent with elevated right atrial pressure, 10 mmHg. Left Ventricle E/e' 12 is mildly elevated. Atrial fibrillation. Left ventricular chamber dimension is mildly enlarged. Left ventricular systolic function is moderately reduced, estimated at 40-45%. There is mild concentric increased left ventricular wall thickness. The left ventricular diastolic function is abnormal. Right Ventricle Right ventricular chamber dimension is normal. Right ventricular systolic function is normal. Left Atria Left atrial chamber dimension is moderately enlarged. Right Atria Right atrial chamber dimension is normal. Aortic Valve The aortic valve is trileaflet. There is mild aortic valve sclerosis. There is no aortic valve stenosis. There is trace aortic valve regurgitation. Pulmonic Valve There is no pulmonic regurgitation. Mitral Valve There is no mitral valve stenosis. There is no mitral valve regurgitation. Tricuspid Valve There is no tricuspid valve regurgitation. No pulmonary hypertension, estimated pulmonary arterial systolic pressure is 31 mmHg. Pericardium/Pleural There is no pericardial effusion. Inferior Vena Cava Dilated inferior vena cava with >50% collapse upon inspiration consistent with elevated right atrial pressure, 10 mmHg. Aorta The aortic root size at the sinus of Valsalva is normal. Left Ventricular Outflow Tract Name Value Normal LVOT 2D LVOT Diameter 2.1 cm LVOT Doppler LVOT Peak Gradient 2 mmHg LVOT Mean Gradient 1 mmHg LVOT VTI 14 cm LVOT VTI/AV VTI Ratio 0.6 LVOT Stroke Volume 46 ml LVOT CO 2.8 l/min LVOT CI 1.2 l/min/m2 Pulmonic Valve Name Value Normal PV Doppler PV Peak Gradient 2 mmHg Mitral Valve Name Value Normal MV Doppler MV Peak Gradient 2 mmHg MV Mean Gradient 1 mmHg MV Decel Faulk 379 cm/s2 MV PHT 56 ms MV Area (PHT) 3.9 cm2 4.0-5.0 MV Area (Cont Eq VTI) 2.5 cm2 MV Diastolic Function MV E Peak Velocity 73 cm/s MV A Peak Velocity 28 cm/s MV E/A 2.6 MV Decel Time 193 ms MV Annular TDI MV E/e' (Septal) 11.2 <=8.0 MV E/e' (Lateral) 10.7 <=8.0 MV E/e' (Average) 11.0 Tricuspid Valve Name Value Normal TV Regurgitation Doppler TR Peak Velocity 230 cm/s TR Peak Gradient 18 mmHg Estimated PAP/RSVP RA Pressure 10 mmHg <=5 PA Systolic Pressure 31 mmHg <36 RV Systolic Pressure 31 mmHg <36 Aortic Valve Name Value Normal AV Doppler AV Peak Velocity 139 cm/s AV Peak Gradient 8 mmHg AV Mean Gradient 4 mmHg AV VTI 22 cm AV Area (Cont Eq VTI) 2.1 cm2 >=3.0 AV Area (Cont Eq Krystian) 2.0 cm2 AV Regurgitation 2D LVOT Area 3.4 cm2 AV Regurgitation Doppler AR Decel Time 2,842 ms AR Decel Faulk 82 cm/s2 AR PHT 824 ms Ventricles Name Value Normal LV Dimensions 2D/MM IVS Diastolic Thickness (2D) 1.1 cm 0.6-1.0 LVID Diastole (2D) 5.4 cm 4.2-5.8 LVIW Diastolic Thickness (2D) 1.1 cm 0.6-1.0 LVID Systole (2D) 4.6 cm 2.5-4.0 LVOT Diameter 2.1 cm LV Mass (2D Cubed) 225.59 g 88.00-224.00 LV Mass Index (2D Cubed) 95 g/m2 49-115 Relative Wall Thickness (2D) 0.40 LV Fractional Shortening/Ejection Fraction 2D/MM LV Fractional Shortening (2D) 16 % 25-43 LV EF (2D Teicholz) 34 % 52-72 LV Diastolic Volume (4C MOD) 117 ml LV EF (4C MOD) 39 % LV Diastolic Length (4C) 8.1 cm LV Systolic Length (4C) 8.1 cm LV Stroke Volume (4C MOD) 46 ml Atria Name Value Normal LA Dimensions LA Volume (4C A-L) 71 ml RA Dimensions RA Area (4C) 20.1 cm2 <=18.0 Report Signatures
[2024-07-09] MEDS: DIGOXIN INJ 250 MCG/ML 2 ML AMP (*BKC) 125 MCG IV PUSH (00:11)
[2024-07-09] MEDS: LEVALBUTEROL NEB 1.25 MG/3 ML INHALATION ×4 (02:34→21:28)
[2024-07-09 05:05] LABS: Basophils Percent Auto 0.4 % (0.2-1.2); Eosinophils Percent Auto 0.1 % (0-4.4); Hematocrit 55.2 % (42.0-52.0); Hemoglobin 18.3 g/dL (14.0-18.0); Immature Granulocyte Absolute 0.05 K/mm3 (0.00-0.031); Immature Granulocyte Percent A 0.6 % (0-0.5); Lymphocytes Percent Auto 8.6 % (18.3-44.2); Mean Corpuscular HGB Conc 33.2 g/dl (32-36); Mean Corpuscular Hemoglobin 30.8 pg (26-34); Mean Corpuscular Volume 92.8 fl (80-100); Mean Platelet Volume 10.5 fl (7.4-10.4); Monocytes Absolute Auto 0.9 K/mm3 (0.1-0.6); Monocytes Percent Auto 11.3 % (2.6-8.5); Neutrophils Absolute Auto 6.4 K/mm3 (1.3-6.7); Platelet Count Result 146 k/mm3 (150-375); Red Blood Count 5.95 M/mm3 (4.6-6.20); Red Cell Distribution Width 13.4 % (11.5-14.5); White Blood Count 8.2 K/mm3 (4.5-10.0)
[2024-07-09 05:15] LABS: Magnesium 2.4 mg/dL (1.6-2.3)
[2024-07-09 05:32] LABS: Digoxin 0.9 ng/mL (0.8-2.0)
[2024-07-09 07:43] LABS: Glucose Point of Care 167 mg/dl (65-105)
--- NOTE | 2024-07-09 07:58 | PM.IMPN ---
Progress Note: A&P Assessment and Plan (1) Acute on chronic congestive heart failure: Code(s): I50.9 - Heart failure, unspecified Status: Acute (2) Atrial fibrillation with rapid ventricular response: Code(s): I48.91 - Unspecified atrial fibrillation Status: Acute (3) Dyslipidemia: Code(s): E78.5 - Hyperlipidemia, unspecified Status: Acute (4) Insulin dependent diabetes mellitus: Code(s): E11.9 - Type 2 diabetes mellitus without complications; Z79.4 - intermediate (current) use of insulin Status: Acute (5) Influenza A H1N1 infection: Code(s): J10.1 - Influenza due to other identified influenza virus with other respiratory manifestations Status: Acute Plan AFib RVR Upon arrival to ED, patient was found have AFib RVR, Patient received digoxin IV push, Cardizem IV push Patient received Cardizem drip, heart rate is better control Continue home medication digoxin 0.125 mg daily p.o. carvedilol 25 mg q.12 hours p.o. Xarelto 20 mg daily p.o. Consult manufacturing team leader for evaluation and treatment Acute on chronic heart failure Patient has history of chronic heart failure. Left ventricular systolic function is moderately reduced, estimated at 35-40%, on echocardiogram January 22 Patient has worsening shortness breath, Elevated BNP above baseline X-ray showed cardiomegaly, congestion Likely resulting from uncontrolled heart rate and influenza infection Received Lasix 40 mg IV push in the ED Continue Xarelto 25 mg daily p.o. Switch from furosemide 40 mg b.i.d. p.o. to 40 mg b.i.d. IV Follow-up BMP and monitor renal function closely Consult manufacturing team leader for evaluation treatment Acute bronchitis or viral pneumonia superimposed with better infection X-ray showed increased interstitial patchy infiltrate Influenza a positive Patient also has productive cough with yellow sputum Patient also has leukocytosis Continue Tamiflu p.o. Continue Levaquin 750 mg IV daily Essential hypertension Patient is on Entresto 1 tablet b.i.d. p.o., carvedilol 25 mg b.i.d. p.o. Hyperlipidemia Continue Lipitor 20 mg daily p.o. Insulin-dependent diabetes Continue glargine 25 units b.i.d. Start insulin sliding scale a.c. and q.h.s. Subjective Date/time seen: 07/09/24 07:58 Interval history: I saw and examined the patient. Patient still has cough and shortness of breath, patient has thick phlegm with cough. Denies chest pain, abdomen pain nausea vomiting diarrhea. Exam Narrative: GENERAL: Pleasant, in no acute distress. Well-nourished. - EYES: EOMI. Anicteric. - HENT: Moist mucous membranes. - LUNGS: Coarse breath sound bilaterally, no wheezing, rhonchi, or rales. - CARDIOVASCULAR: Regular rate and rhythm. No murmur. No JVD. - ABDOMEN: Soft, non-tender and non-distended. No palpable masses. - EXTREMITIES: No edema. Peripheral pulses 2+. Non-tender. - NEUROLOGIC: No focal neurological deficits. CN II-XII grossly intact. - PSYCHIATRIC: Awake, Alert and oriented x 3. Appropriate mood and affect. - SKIN: No rashes or lesions. Warm. - LYMPH: No cervical lymphadenopathy. Objective Data Vital Signs Vital Signs: Vital Signs - 24 hr 07/08/24 08:00 07/08/24 08:12 07/08/24 09:15 Temperature 99.8 F H Pulse Rate 118 H 118 H 113 H Respiratory Rate 20 Blood Pressure 127/85 Pulse Oximetry 94 Oxygen Delivery Oxygen Flow Rate 07/08/24 09:15 07/08/24 10:00 07/08/24 10:59 Temperature Pulse Rate 113 H 109 H 84 Respiratory Rate 22 H Blood Pressure Pulse Oximetry Oxygen Delivery Oxygen Flow Rate 07/08/24 11:01 07/08/24 11:10 07/08/24 12:00 Temperature Pulse Rate 84 89 Respiratory Rate 22 H 22 H Blood Pressure Pulse Oximetry 93 94 Oxygen Delivery Nasal Cannula Nasal Cannula Oxygen Flow Rate 3 3 07/08/24 12:00 07/08/24 12:07 07/08/24 14:00 Temperature 98.3 F Pulse Rate 90 80 110 H Respiratory Rate 24 H Blood Pressure 125/86 Pulse Oximetry 94 Oxygen Delivery Oxygen Flow Rate 07/08/24 16:00 07/08/24 16:00 07/08/24 16:00 Temperature 97.9 F Pulse Rate 96 104 H Respiratory Rate 20 Blood Pressure 135/88 Pulse Oximetry 94 94 Oxygen Delivery Nasal Cannula Oxygen Flow Rate 3 07/08/24 16:27 07/08/24 16:31 07/08/24 18:00 Temperature Pulse Rate 99 99 77 Respiratory Rate Blood Pressure Pulse Oximetry Oxygen Delivery Oxygen Flow Rate 07/08/24 20:00 07/08/24 20:00 07/08/24 20:00 Temperature 98.2 F Pulse Rate 67 88 Respiratory Rate 24 H Blood Pressure 131/78 Pulse Oximetry 96 95 Oxygen Delivery Nasal Cannula Oxygen Flow Rate 3 07/08/24 21:14 07/08/24 21:24 07/08/24 21:24 Temperature Pulse Rate 80 83 Respiratory Rate 22 H 22 H Blood Pressure Pulse Oximetry 95 Oxygen Delivery Nasal Cannula Oxygen Flow Rate 3 07/08/24 22:00 07/09/24 00:00 07/09/24 00:00 Temperature Pulse Rate 101 H 85 Respiratory Rate Blood Pressure Pulse Oximetry 95 Oxygen Delivery Nasal Cannula Oxygen Flow Rate 3 07/09/24 00:11 07/09/24 00:21 07/09/24 02:00 Temperature 98.5 F Pulse Rate 84 85 94 Respiratory Rate 23 H Blood Pressure 128/60 Pulse Oximetry 95 Oxygen Delivery Oxygen Flow Rate 07/09/24 02:35 07/09/24 04:00 07/09/24 04:00 Temperature Pulse Rate 89 96 Respiratory Rate 24 H Blood Pressure Pulse Oximetry 95 Oxygen Delivery Nasal Cannula Oxygen Flow Rate 3 07/09/24 05:01 Temperature 98.8 F Pulse Rate 84 Respiratory Rate 22 H Blood Pressure 136/63 Pulse Oximetry 93 Oxygen Delivery Oxygen Flow Rate Intake/Output Intake/Output: Intake & Output 07/06/24 07/07/24 07/08/24 07/09/24 23:59 23:59 23:59 23:59 Intake Total 247.8 550 Output Total 1300 500 Balance -1052.2 50 Meds/Results Medications: Active Medications Generic Name Dose Route Start Last Admin Trade Name Freq PRN Reason Stop Dose Admin Acetaminophen 650 mg 07/09/24 05:39 Acetaminophen 325 Mg Tablet PO Q6H PRN Mild Pain (1-3) or Fever Atorvastatin Calcium 20 mg 07/08/24 21:00 07/08/24 21:33 Atorvastatin 20 Mg Tablet PO 20 mg HS MELISA Administration Carvedilol 25 mg 07/08/24 08:15 07/08/24 16:31 Carvedilol 25 Mg Tablet PO 25 mg BIDWM MELISA Administration Dextrose 12.5 gm 07/08/24 08:23 Dextrose 50% 25 Gm/50 Ml Syringe IV PUSH PRN PRN Hypoglycemia Protocol Digoxin 125 mcg 07/08/24 09:00 07/08/24 09:15 Digoxin Tab 125 Mcg Tablet PO 125 mcg DAILY MELISA Administration Furosemide 40 mg 07/08/24 09:00 Furosemide 40 Mg Tablet PO BID MELISA Furosemide 40 mg 07/08/24 09:00 07/08/24 16:32 Furosemide Inj 40 Mg/4 Ml Vial IV PUSH 40 mg BID MELISA Administration Gabapentin 900 mg 07/08/24 21:00 07/08/24 21:33 Gabapentin 300 Mg Capsule PO 900 mg HS MELISA Administration Glucagon 1 mg 07/08/24 08:23 Glucagon For Inj 1 Mg Vial IM PRN PRN Hypoglycemia Protocol Glucose 15 gm 07/08/24 08:23 Glucose Oral Gel 15 Gm Of Glucse In 37.5 Gm Tube PO PRN PRN Hypoglycemia Protocol Levofloxacin/Dextrose 750 mg in 150 mls @ 100 mls/hr 07/08/24 09:00 07/08/24 10:32 Levaquin 750 Mg/D5w 150 Ml IVPB 100 mls/hr QAM MELISA Administration Dextrose 1,000 mls @ 100 mls/hr 07/08/24 08:23 Dextrose 5% 1,000 Ml IVPB PRN PRN Hypoglycemia Protocol Insulin Aspart 2 - 4 units 07/08/24 21:00 07/08/24 21:33 Insulin Aspart (*Bkc) 100 Units/Ml SUB-Q 2 units HS MELISA Administration Protocol Insulin Aspart 4 - 8 units 07/08/24 08:00 07/08/24 16:54 Insulin Aspart (*Bkc) 100 Units/Ml SUB-Q 5 units TIDWM MELISA Administration Protocol Insulin Glargine 25 units 07/08/24 09:00 07/08/24 21:34 Insulin Glargine (*Bkc) 100 Units/Ml SUB-Q 25 units Q12HR MELISA Administration Levalbuterol HCl 1.25 mg 07/08/24 10:50 07/09/24 04:34 Levalbuterol Neb 1.25 Mg/3 Ml INHALATION 1.25 mg Q6HRT MELISA Administration Metoclopramide HCl 10 mg 07/08/24 14:16 07/08/24 21:44 Metoclopramide Hcl Inj 10 Mg/2 Ml Vial IV PUSH 10 mg Q6HR PRN Administration nausea Oseltamivir Phosphate 75 mg 07/08/24 05:15 07/08/24 21:33 Oseltamivir Phosphate 75 Mg Capsule PO 07/13/24 05:14 75 mg Q12HR MELISA Administration Perflutren Lipid Microsphere 0 ml 07/08/24 13:39 Perflutren Lipid Microspheres 1.5 Ml Vial Diluted To 10 Ml Total Volume IV PUSH 07/11/24 13:39 ONCE PRN adequate visualization Protocol Rivaroxaban 20 mg 07/08/24 17:00 07/08/24 16:31 Rivaroxaban 20 Mg Tablet PO 20 mg DAILY@1700 MELISA Administration Sacubitril/Valsartan 1 tab 07/08/24 09:00 07/08/24 16:32 Sacubitril/Valsartan 97-103 Mg Tablet PO 1 tab BID MELISA Administration Spironolactone 25 mg 07/08/24 09:00 07/08/24 09:15 Spironolactone 25 Mg Tablet PO 25 mg DAILY MELISA Administration Radiology Results: ITS Impressions Chest X-Ray 07/08/24 05:31 Impression: Clear lungs. Cardiomegaly. Labs Labs: Laboratory Results - last 24 hr 07/08/24 07/08/24 07/08/24 07:23 10:51 11:10 WBC RBC Hgb Hct MCV MCH MCHC RDW Plt Count MPV Immature Gran % (Auto) Neut % (Auto) Lymph % (Auto) [place] % (Auto) Eos % (Auto) Baso % (Auto) Lymph # (Auto) [place] # (Auto) Eos # (Auto) Baso # (Auto) Abs Immat Gran (auto) Absolute Neuts (auto) Absolute Nucleated RBC Nucleated RBC % POC Capillary Glucose 288 H 240 H Magnesium Troponin I 0.032 D Digoxin 07/08/24 07/08/24 07/08/24 15:27 20:07 22:56 WBC RBC Hgb Hct MCV MCH MCHC RDW Plt Count MPV Immature Gran % (Auto) Neut % (Auto) Lymph % (Auto) [place] % (Auto) Eos % (Auto) Baso % (Auto) Lymph # (Auto) [place] # (Auto) Eos # (Auto) Baso # (Auto) Abs Immat Gran (auto) Absolute Neuts (auto) Absolute Nucleated RBC Nucleated RBC % POC Capillary Glucose 256 H 210 H Magnesium Troponin I Digoxin 0.6 L 07/09/24 07/09/24 04:50 07:29 WBC 8.2 RBC 5.95 Hgb 18.3 H Hct 55.2 H MCV 92.8 MCH 30.8 MCHC 33.2 RDW 13.4 Plt Count 146 L MPV 10.5 H Immature Gran % (Auto) 0.6 H Neut % (Auto) 79.0 H Lymph % (Auto) 8.6 L [place] % (Auto) 11.3 H Eos % (Auto) 0.1 Baso % (Auto) 0.4 Lymph # (Auto) 0.70 L [place] # (Auto) 0.9 H Eos # (Auto) 0.0 Baso # (Auto) 0.0 Abs Immat Gran (auto) 0.05 H Absolute Neuts (auto) 6.4 Absolute Nucleated RBC 0.000 Nucleated RBC % 0.0 POC Capillary Glucose 167 H Magnesium 2.4 H Troponin I Digoxin 0.9
--- NOTE | 2024-07-09 08:18 | P.PNCA_ITS ---
Progress Note: A&P Assessment and Plan (1) Essential hypertension: Code(s): I10 - Essential (primary) hypertension Status: Acute Assessment and Plan: Stable. (2) Nonischemic cardiomyopathy: Code(s): I42.8 - Other cardiomyopathies Status: Acute (3) Combined systolic and diastolic congestive heart failure: Code(s): I50.40 - Unspecified combined systolic (congestive) and diastolic (congestive) heart failure Status: Acute Assessment and Plan: Acute on chronic. On Coreg, Entresto, Spironolactone. On Lasix 40 mg IV BID. On Spironolactone. Monitor renal function and electr olytes. Obtain echo. (4) Atrial fibrillation: Code(s): I48.91 - Unspecified atrial fibrillation Status: Acute Assessment and Plan: On Xarelto. Rate was rapid likely due to flu. Improved. On Coreg and Digoxin. Monitor HR. (5) Influenza: Code(s): J11.1 - Influenza due to unidentified influenza virus with other respiratory manifestations Status: Acute Assessment and Plan: Managed by hospitalist. Subjective Date/time seen: 07/09/24 08:18 Interval history: Denies chest pain. Still feels sob and weak. Exam Const: General: cooperative; No comfortable Orientation/consciousness: oriented to person, oriented to place and oriented to time Resp: Auscultation: crackles, no rales, no rhonchi and diminished lung sounds Cardio: Rate: tachycardic Rhythm: abnormal rhythm Heart sounds: no murmurs Peripheral pulses: dorsalis pedis present Neuro: General: oriented to person, oriented to place and oriented to time Extrem: Right lower extremity: no edema Left lower extremity: no edema Objective Data Vital Signs Vital Signs: Vital Signs - 24 hr 07/08/24 09:15 07/08/24 09:15 07/08/24 10:00 Temperature Pulse Rate 113 H 113 H 109 H Respiratory Rate Blood Pressure Pulse Oximetry Oxygen Delivery Oxygen Flow Rate 07/08/24 10:59 07/08/24 11:01 07/08/24 11:10 Temperature Pulse Rate 84 84 89 Respiratory Rate 22 H 22 H 22 H Blood Pressure Pulse Oximetry 93 Oxygen Delivery Nasal Cannula Oxygen Flow Rate 3 07/08/24 12:00 07/08/24 12:00 07/08/24 12:07 Temperature 98.3 F Pulse Rate 90 80 Respiratory Rate 24 H Blood Pressure 125/86 Pulse Oximetry 94 94 Oxygen Delivery Nasal Cannula Oxygen Flow Rate 3 07/08/24 14:00 07/08/24 16:00 07/08/24 16:00 Temperature 97.9 F Pulse Rate 110 H 96 Respiratory Rate 20 Blood Pressure 135/88 Pulse Oximetry 94 94 Oxygen Delivery Nasal Cannula Oxygen Flow Rate 3 07/08/24 16:00 07/08/24 16:27 07/08/24 16:31 Temperature Pulse Rate 104 H 99 99 Respiratory Rate Blood Pressure Pulse Oximetry Oxygen Delivery Oxygen Flow Rate 07/08/24 18:00 07/08/24 20:00 07/08/24 20:00 Temperature 98.2 F Pulse Rate 77 67 Respiratory Rate 24 H Blood Pressure 131/78 Pulse Oximetry 96 95 Oxygen Delivery Nasal Cannula Oxygen Flow Rate 3 07/08/24 20:00 07/08/24 21:14 07/08/24 21:24 Temperature Pulse Rate 88 80 Respiratory Rate 22 H Blood Pressure Pulse Oximetry 95 Oxygen Delivery Nasal Cannula Oxygen Flow Rate 3 07/08/24 21:24 07/08/24 22:00 07/09/24 00:00 Temperature Pulse Rate 83 101 H Respiratory Rate 22 H Blood Pressure Pulse Oximetry 95 Oxygen Delivery Nasal Cannula Oxygen Flow Rate 3 07/09/24 00:00 07/09/24 00:11 07/09/24 00:21 Temperature 98.5 F Pulse Rate 85 84 85 Respiratory Rate 23 H Blood Pressure 128/60 Pulse Oximetry 95 Oxygen Delivery Oxygen Flow Rate 07/09/24 02:00 07/09/24 02:35 07/09/24 04:00 Temperature Pulse Rate 94 89 Respiratory Rate 24 H Blood Pressure Pulse Oximetry 95 Oxygen Delivery Nasal Cannula Oxygen Flow Rate 3 07/09/24 04:00 07/09/24 05:01 07/09/24 08:05 Temperature 98.8 F 97.9 F Pulse Rate 96 84 87 Respiratory Rate 22 H 22 H Blood Pressure 136/63 97/65 L Pulse Oximetry 93 95 Oxygen Delivery Oxygen Flow Rate Intake/Output Intake/Output: Intake & Output 07/06/24 07/07/24 07/08/24 07/09/24 23:59 23:59 23:59 23:59 Intake Total 247.8 550 Output Total 1300 500 Balance -1052.2 50 Meds/Results Medications: Active Medications Generic Name Dose Route Start Last Admin Trade Name Freq PRN Reason Stop Dose Admin Acetaminophen 650 mg 07/09/24 05:39 Acetaminophen 325 Mg Tablet PO Q6H PRN Mild Pain (1-3) or Fever Atorvastatin Calcium 20 mg 07/08/24 21:00 07/08/24 21:33 Atorvastatin 20 Mg Tablet PO 20 mg HS MELISA Administration Carvedilol 25 mg 07/08/24 08:15 07/08/24 16:31 Carvedilol 25 Mg Tablet PO 25 mg BIDWM MELISA Administration Dextrose 12.5 gm 07/08/24 08:23 Dextrose 50% 25 Gm/50 Ml Syringe IV PUSH PRN PRN Hypoglycemia Protocol Digoxin 125 mcg 07/08/24 09:00 07/08/24 09:15 Digoxin Tab 125 Mcg Tablet PO 125 mcg DAILY MELISA Administration Furosemide 40 mg 07/08/24 09:00 Furosemide 40 Mg Tablet PO BID MELISA Furosemide 40 mg 07/08/24 09:00 07/08/24 16:32 Furosemide Inj 40 Mg/4 Ml Vial IV PUSH 40 mg BID MELISA Administration Gabapentin 900 mg 07/08/24 21:00 07/08/24 21:33 Gabapentin 300 Mg Capsule PO 900 mg HS MELISA Administration Glucagon 1 mg 07/08/24 08:23 Glucagon For Inj 1 Mg Vial IM PRN PRN Hypoglycemia Protocol Glucose 15 gm 07/08/24 08:23 Glucose Oral Gel 15 Gm Of Glucse In 37.5 Gm Tube PO PRN PRN Hypoglycemia Protocol Levofloxacin/Dextrose 750 mg in 150 mls @ 100 mls/hr 07/08/24 09:00 07/08/24 10:32 Levaquin 750 Mg/D5w 150 Ml IVPB 100 mls/hr QAM MELISA Administration Dextrose 1,000 mls @ 100 mls/hr 07/08/24 08:23 Dextrose 5% 1,000 Ml IVPB PRN PRN Hypoglycemia Protocol Insulin Aspart 2 - 4 units 07/08/24 21:00 07/08/24 21:33 Insulin Aspart (*Bkc) 100 Units/Ml SUB-Q 2 units HS MELISA Administration Protocol Insulin Aspart 4 - 8 units 07/08/24 08:00 07/08/24 16:54 Insulin Aspart (*Bkc) 100 Units/Ml SUB-Q 5 units TIDWM MELISA Administration Protocol Insulin Glargine 25 units 07/08/24 09:00 07/08/24 21:34 Insulin Glargine (*Bkc) 100 Units/Ml SUB-Q 25 units Q12HR MELISA Administration Levalbuterol HCl 1.25 mg 07/08/24 10:50 07/09/24 04:34 Levalbuterol Neb 1.25 Mg/3 Ml INHALATION 1.25 mg Q6HRT MELISA Administration Metoclopramide HCl 10 mg 07/08/24 14:16 07/08/24 21:44 Metoclopramide Hcl Inj 10 Mg/2 Ml Vial IV PUSH 10 mg Q6HR PRN Administration nausea Oseltamivir Phosphate 75 mg 07/08/24 05:15 07/08/24 21:33 Oseltamivir Phosphate 75 Mg Capsule PO 07/13/24 05:14 75 mg Q12HR MELISA Administration Perflutren Lipid Microsphere 0 ml 07/08/24 13:39 Perflutren Lipid Microspheres 1.5 Ml Vial Diluted To 10 Ml Total Volume IV PUSH 07/11/24 13:39 ONCE PRN adequate visualization Protocol Rivaroxaban 20 mg 07/08/24 17:00 07/08/24 16:31 Rivaroxaban 20 Mg Tablet PO 20 mg DAILY@1700 MELISA Administration Sacubitril/Valsartan 1 tab 07/08/24 09:00 07/08/24 16:32 Sacubitril/Valsartan 97-103 Mg Tablet PO 1 tab BID MELISA Administration Spironolactone 25 mg 07/08/24 09:00 07/08/24 09:15 Spironolactone 25 Mg Tablet PO 25 mg DAILY MELISA Administration Radiology Results: ITS Impressions Chest X-Ray 07/08/24 05:31 Impression: Clear lungs. Cardiomegaly. Labs Labs: Laboratory Results - last 24 hr 07/08/24 07/08/24 07/08/24 07:23 10:51 11:10 WBC RBC Hgb Hct MCV MCH MCHC RDW Plt Count MPV Immature Gran % (Auto) Neut % (Auto) Lymph % (Auto) [place] % (Auto) Eos % (Auto) Baso % (Auto) Lymph # (Auto) [place] # (Auto) Eos # (Auto) Baso # (Auto) Abs Immat Gran (auto) Absolute Neuts (auto) Absolute Nucleated RBC Nucleated RBC % POC Capillary Glucose 288 H 240 H Magnesium Troponin I 0.032 D Digoxin 07/08/24 07/08/24 07/08/24 15:27 20:07 22:56 WBC RBC Hgb Hct MCV MCH MCHC RDW Plt Count MPV Immature Gran % (Auto) Neut % (Auto) Lymph % (Auto) [place] % (Auto) Eos % (Auto) Baso % (Auto) Lymph # (Auto) [place] # (Auto) Eos # (Auto) Baso # (Auto) Abs Immat Gran (auto) Absolute Neuts (auto) Absolute Nucleated RBC Nucleated RBC % POC Capillary Glucose 256 H 210 H Magnesium Troponin I Digoxin 0.6 L 07/09/24 07/09/24 04:50 07:29 WBC 8.2 RBC 5.95 Hgb 18.3 H Hct 55.2 H MCV 92.8 MCH 30.8 MCHC 33.2 RDW 13.4 Plt Count 146 L MPV 10.5 H Immature Gran % (Auto) 0.6 H Neut % (Auto) 79.0 H Lymph % (Auto) 8.6 L [place] % (Auto) 11.3 H Eos % (Auto) 0.1 Baso % (Auto) 0.4 Lymph # (Auto) 0.70 L [place] # (Auto) 0.9 H Eos # (Auto) 0.0 Baso # (Auto) 0.0 Abs Immat Gran (auto) 0.05 H Absolute Neuts (auto) 6.4 Absolute Nucleated RBC 0.000 Nucleated RBC % 0.0 POC Capillary Glucose 167 H Magnesium 2.4 H Troponin I Digoxin 0.9
[2024-07-09] MEDS: levoFLOXacin 750 MG/D5W 150 ML 750 MG/150 ML BAG 100 MG IVPB (09:35)
[2024-07-09] MEDS: carvediloL 25 MG TABLET PO ×2 (09:36→17:44)
[2024-07-09] MEDS: SPIRONOLACTONE 25 MG TABLET PO (09:37)
[2024-07-09] MEDS: SACUBITRIL/VALSARTAN 97-103 MG TABLET 1 TAB PO ×2 (09:37→17:45)
[2024-07-09] MEDS: ACETAMINOPHEN 325 MG TABLET 650 MG PO (09:37)
[2024-07-09] MEDS: DIGOXIN TAB 125 MCG TABLET PO (09:37)
[2024-07-09] MEDS: OSELTAMIVIR PHOSPHATE 75 MG CAPSULE PO ×2 (09:37→20:10)
[2024-07-09] MEDS: FUROSEMIDE INJ 40 MG/4 ML VIAL IV PUSH ×2 (09:38→17:44)
[2024-07-09] MEDS: INSULIN GLARGINE (*BKC) 100 UNITS/ML 25 UNITS SUB-Q ×2 (09:38→20:11)
[2024-07-09 11:41] LABS: Glucose Point of Care 257 mg/dl (65-105)
[2024-07-09] MEDS: INSULIN ASPART (*BKC) 100 UNITS/ML SUB-Q (11:42)
[2024-07-09 15:52] LABS: Glucose Point of Care 167 mg/dl (65-105)
[2024-07-09] MEDS: RIVAROXABAN 20 MG TABLET PO (17:44)
[2024-07-09] MEDS: METOCLOPRAMIDE HCL INJ 10 MG/2 ML VIAL IV PUSH (17:44)
[2024-07-09 18:05] LABS: Alanine Aminotransferase 26 U/L (6-50); Albumin Level 3.4 g/dL (3.5-5.1); Alkaline Phosphatase 67 U/L (38-126); Anion Gap 11 mmol/L (4-12); Aspartate Amino Transferase 52 U/L (17-59); Bilirubin,Total 0.9 mg/dL (0.2-1.3); Blood Urea Nitrogen 41 mg/dL (9-20); Calcium 8.2 mg/dL (8.4-10.2); Carbon Dioxide 26 mmol/L (22-30); Chloride 96 mmol/L (98-107); Estimated CRCL calculation 79 ml/min; Estimated Glomerular Filt Rate > 60; Glucose 185 mg/dL (65-110); Sodium 133 mmol/L (137-145)
[2024-07-09 20:03] LABS: Glucose Point of Care 158 mg/dl (65-105)
[2024-07-09] MEDS: GABAPENTIN 300 MG CAPSULE 900 MG PO (20:10)
[2024-07-09] MEDS: ATORVASTATIN 20 MG TABLET PO (20:11)
[2024-07-10] VITALS (25 sets, daily range): BP systolic 104–121; BP diastolic 50–76; PULSE 75–107; RESP 18–22; TEMP 36–36.9; O2SAT 90–98
[2024-07-10 05:40] LABS: Basophils Percent Auto 0.3 % (0.2-1.2); Hematocrit 53.4 % (42.0-52.0); Hemoglobin 17.5 g/dL (14.0-18.0); Immature Granulocyte Absolute 0.04 K/mm3 (0.00-0.031); Immature Granulocyte Percent A 0.5 % (0-0.5); Lymphocytes Absolute Auto 0.75 K/mm3 (0.9-3.2); Lymphocytes Percent Auto 9.9 % (18.3-44.2); Mean Corpuscular HGB Conc 32.8 g/dl (32-36); Mean Corpuscular Hemoglobin 30.3 pg (26-34); Mean Corpuscular Volume 92.4 fl (80-100); Mean Platelet Volume 10.8 fl (7.4-10.4); Monocytes Percent Auto 13.4 % (2.6-8.5); Neutrophils Absolute Auto 5.8 K/mm3 (1.3-6.7); Neutrophils Percent Auto 75.9 % (45.5-73.1); Platelet Count Result 159 k/mm3 (150-375); Red Blood Count 5.78 M/mm3 (4.6-6.20); Red Cell Distribution Width 13.2 % (11.5-14.5); White Blood Count 7.6 K/mm3 (4.5-10.0)
[2024-07-10 05:48] LABS: Magnesium 2.3 mg/dL (1.6-2.3)
[2024-07-10 06:01] LABS: Digoxin 0.8 ng/mL (0.8-2.0)
[2024-07-10 08:01] LABS: Glucose Point of Care 150 mg/dl (65-105)
--- NOTE | 2024-07-10 08:22 | PM.IMPN ---
Progress Note: A&P Assessment and Plan (1) Acute on chronic congestive heart failure: Code(s): I50.9 - Heart failure, unspecified Status: Acute (2) Atrial fibrillation with rapid ventricular response: Code(s): I48.91 - Unspecified atrial fibrillation Status: Acute (3) Dyslipidemia: Code(s): E78.5 - Hyperlipidemia, unspecified Status: Acute (4) Insulin dependent diabetes mellitus: Code(s): E11.9 - Type 2 diabetes mellitus without complications; Z79.4 - FPC (current) use of insulin Status: Acute (5) Influenza A H1N1 infection: Code(s): J10.1 - Influenza due to other identified influenza virus with other respiratory manifestations Status: Acute Plan AFib RVR Upon arrival to ED, patient was found have AFib RVR, Patient received digoxin IV push, Cardizem IV push Patient received Cardizem drip, heart rate is better control. He is off Cardizem drip now Continue home medication digoxin 0.125 mg daily p.o. carvedilol 25 mg q.12 hours p.o. Xarelto 20 mg daily p.o. Consulted manager poker for evaluation and treatment Acute on chronic heart failure Patient has history of chronic heart failure. Left ventricular systolic function is moderately reduced, estimated at 35-40%, on echocardiogram January 22 Patient has worsening shortness breath, Elevated BNP above baseline X-ray showed cardiomegaly, congestion Likely resulting from uncontrolled heart rate and influenza infection Received Lasix 40 mg IV push in the ED Continue Xarelto 25 mg daily p.o. Switch from furosemide 40 mg b.i.d. p.o. to 40 mg b.i.d. IV now back to oral Lasix Follow-up BMP and monitor renal function closely Consulted manager poker for evaluation treatment echo with EF 40-45% with normal diastolic function no significant valvular abnormality Acute bronchitis or viral pneumonia superimposed with better infection X-ray showed increased interstitial patchy infiltrate Influenza a positive Patient also has productive cough with yellow sputum Patient also has leukocytosis Continue Tamiflu p.o. Continue Levaquin 750 mg IV daily Essential hypertension Patient is on Entresto 1 tablet b.i.d. p.o., carvedilol 25 mg b.i.d. p.o. Hyperlipidemia Continue Lipitor 20 mg daily p.o. Insulin-dependent diabetes Continue glargine 25 units b.i.d. Start insulin sliding scale a.c. and q.h.s. COPD Tobacco dependence Acute hypoxic respiratory failure on 3 to 4 L oxygen. Continue to wean as tolerated DVT prophylaxis on Xarelto Code status full code Subjective Date/time seen: 07/10/24 08:22 Interval history: no overnight events. no sob, chest pain still has some cough occult expectorated Review of Systems Review of Systems: All systems reviewed & are unremarkable except as noted in HPI and below Exam Narrative: GENERAL: Pleasant, in no acute distress. Well-nourished. - EYES: EOMI. Anicteric. - HENT: Moist mucous membranes. - LUNGS: Coarse breath sound bilaterally, mild end expiratory wheezing noted, - CARDIOVASCULAR: Regular rate and rhythm. No murmur. No JVD. - ABDOMEN: Soft, non-tender and non-distended. No palpable masses. - EXTREMITIES: No edema. Peripheral pulses 2+. Non-tender. - NEUROLOGIC: No focal neurological deficits. CN II-XII grossly intact. - PSYCHIATRIC: Awake, Alert and oriented x 3. Appropriate mood and affect. - SKIN: No rashes or lesions. Warm. - LYMPH: No cervical lymphadenopathy. Objective Data Vital Signs Vital Signs: Vital Signs - 24 hr 07/09/24 08:43 07/09/24 08:43 07/09/24 09:04 Temperature Pulse Rate 114 H 119 H Respiratory Rate 24 H 24 H Blood Pressure Pulse Oximetry 93 Oxygen Delivery Nasal Cannula Oxygen Flow Rate 4 07/09/24 09:36 07/09/24 09:37 07/09/24 10:00 Temperature Pulse Rate 110 H 110 H 96 Respiratory Rate Blood Pressure Pulse Oximetry Oxygen Delivery Oxygen Flow Rate 07/09/24 12:00 07/09/24 12:00 07/09/24 12:01 Temperature 97.3 F L Pulse Rate 88 96 Respiratory Rate 22 H Blood Pressure 141/118 H Pulse Oximetry 94 91 Oxygen Delivery Nasal Cannula Oxygen Flow Rate 3 07/09/24 14:00 07/09/24 16:00 07/09/24 16:00 Temperature 97.3 F L Pulse Rate 87 86 Respiratory Rate 22 H Blood Pressure 138/88 Pulse Oximetry 94 92 Oxygen Delivery Nasal Cannula Oxygen Flow Rate 3 07/09/24 16:00 07/09/24 17:44 07/09/24 18:00 Temperature Pulse Rate 101 H 88 106 H Respiratory Rate Blood Pressure Pulse Oximetry Oxygen Delivery Oxygen Flow Rate 07/09/24 20:00 07/09/24 20:00 07/09/24 20:58 Temperature 98.6 F Pulse Rate 88 91 Respiratory Rate 22 H Blood Pressure 105/67 Pulse Oximetry 96 96 Oxygen Delivery Nasal Cannula Oxygen Flow Rate 3 07/09/24 21:28 07/09/24 21:29 07/09/24 22:00 Temperature Pulse Rate 100 87 Respiratory Rate 20 Blood Pressure Pulse Oximetry 96 Oxygen Delivery Nasal Cannula Oxygen Flow Rate 4 07/09/24 23:26 07/10/24 00:00 07/10/24 00:00 Temperature 98.5 F Pulse Rate 84 93 Respiratory Rate 22 H Blood Pressure 93/56 L Pulse Oximetry 96 96 Oxygen Delivery Nasal Cannula Oxygen Flow Rate 3 07/10/24 02:00 07/10/24 04:00 07/10/24 04:00 Temperature Pulse Rate 89 76 Respiratory Rate Blood Pressure Pulse Oximetry 96 Oxygen Delivery Nasal Cannula Oxygen Flow Rate 3 07/10/24 04:51 07/10/24 06:00 07/10/24 06:30 Temperature 98.5 F Pulse Rate 93 81 Respiratory Rate 22 H Blood Pressure 111/76 Pulse Oximetry 96 Oxygen Delivery Oxygen Flow Rate 07/10/24 08:16 Temperature 96.8 F L Pulse Rate 90 Respiratory Rate 20 Blood Pressure 107/57 L Pulse Oximetry 94 Oxygen Delivery Oxygen Flow Rate Intake/Output Intake/Output: Intake & Output 07/07/24 07/08/24 07/09/24 07/10/24 23:59 23:59 23:59 23:59 Intake Total 468.6 1270 480 Output Total 1300 1000 300 Balance -831.4 270 180 Meds/Results Medications: Active Medications Generic Name Dose Route Start Last Admin Trade Name Freq PRN Reason Stop Dose Admin Acetaminophen 650 mg 07/09/24 05:39 07/09/24 09:37 Acetaminophen 325 Mg Tablet PO 650 mg Q6H PRN Administration Mild Pain (1-3) or Fever Atorvastatin Calcium 20 mg 07/08/24 21:00 07/09/24 20:11 Atorvastatin 20 Mg Tablet PO 20 mg HS MELISA Administration Carvedilol 25 mg 07/08/24 08:15 07/09/24 17:44 Carvedilol 25 Mg Tablet PO 25 mg BIDWM MELISA Administration Dextrose 12.5 gm 07/08/24 08:23 Dextrose 50% 25 Gm/50 Ml Syringe IV PUSH PRN PRN Hypoglycemia Protocol Digoxin 125 mcg 07/08/24 09:00 07/09/24 09:37 Digoxin Tab 125 Mcg Tablet PO 125 mcg DAILY MELISA Administration Furosemide 40 mg 07/08/24 09:00 Furosemide 40 Mg Tablet PO BID MELISA Gabapentin 900 mg 07/08/24 21:00 07/09/24 20:10 Gabapentin 300 Mg Capsule PO 900 mg HS MELISA Administration Glucagon 1 mg 07/08/24 08:23 Glucagon For Inj 1 Mg Vial IM PRN PRN Hypoglycemia Protocol Glucose 15 gm 07/08/24 08:23 Glucose Oral Gel 15 Gm Of Glucse In 37.5 Gm Tube PO PRN PRN Hypoglycemia Protocol Levofloxacin/Dextrose 750 mg in 150 mls @ 100 mls/hr 07/08/24 09:00 07/09/24 09:35 Levaquin 750 Mg/D5w 150 Ml IVPB 100 mls/hr QAM MELISA Administration Dextrose 1,000 mls @ 100 mls/hr 07/08/24 08:23 Dextrose 5% 1,000 Ml IVPB PRN PRN Hypoglycemia Protocol Insulin Aspart 2 - 4 units 07/08/24 21:00 07/09/24 20:09 Insulin Aspart (*Bkc) 100 Units/Ml SUB-Q Not Given HS MELISA Protocol Insulin Aspart 4 - 8 units 07/08/24 08:00 07/09/24 17:45 Insulin Aspart (*Bkc) 100 Units/Ml SUB-Q Not Given TIDWM [facility] Protocol Insulin Glargine 25 units 07/08/24 09:00 07/09/24 20:11 Insulin Glargine (*Bkc) 100 Units/Ml SUB-Q 25 units Q12HR MELISA Administration Levalbuterol HCl 1.25 mg 07/08/24 10:50 07/10/24 03:13 Levalbuterol Neb 1.25 Mg/3 Ml INHALATION Not Given Q6HRT MELISA Metoclopramide HCl 10 mg 07/08/24 14:16 07/09/24 17:44 Metoclopramide Hcl Inj 10 Mg/2 Ml Vial IV PUSH 10 mg Q6HR PRN Administration nausea Oseltamivir Phosphate 75 mg 07/08/24 05:15 07/09/24 20:10 Oseltamivir Phosphate 75 Mg Capsule PO 07/13/24 05:14 75 mg Q12HR MELISA Administration Perflutren Lipid Microsphere 0 ml 07/08/24 13:39 Perflutren Lipid Microspheres 1.5 Ml Vial Diluted To 10 Ml Total Volume IV PUSH 07/11/24 13:39 ONCE PRN adequate visualization Protocol Rivaroxaban 20 mg 07/08/24 17:00 07/09/24 17:44 Rivaroxaban 20 Mg Tablet PO 20 mg DAILY@1700 MELISA Administration Sacubitril/Valsartan 1 tab 07/08/24 09:00 07/09/24 17:45 Sacubitril/Valsartan 97-103 Mg Tablet PO 1 tab BID MELISA Administration Spironolactone 25 mg 07/08/24 09:00 07/09/24 09:37 Spironolactone 25 Mg Tablet PO 25 mg DAILY MELISA Administration Radiology Results: ITS Impressions Chest X-Ray 07/08/24 05:31 Impression: Clear lungs. Cardiomegaly. Labs Labs: Laboratory Results - last 24 hr 07/09/24 07/09/24 07/09/24 11:35 15:28 17:19 WBC RBC Hgb Hct MCV MCH MCHC RDW Plt Count MPV Immature Gran % (Auto) Neut % (Auto) Lymph % (Auto) [place] % (Auto) Eos % (Auto) Baso % (Auto) Lymph # (Auto) [place] # (Auto) Eos # (Auto) Baso # (Auto) Abs Immat Gran (auto) Absolute Neuts (auto) Absolute Nucleated RBC Nucleated RBC % Sodium 133 L Potassium 4.0 Chloride 96 L Carbon Dioxide 26 Anion Gap 11 BUN 41 H D Creatinine 1.07 Estim Creat Clear Calc 79 Estimated GFR > 60 Glucose 185 H POC Capillary Glucose 257 H 167 H Calcium 8.2 L Magnesium Total Bilirubin 0.9 AST 52 ALT 26 Alkaline Phosphatase 67 Total Protein 6.0 L Albumin 3.4 L Digoxin 07/09/24 07/10/24 07/10/24 19:52 05:23 07:40 WBC 7.6 RBC 5.78 Hgb 17.5 Hct 53.4 H MCV 92.4 MCH 30.3 MCHC 32.8 RDW 13.2 Plt Count 159 MPV 10.8 H Immature Gran % (Auto) 0.5 Neut % (Auto) 75.9 H Lymph % (Auto) 9.9 L [place] % (Auto) 13.4 H Eos % (Auto) 0.0 Baso % (Auto) 0.3 Lymph # (Auto) 0.75 L [place] # (Auto) 1.0 H Eos # (Auto) 0.0 Baso # (Auto) 0.0 Abs Immat Gran (auto) 0.04 H Absolute Neuts (auto) 5.8 Absolute Nucleated RBC 0.000 Nucleated RBC % 0.0 Sodium Potassium Chloride Carbon Dioxide Anion Gap BUN Creatinine Estim Creat Clear Calc Estimated GFR Glucose POC Capillary Glucose 158 H 150 H Calcium Magnesium 2.3 Total Bilirubin AST ALT Alkaline Phosphatase Total Protein Albumin Digoxin 0.8
[2024-07-10] MEDS: LEVALBUTEROL NEB 1.25 MG/3 ML INHALATION ×3 (08:30→21:20)
--- NOTE | 2024-07-10 08:51 | PM.PNCARD ---
Progress Note: A&P Assessment and Plan (1) Essential hypertension: Code(s): I10 - Essential (primary) hypertension Status: Acute Assessment and Plan: Stable. (2) Nonischemic cardiomyopathy: Code(s): I42.8 - Other cardiomyopathies Status: Acute (3) Combined systolic and diastolic congestive heart failure: Code(s): I50.40 - Unspecified combined systolic (congestive) and diastolic (congestive) heart failure Status: Acute Assessment and Plan: Acute on chronic. On Coreg, Entresto, Spironolactone. 07/09/24 Echo: EF 40-45%, mild LVH, diastolic dysfunction (E/e' 12), mod LAE, trace AI. On Lasix 40 mg IV BID. On Spironolactone. Monitor renal function and electrolytes. Change IV Lasix to 40 mg PO BID. (4) Atrial fibrillation: Code(s): I48.91 - Unspecified atrial fibrillation Status: Acute Assessment and Plan: On Xarelto. Rate was rapid likely due to flu. Improved. On Coreg and Digoxin. Monitor HR. (5) Influenza: Code(s): J11.1 - Influenza due to unidentified influenza virus with other respiratory manifestations Status: Acute Assessment and Plan: Managed by hospitalist. Subjective Date/time seen: 07/10/24 08:51 Interval history: Denies chest pain. He feels better than yesterday but still has some sob and weakness. Exam Const: General: cooperative, healthy appearing and comfortable Orientation/consciousness: oriented to person, oriented to place and oriented to time Resp: Auscultation: no crackles, no rales, no rhonchi, no wheezes and diminished lung sounds Cardio: Rate: regular rate Rhythm: abnormal rhythm Heart sounds: no murmurs Peripheral pulses: dorsalis pedis present Neuro: General: oriented to person, oriented to place and oriented to time Extrem: Right lower extremity: no edema Left lower extremity: no edema Objective Data Vital Signs Vital Signs: Vital Signs - 24 hr 07/09/24 09:04 07/09/24 09:36 07/09/24 09:37 Temperature Pulse Rate 119 H 110 H 110 H Respiratory Rate 24 H Blood Pressure Pulse Oximetry Oxygen Delivery Oxygen Flow Rate 07/09/24 10:00 07/09/24 12:00 07/09/24 12:00 Temperature Pulse Rate 96 88 Respiratory Rate Blood Pressure Pulse Oximetry 94 Oxygen Delivery Nasal Cannula Oxygen Flow Rate 3 07/09/24 12:01 07/09/24 14:00 07/09/24 16:00 Temperature 97.3 F L 97.3 F L Pulse Rate 96 87 86 Respiratory Rate 22 H 22 H Blood Pressure 141/118 H 138/88 Pulse Oximetry 91 94 Oxygen Delivery Oxygen Flow Rate 07/09/24 16:00 07/09/24 16:00 07/09/24 17:44 Temperature Pulse Rate 101 H 88 Respiratory Rate Blood Pressure Pulse Oximetry 92 Oxygen Delivery Nasal Cannula Oxygen Flow Rate 3 07/09/24 18:00 07/09/24 20:00 07/09/24 20:00 Temperature Pulse Rate 106 H 88 Respiratory Rate Blood Pressure Pulse Oximetry 96 Oxygen Delivery Nasal Cannula Oxygen Flow Rate 3 07/09/24 20:58 07/09/24 21:28 07/09/24 21:29 Temperature 98.6 F Pulse Rate 91 100 Respiratory Rate 22 H 20 Blood Pressure 105/67 Pulse Oximetry 96 96 Oxygen Delivery Nasal Cannula Oxygen Flow Rate 4 07/09/24 22:00 07/09/24 23:26 07/10/24 00:00 Temperature 98.5 F Pulse Rate 87 84 Respiratory Rate 22 H Blood Pressure 93/56 L Pulse Oximetry 96 96 Oxygen Delivery Nasal Cannula Oxygen Flow Rate 3 07/10/24 00:00 07/10/24 02:00 07/10/24 04:00 Temperature Pulse Rate 93 89 Respiratory Rate Blood Pressure Pulse Oximetry 96 Oxygen Delivery Nasal Cannula Oxygen Flow Rate 3 07/10/24 04:00 07/10/24 04:51 07/10/24 06:00 Temperature 98.5 F Pulse Rate 76 93 81 Respiratory Rate 22 H Blood Pressure Pulse Oximetry 96 Oxygen Delivery Oxygen Flow Rate 07/10/24 06:30 07/10/24 08:16 07/10/24 08:32 Temperature 96.8 F L Pulse Rate 90 99 Respiratory Rate 20 20 Blood Pressure 111/76 107/57 L Pulse Oximetry 94 Oxygen Delivery Oxygen Flow Rate 07/10/24 08:34 Temperature Pulse Rate Respiratory Rate Blood Pressure Pulse Oximetry 96 Oxygen Delivery Nasal Cannula Oxygen Flow Rate 3 Intake/Output Intake/Output: Intake & Output 07/07/24 07/08/24 07/09/24 07/10/24 23:59 23:59 23:59 23:59 Intake Total 468.6 1270 480 Output Total 1300 1000 300 Balance -831.4 270 180 Meds/Results Medications: Active Medications Generic Name Dose Route Start Last Admin Trade Name Freq PRN Reason Stop Dose Admin Acetaminophen 650 mg 07/09/24 05:39 07/09/24 09:37 Acetaminophen 325 Mg Tablet PO 650 mg Q6H PRN Administration Mild Pain (1-3) or Fever Atorvastatin Calcium 20 mg 07/08/24 21:00 07/09/24 20:11 Atorvastatin 20 Mg Tablet PO 20 mg HS MELISA Administration Carvedilol 25 mg 07/08/24 08:15 07/09/24 17:44 Carvedilol 25 Mg Tablet PO 25 mg BIDWM MELISA Administration Dextrose 12.5 gm 07/08/24 08:23 Dextrose 50% 25 Gm/50 Ml Syringe IV PUSH PRN PRN Hypoglycemia Protocol Digoxin 125 mcg 07/08/24 09:00 07/09/24 09:37 Digoxin Tab 125 Mcg Tablet PO 125 mcg DAILY MELISA Administration Furosemide 40 mg 07/08/24 09:00 Furosemide 40 Mg Tablet PO BID MELISA Gabapentin 900 mg 07/08/24 21:00 07/09/24 20:10 Gabapentin 300 Mg Capsule PO 900 mg HS MELISA Administration Glucagon 1 mg 07/08/24 08:23 Glucagon For Inj 1 Mg Vial IM PRN PRN Hypoglycemia Protocol Glucose 15 gm 07/08/24 08:23 Glucose Oral Gel 15 Gm Of Glucse In 37.5 Gm Tube PO PRN PRN Hypoglycemia Protocol Levofloxacin/Dextrose 750 mg in 150 mls @ 100 mls/hr 07/08/24 09:00 07/09/24 09:35 Levaquin 750 Mg/D5w 150 Ml IVPB 100 mls/hr QAM MELISA Administration Dextrose 1,000 mls @ 100 mls/hr 07/08/24 08:23 Dextrose 5% 1,000 Ml IVPB PRN PRN Hypoglycemia Protocol Insulin Aspart 2 - 4 units 07/08/24 21:00 07/09/24 20:09 Insulin Aspart (*Bkc) 100 Units/Ml SUB-Q Not Given HS MELISA Protocol Insulin Aspart 4 - 8 units 07/08/24 08:00 07/09/24 17:45 Insulin Aspart (*Bkc) 100 Units/Ml SUB-Q Not Given TIDWM MELISA Protocol Insulin Glargine 25 units 07/08/24 09:00 07/09/24 20:11 Insulin Glargine (*Bkc) 100 Units/Ml SUB-Q 25 units Q12HR MELISA Administration Levalbuterol HCl 1.25 mg 07/08/24 10:50 07/10/24 08:30 Levalbuterol Neb 1.25 Mg/3 Ml INHALATION 1.25 mg Q6HRT MELISA Administration Metoclopramide HCl 10 mg 07/08/24 14:16 07/09/24 17:44 Metoclopramide Hcl Inj 10 Mg/2 Ml Vial IV PUSH 10 mg Q6HR PRN Administration nausea Oseltamivir Phosphate 75 mg 07/08/24 05:15 07/09/24 20:10 Oseltamivir Phosphate 75 Mg Capsule PO 07/13/24 05:14 75 mg Q12HR MELISA Administration Perflutren Lipid Microsphere 0 ml 07/08/24 13:39 Perflutren Lipid Microspheres 1.5 Ml Vial Diluted To 10 Ml Total Volume IV PUSH 07/11/24 13:39 ONCE PRN adequate visualization Protocol Rivaroxaban 20 mg 07/08/24 17:00 07/09/24 17:44 Rivaroxaban 20 Mg Tablet PO 20 mg DAILY@1700 MELISA Administration Sacubitril/Valsartan 1 tab 07/08/24 09:00 07/09/24 17:45 Sacubitril/Valsartan 97-103 Mg Tablet PO 1 tab BID MELISA Administration Spironolactone 25 mg 07/08/24 09:00 07/09/24 09:37 Spironolactone 25 Mg Tablet PO 25 mg DAILY MELISA Administration Radiology Results: ITS Impressions Chest X-Ray 07/08/24 05:31 Impression: Clear lungs. Cardiomegaly. Labs Labs: Laboratory Results - last 24 hr 07/09/24 07/09/24 07/09/24 11:35 15:28 17:19 WBC RBC Hgb Hct MCV MCH MCHC RDW Plt Count MPV Immature Gran % (Auto) Neut % (Auto) Lymph % (Auto) [place] % (Auto) Eos % (Auto) Baso % (Auto) Lymph # (Auto) [place] # (Auto) Eos # (Auto) Baso # (Auto) Abs Immat Gran (auto) Absolute Neuts (auto) Absolute Nucleated RBC Nucleated RBC % Sodium 133 L Potassium 4.0 Chloride 96 L Carbon Dioxide 26 Anion Gap 11 BUN 41 H D Creatinine 1.07 Estim Creat Clear Calc 79 Estimated GFR > 60 Glucose 185 H POC Capillary Glucose 257 H 167 H Calcium 8.2 L Magnesium Total Bilirubin 0.9 AST 52 ALT 26 Alkaline Phosphatase 67 Total Protein 6.0 L Albumin 3.4 L Digoxin 07/09/24 07/10/24 07/10/24 19:52 05:23 07:40 WBC 7.6 RBC 5.78 Hgb 17.5 Hct 53.4 H MCV 92.4 MCH 30.3 MCHC 32.8 RDW 13.2 Plt Count 159 MPV 10.8 H Immature Gran % (Auto) 0.5 Neut % (Auto) 75.9 H Lymph % (Auto) 9.9 L [place] % (Auto) 13.4 H Eos % (Auto) 0.0 Baso % (Auto) 0.3 Lymph # (Auto) 0.75 L [place] # (Auto) 1.0 H Eos # (Auto) 0.0 Baso # (Auto) 0.0 Abs Immat Gran (auto) 0.04 H Absolute Neuts (auto) 5.8 Absolute Nucleated RBC 0.000 Nucleated RBC % 0.0 Sodium Potassium Chloride Carbon Dioxide Anion Gap BUN Creatinine Estim Creat Clear Calc Estimated GFR Glucose POC Capillary Glucose 158 H 150 H Calcium Magnesium 2.3 Total Bilirubin AST ALT Alkaline Phosphatase Total Protein Albumin Digoxin 0.8
[2024-07-10] MEDS: DIGOXIN TAB 125 MCG TABLET PO (08:55)
[2024-07-10] MEDS: SPIRONOLACTONE 25 MG TABLET PO (08:56)
[2024-07-10] MEDS: SACUBITRIL/VALSARTAN 97-103 MG TABLET 1 TAB PO ×2 (08:56→17:28)
[2024-07-10] MEDS: carvediloL 25 MG TABLET PO ×2 (08:56→17:28)
[2024-07-10] MEDS: levoFLOXacin 750 MG/D5W 150 ML 750 MG/150 ML BAG 100 MG IVPB (08:56)
[2024-07-10] MEDS: OSELTAMIVIR PHOSPHATE 75 MG CAPSULE PO ×2 (08:56→20:02)
[2024-07-10] MEDS: INSULIN GLARGINE (*BKC) 100 UNITS/ML 25 UNITS SUB-Q ×2 (08:57→20:08)
[2024-07-10] MEDS: FUROSEMIDE 40 MG TABLET PO ×2 (09:00→17:28)
[2024-07-10 11:39] LABS: Glucose Point of Care 242 mg/dl (65-105)
[2024-07-10] MEDS: INSULIN ASPART (*BKC) 100 UNITS/ML SUB-Q ×2 (11:49→20:08)
[2024-07-10] MEDS: guaiFENesin 12 HR 600 MG TABCR PO ×2 (13:52→20:03)
--- NOTE | 2024-07-10 14:05 | PCPTNOTE ---
Patient refuses therapy in the PM with physical therapy reports that he cannot do it. He tried with Occupational therapy and that was already too much for today.
[2024-07-10] MEDS: RIVAROXABAN 20 MG TABLET PO (17:28)
[2024-07-10 19:35] LABS: Glucose Point of Care 163 mg/dl (65-105)
[2024-07-10] MEDS: GABAPENTIN 300 MG CAPSULE 900 MG PO (20:02)
[2024-07-10] MEDS: ATORVASTATIN 20 MG TABLET PO (20:03)
[2024-07-10 20:15] LABS: Glucose Point of Care 264 mg/dl (65-105)
[2024-07-10 23:25] LABS: Alanine Aminotransferase 22 U/L (6-50); Albumin Level 3.1 g/dL (3.5-5.1); Alkaline Phosphatase 68 U/L (38-126); Anion Gap 12 mmol/L (4-12); Aspartate Amino Transferase 39 U/L (17-59); Bilirubin,Total 0.9 mg/dL (0.2-1.3); Blood Urea Nitrogen 51 mg/dL (9-20); Calcium 7.9 mg/dL (8.4-10.2); Carbon Dioxide 23 mmol/L (22-30); Chloride 95 mmol/L (98-107); Estimated CRCL calculation 71 ml/min; Estimated Glomerular Filt Rate > 60; Glucose 240 mg/dL (65-110); Potassium 3.4 mmol/L (3.4-5.0); Sodium 130 mmol/L (137-145)
[2024-07-11] VITALS (16 sets, daily range): BP systolic 109–128; BP diastolic 68–80; PULSE 61–112; RESP 18–20; TEMP 36.3–37.1; O2SAT 95–99
[2024-07-11 05:11] LABS: Basophils Percent Auto 0.3 % (0.2-1.2); Eosinophils Percent Auto 0.2 % (0-4.4); Hematocrit 52.6 % (42.0-52.0); Hemoglobin 17.5 g/dL (14.0-18.0); Immature Granulocyte Absolute 0.03 K/mm3 (0.00-0.031); Immature Granulocyte Percent A 0.5 % (0-0.5); Lymphocytes Absolute Auto 0.78 K/mm3 (0.9-3.2); Lymphocytes Percent Auto 12.2 % (18.3-44.2); Mean Corpuscular HGB Conc 33.3 g/dl (32-36); Mean Corpuscular Hemoglobin 30.2 pg (26-34); Mean Corpuscular Volume 90.8 fl (80-100); Mean Platelet Volume 10.7 fl (7.4-10.4); Monocytes Absolute Auto 0.9 K/mm3 (0.1-0.6); Monocytes Percent Auto 13.6 % (2.6-8.5); Neutrophils Absolute Auto 4.7 K/mm3 (1.3-6.7); Neutrophils Percent Auto 73.2 % (45.5-73.1); Platelet Count Result 150 k/mm3 (150-375); Red Blood Count 5.79 M/mm3 (4.6-6.20); Red Cell Distribution Width 13.1 % (11.5-14.5); White Blood Count 6.4 K/mm3 (4.5-10.0)
[2024-07-11 05:33] LABS: Magnesium 2.2 mg/dL (1.6-2.3)
[2024-07-11 05:47] LABS: Digoxin 0.9 ng/mL (0.8-2.0)
[2024-07-11] MEDS: LEVALBUTEROL NEB 1.25 MG/3 ML INHALATION ×2 (07:00→13:01)
[2024-07-11 07:22] LABS: Glucose Point of Care 169 mg/dl (65-105)
--- NOTE | 2024-07-11 08:20 | PM.PNCARD ---
Progress Note: A&P Assessment and Plan (1) Essential hypertension: Code(s): I10 - Essential (primary) hypertension Status: Acute Assessment and Plan: Stable. (2) Nonischemic cardiomyopathy: Code(s): I42.8 - Other cardiomyopathies Status: Acute (3) Combined systolic and diastolic congestive heart failure: Code(s): I50.40 - Unspecified combined systolic (congestive) and diastolic (congestive) heart failure Status: Acute Assessment and Plan: Euvolemic. Acute on chronic. On Coreg, Entresto, Spironolactone. 07/09/24 Echo: EF 40-45%, mild LVH, diastolic dysfunction (E/e' 12), mod LAE, trace AI. On Lasix 40 mg PO and on Spironolactone 25 mg daily. Will sign off, please call with any questions. He may keep his regular cardiology appointment with me. (4) Atrial fibrillation: Code(s): I48.91 - Unspecified atrial fibrillation Status: Acute Assessment and Plan: On Xarelto. Rate was rapid likely due to flu. Improved. On Coreg and Digoxin. (5) Influenza: Code(s): J11.1 - Influenza due to unidentified influenza virus with other respiratory manifestations Status: Acute Assessment and Plan: Managed by hospitalist. Subjective Date/time seen: 07/11/24 08:20 Interval history: Denies chest pain. He feels much better today and states he is no longer sob and energy returned. Exam Const: General: cooperative, healthy appearing and comfortable Orientation/consciousness: oriented to person, oriented to place and oriented to time Resp: Auscultation: clear to auscultation bilaterally, no crackles, no rales, no rhonchi and no wheezes Cardio: Rate: regular rate Rhythm: abnormal rhythm Heart sounds: no murmurs Peripheral pulses: dorsalis pedis present Neuro: General: oriented to person, oriented to place and oriented to time Extrem: Right lower extremity: no edema Left lower extremity: no edema Objective Data Vital Signs Vital Signs: Vital Signs - 24 hr 07/10/24 08:32 07/10/24 08:34 07/10/24 08:55 Temperature Pulse Rate 99 96 Respiratory Rate 20 Blood Pressure Pulse Oximetry 96 Oxygen Delivery Nasal Cannula Oxygen Flow Rate 3 07/10/24 08:56 07/10/24 10:00 07/10/24 10:53 Temperature Pulse Rate 96 90 Respiratory Rate Blood Pressure Pulse Oximetry Oxygen Delivery Nasal Cannula Oxygen Flow Rate 2.5 07/10/24 11:28 07/10/24 12:00 07/10/24 12:00 Temperature 96.8 F L Pulse Rate 88 98 Respiratory Rate 20 Blood Pressure 111/68 Pulse Oximetry 90 90 Oxygen Delivery Nasal Cannula Oxygen Flow Rate 3 07/10/24 13:24 07/10/24 14:00 07/10/24 16:00 Temperature 98.1 F Pulse Rate 89 75 91 Respiratory Rate 20 20 Blood Pressure 121/72 Pulse Oximetry 96 Oxygen Delivery Oxygen Flow Rate 07/10/24 16:00 07/10/24 16:00 07/10/24 17:28 Temperature Pulse Rate 83 93 Respiratory Rate Blood Pressure Pulse Oximetry 98 Oxygen Delivery Nasal Cannula Oxygen Flow Rate 3 07/10/24 18:00 07/10/24 19:38 07/10/24 20:00 Temperature 97.8 F Pulse Rate 105 H 87 Respiratory Rate 18 Blood Pressure 104/50 L Pulse Oximetry 97 95 Oxygen Delivery Nasal Cannula Oxygen Flow Rate 3 07/10/24 20:00 07/10/24 21:20 07/10/24 21:20 Temperature Pulse Rate 90 78 Respiratory Rate 20 Blood Pressure Pulse Oximetry 95 Oxygen Delivery Nasal Cannula Oxygen Flow Rate 3 07/10/24 21:30 07/10/24 22:00 07/11/24 00:00 Temperature 98.7 F Pulse Rate 81 84 87 Respiratory Rate 20 18 Blood Pressure 125/68 Pulse Oximetry 97 Oxygen Delivery Oxygen Flow Rate 07/11/24 00:00 07/11/24 00:00 07/11/24 02:00 Temperature Pulse Rate 81 91 Respiratory Rate Blood Pressure Pulse Oximetry 97 Oxygen Delivery Nasal Cannula Oxygen Flow Rate 3 07/11/24 04:00 07/11/24 04:00 07/11/24 04:00 Temperature 98.0 F Pulse Rate 84 87 Respiratory Rate 18 Blood Pressure 127/68 Pulse Oximetry 96 96 Oxygen Delivery Nasal Cannula Oxygen Flow Rate 3 07/11/24 06:00 07/11/24 06:55 07/11/24 06:55 Temperature Pulse Rate 81 89 89 Respiratory Rate 18 18 Blood Pressure Pulse Oximetry 95 Oxygen Delivery Nasal Cannula Oxygen Flow Rate 2 07/11/24 07:05 07/11/24 07:29 Temperature 97.5 F L Pulse Rate 88 112 H Respiratory Rate 18 20 Blood Pressure 113/71 Pulse Oximetry 98 Oxygen Delivery Oxygen Flow Rate Intake/Output Intake/Output: Intake & Output 07/08/24 07/09/24 07/10/24 07/11/24 23:59 23:59 23:59 23:59 Intake Total 468.6 1420 1320 Output Total 1300 1000 1200 900 Balance -831.4 420 120 -900 Meds/Results Medications: Active Medications Generic Name Dose Route Start Last Admin Trade Name Freq PRN Reason Stop Dose Admin Acetaminophen 650 mg 07/09/24 05:39 07/09/24 09:37 Acetaminophen 325 Mg Tablet PO 650 mg Q6H PRN Administration Mild Pain (1-3) or Fever Atorvastatin Calcium 20 mg 07/08/24 21:00 07/10/24 20:03 Atorvastatin 20 Mg Tablet PO 20 mg HS MELISA Administration Carvedilol 25 mg 07/08/24 08:15 07/10/24 17:28 Carvedilol 25 Mg Tablet PO 25 mg BIDWM MELISA Administration Dextrose 12.5 gm 07/08/24 08:23 Dextrose 50% 25 Gm/50 Ml Syringe IV PUSH PRN PRN Hypoglycemia Protocol Digoxin 125 mcg 07/08/24 09:00 07/10/24 08:55 Digoxin Tab 125 Mcg Tablet PO 125 mcg DAILY MELISA Administration Furosemide 40 mg 07/08/24 09:00 07/10/24 17:28 Furosemide 40 Mg Tablet PO 40 mg BID MELISA Administration Gabapentin 900 mg 07/08/24 21:00 07/10/24 20:02 Gabapentin 300 Mg Capsule PO 900 mg HS MELISA Administration Glucagon 1 mg 07/08/24 08:23 Glucagon For Inj 1 Mg Vial IM PRN PRN Hypoglycemia Protocol Glucose 15 gm 07/08/24 08:23 Glucose Oral Gel 15 Gm Of Glucse In 37.5 Gm Tube PO PRN PRN Hypoglycemia Protocol Guaifenesin 600 mg 07/10/24 13:15 07/10/24 20:03 Guaifenesin 12 Hr 600 Mg Tabcr PO 600 mg Q12HR MELISA Administration Levofloxacin/Dextrose 750 mg in 150 mls @ 100 mls/hr 07/08/24 09:00 07/10/24 08:56 Levaquin 750 Mg/D5w 150 Ml IVPB 100 mls/hr QAM MELISA Administration Dextrose 1,000 mls @ 100 mls/hr 07/08/24 08:23 Dextrose 5% 1,000 Ml IVPB PRN PRN Hypoglycemia Protocol Insulin Aspart 2 - 4 units 07/08/24 21:00 07/10/24 20:08 Insulin Aspart (*Bkc) 100 Units/Ml SUB-Q 2 units HS MELISA Administration Protocol Insulin Aspart 4 - 8 units 07/08/24 08:00 07/10/24 17:29 Insulin Aspart (*Bkc) 100 Units/Ml SUB-Q Not Given TIDWM MELISA Protocol Insulin Glargine 25 units 07/08/24 09:00 07/10/24 20:08 Insulin Glargine (*Bkc) 100 Units/Ml SUB-Q 25 units Q12HR MELISA Administration Levalbuterol HCl 1.25 mg 07/08/24 10:50 07/11/24 07:00 Levalbuterol Neb 1.25 Mg/3 Ml INHALATION 1.25 mg Q6HRT MELISA Administration Metoclopramide HCl 10 mg 07/08/24 14:16 07/09/24 17:44 Metoclopramide Hcl Inj 10 Mg/2 Ml Vial IV PUSH 10 mg Q6HR PRN Administration nausea Oseltamivir Phosphate 75 mg 07/08/24 05:15 07/10/24 20:02 Oseltamivir Phosphate 75 Mg Capsule PO 07/13/24 05:14 75 mg Q12HR MELISA Administration Perflutren Lipid Microsphere 0 ml 07/08/24 13:39 Perflutren Lipid Microspheres 1.5 Ml Vial Diluted To 10 Ml Total Volume IV PUSH 07/11/24 13:39 ONCE PRN adequate visualization Protocol Rivaroxaban 20 mg 07/08/24 17:00 07/10/24 17:28 Rivaroxaban 20 Mg Tablet PO 20 mg DAILY@1700 MELISA Administration Sacubitril/Valsartan 1 tab 07/08/24 09:00 07/10/24 17:28 Sacubitril/Valsartan 97-103 Mg Tablet PO 1 tab BID MELISA Administration Spironolactone 25 mg 07/08/24 09:00 07/10/24 08:56 Spironolactone 25 Mg Tablet PO 25 mg DAILY MELISA Administration Radiology Results: ITS Impressions Chest X-Ray 07/08/24 05:31 Impression: Clear lungs. Cardiomegaly. Labs Labs: Laboratory Results - last 24 hr 07/10/24 07/10/24 07/10/24 11:27 15:59 20:05 WBC RBC Hgb Hct MCV MCH MCHC RDW Plt Count MPV Immature Gran % (Auto) Neut % (Auto) Lymph % (Auto) [place] % (Auto) Eos % (Auto) Baso % (Auto) Lymph # (Auto) [place] # (Auto) Eos # (Auto) Baso # (Auto) Abs Immat Gran (auto) Absolute Neuts (auto) Absolute Nucleated RBC Nucleated RBC % Sodium Potassium Chloride Carbon Dioxide Anion Gap BUN Creatinine Estim Creat Clear Calc Estimated GFR Glucose POC Capillary Glucose 242 H 163 H 264 H Calcium Magnesium Total Bilirubin AST ALT Alkaline Phosphatase Total Protein Albumin Digoxin 07/10/24 07/11/24 07/11/24 22:51 04:43 04:43 WBC RBC Hgb Hct MCV MCH MCHC RDW Plt Count MPV Immature Gran % (Auto) Neut % (Auto) Lymph % (Auto) [place] % (Auto) Eos % (Auto) Baso % (Auto) Lymph # (Auto) [place] # (Auto) Eos # (Auto) Baso # (Auto) Abs Immat Gran (auto) Absolute Neuts (auto) Absolute Nucleated RBC Nucleated RBC % Sodium 130 L Potassium 3.4 Chloride 95 L Carbon Dioxide 23 Anion Gap 12 BUN 51 H D Creatinine 1.20 Estim Creat Clear Calc 71 Estimated GFR > 60 Glucose 240 H POC Capillary Glucose Calcium 7.9 L Magnesium 2.2 Cancelled Total Bilirubin 0.9 AST 39 ALT 22 Alkaline Phosphatase 68 Total Protein 6.0 L Albumin 3.1 L Digoxin 07/11/24 07/11/24 04:49 07:12 WBC 6.4 RBC 5.79 Hgb 17.5 Hct 52.6 H MCV 90.8 MCH 30.2 MCHC 33.3 RDW 13.1 Plt Count 150 MPV 10.7 H Immature Gran % (Auto) 0.5 Neut % (Auto) 73.2 H Lymph % (Auto) 12.2 L [place] % (Auto) 13.6 H Eos % (Auto) 0.2 Baso % (Auto) 0.3 Lymph # (Auto) 0.78 L [place] # (Auto) 0.9 H Eos # (Auto) 0.0 Baso # (Auto) 0.0 Abs Immat Gran (auto) 0.03 Absolute Neuts (auto) 4.7 Absolute Nucleated RBC 0.000 Nucleated RBC % 0.0 Sodium Potassium Chloride Carbon Dioxide Anion Gap BUN Creatinine Estim Creat Clear Calc Estimated GFR Glucose POC Capillary Glucose 169 H Calcium Magnesium Total Bilirubin AST ALT Alkaline Phosphatase Total Protein Albumin Digoxin 0.9
[2024-07-11] MEDS: levoFLOXacin 750 MG/D5W 150 ML 750 MG/150 ML BAG 100 MG IVPB (09:24)
[2024-07-11] MEDS: SACUBITRIL/VALSARTAN 97-103 MG TABLET 1 TAB PO ×2 (09:24→18:06)
[2024-07-11] MEDS: SPIRONOLACTONE 25 MG TABLET PO (09:24)
[2024-07-11] MEDS: OSELTAMIVIR PHOSPHATE 75 MG CAPSULE PO ×2 (09:24→21:00)
[2024-07-11] MEDS: FUROSEMIDE 40 MG TABLET PO ×2 (09:24→18:05)
[2024-07-11] MEDS: carvediloL 25 MG TABLET PO ×2 (09:24→18:05)
[2024-07-11] MEDS: DIGOXIN TAB 125 MCG TABLET PO (09:24)
[2024-07-11] MEDS: guaiFENesin 12 HR 600 MG TABCR PO ×2 (09:24→21:00)
[2024-07-11] MEDS: INSULIN GLARGINE (*BKC) 100 UNITS/ML 25 UNITS SUB-Q ×2 (09:25→21:02)
[2024-07-11 11:23] LABS: Glucose Point of Care 291 mg/dl (65-105)
--- NOTE | 2024-07-11 12:01 | P.PNIM_ITS ---
Progress Note: A&P Assessment and Plan (1) Acute on chronic congestive heart failure: Code(s): I50.9 - Heart failure, unspecified Status: Acute (2) Atrial fibrillation with rapid ventricular response: Code(s): I48.91 - Unspecified atrial fibrillation Status: Acute (3) Dyslipidemia: Code(s): E78.5 - Hyperlipidemia, unspecified Status: Acute (4) Insulin dependent diabetes mellitus: Code(s): E11.9 - Type 2 diabetes mellitus without complications; Z79.4 - custodial (current) use of insulin Status: Acute (5) Influenza A H1N1 infection: Code(s): J10.1 - Influenza due to other identified influenza virus with other respiratory manifestations Status: Acute Plan AFib RVR Upon arrival to ED, patient was found have AFib RVR, Patient received digoxin IV push, Cardizem IV push Patient received Cardizem drip, heart rate is better control. He is off Cardizem drip now Continue home medication digoxin 0.125 mg daily p.o. carvedilol 25 mg q.12 hours p.o. Xarelto 20 mg daily p.o. Consulted supervisor yard for evaluation and treatment Acute on chronic heart failure Patient has history of chronic heart failure. Left ventricular systolic function is moderately reduced, estimated at 35-40%, on echocardiogram January 22 Patient has worsening shortness breath, Elevated BNP above baseline X-ray showed cardiomegaly, congestion Likely resulting from uncontrolled heart rate and influenza infection Received Lasix 40 mg IV push in the ED Continue Xarelto 25 mg daily p.o. Switch from furosemide 40 mg b.i.d. p.o. to 40 mg b.i.d. IV now back to oral Lasix Follow-up BMP and monitor renal function closely Consulted supervisor yard for evaluation treatment echo with EF 40-45% with normal diastolic function no significant valvular abnormality Acute bronchitis or viral pneumonia superimposed with better infection X-ray showed increased interstitial patchy infiltrate Influenza a positive Patient also has productive cough with yellow sputum Patient also has leukocytosis Continue Tamiflu p.o. Continue Levaquin 750 mg IV daily Check chest x-ray Essential hypertension Patient is on Entresto 1 tablet b.i.d. p.o., carvedilol 25 mg b.i.d. p.o. Hyperlipidemia Continue Lipitor 20 mg daily p.o. Insulin-dependent diabetes Continue glargine 25 units b.i.d. Start insulin sliding scale a.c. and q.h.s. COPD Tobacco dependence Acute hypoxic respiratory failure on 3 to 4 L oxygen. Continue to wean as tolerated DVT prophylaxis on Xarelto Code status full code Subjective Date/time seen: 07/11/24 12:01 Interval history: His still has cough and shortness of breath with minimal exertion. Heart rate is controlled. Review of Systems Review of Systems: All systems reviewed & are unremarkable except as noted in HPI and below Exam Narrative: GENERAL: Pleasant, in no acute distress. Well-nourished. - EYES: EOMI. Anicteric. - HENT: Moist mucous membranes. - LUNGS: Coarse breath sound bilaterall y, mild end expiratory wheezing noted, - CARDIOVASCULAR: Regular rate and rhyth m. No murmur. No JVD. - ABDOMEN: Soft, non-tender and non-dist ended. No palpable masses. - EXTREMITIES: No edema. Peripheral puls es 2+. Non-tender. - NEUROLOGIC: No focal neurological defi cits. CN II-XII grossly intact. - PSYCHIATRIC: Awake, Alert and oriented x 3. Appropriate mood and affect. - SKIN: No rashes or lesions. Warm. - LYMPH: No cervical lymphadenopathy. Objective Data Vital Signs Vital Signs: Vital Signs - 24 hr 07/10/24 13:24 07/10/24 14:00 07/10/24 16:00 Temperature 98.1 F Pulse Rate 89 75 91 Respiratory Rate 20 20 Blood Pressure 121/72 Pulse Oximetry 96 Oxygen Delivery Oxygen Flow Rate 07/10/24 16:00 07/10/24 16:00 07/10/24 17:28 Temperature Pulse Rate 83 93 Respiratory Rate Blood Pressure Pulse Oximetry 98 Oxygen Delivery Nasal Cannula Oxygen Flow Rate 3 07/10/24 18:00 07/10/24 19:38 07/10/24 20:00 Temperature 97.8 F Pulse Rate 105 H 87 Respiratory Rate 18 Blood Pressure 104/50 L Pulse Oximetry 97 95 Oxygen Delivery Nasal Cannula Oxygen Flow Rate 3 07/10/24 20:00 07/10/24 21:20 07/10/24 21:20 Temperature Pulse Rate 90 78 Respiratory Rate 20 Blood Pressure Pulse Oximetry 95 Oxygen Delivery Nasal Cannula Oxygen Flow Rate 3 07/10/24 21:30 07/10/24 22:00 07/11/24 00:00 Temperature 98.7 F Pulse Rate 81 84 87 Respiratory Rate 20 18 Blood Pressure 125/68 Pulse Oximetry 97 Oxygen Delivery Oxygen Flow Rate 07/11/24 00:00 07/11/24 00:00 07/11/24 02:00 Temperature Pulse Rate 81 91 Respiratory Rate Blood Pressure Pulse Oximetry 97 Oxygen Delivery Nasal Cannula Oxygen Flow Rate 3 07/11/24 04:00 07/11/24 04:00 07/11/24 04:00 Temperature 98.0 F Pulse Rate 84 87 Respiratory Rate 18 Blood Pressure 127/68 Pulse Oximetry 96 96 Oxygen Delivery Nasal Cannula Oxygen Flow Rate 3 07/11/24 06:00 07/11/24 06:55 07/11/24 06:55 Temperature Pulse Rate 81 89 89 Respiratory Rate 18 18 Blood Pressure Pulse Oximetry 95 Oxygen Delivery Nasal Cannula Oxygen Flow Rate 2 07/11/24 07:05 07/11/24 07:29 07/11/24 08:00 Temperature 97.5 F L Pulse Rate 88 112 H Respiratory Rate 18 20 Blood Pressure 113/71 Pulse Oximetry 98 98 Oxygen Delivery Nasal Cannula Oxygen Flow Rate 3 07/11/24 08:00 07/11/24 08:23 07/11/24 09:24 Temperature Pulse Rate 96 84 Respiratory Rate Blood Pressure Pulse Oximetry Oxygen Delivery Nasal Cannula Oxygen Flow Rate 2 07/11/24 09:24 07/11/24 10:00 Temperature Pulse Rate 84 105 H Respiratory Rate Blood Pressure Pulse Oximetry Oxygen Delivery Oxygen Flow Rate Intake/Output Intake/Output: Intake & Output 07/08/24 07/09/24 07/10/24 07/11/24 23:59 23:59 23:59 23:59 Intake Total 468.6 1420 1470 0 Output Total 1300 1000 1200 900 Balance -831.4 420 270 -900 Meds/Results Medications: Active Medications Generic Name Dose Route Start Last Admin Trade Name Freq PRN Reason Stop Dose Admin Acetaminophen 650 mg 07/09/24 05:39 07/09/24 09:37 Acetaminophen 325 Mg Tablet PO 650 mg Q6H PRN Administration Mild Pain (1-3) or Fever Atorvastatin Calcium 20 mg 07/08/24 21:00 07/10/24 20:03 Atorvastatin 20 Mg Tablet PO 20 mg HS MELISA Administration Carvedilol 25 mg 07/08/24 08:15 07/11/24 09:24 Carvedilol 25 Mg Tablet PO 25 mg BIDWM MELISA Administration Dextrose 12.5 gm 07/08/24 08:23 Dextrose 50% 25 Gm/50 Ml Syringe IV PUSH PRN PRN Hypoglycemia Protocol Digoxin 125 mcg 07/08/24 09:00 07/11/24 09:24 Digoxin Tab 125 Mcg Tablet PO 125 mcg DAILY MELISA Administration Furosemide 40 mg 07/08/24 09:00 07/11/24 09:24 Furosemide 40 Mg Tablet PO 40 mg BID MELISA Administration Gabapentin 900 mg 07/08/24 21:00 07/10/24 20:02 Gabapentin 300 Mg Capsule PO 900 mg HS MELISA Administration Glucagon 1 mg 07/08/24 08:23 Glucagon For Inj 1 Mg Vial IM PRN PRN Hypoglycemia Protocol Glucose 15 gm 07/08/24 08:23 Glucose Oral Gel 15 Gm Of Glucse In 37.5 Gm Tube PO PRN PRN Hypoglycemia Protocol Guaifenesin 600 mg 07/10/24 13:15 07/11/24 09:24 Guaifenesin 12 Hr 600 Mg Tabcr PO 600 mg Q12HR MELISA Administration Levofloxacin/Dextrose 750 mg in 150 mls @ 100 mls/hr 07/08/24 09:00 07/11/24 09:24 Levaquin 750 Mg/D5w 150 Ml IVPB 100 mls/hr QAM MELISA Administration Dextrose 1,000 mls @ 100 mls/hr 07/08/24 08:23 Dextrose 5% 1,000 Ml IVPB PRN PRN Hypoglycemia Protocol Insulin Aspart 2 - 4 units 07/08/24 21:00 07/10/24 20:08 Insulin Aspart (*Bkc) 100 Units/Ml SUB-Q 2 units HS MELISA Administration Protocol Insulin Aspart 4 - 8 units 07/08/24 08:00 07/11/24 09:25 Insulin Aspart (*Bkc) 100 Units/Ml SUB-Q Not Given TIDWM MELISA Protocol Insulin Glargine 25 units 07/08/24 09:00 07/11/24 09:25 Insulin Glargine (*Bkc) 100 Units/Ml SUB-Q 25 units Q12HR MELISA Administration Levalbuterol HCl 1.25 mg 07/08/24 10:50 07/11/24 07:00 Levalbuterol Neb 1.25 Mg/3 Ml INHALATION 1.25 mg Q6HRT MELISA Administration Metoclopramide HCl 10 mg 07/08/24 14:16 07/09/24 17:44 Metoclopramide Hcl Inj 10 Mg/2 Ml Vial IV PUSH 10 mg Q6HR PRN Administration nausea Oseltamivir Phosphate 75 mg 07/08/24 05:15 07/11/24 09:24 Oseltamivir Phosphate 75 Mg Capsule PO 07/13/24 05:14 75 mg Q12HR MELISA Administration Perflutren Lipid Microsphere 0 ml 07/08/24 13:39 Perflutren Lipid Microspheres 1.5 Ml Vial Diluted To 10 Ml Total Volume IV PUSH 07/11/24 13:39 ONCE PRN adequate visualization Protocol Rivaroxaban 20 mg 07/08/24 17:00 07/10/24 17:28 Rivaroxaban 20 Mg Tablet PO 20 mg DAILY@1700 MELISA Administration Sacubitril/Valsartan 1 tab 07/08/24 09:00 07/11/24 09:24 Sacubitril/Valsartan 97-103 Mg Tablet PO 1 tab BID MELISA Administration Spironolactone 25 mg 07/08/24 09:00 07/11/24 09:24 Spironolactone 25 Mg Tablet PO 25 mg DAILY MELISA Administration Radiology Results: ITS Impressions Chest X-Ray 07/08/24 05:31 Impression: Clear lungs. Cardiomegaly. Labs Labs: Laboratory Results - last 24 hr 07/10/24 07/10/24 07/10/24 15:59 20:05 22:51 WBC RBC Hgb Hct MCV MCH MCHC RDW Plt Count MPV Immature Gran % (Auto) Neut % (Auto) Lymph % (Auto) [place] % (Auto) Eos % (Auto) Baso % (Auto) Lymph # (Auto) [place] # (Auto) Eos # (Auto) Baso # (Auto) Abs Immat Gran (auto) Absolute Neuts (auto) Absolute Nucleated RBC Nucleated RBC % Sodium 130 L Potassium 3.4 Chloride 95 L Carbon Dioxide 23 Anion Gap 12 BUN 51 H D Creatinine 1.20 Estim Creat Clear Calc 71 Estimated GFR > 60 Glucose 240 H POC Capillary Glucose 163 H 264 H Calcium 7.9 L Magnesium Total Bilirubin 0.9 AST 39 ALT 22 Alkaline Phosphatase 68 Total Protein 6.0 L Albumin 3.1 L Digoxin 07/11/24 07/11/24 07/11/24 04:43 04:43 04:49 WBC 6.4 RBC 5.79 Hgb 17.5 Hct 52.6 H MCV 90.8 MCH 30.2 MCHC 33.3 RDW 13.1 Plt Count 150 MPV 10.7 H Immature Gran % (Auto) 0.5 Neut % (Auto) 73.2 H Lymph % (Auto) 12.2 L [place] % (Auto) 13.6 H Eos % (Auto) 0.2 Baso % (Auto) 0.3 Lymph # (Auto) 0.78 L [place] # (Auto) 0.9 H Eos # (Auto) 0.0 Baso # (Auto) 0.0 Abs Immat Gran (auto) 0.03 Absolute Neuts (auto) 4.7 Absolute Nucleated RBC 0.000 Nucleated RBC % 0.0 Sodium Potassium Chloride Carbon Dioxide Anion Gap BUN Creatinine Estim Creat Clear Calc Estimated GFR Glucose POC Capillary Glucose Calcium Magnesium 2.2 Cancelled Total Bilirubin AST ALT Alkaline Phosphatase Total Protein Albumin Digoxin 0.9 07/11/24 07/11/24 07:12 11:09 WBC RBC Hgb Hct MCV MCH MCHC RDW Plt Count MPV Immature Gran % (Auto) Neut % (Auto) Lymph % (Auto) [place] % (Auto) Eos % (Auto) Baso % (Auto) Lymph # (Auto) [place] # (Auto) Eos # (Auto) Baso # (Auto) Abs Immat Gran (auto) Absolute Neuts (auto) Absolute Nucleated RBC Nucleated RBC % Sodium Potassium Chloride Carbon Dioxide Anion Gap BUN Creatinine Estim Creat Clear Calc Estimated GFR Glucose POC Capillary Glucose 169 H 291 H Calcium Magnesium Total Bilirubin AST ALT Alkaline Phosphatase Total Protein Albumin Digoxin
[2024-07-11] MEDS: INSULIN ASPART (*BKC) 100 UNITS/ML SUB-Q ×3 (12:18→21:01)
--- NOTE | 2024-07-11 14:41 | PC.NURSE ---
This patient, Rohan Chand, was transferred to [facility] on 07/11/24 at 1426. Personal belongings sent with patient. Report given to Nayely. Appropriate documentation sent with patient. Jimmie Peterson RN
[2024-07-11 17:02] LABS: Glucose Point of Care 293 mg/dl (65-105)
[2024-07-11 17:39] LABS: Alanine Aminotransferase 22 U/L (6-50); Albumin Level 3.5 g/dL (3.5-5.1); Alkaline Phosphatase 81 U/L (38-126); Anion Gap 8 mmol/L (4-12); Aspartate Amino Transferase 28 U/L (17-59); Bilirubin,Total 0.9 mg/dL (0.2-1.3); Blood Urea Nitrogen 40 mg/dL (9-20); Calcium 8.2 mg/dL (8.4-10.2); Carbon Dioxide 29 mmol/L (22-30); Chloride 95 mmol/L (98-107); Estimated CRCL calculation 91 ml/min; Estimated Glomerular Filt Rate > 60; Glucose 249 mg/dL (65-110); Potassium 3.8 mmol/L (3.4-5.0); Sodium 132 mmol/L (137-145)
[2024-07-11] MEDS: RIVAROXABAN 20 MG TABLET PO (18:05)
[2024-07-11] MEDS: ATORVASTATIN 20 MG TABLET PO (21:00)
[2024-07-11] MEDS: GABAPENTIN 300 MG CAPSULE 900 MG PO (21:00)
[2024-07-11 23:51] LABS: Glucose Point of Care 327 mg/dl (65-105)
[2024-07-12] VITALS (14 sets, daily range): BP systolic 107–129; BP diastolic 60–81; PULSE 78–98; RESP 18–20; TEMP 36.2–36.9; O2SAT 93–97
[2024-07-12] MEDS: LEVALBUTEROL NEB 1.25 MG/3 ML INHALATION ×4 (01:42→22:39)
[2024-07-12 07:59] LABS: Glucose Point of Care 101 mg/dl (65-105)
[2024-07-12 08:29] LABS: Basophils Percent Auto 0.4 % (0.2-1.2); Hematocrit 49.4 % (42.0-52.0); Hemoglobin 16.6 g/dL (14.0-18.0); Immature Granulocyte Absolute 0.03 K/mm3 (0.00-0.031); Immature Granulocyte Percent A 0.5 % (0-0.5); Lymphocytes Absolute Auto 0.87 K/mm3 (0.9-3.2); Lymphocytes Percent Auto 15.8 % (18.3-44.2); Mean Corpuscular HGB Conc 33.6 g/dl (32-36); Mean Corpuscular Hemoglobin 30.2 pg (26-34); Mean Corpuscular Volume 89.8 fl (80-100); Mean Platelet Volume 10.9 fl (7.4-10.4); Monocytes Absolute Auto 0.8 K/mm3 (0.1-0.6); Monocytes Percent Auto 14.9 % (2.6-8.5); Neutrophils Absolute Auto 3.8 K/mm3 (1.3-6.7); Neutrophils Percent Auto 68.4 % (45.5-73.1); Platelet Count Result 143 k/mm3 (150-375); Red Cell Distribution Width 13.1 % (11.5-14.5); White Blood Count 5.5 K/mm3 (4.5-10.0)
[2024-07-12] MEDS: INSULIN GLARGINE (*BKC) 100 UNITS/ML 25 UNITS SUB-Q ×2 (08:29→22:01)
[2024-07-12] MEDS: levoFLOXacin 750 MG/D5W 150 ML 750 MG/150 ML BAG 100 MG IVPB (08:32)
[2024-07-12] MEDS: carvediloL 25 MG TABLET PO ×2 (08:33→17:45)
[2024-07-12] MEDS: SACUBITRIL/VALSARTAN 97-103 MG TABLET 1 TAB PO ×2 (08:33→17:45)
[2024-07-12] MEDS: guaiFENesin 12 HR 600 MG TABCR PO ×2 (08:33→20:48)
[2024-07-12] MEDS: FUROSEMIDE 40 MG TABLET PO ×2 (08:33→17:45)
[2024-07-12] MEDS: OSELTAMIVIR PHOSPHATE 75 MG CAPSULE PO ×2 (08:33→20:48)
[2024-07-12] MEDS: SPIRONOLACTONE 25 MG TABLET PO (08:33)
[2024-07-12] MEDS: DIGOXIN TAB 125 MCG TABLET PO (08:33)
[2024-07-12 08:50] LABS: Alanine Aminotransferase 18 U/L (6-50); Albumin Level 3.4 g/dL (3.5-5.1); Alkaline Phosphatase 64 U/L (38-126); Anion Gap 7 mmol/L (4-12); Aspartate Amino Transferase 25 U/L (17-59); Blood Urea Nitrogen 28 mg/dL (9-20); Calcium 8.3 mg/dL (8.4-10.2); Carbon Dioxide 31 mmol/L (22-30); Chloride 98 mmol/L (98-107); Estimated CRCL calculation 95 ml/min; Estimated Glomerular Filt Rate > 60; Glucose 80 mg/dL (65-110); Magnesium 1.8 mg/dL (1.6-2.3); Potassium 3.2 mmol/L (3.4-5.0); Sodium 136 mmol/L (137-145)
--- NOTE | 2024-07-12 08:53 | PCOTNOTE ---
Patient refused to participate at this time. Patient states, to weak and to early for him.
[2024-07-12 10:25] LABS: Digoxin 1.2 ng/mL (0.8-2.0)
--- NOTE | 2024-07-12 11:48 | PM.IMPN ---
Progress Note: A&P Assessment and Plan (1) Acute on chronic congestive heart failure: Code(s): I50.9 - Heart failure, unspecified Status: Acute (2) Atrial fibrillation with rapid ventricular response: Code(s): I48.91 - Unspecified atrial fibrillation Status: Acute (3) Dyslipidemia: Code(s): E78.5 - Hyperlipidemia, unspecified Status: Acute (4) Insulin dependent diabetes mellitus: Code(s): E11.9 - Type 2 diabetes mellitus without complications; Z79.4 - [facility] (current) use of insulin Status: Acute (5) Influenza A H1N1 infection: Code(s): J10.1 - Influenza due to other identified influenza virus with other respiratory manifestations Status: Acute Plan AFib RVR Upon arrival to ED, patient was found have AFib RVR, Patient received digoxin IV push, Cardizem IV push Patient received Cardizem drip, heart rate is better control. He is off Cardizem drip now Continue home medication digoxin 0.125 mg daily p.o. carvedilol 25 mg q.12 hours p.o. Xarelto 20 mg daily p.o. Consulted supervisor machine workers for evaluation and treatment Acute on chronic heart failure Patient has history of chronic heart failure. Left ventricular systolic function is moderately reduced, estimated at 35-40%, on echocardiogram January 22 Patient has worsening shortness breath, Elevated BNP above baseline X-ray showed cardiomegaly, congestion Likely resulting from uncontrolled heart rate and influenza infection Received Lasix 40 mg IV push in the ED Continue Xarelto 25 mg daily p.o. Switch from furosemide 40 mg b.i.d. p.o. to 40 mg b.i.d. IV now back to oral Lasix Follow-up BMP and monitor renal function closely Consulted supervisor machine workers for evaluation treatment echo with EF 40-45% with normal diastolic function no significant valvular abnormality Acute bronchitis or viral pneumonia superimposed with better infection X-ray showed increased interstitial patchy infiltrate Influenza a positive Patient also has productive cough with yellow sputum Patient also has leukocytosis Continue Tamiflu p.o. Continue Levaquin 750 mg IV daily Chest x-ray clear. Will get CTA as she still complains of shortness of breath with exertion Essential hypertension Patient is on Entresto 1 tablet b.i.d. p.o., carvedilol 25 mg b.i.d. p.o. Hyperlipidemia Continue Lipitor 20 mg daily p.o. Insulin-dependent diabetes Continue glargine 25 units b.i.d. Start insulin sliding scale a.c. and q.h.s. COPD Tobacco dependence Acute hypoxic respiratory failure on 3 to 4 L oxygen. Continue to wean as tolerated DVT prophylaxis on Xarelto Code status full code Subjective Date/time seen: 07/12/24 11:48 Interval history: Still complains of shortness of breath with exertion. Still has cough. No leg swelling no chest pain. Review of Systems Review of Systems: All systems reviewed & are unremarkable except as noted in HPI and below Exam Narrative: GENERAL: Pleasant, in no acute distress. Well-nourished. - EYES: EOMI. Anicteric. - HENT: Moist mucous membranes. - LUNGS: Coarse breath sound bilaterally, mild end expiratory wheezing noted, - CARDIOVASCULAR: Regular rate and rhythm. No murmur. No JVD. - ABDOMEN: Soft, non-tender and non-distended. No palpable masses. - EXTREMITIES: No edema. Peripheral pulses 2+. Non-tender. - NEUROLOGIC: No focal neurological deficits. CN II-XII grossly intact. - PSYCHIATRIC: Awake, Alert and oriented x 3. Appropriate mood and affect. - SKIN: No rashes or lesions. Warm. - LYMPH: No cervical lymphadenopathy. Objective Data Vital Signs Vital Signs: Vital Signs - 24 hr 07/11/24 13:00 07/11/24 13:10 07/11/24 15:00 Temperature 97.8 F Pulse Rate 92 94 61 Respiratory Rate 20 20 18 Blood Pressure 109/70 Pulse Oximetry 99 Oxygen Delivery Oxygen Flow Rate Fraction of Inspired Oxygen 07/11/24 18:05 07/11/24 18:41 07/11/24 22:00 Temperature 97.3 F L Pulse Rate 80 92 Respiratory Rate 18 Blood Pressure 128/80 Pulse Oximetry 96 96 Oxygen Delivery Nasal Cannula Oxygen Flow Rate 2 Fraction of Inspired Oxygen 07/12/24 01:42 07/12/24 01:42 07/12/24 02:00 Temperature Pulse Rate 86 88 Respiratory Rate 20 20 Blood Pressure Pulse Oximetry 93 Oxygen Delivery Nasal Cannula Oxygen Flow Rate 2 Fraction of Inspired Oxygen 28 07/12/24 06:00 07/12/24 08:00 07/12/24 08:33 Temperature 97.6 F Pulse Rate 98 78 Respiratory Rate 18 Blood Pressure 124/78 Pulse Oximetry 97 94 Oxygen Delivery Nasal Cannula Oxygen Flow Rate 2 Fraction of Inspired Oxygen 07/12/24 08:33 07/12/24 09:04 07/12/24 09:04 Temperature Pulse Rate 78 81 Respiratory Rate 20 Blood Pressure Pulse Oximetry 94 Oxygen Delivery Nasal Cannula Oxygen Flow Rate 2 Fraction of Inspired Oxygen 07/12/24 09:14 Temperature Pulse Rate 82 Respiratory Rate 20 Blood Pressure Pulse Oximetry Oxygen Delivery Oxygen Flow Rate Fraction of Inspired Oxygen Intake/Output Intake/Output: Intake & Output 07/09/24 07/10/24 07/11/24 07/12/24 23:59 23:59 23:59 23:59 Intake Total 1420 7302 969 5504 Output Total 1000 1200 1825 900 Balance 420 270 1437 218 Meds/Results Medications: Active Medications Generic Name Dose Route Start Last Admin Trade Name Freq PRN Reason Stop Dose Admin Acetaminophen 650 mg 07/09/24 05:39 07/09/24 09:37 Acetaminophen 325 Mg Tablet PO 650 mg Q6H PRN Administration Mild Pain (1-3) or Fever Atorvastatin Calcium 20 mg 07/08/24 21:00 07/11/24 21:00 Atorvastatin 20 Mg Tablet PO 20 mg HS MELISA Administration Carvedilol 25 mg 07/08/24 08:15 07/12/24 08:33 Carvedilol 25 Mg Tablet PO 25 mg BIDWM MELISA Administration Dextrose 12.5 gm 07/08/24 08:23 Dextrose 50% 25 Gm/50 Ml Syringe IV PUSH PRN PRN Hypoglycemia Protocol Digoxin 125 mcg 07/08/24 09:00 07/12/24 08:33 Digoxin Tab 125 Mcg Tablet PO 125 mcg DAILY MELISA Administration Furosemide 40 mg 07/08/24 09:00 07/12/24 08:33 Furosemide 40 Mg Tablet PO 40 mg BID MELISA Administration Gabapentin 900 mg 07/08/24 21:00 07/11/24 21:00 Gabapentin 300 Mg Capsule PO 900 mg HS MELISA Administration Glucagon 1 mg 07/08/24 08:23 Glucagon For Inj 1 Mg Vial IM PRN PRN Hypoglycemia Protocol Glucose 15 gm 07/08/24 08:23 Glucose Oral Gel 15 Gm Of Glucse In 37.5 Gm Tube PO PRN PRN Hypoglycemia Protocol Guaifenesin 600 mg 07/10/24 13:15 07/12/24 08:33 Guaifenesin 12 Hr 600 Mg Tabcr PO 600 mg Q12HR MELISA Administration Levofloxacin/Dextrose 750 mg in 150 mls @ 100 mls/hr 07/08/24 09:00 07/12/24 08:32 Levaquin 750 Mg/D5w 150 Ml IVPB 100 mls/hr QAM MELISA Administration Dextrose 1,000 mls @ 100 mls/hr 07/08/24 08:23 Dextrose 5% 1,000 Ml IVPB PRN PRN Hypoglycemia Protocol Insulin Aspart 2 - 4 units 07/08/24 21:00 07/11/24 21:01 Insulin Aspart (*Bkc) 100 Units/Ml SUB-Q 3 units HS MELISA Administration Protocol Insulin Aspart 4 - 8 units 07/08/24 08:00 07/12/24 08:29 Insulin Aspart (*Bkc) 100 Units/Ml SUB-Q Not Given TIDWM MELISA Protocol Insulin Glargine 25 units 07/08/24 09:00 07/12/24 08:29 Insulin Glargine (*Bkc) 100 Units/Ml SUB-Q 25 units Q12HR MELISA Administration Levalbuterol HCl 1.25 mg 07/08/24 10:50 07/12/24 09:01 Levalbuterol Neb 1.25 Mg/3 Ml INHALATION 1.25 mg Q6HRT MELISA Administration Metoclopramide HCl 10 mg 07/08/24 14:16 07/09/24 17:44 Metoclopramide Hcl Inj 10 Mg/2 Ml Vial IV PUSH 10 mg Q6HR PRN Administration nausea Oseltamivir Phosphate 75 mg 07/08/24 05:15 07/12/24 08:33 Oseltamivir Phosphate 75 Mg Capsule PO 07/13/24 05:14 75 mg Q12HR MELISA Administration Rivaroxaban 20 mg 07/08/24 17:00 07/11/24 18:05 Rivaroxaban 20 Mg Tablet PO 20 mg DAILY@1700 MELISA Administration Sacubitril/Valsartan 1 tab 07/08/24 09:00 07/12/24 08:33 Sacubitril/Valsartan 97-103 Mg Tablet PO 1 tab BID MELISA Administration Spironolactone 25 mg 07/08/24 09:00 07/12/24 08:33 Spironolactone 25 Mg Tablet PO 25 mg DAILY MELISA Administration Radiology Results: ITS Impressions Chest X-Ray 07/11/24 12:57 IMPRESSION: 1. No acute cardiopulmonary disease. Labs Labs: Laboratory Results - last 24 hr 07/11/24 07/11/24 07/11/24 16:58 17:22 20:04 WBC RBC Hgb Hct MCV MCH MCHC RDW Plt Count MPV Immature Gran % (Auto) Neut % (Auto) Lymph % (Auto) [place] % (Auto) Eos % (Auto) Baso % (Auto) Lymph # (Auto) [place] # (Auto) Eos # (Auto) Baso # (Auto) Abs Immat Gran (auto) Absolute Neuts (auto) Absolute Nucleated RBC Nucleated RBC % Sodium 132 L Potassium 3.8 Chloride 95 L Carbon Dioxide 29 Anion Gap 8 BUN 40 H D Creatinine 0.93 Estim Creat Clear Calc 91 Estimated GFR > 60 Glucose 249 H POC Capillary Glucose 293 H 327 H Calcium 8.2 L Magnesium Total Bilirubin 0.9 AST 28 ALT 22 Alkaline Phosphatase 81 Total Protein 6.0 L Albumin 3.5 Digoxin 07/12/24 07/12/24 07:38 07:46 WBC 5.5 RBC 5.50 Hgb 16.6 Hct 49.4 MCV 89.8 MCH 30.2 MCHC 33.6 RDW 13.1 Plt Count 143 L MPV 10.9 H Immature Gran % (Auto) 0.5 Neut % (Auto) 68.4 Lymph % (Auto) 15.8 L [place] % (Auto) 14.9 H Eos % (Auto) 0.0 Baso % (Auto) 0.4 Lymph # (Auto) 0.87 L [place] # (Auto) 0.8 H Eos # (Auto) 0.0 Baso # (Auto) 0.0 Abs Immat Gran (auto) 0.03 Absolute Neuts (auto) 3.8 Absolute Nucleated RBC 0.000 Nucleated RBC % 0.0 Sodium 136 L Potassium 3.2 L Chloride 98 Carbon Dioxide 31 H Anion Gap 7 BUN 28 H D Creatinine 0.88 Estim Creat Clear Calc 95 Estimated GFR > 60 Glucose 80 POC Capillary Glucose 101 Calcium 8.3 L Magnesium 1.8 Total Bilirubin 1.0 AST 25 ALT 18 Alkaline Phosphatase 64 Total Protein 6.0 L Albumin 3.4 L Digoxin 1.2
[2024-07-12] MEDS: methylPREDNISolone SOD SUCC 40 MG VIAL IV PUSH (12:09)
[2024-07-12] MEDS: POTASSIUM CHLORIDE 20 MEQ ER TABLET 40 MEQ PO (12:09)
[2024-07-12 12:11] LABS: Glucose Point of Care 151 mg/dl (65-105)
[2024-07-12 16:53] LABS: Alanine Aminotransferase 19 U/L (6-50); Albumin Level 3.4 g/dL (3.5-5.1); Alkaline Phosphatase 77 U/L (38-126); Anion Gap 8 mmol/L (4-12); Aspartate Amino Transferase 26 U/L (17-59); Blood Urea Nitrogen 30 mg/dL (9-20); Calcium 8.5 mg/dL (8.4-10.2); Carbon Dioxide 28 mmol/L (22-30); Chloride 97 mmol/L (98-107); Estimated CRCL calculation 93 ml/min; Estimated Glomerular Filt Rate > 60; Glucose 247 mg/dL (65-110); Sodium 133 mmol/L (137-145)
[2024-07-12 17:18] LABS: Glucose Point of Care 298 mg/dl (65-105)
[2024-07-12] MEDS: RIVAROXABAN 20 MG TABLET PO (17:45)
[2024-07-12] MEDS: GABAPENTIN 300 MG CAPSULE 900 MG PO (20:48)
[2024-07-12] MEDS: ATORVASTATIN 20 MG TABLET PO (20:48)
[2024-07-12 21:38] LABS: Glucose Point of Care 393 mg/dl (65-105)
[2024-07-12] MEDS: CALCIUM CARBONATE (TUMS) 500 MG (200 MG ELEMENTAL) PO (22:00)
[2024-07-12] MEDS: INSULIN ASPART (*BKC) 100 UNITS/ML SUB-Q (22:00)
[2024-07-13] VITALS (16 sets, daily range): BP systolic 120–129; BP diastolic 66–88; PULSE 60–89; RESP 18–20; TEMP 35.8–36.8; O2SAT 94–98
[2024-07-13 06:23] LABS: Basophils Percent Auto 0.2 % (0.2-1.2); Hematocrit 49.3 % (42.0-52.0); Hemoglobin 16.9 g/dL (14.0-18.0); Immature Granulocyte Absolute 0.02 K/mm3 (0.00-0.031); Immature Granulocyte Percent A 0.4 % (0-0.5); Immature Platelet Fraction Pct 4.9 % (0.9-11.2); Lymphocytes Absolute Auto 0.71 K/mm3 (0.9-3.2); Lymphocytes Percent Auto 13.2 % (18.3-44.2); Mean Corpuscular HGB Conc 34.3 g/dl (32-36); Mean Corpuscular Hemoglobin 30.9 pg (26-34); Mean Corpuscular Volume 90.1 fl (80-100); Mean Platelet Volume 10.6 fl (7.4-10.4); Monocytes Absolute Auto 0.6 K/mm3 (0.1-0.6); Monocytes Percent Auto 11.2 % (2.6-8.5); Platelet Count Result 123 k/mm3 (150-375); Red Blood Count 5.47 M/mm3 (4.6-6.20); Red Cell Distribution Width 12.9 % (11.5-14.5); White Blood Count 5.4 K/mm3 (4.5-10.0)
[2024-07-13 08:00] LABS: Glucose Point of Care 257 mg/dl (65-105)
[2024-07-13] MEDS: LEVALBUTEROL NEB 1.25 MG/3 ML INHALATION ×3 (08:07→20:19)
[2024-07-13] MEDS: levoFLOXacin 750 MG TABLET PO (08:47)
[2024-07-13] MEDS: SPIRONOLACTONE 25 MG TABLET PO (08:47)
[2024-07-13] MEDS: guaiFENesin 12 HR 600 MG TABCR PO ×2 (08:48→21:29)
[2024-07-13] MEDS: DIGOXIN TAB 125 MCG TABLET PO (08:48)
[2024-07-13] MEDS: FUROSEMIDE 40 MG TABLET PO ×2 (08:48→16:42)
[2024-07-13] MEDS: SACUBITRIL/VALSARTAN 97-103 MG TABLET 1 TAB PO ×2 (08:48→16:42)
[2024-07-13] MEDS: carvediloL 25 MG TABLET PO ×2 (08:50→16:40)
[2024-07-13] MEDS: INSULIN ASPART (*BKC) 100 UNITS/ML SUB-Q ×4 (08:51→21:30)
[2024-07-13] MEDS: INSULIN GLARGINE (*BKC) 100 UNITS/ML 25 UNITS SUB-Q ×2 (08:52→21:29)
[2024-07-13] MEDS: methylPREDNISolone SOD SUCC 40 MG VIAL IV PUSH (08:59)
[2024-07-13 11:32] LABS: Glucose Point of Care 342 mg/dl (65-105)
--- NOTE | 2024-07-13 13:29 | PM.IMPN ---
Progress Note: A&P Assessment and Plan (1) Acute on chronic congestive heart failure: Code(s): I50.9 - Heart failure, unspecified Status: Acute (2) Atrial fibrillation with rapid ventricular response: Code(s): I48.91 - Unspecified atrial fibrillation Status: Acute (3) Dyslipidemia: Code(s): E78.5 - Hyperlipidemia, unspecified Status: Acute (4) Insulin dependent diabetes mellitus: Code(s): E11.9 - Type 2 diabetes mellitus without complications; Z79.4 - [facility] (current) use of insulin Status: Acute (5) Influenza A H1N1 infection: Code(s): J10.1 - Influenza due to other identified influenza virus with other respiratory manifestations Status: Acute Plan AFib RVR Upon arrival to ED, patient was found have AFib RVR, Patient received digoxin IV push, Cardizem IV push Patient received Cardizem drip, heart rate is better control. He is off Cardizem drip now Continue home medication digoxin 0.125 mg daily p.o. carvedilol 25 mg q.12 hours p.o. Xarelto 20 mg daily p.o. Consulted family law attorney for evaluation and treatment Acute on chronic heart failure Patient has history of chronic heart failure. Left ventricular systolic function is moderately reduced, estimated at 35-40%, on echocardiogram January 22 Patient has worsening shortness breath, Elevated BNP above baseline X-ray showed cardiomegaly, congestion Likely resulting from uncontrolled heart rate and influenza infection Received Lasix 40 mg IV push in the ED Continue Xarelto 25 mg daily p.o. Switch from furosemide 40 mg b.i.d. p.o. to 40 mg b.i.d. IV now back to oral Lasix Follow-up BMP and monitor renal function closely Consulted family law attorney for evaluation treatment echo with EF 40-45% with normal diastolic function no significant valvular abnormality Acute bronchitis or viral pneumonia superimposed with better infection X-ray showed increased interstitial patchy infiltrate Influenza a positive Patient also has productive cough with yellow sputum Patient also has leukocytosis Continue Tamiflu p.o. Continue Levaquin 750 mg IV daily Chest x-ray clear. CTA came back negative for PE however shows patchy ground-glass tree-in-bud and peribronchial opacities lesion within the left hemithorax cylindrical bronchiectasis is also noted. Continue Levaquin oral Added on prednisone which has helped 07/12/2024. Essential hypertension Patient is on Entresto 1 tablet b.i.d. p.o., carvedilol 25 mg b.i.d. p.o. Hyperlipidemia Continue Lipitor 20 mg daily p.o. Insulin-dependent diabetes Continue glargine 25 units b.i.d. Start insulin sliding scale a.c. and q.h.s. COPD Tobacco dependence Acute hypoxic respiratory failure on 3 to 4 L oxygen. Continue to wean as tolerated DVT prophylaxis on Xarelto Code status full code Subjective Date/time seen: 07/13/24 13:29 Interval history: Feeling better today. Off oxygen this a.m.. Still has some shortness of breath with exertion. Cough present. No leg swelling or chest pain. Review of Systems Review of Systems: All systems reviewed & are unremarkable except as noted in HPI and below Exam Narrative: GENERAL: Pleasant, in no acute distress. Well-nourished. - EYES: EOMI. Anicteric. - HENT: Moist mucous membranes. - LUNGS: Coarse breath sound bilaterally, mild end expiratory wheezing noted, - CARDIOVASCULAR: Regular rate and rhythm. No murmur. No JVD. - ABDOMEN: Soft, non-tender and non-distended. No palpable masses. - EXTREMITIES: No edema. Peripheral pulses 2+. Non-tender. - NEUROLOGIC: No focal neurological deficits. CN II-XII grossly intact. - PSYCHIATRIC: Awake, Alert and oriented x 3. Appropriate mood and affect. - SKIN: No rashes or lesions. Warm. - LYMPH: No cervical lymphadenopathy. Objective Data Vital Signs Vital Signs: Vital Signs - 24 hr 07/12/24 13:59 07/12/24 14:00 07/12/24 14:09 Temperature 97.1 F L Pulse Rate 87 88 81 Respiratory Rate 20 20 20 Blood Pressure 107/60 Pulse Oximetry 96 Oxygen Delivery Oxygen Flow Rate 07/12/24 17:45 07/12/24 22:00 07/12/24 22:39 Temperature 98.4 F Pulse Rate 88 95 Respiratory Rate 18 Blood Pressure 129/81 Pulse Oximetry 94 94 Oxygen Delivery Nasal Cannula Oxygen Flow Rate 2 07/12/24 22:39 07/12/24 23:50 07/13/24 06:00 Temperature 98 F Pulse Rate 81 81 89 Respiratory Rate 20 20 18 Blood Pressure 125/78 Pulse Oximetry 98 Oxygen Delivery Oxygen Flow Rate 07/13/24 08:00 07/13/24 08:08 07/13/24 08:08 Temperature Pulse Rate 64 83 Respiratory Rate 20 Blood Pressure 120/66 Pulse Oximetry 98 94 Oxygen Delivery Nasal Cannula Oxygen Flow Rate 2 07/13/24 08:22 07/13/24 08:45 07/13/24 08:48 Temperature Pulse Rate 60 64 Respiratory Rate 18 Blood Pressure Pulse Oximetry 98 Oxygen Delivery Nasal Cannula Oxygen Flow Rate 1 07/13/24 08:50 07/13/24 10:25 Temperature Pulse Rate 64 Respiratory Rate Blood Pressure Pulse Oximetry 96 Oxygen Delivery Room Air Oxygen Flow Rate Intake/Output Intake/Output: Intake & Output 07/10/24 07/11/24 07/12/24 07/13/24 23:59 23:59 23:59 23:59 Intake Total 9349 595 5771 1350 Output Total 1200 1825 1800 1000 Balance 270 -1437 176 350 Meds/Results Medications: Active Medications Generic Name Dose Route Start Last Admin Trade Name Freq PRN Reason Stop Dose Admin Acetaminophen 650 mg 07/09/24 05:39 07/09/24 09:37 Acetaminophen 325 Mg Tablet PO 650 mg Q6H PRN Administration Mild Pain (1-3) or Fever Atorvastatin Calcium 20 mg 07/08/24 21:00 07/12/24 20:48 Atorvastatin 20 Mg Tablet PO 20 mg HS MELISA Administration Calcium Carbonate 200 mg 07/12/24 17:56 07/12/24 22:00 Calcium Carbonate (Tums) 500 Mg (200 Mg Elemental) PO 200 mg Q6H PRN Administration Indigestion Carvedilol 25 mg 07/08/24 08:15 07/13/24 08:50 Carvedilol 25 Mg Tablet PO 25 mg BIDWM MELISA Administration Dextrose 12.5 gm 07/08/24 08:23 Dextrose 50% 25 Gm/50 Ml Syringe IV PUSH PRN PRN Hypoglycemia Protocol Digoxin 125 mcg 07/08/24 09:00 07/13/24 08:48 Digoxin Tab 125 Mcg Tablet PO 125 mcg DAILY MELISA Administration Furosemide 40 mg 07/08/24 09:00 07/13/24 08:48 Furosemide 40 Mg Tablet PO 40 mg BID MELISA Administration Gabapentin 900 mg 07/08/24 21:00 07/12/24 20:48 Gabapentin 300 Mg Capsule PO 900 mg HS MELISA Administration Glucagon 1 mg 07/08/24 08:23 Glucagon For Inj 1 Mg Vial IM PRN PRN Hypoglycemia Protocol Glucose 15 gm 07/08/24 08:23 Glucose Oral Gel 15 Gm Of Glucse In 37.5 Gm Tube PO PRN PRN Hypoglycemia Protocol Guaifenesin 600 mg 07/10/24 13:15 07/13/24 08:48 Guaifenesin 12 Hr 600 Mg Tabcr PO 600 mg Q12HR MELISA Administration Dextrose 1,000 mls @ 100 mls/hr 07/08/24 08:23 Dextrose 5% 1,000 Ml IVPB PRN PRN Hypoglycemia Protocol Insulin Aspart 2 - 4 units 07/08/24 21:00 07/12/24 22:00 Insulin Aspart (*Bkc) 100 Units/Ml SUB-Q 4 units HS MELISA Administration Protocol Insulin Aspart 4 - 8 units 07/08/24 08:00 07/13/24 12:10 Insulin Aspart (*Bkc) 100 Units/Ml SUB-Q 6 units TIDWM MELISA Administration Protocol Insulin Glargine 25 units 07/08/24 09:00 07/13/24 08:52 Insulin Glargine (*Bkc) 100 Units/Ml SUB-Q 25 units Q12HR MELISA Administration Levalbuterol HCl 1.25 mg 07/08/24 10:50 07/13/24 08:07 Levalbuterol Neb 1.25 Mg/3 Ml INHALATION 1.25 mg Q6HRT MELISA Administration Levofloxacin 750 mg 07/13/24 09:00 07/13/24 08:47 Levofloxacin 750 Mg Tablet PO 07/14/24 09:01 750 mg DAILY MELISA Administration Methylprednisolone Sodium Succinate 40 mg 07/12/24 11:55 07/13/24 08:59 Methylprednisolone Sod Succ 40 Mg Vial IV PUSH 40 mg DAILY MELISA Administration Metoclopramide HCl 10 mg 07/08/24 14:16 07/09/24 17:44 Metoclopramide Hcl Inj 10 Mg/2 Ml Vial IV PUSH 10 mg Q6HR PRN Administration nausea Rivaroxaban 20 mg 07/08/24 17:00 07/12/24 17:45 Rivaroxaban 20 Mg Tablet PO 20 mg DAILY@1700 MELISA Administration Sacubitril/Valsartan 1 tab 07/08/24 09:00 07/13/24 08:48 Sacubitril/Valsartan 97-103 Mg Tablet PO 1 tab BID MELISA Administration Spironolactone 25 mg 07/08/24 09:00 07/13/24 08:47 Spironolactone 25 Mg Tablet PO 25 mg DAILY MELISA Administration Radiology Results: ITS Impressions Chest X-Ray 07/11/24 12:57 IMPRESSION: 1. No acute cardiopulmonary disease. Chest CTA 07/13/24 11:27 IMPRESSION: No pulmonary embolus. No thoracic aortic dissection. Lobar (likely viral) pneumonia, as detailed above. Labs Labs: Laboratory Results - last 24 hr 07/12/24 07/12/24 07/12/24 16:31 16:58 21:22 WBC RBC Hgb Hct MCV MCH MCHC RDW Plt Count MPV Immature Gran % (Auto) Neut % (Auto) Lymph % (Auto) [place] % (Auto) Eos % (Auto) Baso % (Auto) Lymph # (Auto) [place] # (Auto) Eos # (Auto) Baso # (Auto) Abs Immat Gran (auto) Absolute Neuts (auto) Absolute Nucleated RBC Nucleated RBC % % Immature Plt Fraction Sodium 133 L Potassium 4.0 Chloride 97 L Carbon Dioxide 28 Anion Gap 8 BUN 30 H Creatinine 0.91 Estim Creat Clear Calc 93 Estimated GFR > 60 Glucose 247 H POC Capillary Glucose 298 H 393 H Calcium 8.5 Magnesium Total Bilirubin 1.0 AST 26 ALT 19 Alkaline Phosphatase 77 Total Protein 6.0 L Albumin 3.4 L 07/13/24 07/13/24 07/13/24 05:42 07:46 11:26 WBC 5.4 RBC 5.47 Hgb 16.9 Hct 49.3 MCV 90.1 MCH 30.9 MCHC 34.3 RDW 12.9 Plt Count 123 L MPV 10.6 H Immature Gran % (Auto) 0.4 Neut % (Auto) 75.0 H Lymph % (Auto) 13.2 L [place] % (Auto) 11.2 H Eos % (Auto) 0.0 Baso % (Auto) 0.2 Lymph # (Auto) 0.71 L [place] # (Auto) 0.6 Eos # (Auto) 0.0 Baso # (Auto) 0.0 Abs Immat Gran (auto) 0.02 Absolute Neuts (auto) 4.0 Absolute Nucleated RBC 0.000 Nucleated RBC % 0.0 % Immature Plt Fraction 4.9 Sodium Potassium Chloride Carbon Dioxide Anion Gap BUN Creatinine Estim Creat Clear Calc Estimated GFR Glucose POC Capillary Glucose 257 H 342 H Calcium Magnesium 2.0 Total Bilirubin AST ALT Alkaline Phosphatase Total Protein Albumin
[2024-07-13 15:36] LABS: Alanine Aminotransferase 18 U/L (6-50); Albumin Level 3.4 g/dL (3.5-5.1); Alkaline Phosphatase 77 U/L (38-126); Anion Gap 7 mmol/L (4-12); Aspartate Amino Transferase 28 U/L (17-59); Bilirubin,Total 0.7 mg/dL (0.2-1.3); Blood Urea Nitrogen 24 mg/dL (9-20); Calcium 9.2 mg/dL (8.4-10.2); Carbon Dioxide 31 mmol/L (22-30); Chloride 99 mmol/L (98-107); Estimated CRCL calculation 125 ml/min; Estimated Glomerular Filt Rate > 60; Glucose 235 mg/dL (65-110); Potassium 3.7 mmol/L (3.4-5.0); Sodium 137 mmol/L (137-145)
[2024-07-13] MEDS: RIVAROXABAN 20 MG TABLET PO (16:40)
[2024-07-13 16:52] LABS: Glucose Point of Care 379 mg/dl (65-105)
[2024-07-13] MEDS: INSULIN ASPART (*BKC) 100 UNITS/ML 8 UNITS SUB-Q (17:27)
[2024-07-13] MEDS: CALCIUM CARBONATE (TUMS) 500 MG (200 MG ELEMENTAL) PO (17:35)
[2024-07-13] MEDS: GABAPENTIN 300 MG CAPSULE 900 MG PO (21:29)
[2024-07-13] MEDS: ATORVASTATIN 20 MG TABLET PO (21:29)
[2024-07-13 21:38] LABS: Glucose Point of Care > 500 mg/dl (65-105)
[2024-07-13 21:38] LABS: Glucose Point of Care 352 mg/dl (65-105)
[2024-07-14] MEDS: LEVALBUTEROL NEB 1.25 MG/3 ML INHALATION ×2 (01:59→08:30)
[2024-07-14 02:00] VITALS: PULSE 83; RESP 18
[2024-07-14 06:00] VITALS: BP 122/85; PULSE 85; RESP 18; TEMP 36.8; O2SAT 98
[2024-07-14 06:46] LABS: Basophils Percent Auto 0.1 % (0.2-1.2); Hematocrit 48.9 % (42.0-52.0); Hemoglobin 16.4 g/dL (14.0-18.0); Immature Granulocyte Absolute 0.05 K/mm3 (0.00-0.031); Immature Granulocyte Percent A 0.6 % (0-0.5); Lymphocytes Absolute Auto 1.26 K/mm3 (0.9-3.2); Lymphocytes Percent Auto 14.7 % (18.3-44.2); Mean Corpuscular HGB Conc 33.5 g/dl (32-36); Mean Corpuscular Volume 89.6 fl (80-100); Mean Platelet Volume 10.5 fl (7.4-10.4); Monocytes Absolute Auto 0.8 K/mm3 (0.1-0.6); Monocytes Percent Auto 9.7 % (2.6-8.5); Neutrophils Absolute Auto 6.4 K/mm3 (1.3-6.7); Neutrophils Percent Auto 74.9 % (45.5-73.1); Platelet Count Result 169 k/mm3 (150-375); Red Blood Count 5.46 M/mm3 (4.6-6.20); White Blood Count 8.6 K/mm3 (4.5-10.0)
[2024-07-14 07:54] LABS: Glucose Point of Care 190 mg/dl (65-105)
[2024-07-14 08:00] VITALS: O2SAT 98
[2024-07-14 08:30] VITALS: PULSE 72; RESP 20; O2SAT 92
[2024-07-14 08:40] VITALS: PULSE 74; RESP 20
[2024-07-14 09:03] VITALS: PULSE 64
[2024-07-14] MEDS: carvediloL 25 MG TABLET PO (09:03)
[2024-07-14] MEDS: DIGOXIN TAB 125 MCG TABLET PO (09:03)
[2024-07-14] MEDS: FUROSEMIDE 40 MG TABLET PO (09:03)
[2024-07-14] MEDS: guaiFENesin 12 HR 600 MG TABCR PO (09:04)
[2024-07-14] MEDS: SPIRONOLACTONE 25 MG TABLET PO (09:04)
[2024-07-14] MEDS: levoFLOXacin 750 MG TABLET PO (09:04)
[2024-07-14] MEDS: SACUBITRIL/VALSARTAN 97-103 MG TABLET 1 TAB PO (09:04)
[2024-07-14] MEDS: methylPREDNISolone SOD SUCC 40 MG VIAL IV PUSH (09:05)
[2024-07-14] MEDS: INSULIN ASPART (*BKC) 100 UNITS/ML 8 UNITS SUB-Q ×2 (09:09→12:45)
[2024-07-14] MEDS: INSULIN GLARGINE (*BKC) 100 UNITS/ML 25 UNITS SUB-Q (09:10)
[2024-07-14 12:06] LABS: Glucose Point of Care 236 mg/dl (65-105)
--- NOTE | 2024-07-14 12:33 | P.DS_ITS ---
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 carvedilol 25 mg q.12 hours p.o. Xarelto 20 mg daily p.o., patient rate is now controlled. patient was also found to have congestive heart failure most likely acute on chronic systolic congestive heart failure with last echo showing EF of 35-40 %. patient was treated with IV lasix and then switched to po, patient now remain stable and his baseline, will discharge patient today. Time Spent with Patient Time attestation: Total time spent providing and/or coordinating discharge services: DS: Data Data Completed and Pending Labs on day of discharge: Labs from last 24 hours 07/14/24 07/14/24 07/14/24 12:01 07:50 05:53 WBC 8.6 RBC 5.46 Hgb 16.4 Hct 48.9 MCV 89.6 MCH 30.0 MCHC 33.5 RDW 13.0 Plt Count 169 MPV 10.5 H Immature Gran % (Auto) 0.6 H Neut % (Auto) 74.9 H Lymph % (Auto) 14.7 L [place] % (Auto) 9.7 H Eos % (Auto) 0.0 Baso % (Auto) 0.1 L Lymph # (Auto) 1.26 [place] # (Auto) 0.8 H Eos # (Auto) 0.0 Baso # (Auto) 0.0 Abs Immat Gran (auto) 0.05 H Absolute Neuts (auto) 6.4 Absolute Nucleated RBC 0.000 Nucleated RBC % 0.0 Sodium Potassium Chloride Carbon Dioxide Anion Gap BUN Creatinine Estim Creat Clear Calc Estimated GFR Glucose POC Capillary Glucose 236 H 190 H Calcium Magnesium Cancelled Total Bilirubin AST ALT Alkaline Phosphatase Total Protein Albumin 07/13/24 07/13/24 07/13/24 21:07 20:52 16:48 WBC RBC Hgb Hct MCV MCH MCHC RDW Plt Count MPV Immature Gran % (Auto) Neut % (Auto) Lymph % (Auto) Refug[place] % (Auto) Eos % (Auto) Baso % (Auto) Lymph # (Auto) Refugio # (Auto) Eos # (Auto) Baso # (Auto) Abs Immat Gran (auto) Absolute Neuts (auto) Absolute Nucleated RBC Nucleated RBC % Sodium Potassium Chloride Carbon Dioxide Anion Gap BUN Creatinine Estim Creat Clear Calc Estimated GFR Glucose POC Capillary Glucose 352 H > 500 H* 379 H Calcium Magnesium Total Bilirubin AST ALT Alkaline Phosphatase Total Protein Albumin 07/13/24 05:37 WBC RBC Hgb Hct MCV MCH MCHC RDW Plt Count MPV Immature Gran % (Auto) Neut % (Auto) Lymph % (Auto) Refug[place] % (Auto) Eos % (Auto) Baso % (Auto) Lymph # (Auto) Refugio # (Auto) Eos # (Auto) Baso # (Auto) Abs Immat Gran (auto) Absolute Neuts (auto) Absolute Nucleated RBC Nucleated RBC % Sodium 137 Potassium 3.7 Chloride 99 Carbon Dioxide 31 H Anion Gap 7 BUN 24 H Creatinine 0.66 L Estim Creat Clear Calc 125 Estimated GFR > 60 Glucose 235 H POC Capillary Glucose Calcium 9.2 Magnesium Total Bilirubin 0.7 AST 28 ALT 18 Alkaline Phosphatase 77 Total Protein 6.0 L Albumin 3.4 L Discharge Plan Discharge Attending physician on discharge: Corrine Landers Consulting providers: Carlos Eduardo Matos; Mikala Parrish; Mp Amaro; Shmuel Ronquillo; Fabian Pettit V.; Danni Daniel Discharging Clinician: Michaela Brothers Patient Disposition: Home, Self-Care Activity: as tolerated Diet: heart healthy and diabetic Discharge Instructions: patient to follow up with his primary care provider as soon as possible, patient is instructed to monitor his blood sugars closely and avoid have meals, patient is instructed if any symptoms redevelop to go to nearest ER Patient Instructions: Antibiotic Form, Rivaroxaban (By mouth), Heart Failure (DC) Patient Language: Portuguese Stand Alone Forms: General Discharge Information Follow-up/Referrals: Alex,KERRY Mariscal [Primary Care Provider] - Carlos Eduardo Matos DO [Physician] - Discharge Medications: New guaifenesin [Mucus Relief ER] 600 mg Tablet Extended Release 12hr 600 mg PO Q12HR Qty: 60 0RF levalbuterol HCl 1.25 mg/3 mL Solution For Nebulization 1.25 mg inhalation Q6HRT Qty: 90 0RF prednisone 10 mg tablet 10 mg PO DAILY Qty: 42 0RF Rx Instructions: 6Tx2d, 5Tx2d, 4Tx2d, 3Tx2d, 2Tx2, 1Tx2d (DME) nebulizer accessories Kit See Rx Instructions .Route Qty: 1 0RF Rx Instructions: As directed Continued carvedilol 25 mg tablet 25 mg PO Q12H Xarelto 20 mg Tablet 20 mg PO DAILY@1700 Qty: 90 0RF digoxin 125 mcg (0.125 mg) tablet 0.125 mg PO DAILY insulin glargine [Lantus Solostar U-100 Insulin] 100 unit/mL (3 mL) insulin pen 25 unit SUBCUT BID Trulicity 3 mg/0.5 mL pen injector 3 mg SUBCUT WEEKLY furosemide [Lasix] 40 mg tablet 40 mg PO BID 30 Days Qty: 60 0RF atorvastatin 20 mg tablet 20 mg PO HS Qty: 30 0RF sacubitril-valsartan [Entresto] 97-103 mg tablet 1 tablet PO BID spironolactone 25 mg tablet 25 mg PO DAILY Patient Comments: - medication prescribed by primary md-pt stated he is not start taking this medication- gabapentin 300 mg capsule 900 mg PO HS Date of admission: 07/08/24 05:37 Primary Care Provider: AlexElsi Admitting Provider: Corrine Landers Attending physician on admission: Michaela Brothers Condition: Stable
[2024-07-14] MEDS: INSULIN ASPART (*BKC) 100 UNITS/ML SUB-Q (12:45)
== END 2024-07-14 13:48 | disposition home or self-care (01) | DRG 193 ==
LOC: ANHED 06:15 → ANHIMU 06:43 → ANH3MEDSUR 07-11 14:19
PROVIDERS: Internal Medicine; Nurse Practitioner; Admitting Provider Internal Medicine; Emergency Provider Emergency Medicine; PCP Physician Assistant; Visit Provider Family Medicine
DX: J10.08 Influenza due to other identified influenza virus with other specified pneumonia (principal); I50.23 Acute on chronic systolic (congestive) heart failure; I42.8 Other cardiomyopathies; J10.1 Influenza due to other identified influenza virus with other respiratory manifestations; J12.9 Viral pneumonia, unspecified; I48.0 Paroxysmal atrial fibrillation; I11.0 Hypertensive heart disease with heart failure; J44.9 Chronic obstructive pulmonary disease, unspecified; E11.9 Type 2 diabetes mellitus without complications; E78.5 Hyperlipidemia, unspecified; M19.90 Unspecified osteoarthritis, unspecified site; F32.A Depression, unspecified; F41.9 Anxiety disorder, unspecified; F17.210 Nicotine dependence, cigarettes, uncomplicated; Z20.822 Contact with and (suspected) exposure to COVID-19; Z79.4 Long term (current) use of insulin; Z80.0 Family history of malignant neoplasm of digestive organs
CPT/HCPCS: 36415; 36600; 71045; 71275; 80053; 80162; 81001; 82805; 82948; 83605; 83690; 83735; 83880; 84100; 84484; 85018; 85025; 85055; 85610; 85730; 87040; 87637; 93005; 93306; 94640; 96374; 96375; 97162; 97165; 97530; 97535; 99285; A9270; J1160; J1815; J1940; J1956; J2765; J2919; J3475; Q9967

== ENCOUNTER 2024-11-23 10:23 | Emergency (ER) | payer MEDICARE, MEDICAID, SELFPAY ==
--- NOTE | 2024-11-23 10:24 | ED_ITS ---
HPI - URI/Sore Throat General Chief Complaint: Upper Respiratory Infection Stated Complaint: out of breath/congestion Time Seen by Provider: 11/23/24 10:23 Source: patient Mode of arrival: ambulatory Limitations: no limitations History of Present Illness HPI Narrative: Patient is a 59-year-old male who presents with 10 days of chest congestion, productive cough, shortness of breath with activity. Denies any fever, chills, nausea, vomiting, diarrhea, sore throat, body aches, headache. Was diagnosed with pneumonia in June. History of AFib and CHF. Patient is currently a 1 [id number] smoker Related Data Home Medications ?Medication ?Instructions ?Recorded ?Confirmed ?Last Taken ?Type carvedilol 25 mg tablet 25 mg PO Q12H 01/30/20 07/08/24 07/07/24 History sacubitril 97 mg-valsartan 103 mg 1 tablet PO BID 04/16/22 07/08/24 Unknown History tablet (Entresto) gabapentin 300 mg capsule 900 mg PO HS 04/17/22 07/08/24 07/07/24 History spironolactone 25 mg tablet 25 mg PO DAILY 04/17/22 07/08/24 Unknown History digoxin 125 mcg (0.125 mg) tablet 0.125 mg PO DAILY 01/21/23 07/08/24 07/07/24 History dulaglutide 3 mg/0.5 mL 3 mg subcut WEEKLY 01/22/23 07/08/24 01/15/23 History subcutaneous pen injector (Trulicity) insulin glargine 100 unit/mL (3 25 unit subcut BID 01/22/23 07/08/24 07/07/24 History mL) subcutaneous pen (Lantus Solostar U-100 Insulin) Allergies Allergy/AdvReac Type Severity Reaction Status Date / Time alprazolam (From Xanax) Allergy Agitated Verified 11/23/24 10:23 Review of Systems Review of Systems: All systems reviewed & are unremarkable except as noted in HPI and below Constitutional: Constitutional: Denies chills, Denies fatigue, Denies fever(s), Denies headache(s), Denies malaise and Denies weakness Eyes: Eyes: Denies blurry vision, Denies itchy eyes and Denies loss of vision ENT: Denies otalgia, Denies headache(s), Denies nasal congestion, Denies sinus pain and Denies sore throat Cardiovascular: Cardiovascular: Denies chest pain, Denies irregular heart rhy thm and Denies dyspnea Respiratory: Respiratory: Reports chest congestion, Reports cough and Reports dyspnea on exertion Gastrointestinal: Gastrointestinal: Denies abdominal pain, Denies diarrhea, Denies nausea and Denies vomiting Musculoskeletal: Musculoskeletal: Denies back pain, Denies myalgias and Denies arthralgias Integumentary/Breasts: Skin/Breast: Denies pruritus and Denies rash Neurologic: Denies headache(s), Denies loss of vision and Denies weakness Psychiatric: Psychiatric: Reports no additional psychiatric complaints Endocrine: Endocrine: Denies fatigue Allergic/Immunologic: Allergic/Immunologic: Denies itchy eyes PMFSH Past Medical History Medical History Hypertension associated with diabetes Heart failure with reduced ejection fraction Chronic obstructive pulmonary disease Tobacco dependence Noncompliance w/medication treatment due to intermit use of medication Dyslipidemia Osteoarthritis Depression with anxiety Paroxysmal atrial fibrillation On long-term anticoagulation with warfarin. Insulin dependent diabetes mellitus Hemoglobin A1c was 10.5 in 01/2020. Combined systolic and diastolic congestive heart failure Echocardiogram in July 2020 showed an EF of 15 to 20% with abnormal diastolic function; EF improved to 40 to 45% on repeat echo in March 2022. Nonischemic cardiomyopathy Lexiscan in February 2019 showed no reversible changes and ejection fraction of 32%. Essential hypertension Surgical History Surgical History No history of previous surgery Family History Family History Grandparent Diabetes mellitus Father Carcinoma of colon Mother Carcinoma of colon Sibling COPD (chronic obstructive pulmonary disease) Heart disease Multiple sclerosis Social History Social History Social History: The patient is single and lives in [place] with his tea cup marlena named Willard. He is and has 2 children, son and daughter, but unfortunately they are estranged. 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 He designates his sister, Kavita Gleason, as his surrogate decision maker and he wishes to be a full code. He has smoked up to a pack of cigarettes per day since age of 13. The patient is down to half a pack a cigarettes a day. He drank heavily in the past but has abstained for 18+ years. History of substance abuse long ago. He designates his brother Chidi Chand or his sister Kavita Gleason as his surrogate decision makers and he wishes to be a full code. Smoking packs per day: 1 Smoking cigarettes per day: 20.0 Years smoked: 40 Smoking pack-years: 40.00 Smoking status: Current every day smoker Tobacco type: cigarettes Alcohol intake: never Substance use: never Substance use type: does not use Do You Feel Safe in your Home?: Yes Lack of Transportation: No Lack of Food: Never True Current Housing: I Have Housing Concerned About Future Housing: No Difficulty Paying Gas/Electric Bills: YES Difficulty Paying for Meds: No Currently Unemployed: No Education: Trade/Vocational Certificate Difficulty w/ Childcare or Family Care: No Spiritual care concerns: No Agree to blood products: Yes Comments At time of signature, agree with nursing past medical, surgical, social and family history. There is no relevant family history pertinent to the presenting complaint. Exam Const: General: cooperative, healthy appearing, comfortable, no acute distress and well nourished Nutritional Appearance: well nourished Orientation/consciousness: patient oriented x3 Limitations: no limitations HENMT: Head: normal to inspection, normocephalic and atraumatic Ears: hearing grossly normal bilaterally, external ears normal, TM's normal bilaterally, EAC's normal and no periauricular adenopathy Face/Nose/Sinus: Normal external nose present, Abnormal mucous membranes and turbinates present erythematous bilateral and diffuse, normal facial exam, sinuses nontender and face symmetric Face and sinus: normal facial exam, sinuses nontender and face symmetric Mouth: Yes Normal oral and palatal mucosa present, Yes lip normal, Yes tongue normal, Yes Normal salivary glands and ducts present, Yes oropharynx normal and Yes moist mucous membranes Teeth and gingiva: dentition normal Throat: posterior oropharynx normal, tonsils normal and uvula midline Eyes: General: appearance normal, both eyes and all related structures Alignment and Position: alignment normal and position normal Periorbital: periorbital findings normal Eyelids: eyelids normal Pupils: Equal, round and reactive pupils present Neck: Neck: normal visual inspection, full ROM, no lymphadenopathy and supple Chest: Chest palpation & inspection: normal inspection of the chest and normal palpation of entire chest wall Resp: Effort & Inspection: normal respiratory effort, able to speak in complete sentences and Actively coughing productive Auscultation: clear to auscultation bilaterally, no crackles, no rales, no rhonchi, no wheezes and diminished lung sounds on the right in the lower lung mtz Cardio: Rate: tachycardic Rhythm: regular rhythm Heart sounds: S1 normal heart sound present and S2 normal heart sound present GI: Inspection: normal to inspection Skin: General skin exam: normal color and no rashes or lesions noted Neuro: General: patient oriented x3 and moves all extremities Cranial nerves: Yes Equal, round and reactive pupils present Speech: normal speech Gait exam (Neuro): Normal gait present Extrem: General: normal to inspection, full ROM and no edema Psych: Appearance: grossly normal and well kempt Mental Status: mental status grossly normal Speech and movement: Normal speech and movement present Affect: normal affect Attitude: cooperative Thought process: Normal thought process present Course Course Emergency Course: Discharge instructions reviewed with patient, as well as provided in writing per nursing staff. The instructions also include specific and strict return/GO TO THE ER as well as f/u information. All questions have been answered, and the patient deny any further questions with discharge and discharge plan. Portions of this record may have been created with voice recognition software Level of Care: Express Care Visit Vital Signs Vital signs: Reviewed MDM - URI/Sore Throat MDM Narrative Medical decision making narrative: Exam consistent with purulent bronchitis with mild concern for pneumonia. No x- ray available at this time. Will treat with dual antibiotics and steroids based on history and exam. Pt well hydrated appearing, in no respiratory distress, hemodynamically stable. Recommend supportive care. The patient is stable at time of discharge the clinical impression was discussed and the patient was given the opportunity to ask questions, which were addressed as completely as possible given the information available at present. Anticipatory guidance and return to care precautions were discussed and the importance of primary care follow-up was stressed and encouraged. The patient voiced understanding of the plan, indications to return, and the need for follow-up. Exam findings show no acute concerns or changes Patient is appropriate for outpatient treatment and follow-up. Differential diagnosis considered: Iyer virus, strep pharyngitis, allergic rhinitis, upper respiratory tract infection, sinusitis, rhinosinusitis, nasopharyngitis. viral pharyngitis, otitis media, otitis externa, otitis effusion, foreign body, cerumen impaction, viral syndrome, and influenza.? Medical Records Attestation: I reviewed the patient's medical records. Discharge Plan Discharge Clinical Impression: Acute purulent bronchitis Patient Disposition: Home Condition: Stable Instructions: Acute Bronchitis (ED) Additional Instructions: Take antibiotic as prescribed. Take steroids in the morning with food. Use Tessalon Perles as needed for cough. Use nebulizer as needed for shortness of breath. You have been prescribed Doxycycline today.It may make your skin more sensitive to sunlight than normal. Make sure you wear sunscreen at all times when outside while on the medication. Other symptomatic treatments include: -Alternate Tylenol and Motrin per package directions for fever or pain: Tylenol 650-1000mg by mouth every 4-6 hours. Do not exceed 4000mg in 24 hours. Advil (Ibuprofen) 600 mg by mouth every 6 hours. Do not exceed 2400mg in 24 hours. 8 AM: Tylenol 11 AM: Ibuprofen 2 PM: Tylenol 5 PM: Ibuprofen 8 PM: Tylenol 11 PM: Ibuprofen 2 AM: Tylenol 5 AM: Ibuprofen -Antihistamine medication such as Benadryl at night and Zyrtec/Claritin/Agustina during the day can help improve symptoms. -Use Flonase twice a day for 5 days then daily to help reduce the inflammation and dry up your sinuses. -You can also use Sudafed or Mucinex. Be sure to drink plenty of water with these medications at least 8 ounces with every dose and it is important to drink 8 to 10 glasses of water per day. Water is a natural decongestant -Eat and drink things that are easy to swallow, like tea or soup, or popsicles. -Oral rinses such as: Salt water gargles and/or may use topical anesthetic (eg. Chloraseptic spray) or lozenges to relieve dryness or throat pain). -Frequent hand washing or hand shuttler car is one of the best ways to prevent spread of infection. -Using a vaporizer or humidifier at night will also help thin secretions and help with coughing up phlegm. Call your Primary Care Doctor and make a follow-up appointment in 3 days. If your cough worsens, you develop a fever greater than 103, you develop shaking chills, a fast heartbeat, trouble breathing and/or feel you are are breathing much faster than usual, call your Primary Care Doctor or go to the ER. Your blood pressure was elevated above 120/80 today at Urgent Care. This puts you above the threshold for follow up visit with a primary care provider. High blood pressure does not usually cause any symptoms, however it may lead to kidney failure, stroke, heart disease just to name a few if untreated . Many people are anxious when seeing a provider or nurse. As a result, you are not diagnosed with hypertension at this time unless your blood pressure is persistently high at two office visits at least one week apart. Some things that can help lower blood pressure are lifestyle modifications, such as light exercise, decreased salt in diet, and weight loss. It is important to follow up with a PCP about this within 1 week. Patient Language: Qatari Prescriptions: New albuterol sulfate 2.5 mg /3 mL (0.083 %) solution for nebulization 2.5 mg inhalation Q6H Qty: 90 0RF benzonatate 100 mg capsule 100 mg PO BID PRN (Reason: cough) Qty: 14 0RF amoxicillin-pot clavulanate 875-125 mg tablet 1 tablet PO Q12H 10 Days Qty: 20 0RF prednisone 20 mg tablet 40 mg PO DAILY 5 Days Qty: 10 0RF doxycycline monohydrate 100 mg tablet 100 mg PO BID 10 Days Qty: 20 0RF No Action carvedilol 25 mg tablet 25 mg PO Q12H Xarelto 20 mg Tablet 20 mg PO DAILY@1700 Qty: 90 0RF digoxin 125 mcg (0.125 mg) tablet 0.125 mg PO DAILY insulin glargine [Lantus Solostar U-100 Insulin] 100 unit/mL (3 mL) insulin pen 25 unit SUBCUT BID Trulicity 3 mg/0.5 mL pen injector 3 mg SUBCUT WEEKLY furosemide [Lasix] 40 mg tablet 40 mg PO BID 30 Days Qty: 60 0RF levalbuterol HCl 1.25 mg/3 mL Solution For Nebulization 1.25 mg inhalation Q6HRT Qty: 90 0RF atorvastatin 20 mg tablet 20 mg PO HS Qty: 30 0RF (DME) nebulizer accessories Kit See Rx Instructions .Route Qty: 1 0RF Rx Instructions: As directed sacubitril-valsartan [Entresto] 97-103 mg tablet 1 tablet PO BID spironolactone 25 mg tablet 25 mg PO DAILY Patient Comments: - medication prescribed by primary md-pt stated he is not start taking this medication- gabapentin 300 mg capsule 900 mg PO HS Follow-up/Referrals: Alex,KERRY Mariscal [Primary Care Provider] - 3 Days Time of Disposition: 11:28
[2024-11-23 10:30] VITALS: BP 169/108; PULSE 109; RESP 16; TEMP 36.6; O2SAT 95
== END 2024-11-23 11:35 | disposition home or self-care (01) ==
PROVIDERS: Emergency Provider Nurse Practitioner Family; PCP Physician Assistant
DX: J40 Bronchitis, not specified as acute or chronic (principal); I48.0 Paroxysmal atrial fibrillation; F17.210 Nicotine dependence, cigarettes, uncomplicated; I11.0 Hypertensive heart disease with heart failure; I50.9 Heart failure, unspecified; J44.9 Chronic obstructive pulmonary disease, unspecified; E78.5 Hyperlipidemia, unspecified; M19.90 Unspecified osteoarthritis, unspecified site; Z79.4 Long term (current) use of insulin; E11.9 Type 2 diabetes mellitus without complications; I42.8 Other cardiomyopathies
CPT/HCPCS: 99213; G0463